=== PATIENT | female | born 1945 | race Caucasian/White ===

== ENCOUNTER → 2018-05-23 11:58 | Outpatient (CLI) | payer MEDICARE, SELFPAY ==
--- NOTE | 2018-05-23 | DI.MG.S_ITS ---
BILATERAL DIGITAL SCREENING MAMMOGRAM 3D/2D WITH CAD: 05/23/2018 CLINICAL: Routine screening. Family history of breast cancer. Comparison is made to exams dated: 05/13/2017 mammogram, 03/16/2016 mammogram, and 06/04/2014 mammogram - [facility]. The tissue of both breasts is heterogeneously dense. This may lower the sensitivity of mammography. Current study was also evaluated with a Computer Aided Detection (CAD) system. No significant masses, calcifications, or other findings are seen in either breast. There has been no significant interval change. IMPRESSION: NEGATIVE There is no mammographic evidence of malignancy. A 1 year screening mammogram is recommended. This exam was interpreted at Station ID: [id number]. NOTE: For mammograms, a report in lay terms will be sent to the patient. Approximately 15% of breast malignancies will not be visualized mammographically. In the management of a palpable breast mass, a negative mammogram must not discourage biopsy of a clinically suspicious lesion. Electronically Signed By: Mike gonzalez/rui:05/23/2018 15:22:19 letter sent: Normal Exam ACR BI-RADS Category 1: Negative [id number]
== END ==
PROVIDERS: PCP Family Medicine; Visit Provider Family Medicine
DX: Z12.31 Encounter for screening mammogram for malignant neoplasm of breast (principal); Z80.3 Family history of malignant neoplasm of breast
CPT/HCPCS: 77063; 77067

== ENCOUNTER 2018-09-06 15:15 | Outpatient (RCR) | payer MEDICARE, SELFPAY ==
--- NOTE | 2018-07-25 18:23 | PT.OIE ---
Current Diagnoses Benign paroxysmal vertigo, right ear (07/25/18) Unspecified abnormalities of gait and mobility (07/25/18) Dizziness and giddiness (07/25/18) Past Medical History (Last Updated 04/04/18 @ 08:29 by Seble Levine) Colon polyp (Chronic ~2003) Hearing loss (Chronic ~194) Osteopenia (Chronic ~2010) Plantar warts (Chronic ~1994) Rosacea (Chronic ~1999) Shoulder pain (Chronic ~2013) Skin cancer (Chronic ~2004) Past Surgical History (Last Updated 04/04/18 @ 08:32 by Seble Levine) Anesthesia (Resolved) Ear problem (Resolved ~1969) Status post breast lumpectomy Status post tonsillectomy and adenoidectomy Provider Visit Care Team Role Provider Type Jus Chand MD Primary Care Provider Physician Specialty: Family Practice Address: [address] [place] [address] Email: [email or web address] Sheldon Mtz MD Attending Provider Physician Specialty: Ear, Nose, Throat Address: [address] [place] [address] Email: Physical Therapy Initial Evaluation PT-OP-A Visit Information Start: 07/25/18 15:42 Freq: Status: Active Protocol: Document 07/25/18 11:15 DCW (Rec: 07/25/18 18:22 DC [id number]) Out-Patient Physical Therapy Visit Information Visit Information Visit Type Initial Evaluation Visit Start Time 11:15 Visit Stop Time 12:00 Total Visit Minutes 45 Visit Number 1 Number of PACKAGE MAKER Visits 0 Evaluation Information Evaluation Date 07/25/18 PT-OP-B Current Condition Start: 07/25/18 15:42 Freq: Status: Active Protocol: Document 07/25/18 11:15 DCW (Rec: 07/25/18 18:22 DC [id number]) Current Condition History of Current Condition Onset Date Four years Current Complaints Imbalance/Light-headedness History of Current Condition Pt is a 73 year old female complaining of a Four year history of motion-induced imbalance/light-headedness. Pt notes that four years ago, she became really dizzy when out camping, reports her world was spinning, and she became nauseous and began vomiting for over 24 hours. Ever since that time, pt reports waxing and waning episodes of a feeling of imbalance and tipsiness lasting a few seconds when she tilts her head down. Pt reports episodes last just a few seconds. Symptoms are present probably 4x/week. 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 Pt denies tinnitus, diplopia, dysarthria, discoordination, or decreased mentation/consciousness. Pt denies hx of HTN, diabetes, arrhythmia, head trauma, seizure, migraines, back/neck problems, CVA, anxiety/panic disorders, depression, or excessive smoking or drinking. 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 PT-OP-C Subjective Start: 07/25/18 15:42 Freq: Status: Active Protocol: Document 07/25/18 11:15 DCW (Rec: 07/25/18 18:22 [facility] [id number]) Patient Questionnaires ABC- Activity Specific Balance Confidence Scale ABC Score 89.38% Dizziness Handicap Inventory DHI Score 24% DHI Functional Impairment 20 to 39% Impaired (Score 20- 39) OP-PT Pain Assessment Pain Assessment Grid Paper Pain Assessment Grid Completed No PT-OP-O Vestibular Start: 07/25/18 15:42 Freq: Status: Active Protocol: Document 07/25/18 11:15 DCW (Rec: 07/25/18 18:22 [facility] [id number]) Vestibular Assessment Screening Tests Vestibular Artery Screen Negative Auditory Tests Kumar Test NT -L deaf Rinne Test NT -L deaf Visual Testing Smooth Pursuits Horizontal Negative Saccades Horizontal Negative Gaze Evoked Nystagmus With Fixation Negative Gaze Evoked Nystagmus Without Fixation Negative Heave Test Positive Left Thrust Head Positive Left Head Shake R beating Positional Testing Dominick-Hallpike Positive Right Negative Left Rolling Test Negative Left Negative Right Supine to Sit Negative Cervical Vertigo Test Negative PT-OP-Q Treatments Start: 07/25/18 15:42 Freq: Status: Active Protocol: Document 07/25/18 11:15 DCW (Rec: 07/25/18 18:22 DCW [id number]) Canalithic Repositioning BPPV Treatment Amry Affected Canal(s) Right Reps x2 PT-OP-T Assessment and Plan Start: 07/25/18 15:42 Freq: Status: Active Protocol: Document 07/25/18 11:15 DCW (Rec: 07/25/18 18:22 DC [id number]) Physical Therapy Assessment Rehab Potential Rehabilitation Potential Good Evaluation Complexity Number of Personal Factors/Comorbidities 1-2 Number of Body Systems Impaired 3 Clinical Presentation at Evaluation Unstable Impairments Impairments Balance Vestibular Goals Two Impairment DHI Short Term Goal (STG) Pt to score 10% onb DHI STG Duration 08/24/18 One Impairment Positional imbalance Short Term Goal (STG) Pt to bend forward with no increase of imbalance STG Duration 08/24/18 Assessment Summary Assessment Pt presents with a somewhat inconclusive vestibular assessment. 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 Her positive right head shake test could indicate a right BPPV, or a left hypofunction, and again, due to her history, is inconclusive. During her right [place]-Hallpike, even with Frenzel lenses, she had a very mild, almost imperceptible, brief nystagmus, which may have been upbeating and torsional, but it was very hard to visualize. Pt was treated with a right Mary maneuver, and further testing appeared to be negative. As her testing was so inconclusive, further testing should be performed during her follow-up appointment, focusing on positional and balance testing. Pt was educated on BPPV, expectations for treatment, possible recurrence, and post-Mary restrictions. Physical Therapy Plan Frequency and Duration Frequency of Treatment 2x/Week Duration of Treatment 2 months Plan of Care Start Date 07/25/18 Plan of Care End Date 09/24/18 Therapeutic Interventions Therapeutic Interventions Balance Training Canalithic Repositioning Vestibular Rehabilitation Next Visit Focus/Plan Next Note Type Treatment Note Next Visit Plan Assessment of Mary maneuver, further balance assessment
--- NOTE | 2018-07-25 18:23 | PT.OPPOC ---
Current Diagnoses Benign paroxysmal vertigo, right ear (07/25/18) Unspecified abnormalities of gait and mobility (07/25/18) Dizziness and giddiness (07/25/18) Provider Visit Care Team Role Provider Type Jus Chand MD Primary Care Provider Physician Specialty: Family Practice Address: [address] [place] [address], [id number] Email: [email or web address] Sheldon Mtz MD Attending Provider Physician Specialty: Ear, Nose, Throat Address: [address] [place] [address], [id number] Email: Plan Of Care PT-OP-T Assessment and Plan Start: 07/25/18 15:42 Freq: Status: Active Protocol: Document 07/25/18 11:15 DCW (Rec: 07/25/18 18:22 DCW [id number]) Physical Therapy Assessment Rehab Potential Rehabilitation Potential Good Evaluation Complexity Number of Personal Factors/Comorbidities 1-2 Number of Body Systems Impaired 3 Clinical Presentation at Evaluation Unstable Impairments Impairments Balance Vestibular Goals Two Impairment DHI Short Term Goal (STG) Pt to score 10% onb DHI STG Duration 08/24/18 One Impairment Positional imbalance Short Term Goal (STG) Pt to bend forward with no increase of imbalance STG Duration 08/24/18 Assessment Summary Assessment Pt presents with a somewhat inconclusive vestibular assessment. 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 Her positive right head shake test could indicate a right BPPV, or a left hypofunction, and again, due to her history, is inconclusive. During her right [place]-Hallpike, even with Frenzel lenses, she had a very mild, almost imperceptible, brief nystagmus, which may have been upbeating and torsional, but it was very hard to visualize. Pt was treated with a right Mary maneuver, and further testing appeared to be negative. As her testing was so inconclusive, further testing should be performed during her follow-up appointment, focusing on positional and balance testing. Pt was educated on BPPV, expectations for treatment, possible recurrence, and post-Mary restrictions. Physical Therapy Plan Frequency and Duration Frequency of Treatment 2x/Week Duration of Treatment 2 months Plan of Care Start Date 07/25/18 Plan of Care End Date 09/24/18 Therapeutic Interventions Therapeutic Interventions Balance Training Canalithic Repositioning Vestibular Rehabilitation Next Visit Focus/Plan Next Note Type Treatment Note Next Visit Plan Assessment of Mary maneuver, further balance assessment Plan of Care Dates Plan of Care Start Date 07/25/18 Plan of Care End Date 09/24/18 Please Sign and Return: I have reviewed this Plan of Care and certify that the skilled therapy services above are required to meet the patient?s needs. Physician Signature Date Printed Name and Credentials Clinical Instructor Signature Printed Name and Credentials
--- NOTE | 2018-08-09 15:46 | PT.OTN ---
Current Diagnoses Dizziness and giddiness (08/09/18) Physical Therapy Treatment Note PT-OP-A Visit Information Start: 07/25/18 15:42 Freq: Status: Active Protocol: Document 08/09/18 14:30 DCW (Rec: 08/09/18 15:46 DCW [id number]) Out-Patient Physical Therapy Visit Information Visit Information Visit Type Treatment Note Visit Start Time 14:30 Visit Stop Time 15:15 Total Visit Minutes 45 Visit Number 2 Number of TANK CAR CLEANER Visits 0 Evaluation Information Evaluation Date 07/25/18 PT-OP-B Current Condition Start: 07/25/18 15:42 Freq: Status: Active Protocol: Document 07/25/18 11:15 DCW (Rec: 07/25/18 18:22 DCW [id number]) Current Condition History of Current Condition Onset Date Four years Current Complaints Imbalance/Light-headedness History of Current Condition Pt is a 73 year old female complaining of a Four year history of motion-induced imbalance/light-headedness. Pt notes that four years ago, she became really dizzy when out camping, reports her world was spinning, and she became nauseous and began vomiting for over 24 hours. Ever since that time, pt reports waxing and waning episodes of a feeling of imbalance and tipsiness lasting a few seconds when she tilts her head down. Pt reports episodes last just a few seconds. Symptoms are present probably 4x/week. 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 Pt denies tinnitus, diplopia, dysarthria, discoordination, or decreased mentation/consciousness. Pt denies hx of HTN, diabetes, arrhythmia, head trauma, seizure, migraines, back/neck problems, CVA, anxiety/panic disorders, depression, or excessive smoking or drinking. 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 PT-OP-D Balance Start: 07/25/18 15:42 Freq: Status: Active Protocol: Document 08/09/18 14:30 DCW (Rec: 08/09/18 15:46 DCW [id number]) Balance Tests CTSIB CTSIB Position 1 Slight Sway CTSIB Position 2 Slight Sway CTSIB Position 3 Slight Sway CTSIB Position 4 Mild Sway CTSIB Position 5 Moderate Sway CTSIB Position 6 Moderate Sway PT-OP-O Vestibular Start: 07/25/18 15:42 Freq: Status: Active Protocol: Document 08/09/18 14:30 DCW (Rec: 08/09/18 15:46 DCW [id number]) Vestibular Assessment Vestibular Function Tests Fukuda Test + Left rotation CTSIB Position 1 Slight Sway CTSIB Position 2 Slight Sway CTSIB Position 3 Slight Sway CTSIB Position 4 Mild Sway CTSIB Position 5 Moderate Sway CTSIB Position 6 Moderate Sway PT-OP-Q Treatments Start: 07/25/18 15:42 Freq: Status: Active Protocol: Document 08/09/18 14:30 DCW (Rec: 08/09/18 15:46 DCW [id number]) Neuro Re-Education Treatment Balance Activities 2 Details SLS 1 Details Narrow OILVE Comments Head turns, eyes closed PT-OP-T Assessment and Plan Start: 07/25/18 15:42 Freq: Status: Active Protocol: Document 08/09/18 14:30 DCW (Rec: 08/09/18 15:46 DCW [id number]) Physical Therapy Assessment Impairments Impairments Balance Vestibular Goals Two Impairment DHI Short Term Goal (STG) Pt to score 10% on DHI STG Duration 08/24/18 One Impairment Positional imbalance Short Term Goal (STG) Pt to bend forward with no increase of imbalance STG Duration 08/24/18 Assessment Summary Assessment Pt testing continues to be inconclusive, although does appear to be suggestive of some vestibular dysfunction, although it may be largely compensated. Pt had the most difficulty during the FGA with ambulating with head turns and ambulating with eyes closed, and reported some lingering sensations of dizziness afterward. Pt will likely benefit from continued habituation and adaptation exercises, and will work on X1 /X2 viewing exercises and balance training next appointment, as well as further positional retesting. Physical Therapy Plan Frequency and Duration Frequency of Treatment 2x/Week Duration of Treatment 2 months Plan of Care Start Date 07/25/18 Plan of Care End Date 09/24/18 Therapeutic Interventions Therapeutic Interventions Balance Training Canalithic Repositioning Vestibular Rehabilitation Next Visit Focus/Plan Next Note Type Treatment Note Next Visit Plan Assessment of Mary maneuver, further balance assessment, X1 /X2 viewing exercises
--- NOTE | 2018-08-09 15:49 | PT.OTN ---
Current Diagnoses Dizziness and giddiness (08/09/18) Physical Therapy Treatment Note PT-OP-A Visit Information Start: 07/25/18 15:42 Freq: Status: Active Protocol: Document 08/09/18 14:30 DCW (Rec: 08/09/18 15:46 DCW [id number]) Out-Patient Physical Therapy Visit Information Visit Information Visit Type Treatment Note Visit Start Time 14:30 Visit Stop Time 15:15 Total Visit Minutes 45 Visit Number 2 Number of BARREL BRIDGE ASSEMBLER Visits 0 Evaluation Information Evaluation Date 07/25/18 PT-OP-B Current Condition Start: 07/25/18 15:42 Freq: Status: Active Protocol: Document 07/25/18 11:15 DCW (Rec: 07/25/18 18:22 DCW [id number]) Current Condition History of Current Condition Onset Date Four years Current Complaints Imbalance/Light-headedness History of Current Condition Pt is a 73 year old female complaining of a Four year history of motion-induced imbalance/light-headedness. Pt notes that four years ago, she became really dizzy when out camping, reports her world was spinning, and she became nauseous and began vomiting for over 24 hours. Ever since that time, pt reports waxing and waning episodes of a feeling of imbalance and tipsiness lasting a few seconds when she tilts her head down. Pt reports episodes last just a few seconds. Symptoms are present probably 4x/week. 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 Pt denies tinnitus, diplopia, dysarthria, discoordination, or decreased mentation/consciousness. Pt denies hx of HTN, diabetes, arrhythmia, head trauma, seizure, migraines, back/neck problems, CVA, anxiety/panic disorders, depression, or excessive smoking or drinking. 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 PT-OP-D Balance Start: 07/25/18 15:42 Freq: Status: Active Protocol: Document 08/09/18 14:30 DCW (Rec: 08/09/18 15:46 DCW [id number]) Balance Tests CTSIB CTSIB Position 1 Slight Sway CTSIB Position 2 Slight Sway CTSIB Position 3 Slight Sway CTSIB Position 4 Mild Sway CTSIB Position 5 Moderate Sway CTSIB Position 6 Moderate Sway PT-OP-E Functional Tests Start: 08/09/18 15:49 Freq: Status: Active Protocol: Document 08/09/18 14:30 DCW (Rec: 08/09/18 15:49 DCW [id number]) Functional Tests Functional Gait Assessment Score 24/30 Functional Gait Assessment Impairment 20 to <40% Impaired (Score 19- Rating 24) PT-OP-O Vestibular Start: 07/25/18 15:42 Freq: Status: Active Protocol: Document 08/09/18 14:30 DCW (Rec: 08/09/18 15:46 DCW [id number]) Vestibular Assessment Vestibular Function Tests Fukuda Test + Left rotation CTSIB Position 1 Slight Sway CTSIB Position 2 Slight Sway CTSIB Position 3 Slight Sway CTSIB Position 4 Mild Sway CTSIB Position 5 Moderate Sway CTSIB Position 6 Moderate Sway PT-OP-Q Treatments Start: 07/25/18 15:42 Freq: Status: Active Protocol: Document 08/09/18 14:30 DCW (Rec: 08/09/18 15:46 DCW [id number]) Neuro Re-Education Treatment Balance Activities 2 Details SLS 1 Details Narrow OLIVE Comments Head turns, eyes closed PT-OP-T Assessment and Plan Start: 07/25/18 15:42 Freq: Status: Active Protocol: Document 08/09/18 14:30 DCW (Rec: 08/09/18 15:46 DCW [id number]) Physical Therapy Assessment Impairments Impairments Balance Vestibular Goals Two Impairment DHI Short Term Goal (STG) Pt to score 10% on DHI STG Duration 08/24/18 One Impairment Positional imbalance Short Term Goal (STG) Pt to bend forward with no increase of imbalance STG Duration 08/24/18 Assessment Summary Assessment Pt testing continues to be inconclusive, although does appear to be suggestive of some vestibular dysfunction, although it may be largely compensated. Pt had the most difficulty during the FGA with ambulating with head turns and ambulating with eyes closed, and reported some lingering sensations of dizziness afterward. Pt will likely benefit from continued habituation and adaptation exercises, and will work on X1 /X2 viewing exercises and balance training next appointment, as well as further positional retesting. Physical Therapy Plan Frequency and Duration Frequency of Treatment 2x/Week Duration of Treatment 2 months Plan of Care Start Date 07/25/18 Plan of Care End Date 09/24/18 Therapeutic Interventions Therapeutic Interventions Balance Training Canalithic Repositioning Vestibular Rehabilitation Next Visit Focus/Plan Next Note Type Treatment Note Next Visit Plan Assessment of Mary maneuver, further balance assessment, X1 /X2 viewing exercises
--- NOTE | 2018-08-16 14:30 | PT.OTN ---
Current Diagnoses Dizziness and giddiness (08/16/18) Physical Therapy Treatment Note PT-OP-A Visit Information Start: 07/25/18 15:42 Freq: Status: Active Protocol: Document 08/16/18 13:50 DCW (Rec: 08/16/18 14:30 DCW [id number]) Out-Patient Physical Therapy Visit Information Visit Information Visit Type Treatment Note Visit Start Time 13:50 Visit Stop Time 14:30 Total Visit Minutes 40 Visit Number 3 Number of SHOP BLACKSMITH Visits 0 Evaluation Information Evaluation Date 07/25/18 PT-OP-B Current Condition Start: 07/25/18 15:42 Freq: Status: Active Protocol: Document 07/25/18 11:15 DCW (Rec: 07/25/18 18:22 DCW [id number]) Current Condition History of Current Condition Onset Date Four years Current Complaints Imbalance/Light-headedness History of Current Condition Pt is a 73 year old female complaining of a Four year history of motion-induced imbalance/light-headedness. Pt notes that four years ago, she became really dizzy when out camping, reports her world was spinning, and she became nauseous and began vomiting for over 24 hours. Ever since that time, pt reports waxing and waning episodes of a feeling of imbalance and tipsiness lasting a few seconds when she tilts her head down. Pt reports episodes last just a few seconds. Symptoms are present probably 4x/week. 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 Pt denies tinnitus, diplopia, dysarthria, discoordination, or decreased mentation/consciousness. Pt denies hx of HTN, diabetes, arrhythmia, head trauma, seizure, migraines, back/neck problems, CVA, anxiety/panic disorders, depression, or excessive smoking or drinking. 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 PT-OP-C Subjective Start: 07/25/18 15:42 Freq: Status: Active Protocol: Document 08/16/18 13:50 DCW (Rec: 08/16/18 14:30 DCW [id number]) OP-PT Subjective Patient Comments Patient Comments Pt reports she is doing well today PT-OP-D Balance Start: 07/25/18 15:42 Freq: Status: Active Protocol: Document 08/09/18 14:30 DCW (Rec: 08/09/18 15:46 DCW [id number]) Balance Tests CTSIB CTSIB Position 1 Slight Sway CTSIB Position 2 Slight Sway CTSIB Position 3 Slight Sway CTSIB Position 4 Mild Sway CTSIB Position 5 Moderate Sway CTSIB Position 6 Moderate Sway PT-OP-E Functional Tests Start: 08/09/18 15:49 Freq: Status: Active Protocol: Document 08/09/18 14:30 DCW (Rec: 08/09/18 15:49 DCW [id number]) Functional Tests Functional Gait Assessment Score 24/30 Functional Gait Assessment Impairment 20 to <40% Impaired (Score 19- Rating 24) PT-OP-O Vestibular Start: 07/25/18 15:42 Freq: Status: Active Protocol: Document 08/09/18 14:30 DCW (Rec: 08/09/18 15:46 DCW [id number]) Vestibular Assessment Vestibular Function Tests Fukuda Test + Left rotation CTSIB Position 1 Slight Sway CTSIB Position 2 Slight Sway CTSIB Position 3 Slight Sway CTSIB Position 4 Mild Sway CTSIB Position 5 Moderate Sway CTSIB Position 6 Moderate Sway PT-OP-Q Treatments Start: 07/25/18 15:42 Freq: Status: Active Protocol: Document 08/16/18 13:50 DCW (Rec: 08/16/18 14:30 DCW [id number]) Neuro Re-Education Treatment Balance Activities 2 Details SLS 1 Details Narrow OLIVE Comments Head turns, eyes closed Vestibular Rehabilitation Corrective Saccades Distance From Target Arm length Speed as tolerated X2 Viewing Distance From Target Arm length Speed as tolerated X1 Viewing Distance From Target Arm length Speed as tolerated VOR Retraining Distance From Target Arm length Speed as tolerated Self-Care/Home Management Treatment Education Patient Education Fall Risk Home Exercise Program Safety PT-OP-T Assessment and Plan Start: 07/25/18 15:42 Freq: Status: Active Protocol: Document 08/16/18 13:50 DCW (Rec: 08/16/18 14:30 DCW [id number]) Physical Therapy Assessment Impairments Impairments Balance Vestibular Goals Two Impairment DHI Short Term Goal (STG) Pt to score 10% on DHI STG Duration 08/24/18 One Impairment Positional imbalance Short Term Goal (STG) Pt to bend forward with no increase of imbalance STG Duration 08/24/18 Assessment Summary Assessment Pt agreeable to occasional follow-up testing (1x every ~3 weeks), but feels like she will do well wih an appropriate HEP. Physical Therapy Plan Frequency and Duration Frequency of Treatment 2x/Week Duration of Treatment 2 months Plan of Care Start Date 07/25/18 Plan of Care End Date 09/24/18 Therapeutic Interventions Therapeutic Interventions Balance Training Canalithic Repositioning Vestibular Rehabilitation Next Visit Focus/Plan Next Note Type Treatment Note Next Visit Plan Advancement of HEP
--- NOTE | 2018-09-06 15:59 | PT.OTN ---
Current Diagnoses Dizziness and giddiness (09/06/18) Physical Therapy Treatment Note PT-OP-A Visit Information Start: 07/25/18 15:42 Freq: Status: Active Protocol: Document 09/06/18 15:15 DCW (Rec: 09/06/18 15:59 DCW [id number]) Out-Patient Physical Therapy Visit Information Visit Information Visit Type Treatment Note Visit Start Time 15:15 Visit Stop Time 16:00 Total Visit Minutes 45 Visit Number 4 Number of ZINC PLATE GRAINER Visits 0 Evaluation Information Evaluation Date 07/25/18 PT-OP-B Current Condition Start: 07/25/18 15:42 Freq: Status: Active Protocol: Document 07/25/18 11:15 DCW (Rec: 07/25/18 18:22 DCW [id number]) Current Condition History of Current Condition Onset Date Four years Current Complaints Imbalance/Light-headedness History of Current Condition Pt is a 73 year old female complaining of a Four year history of motion-induced imbalance/light-headedness. Pt notes that four years ago, she became really dizzy when out camping, reports her world was spinning, and she became nauseous and began vomiting for over 24 hours. Ever since that time, pt reports waxing and waning episodes of a feeling of imbalance and tipsiness lasting a few seconds when she tilts her head down. Pt reports episodes last just a few seconds. Symptoms are present probably 4x/week. 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 Pt denies tinnitus, diplopia, dysarthria, discoordination, or decreased mentation/consciousness. Pt denies hx of HTN, diabetes, arrhythmia, head trauma, seizure, migraines, back/neck problems, CVA, anxiety/panic disorders, depression, or excessive smoking or drinking. 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 Some of the exercises are getting easier. PT-OP-D Balance Start: 07/25/18 15:42 Freq: Status: Active Protocol: Document 08/09/18 14:30 DCW (Rec: 08/09/18 15:46 DCW [id number]) Balance Tests CTSIB CTSIB Position 1 Slight Sway CTSIB Position 2 Slight Sway CTSIB Position 3 Slight Sway CTSIB Position 4 Mild Sway CTSIB Position 5 Moderate Sway CTSIB Position 6 Moderate Sway PT-OP-E Functional Tests Start: 08/09/18 15:49 Freq: Status: Active Protocol: Document 08/09/18 14:30 DCW (Rec: 08/09/18 15:49 DCW [id number]) Functional Tests Functional Gait Assessment Score 24/30 Functional Gait Assessment Impairment 20 to <40% Impaired (Score 19- Rating 24) PT-OP-O Vestibular Start: 07/25/18 15:42 Freq: Status: Active Protocol: Document 08/09/18 14:30 DCW (Rec: 08/09/18 15:46 DCW [id number]) Vestibular Assessment Vestibular Function Tests Fukuda Test + Left rotation CTSIB Position 1 Slight Sway CTSIB Position 2 Slight Sway CTSIB Position 3 Slight Sway CTSIB Position 4 Mild Sway CTSIB Position 5 Moderate Sway CTSIB Position 6 Moderate Sway PT-OP-Q Treatments Start: 07/25/18 15:42 Freq: Status: Active Protocol: Document 09/06/18 15:15 DCW (Rec: 09/06/18 15:59 DCW [id number]) Neuro Re-Education Treatment Balance Activities Retro walking Details Retro walking Heel-toe ambulation Details Fwd/Retro heel-toe walking Eyes closed ambulation Details EC Gait 2 Details SLS 1 Details Narrow OLIVE Comments Head turns, eyes closed Vestibular Rehabilitation Eyes Closed turns to target Details 360 degree turns Disco Ball Position Standing /c narrow OLIVE PT-OP-T Assessment and Plan Start: 07/25/18 15:42 Freq: Status: Active Protocol: Document 09/06/18 15:15 DCW (Rec: 09/06/18 15:59 DCW [id number]) Physical Therapy Assessment Impairments Impairments Balance Vestibular Goals Two Impairment DHI Short Term Goal (STG) Pt to score 10% on DHI STG Duration 08/24/18 One Impairment Positional imbalance Short Term Goal (STG) Pt to bend forward with no increase of imbalance STG Duration 08/24/18 Assessment Summary Assessment Pt to follow-up again in another three weeks. Pt will be retested at this time, and determine of any of her balance scores have improved. If not, pt may benefit from either a referral to an ENT to perform a VNG, or to a neurologist. Today, pt also reported that she has had occasional tremors for the past few years. Physical Therapy Plan Frequency and Duration Frequency of Treatment 2x/Week Duration of Treatment 2 months Plan of Care Start Date 07/25/18 Plan of Care End Date 09/24/18 Therapeutic Interventions Therapeutic Interventions Balance Training Canalithic Repositioning Vestibular Rehabilitation Next Visit Focus/Plan Next Note Type Treatment Note Next Visit Plan Advancement of HEP
--- NOTE | 2018-09-26 14:54 | PT.OPDS ---
Current Diagnoses Dizziness and giddiness (09/06/18) Provider Visit Care Team Role Provider Type Jus Chand MD Primary Care Provider Physician Specialty: Family Practice Address: [address] [place] [address], [id number] Email: [email or web address] Sheldon Mtz MD Attending Provider Physician Specialty: Ear, Nose, Throat Address: [address] [place] [address], [id number] Email: Visit Number Visit Number 4 Discharge Summary PT-OP-B Current Condition Start: 07/25/18 15:42 Freq: Status: Active Protocol: Document 07/25/18 11:15 DCW (Rec: 07/25/18 18:22 DCW [id number]) Current Condition History of Current Condition Onset Date Four years Current Complaints Imbalance/Light-headedness History of Current Condition Pt is a 73 year old female complaining of a Four year history of motion-induced imbalance/light-headedness. Pt notes that four years ago, she became really dizzy when out camping, reports her world was spinning, and she became nauseous and began vomiting for over 24 hours. Ever since that time, pt reports waxing and waning episodes of a feeling of imbalance and tipsiness lasting a few seconds when she tilts her head down. Pt reports episodes last just a few seconds. Symptoms are present probably 4x/week. 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 Pt denies tinnitus, diplopia, dysarthria, discoordination, or decreased mentation/consciousness. Pt denies hx of HTN, diabetes, arrhythmia, head trauma, seizure, migraines, back/neck problems, CVA, anxiety/panic disorders, depression, or excessive smoking or drinking. 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 PT-OP-D Balance Start: 07/25/18 15:42 Freq: Status: Active Protocol: Document 08/09/18 14:30 DCW (Rec: 08/09/18 15:46 DCW [id number]) Balance Tests CTSIB CTSIB Position 1 Slight Sway CTSIB Position 2 Slight Sway CTSIB Position 3 Slight Sway CTSIB Position 4 Mild Sway CTSIB Position 5 Moderate Sway CTSIB Position 6 Moderate Sway PT-OP-E Functional Tests Start: 08/09/18 15:49 Freq: Status: Active Protocol: Document 08/09/18 14:30 DCW (Rec: 08/09/18 15:49 DCW [id number]) Functional Tests Functional Gait Assessment Score 24/30 Functional Gait Assessment Impairment 20 to <40% Impaired (Score 19- Rating 24) PT-OP-O Vestibular Start: 07/25/18 15:42 Freq: Status: Active Protocol: Document 08/09/18 14:30 DCW (Rec: 08/09/18 15:46 DCW [id number]) Vestibular Assessment Vestibular Function Tests Fukuda Test + Left rotation CTSIB Position 1 Slight Sway CTSIB Position 2 Slight Sway CTSIB Position 3 Slight Sway CTSIB Position 4 Mild Sway CTSIB Position 5 Moderate Sway CTSIB Position 6 Moderate Sway PT-OP-T Assessment and Plan Start: 07/25/18 15:42 Freq: Status: Active Protocol: Document 09/26/18 14:51 DCW (Rec: 09/26/18 14:54 DCW [id number]) Physical Therapy Assessment Impairments Impairments Balance Vestibular Goals Two Impairment DHI Short Term Goal (STG) Pt to score 10% on DHI STG Duration 08/24/18 One Impairment Positional imbalance Short Term Goal (STG) Pt to bend forward with no increase of imbalance STG Duration 08/24/18 Physical Therapy Plan Frequency and Duration Frequency of Treatment 2x/Week Duration of Treatment 2 months Plan of Care Start Date 07/25/18 Plan of Care End Date 09/24/18 Therapeutic Interventions Therapeutic Interventions Balance Training Canalithic Repositioning Vestibular Rehabilitation Discharge Physical Therapy Discharge Reasons Plateau in Progress Discharge Comments Pt arrived at her appointment today (09/26/18), however she and therapist just discussed her current level of function and her ongoing plans. Pt feels as though she has not made any improvement, and vestibular therapy has not changed anything. Therapist and patient agreed to should return to Dr Mtz to determine next step, and pt will be discharged from skilled therapy at this time. Next Visit Focus/Plan Next Note Type Treatment Note Next Visit Plan Advancement of HEP
== END 2019-03-21 16:05 | disposition home or self-care (01) ==
LOC: PHYS 15:15
PROVIDERS: PCP Family Medicine; Visit Provider Otolaryngology
DX: R42 Dizziness and giddiness (principal)
CPT/HCPCS: 95992; 97112; 97162; 97535

== ENCOUNTER → 2019-03-07 07:15 | Outpatient (CLI) | payer MEDICARE, SELFPAY ==
[2019-03-07 08:09] LABS: Alanine Aminotransferase 23 IU/L (9-52); Albumin 4.3 g/dL (3.5-5.0); Albumin Globulin Ratio 1.4 (1.0-2.8); Alkaline Phosphatase 56 U/L (38-126); Aspartate Aminotransferase 31 IU/L (14-36); Bilirubin Total 0.6 mg/dL (0.2-1.3); Blood Urea Nitrogen 24 mg/dL (7-17); Calcium 9.7 mg/dL (8.4-10.2); Carbon Dioxide 31 mmol/L (22-32); Chloride 100 mmol/L (98-107); Cholesterol 194 mg/dL (140-199); Estimated Glomerular Filt Rate 54.7 mL/min (>60); Globulin 3.1 g/dL (1.7-4.1); Glucose 100 mg/dL (80-110); HDL Cholesterol 65 mg/dL (40-60); HEMOLYSIS < 15 (0-50); LDL Cholesterol Calculated 105 mg/dL (<100); Potassium 4.3 mmol/L (3.4-5.1); Sodium 140 mmol/L (137-145); Total Protein 7.4 g/dL (6.3-8.2); Triglycerides 121 mg/dL (35-150)
[2019-03-07 08:15] LABS: Add Manual Diff / Slide Review NO; Basophils Absolute Auto 100 /uL (0-100); Basophils Percent Auto 0.7 % (0-2); Eosinophils Absolute Auto 300 /uL (0-450); Eosinophils Percent Auto 3.2 % (2-4); Hematocrit 46.1 % (36-46); Hemoglobin 15.1 g/dL (12.0-16.0); Lymphocytes Absolute Auto 2400 /uL (1100-4500); Lymphocytes Percent Auto 27.1 % (25-40); Mean Corpuscular HGB Conc 32.8 % (30-36); Mean Corpuscular Hemoglobin 29.8 PG (26-34); Mean Corpuscular Volume 90.7 fL (80-100); Monocytes Absolute Auto 700 /uL (0-900); Monocytes Percent Auto 8.4 % (3-14); Neutrophils Absolute Auto 5300 /uL (1500-7000); Neutrophils Percent Auto 60.6 % (50-75); Platelet Count 335 X10^3/uL (150-400); Red Blood Cell Count 5.08 X10^6/uL (4.0-5.2); Red Cell Distribution Width 13.9 % (11.6-14.8); White Blood Cell Count 8.7 X10^3/uL (4.5-11.0)
[2019-03-07 08:40] LABS: Thyroid Stimulating Hormone 1.65 uIU/mL (0.47-4.68)
== END ==
PROVIDERS: PCP Family Medicine; Visit Provider Family Medicine
DX: E78.5 Hyperlipidemia, unspecified (principal)
CPT/HCPCS: 80053; 80061; 84443; 85025

== ENCOUNTER → 2019-03-26 15:11 | Outpatient (CLI) | payer MEDICARE, SELFPAY ==
--- NOTE | 2019-03-26 15:13 | DI.MRI.S_ITS ---
PROCEDURE: MR HEAD/BRAIN WO CON INDICATIONS: balance difficulties. tremor TECHNIQUE: Non-contrast axial T1 spin echo, axial T2 fast spin echo, sagittal and axial FLAIR, coronal T2 fast spin echo, axial gradient echo, axial diffusion and ADC through the brain. COMPARISON: None. FINDINGS: Image quality: Excellent. CSF spaces: Ventricles appear symmetric in size and shape. Basal cisterns are patent. No extra-axial fluid collections. Brain: No intracranial bleeds or mass effects. There is cerebral volume loss for age. There are periventricular and deep white matter chronic small vessel ischemic changes. Brainstem appears normal. Diffusion-weighted images show no acute ischemic insults. No chronic ischemic insults. Normal intravascular flow voids are present. Skull and face: Calvarial bone marrow is normal in signal. Orbits are normal. Sinuses: Sinuses and mastoids are clear. IMPRESSION: Unremarkable imaging examination for age. Note is made of age-appropriate brain parenchymal volume loss and chronic small vessel ischemic changes. Dictated by: Jaime Johnson M.D. on 03/26/2019 at 16:37 Approved by: Jaime Johnson M.D. on 03/26/2019 at 16:38
== END ==
PROVIDERS: PCP Family Medicine; Visit Provider Family Medicine
DX: R25.1 Tremor, unspecified (principal); R26.89 Other abnormalities of gait and mobility; M85.88 Other specified disorders of bone density and structure, other site; Z78.0 Asymptomatic menopausal state; Z82.62 Family history of osteoporosis
CPT/HCPCS: 70551; 77080

== ENCOUNTER → 2019-06-18 15:20 | Outpatient (CLI) | payer MEDICARE, SELFPAY ==
--- NOTE | 2019-06-18 | DI.MG.S_ITS ---
BILATERAL DIGITAL SCREENING MAMMOGRAM 3D/2D WITH CAD: 06/18/2019 CLINICAL: Routine screening. Family history of breast cancer. Comparison is made to exams dated: 05/23/2018 mammogram, 05/13/2017 mammogram, and 03/16/2016 mammogram - [facility]. The tissue of both breasts is heterogeneously dense. This may lower the sensitivity of mammography. Current study was also evaluated with a Computer Aided Detection (CAD) system. No significant masses, calcifications, or other findings are seen in either breast. There has been no significant interval change. IMPRESSION: NEGATIVE There is no mammographic evidence of malignancy. A 1 year screening mammogram is recommended. This exam was interpreted at Station ID: [id number]. NOTE: For mammograms, a report in lay terms will be sent to the patient. Approximately 15% of breast malignancies will not be visualized mammographically. In the management of a palpable breast mass, a negative mammogram must not discourage biopsy of a clinically suspicious lesion. Electronically Signed By: Nathaniel harvey/rui:06/18/2019 19:32:19 letter sent: Normal Exam ACR BI-RADS Category 1: Negative [id number]
== END ==
PROVIDERS: PCP Family Medicine; Visit Provider Family Medicine
DX: Z12.31 Encounter for screening mammogram for malignant neoplasm of breast (principal); Z80.3 Family history of malignant neoplasm of breast
CPT/HCPCS: 77063; 77067

== ENCOUNTER 2019-09-04 11:31 | Day surgery (SDC) | payer MEDICARE, SELFPAY ==
[2019-09-04 11:55] VITALS: BP 162/76; PULSE 72; RESP 16; TEMP 36.6; O2SAT 100; BMI 24.5
[2019-09-04] MEDS: PROPARACAINE 0.5% OPHTH SOL 2 DROPS EYE-OP (11:55)
[2019-09-04] MEDS: CATARACT EYE COMPOUND (10 DROPS/SYRINGE) 3 DROPS EYE-OP (12:00)
--- NOTE | 2019-09-04 12:17 | PM.PREOP ---
Pre-operative Note Interval Note History & Physical reviewed/Exam performed by Physician: No Changes to H&P: No
--- NOTE | 2019-09-04 12:17 | PM.OP.1 ---
Operative Date/Time/Diagnoses Pre-op diagnosis: Nuclear Cataract Left eye Post-op diagnosis: same Procedure & Clinicians Surgeon: Robin Calderon Anesthesia Type: MAC +/- and Sedation Operative Notes Procedure in detail: Patient brought to the operating suite. Tetracaine drops placed in the left eye. Patient was prepped and draped in sterile manner. Wire lid speculum was placed in the eye. Betadine drops were placed on the eye. This was irrigated. Lidocaine jelly was placed on the eye. A paracentesis port was created with a side-port blade. 0.1 mL 1% preservative free lidocaine was injected into the anterior chamber. The anterior chamber was deepened with viscoelastic. 2.6 mm keratome was used to create a temporal clear corneal incision. Cystotome and Utrata forceps were used to create continuous tear capsulorrhexis. Balanced salt solution was used to hydro dissect the nucleus. The phacoemulsification handpiece was inserted and the nucleus was removed using the stop and chop technique. The irrigation aspiration handpiece was inserted and the remaining cortex was removed. Anterior chamber was deepened with viscoelastic. An Deleon ZCB00 intraocular lens with a power of 19.0 was injected into the capsular bag. Irrigation aspiration handpiece was inserted and the remaining viscoelastic was removed. Incision was hydrated with balanced salt solution and found to be leak free with pressure with Weck-Tiffanie sponges. 0.1 mL Vigamox injected anterior chamber. 0.3 mL Kenalog 10 mg was injected subconjunctivally. Lid speculum was removed. The patient left the operating room in excellent condition. Complications: none Post-operative Condition: stable Disposition: same day surgery
[2019-09-04] MEDS: TRIAMCINOLONE 50 MG/5 ML VIAL INJ (12:33)
[2019-09-04] MEDS: PHENYLEPHRINE/LIDOCAINE VIAL (OR) 0.2 ML EYE-OP (12:33)
[2019-09-04] MEDS: BALANCED SALT IRRIG SOLN NO.2 500 ML, EPINEPHrine 1 MG IRR (12:34)
[2019-09-04] MEDS: LIDOCAINE JELLY 2% 5 ML 1 APPLIC TOP (12:34)
[2019-09-04] MEDS: TETRACAINE 0.5% OPHTH DROPS 4 ML 2 DROPS EYE-OP (12:34)
[2019-09-04] MEDS: MOXIFLOXACIN INJ 5 MG/ML VIAL EYE-OP (12:35)
[2019-09-04] MEDS: CHONDROIDTIN/SOD HYALURONATE 1.05 ML SYRINGE INTRAOCULA (12:35)
[2019-09-04 12:50] VITALS: BP 152/81; PULSE 69; RESP 16; TEMP 36.4; O2SAT 99
== END 2019-09-04 12:57 | disposition home or self-care (01) ==
LOC: OR 11:35
PROVIDERS: Family Provider Family Medicine; PCP Family Medicine; Visit Provider Ophthalmology
PROC: (CPT 66984; principal; 2019-09-04 13:15)
DX: H25.12 Age-related nuclear cataract, left eye (principal)
CPT/HCPCS: 66984; J0171; J2250; J3301

== ENCOUNTER 2019-09-18 12:03 | Day surgery (SDC) | payer MEDICARE, SELFPAY ==
[2019-09-18 12:33] VITALS: BP 152/75; PULSE 71; RESP 16; TEMP 36.9; O2SAT 98; BMI 24.5
[2019-09-18] MEDS: PROPARACAINE 0.5% OPHTH SOL 2 DROPS EYE-OP (12:48)
[2019-09-18] MEDS: CATARACT EYE COMPOUND (10 DROPS/SYRINGE) 3 DROPS EYE-OP (12:50)
--- NOTE | 2019-09-18 13:27 | PM.PREOP ---
Pre-operative Note Interval Note History & Physical reviewed/Exam performed by Physician: No Changes to H&P: No
--- NOTE | 2019-09-18 13:27 | PM.OP.1 ---
Operative Date/Time/Diagnoses Pre-op diagnosis: Nuclear cataract right eye Procedure & Clinicians Procedure: Cataract Surgery Same procedure as scheduled: Yes Surgeon: Robin Calderon Anesthesia Type: MAC +/- and Sedation Operative Notes Procedure in detail: Patient brought to the operating suite. Tetracaine drops placed in the right eye. Patient was prepped and draped in sterile manner. Wire lid speculum was placed in the eye. Betadine drops were placed on the eye. This was irrigated. Lidocaine jelly was placed on the eye. A paracentesis port was created with a side-port blade. 0.1 mL 1% preservative free lidocaine was injected into the anterior chamber. The anterior chamber was deepened with viscoelastic. 2.6 mm keratome was used to create a temporal clear corneal incision. Cystotome and Utrata forceps were used to create continuous tear capsulorrhexis. Balanced salt solution was used to hydro dissect the nucleus. The phacoemulsification handpiece was inserted and the nucleus was removed using the stop and chop technique. The irrigation aspiration handpiece was inserted and the remaining cortex was removed. Anterior chamber was deepened with viscoelastic. An Deleon ZCB00 intraocular lens with a power of 20.0 was injected into the capsular bag. Irrigation aspiration handpiece was inserted and the remaining viscoelastic was removed. Incision was hydrated with balanced salt solution and found to be leak free with pressure with Weck-Tiffanie sponges. 0.1 mL Vigamox injected anterior chamber. 0.3 mL Kenalog 10 mg was injected subconjunctivally. Lid speculum was removed. The patient left the operating room in excellent condition. Complications: none Post-operative Condition: stable Disposition: same day surgery
[2019-09-18] MEDS: TETRACAINE 0.5% OPHTH DROPS 4 ML 2 DROPS EYE-OP (13:44)
[2019-09-18] MEDS: CHONDROIDTIN/SOD HYALURONATE 1.05 ML SYRINGE INTRAOCULA (13:44)
[2019-09-18] MEDS: BALANCED SALT IRRIG SOLN NO.2 500 ML, EPINEPHrine 1 MG IRR (13:44)
[2019-09-18] MEDS: MOXIFLOXACIN INJ 5 MG/ML VIAL EYE-OP (13:45)
[2019-09-18] MEDS: LIDOCAINE JELLY 2% 5 ML 1 APPLIC TOP (13:45)
[2019-09-18] MEDS: PHENYLEPHRINE/LIDOCAINE VIAL (OR) 0.2 ML EYE-OP (13:45)
[2019-09-18] MEDS: TRIAMCINOLONE 50 MG/5 ML VIAL INJ (13:46)
[2019-09-18 14:01] VITALS: BP 131/81; PULSE 83; RESP 15; TEMP 36.1; O2SAT 97
== END 2019-09-18 14:14 | disposition home or self-care (01) ==
PROVIDERS: Family Provider Family Medicine; PCP Family Medicine; Visit Provider Ophthalmology
PROC: (CPT 66984; principal; 2019-09-18 13:45)
DX: H25.11 Age-related nuclear cataract, right eye (principal)
CPT/HCPCS: 66984; J0171; J2250; J3301

== ENCOUNTER → 2020-05-05 07:31 | Outpatient (CLI) | payer MEDICARE, SELFPAY ==
[2020-05-05 10:00] LABS: Add Manual Diff / Slide Review NO; Basophils Absolute Auto 100 /uL (0-100); Basophils Percent Auto 0.8 % (0-2); Eosinophils Absolute Auto 300 /uL (0-450); Eosinophils Percent Auto 3.7 % (2-4); Hematocrit 42.4 % (36-46); Hemoglobin 14.1 g/dL (12.0-16.0); Lymphocytes Absolute Auto 1900 /uL (1100-4500); Lymphocytes Percent Auto 23.7 % (25-40); Mean Corpuscular HGB Conc 33.4 % (30-36); Mean Corpuscular Hemoglobin 30.6 PG (26-34); Mean Corpuscular Volume 91.8 fL (80-100); Monocytes Absolute Auto 700 /uL (0-900); Monocytes Percent Auto 8.8 % (3-14); Neutrophils Absolute Auto 5000 /uL (1500-7000); Platelet Count 337 X10^3/uL (150-400); Red Blood Cell Count 4.62 X10^6/uL (4.0-5.2); Red Cell Distribution Width 13.9 % (11.6-14.8)
[2020-05-05 10:35] LABS: Alanine Aminotransferase 18 IU/L (<35); Albumin 4.2 g/dL (3.5-5.0); Albumin Globulin Ratio 1.8 (1.0-2.8); Alkaline Phosphatase 52 U/L (38-126); Aspartate Aminotransferase 34 IU/L (14-36); BUN Creatinine Ratio 24.7 (6-22); Bilirubin Total 0.4 mg/dL (0.2-1.3); Blood Urea Nitrogen 22 mg/dL (7-17); Calcium 9.9 mg/dL (8.4-10.2); Carbon Dioxide 32 mmol/L (22-32); Chloride 101 mmol/L (98-107); Cholesterol 151 mg/dL (140-199); Estimated Glomerular Filt Rate > 60.0 mL/min (>60); Globulin 2.4 g/dL (1.7-4.1); Glucose 87 mg/dL (80-110); HDL Cholesterol 62 mg/dL (40-60); HEMOLYSIS < 15 (0-50); LDL Cholesterol Calculated 71 mg/dL (<100); Potassium 5.2 mmol/L (3.4-5.1); Sodium 137 mmol/L (137-145); Total Protein 6.6 g/dL (6.3-8.2); Triglycerides 92 mg/dL (35-150)
[2020-05-05 21:56] LABS: Thyroid Stimulating Hormone 1.77 uIU/mL (0.47-4.68)
== END ==
PROVIDERS: Family Provider Family Medicine; PCP Family Medicine; Referring Provider Family Medicine; Visit Provider Family Medicine
DX: Z13.220 Encounter for screening for lipoid disorders (principal); Z00.00 Encounter for general adult medical examination without abnormal findings; Z13.6 Encounter for screening for cardiovascular disorders; R53.83 Other fatigue
CPT/HCPCS: 36415; 80053; 80061; 84443; 85025

== ENCOUNTER 2020-06-20 09:45 | Outpatient (RCR) | payer MEDICARE, SELFPAY ==
--- NOTE | 2020-05-20 08:49 | PT.OIE ---
Current Diagnoses Dizziness and giddiness (05/20/20) Past Medical History (Last Updated 04/04/18 @ 08:29 by Seble Levine) Colon polyp (Chronic ~2003) Hearing loss (Chronic ~194) Osteopenia (Chronic ~2010) Plantar warts (Chronic ~1994) Rosacea (Chronic ~1999) Shoulder pain (Chronic ~2013) Skin cancer (Chronic ~2004) Past Surgical History (Last Updated 04/04/18 @ 08:32 by Seble Levine) Anesthesia (Resolved) Ear problem (Resolved ~1969) Status post breast lumpectomy Status post tonsillectomy and adenoidectomy Visit Care Team Role Provider Type Jus Chand MD Attending Provider Physician Family Provider Primary Care Provider Referring Provider Specialty: Family Practice Address: [address] [place] [address], [facility] Email: [email or web address] Physical Therapy Initial Evaluation PT-OP-A Visit Information Start: 05/19/20 15:26 Freq: Status: Active Protocol: Document 05/20/20 07:25 MB (Rec: 05/20/20 07:50 MB [id number]) Out-Patient Physical Therapy Visit Information Visit Information Visit Type Initial Evaluation Visit Note [employer] Medicare Advantage Visit Start Time 07:30 Visit Stop Time 08:25 Total Visit Minutes 55 Visit Number 1 Evaluation Information Evaluation Date 05/20/20 PT-OP-B Current Condition Start: 05/19/20 15:26 Freq: Status: Active Protocol: Document 05/20/20 07:25 MB (Rec: 05/20/20 07:50 MB [id number]) Current Condition History of Current Condition Onset Date 2014 Current Complaints Staggering and off balance, light-headedness, like being on a boat History of Current Condition In 2014, pt had acute vertigo, N/V for 2 days when in [facility] that resolved Sxs per Dr. 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 Pt states that symptoms come and go. A week ago yesterday was worse. She was reaching up to get liquid soap in a cup and looking up made it worse. Bending down to get laundry in and out of front board stacker increased dizziness and fuzziness. Standing up from bent over feels swooning. Spending a long time looking at the computer doesn't help. Prior Treatments and Tests Vestibular therapy and pt has eye exercises including tracking, corrective saccades, gaze stabilization, standing heel toe and looking right and left and SLS and heel to walking. Pt states that vestibular PT wasn't helping. She didn't do exercises after she d/cd. 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 She occ reaches right hand up under pillow. It is possible that this could contribute to occ hand numbness. Pt thinks that arthritis is a contributor to this. Pt reports foot pain possibly d/t low arches per doctor. She got inserts and will see stretcher drier operator soon. Pt reports that her annual visit with her doctor always reveals dehydration. She drinks 2 cups of coffee a day and 70 oz of water. She has been intentional about drinking more. PT-OP-C Subjective Start: 05/19/20 15:26 Freq: Status: Active Protocol: Document 05/20/20 07:25 MB (Rec: 05/20/20 07:51 MB [id number]) OP-PT Subjective Patient Comments Patient Comments To see if there are some more things she can do now that she had more ENT testing Patient Questionnaires Dizziness Handicap Inventory DHI Score 58 DHI Functional Impairment 40 to 59% Impaired (Score 40- 59) PT-OP-D Balance Start: 05/19/20 15:26 Freq: Status: Active Protocol: Document 05/20/20 07:25 MB (Rec: 05/20/20 08:49 MB [id number]) OP-PT Balance Assessment Sitting Balance Static Sitting Balance Ability Normal Dynamic Sitting Balance Ability Normal Standing Balance Static Standing Balance Ability Normal Dynamic Standing Balance Ability Normal Balance Tests mCTSIB mCTSIB Position 1 Standing Romberg EO no LOB 30 sec mCTSIB Position 2 Standing Romberg EC no LOB 30 sec mCTSIB Position 3 Standing on foam EO no LOB 30 sec mCTSIB Position 4 Standing on foam EC no LOB 30 sec Other Other Balance Tests Performed Romberg on foam no LOB in 30 sec Consider harder balance test such as FGA in future treatments Loving Fall Scale Copyright Permission PT-OP-K Range of Motion Start: 05/19/20 15:26 Freq: Status: Active Protocol: Document 05/20/20 07:25 MB (Rec: 05/20/20 08:49 MB [id number]) Cervical Spine Range of Motion Cervical Spine Active Testing Position Sitting Flexion 40 Extension 22 Rotation Left 40 Rotation Right 56 Lateral Flexion Left 16 Lateral Flexion Right 30 Shoulder Goniometric Range of Motion Shoulder ROM Limitations Comments Shoulder flexion and abduction normal in sitting PT-OP-M Strength Start: 05/19/20 15:26 Freq: Status: Active Protocol: Document 05/20/20 07:25 MB (Rec: 05/20/20 08:49 MB [id number]) Shoulder Strength Shoulder Manual Muscle Testing Left Flexion 5 Normal Right Flexion 5 Normal Elbow/Forearm Strength Elbow and Forearm Manual Muscle Testing Left Flexion (C6) 5 Normal Extension (C7) 5 Normal Right Flexion (C6) 5 Normal Extension (C7) 5 Normal PT-OP-O Vestibular Start: 05/19/20 15:26 Freq: Status: Active Protocol: Document 05/20/20 07:25 MB (Rec: 05/20/20 08:49 MB [id number]) Vestibular Assessment Visual Testing Smooth Pursuits Horizontal Normal Smooth Pursuits Vertical Normal Saccades Horizontal Pt has trouble following commands, no true abnormalities noted Gaze Evoked Nystagmus With Fixation Negative Thrust Head Positive Right Convergence Test WNL Spontaneous Nystagmus Negative Comments Vestibular Comments Deferred Dominick-Hallpike d/t pt denies dizziness with going to lie down and with rolling over in the bed. ENT testing in 2019 was negative for BPPV, assess and treat if suspect this in future treatments. PT-OP-Q Treatments Start: 05/19/20 15:26 Freq: Status: Active Protocol: Document 05/20/20 07:25 MB (Rec: 05/20/20 08:30 MB [id number]) Self-Care/Home Management Treatment Education Other Education Handouts about orthostatic hypotension, what it is, increasing non-caffeinated fluid intake, talking with pharmacist about medications, other mobility suggestions, use of towel roll to assist with sleeping position PT-OP-T Assessment and Plan Start: 05/19/20 15:26 Freq: Status: Active Protocol: Document 05/20/20 07:25 MB (Rec: 05/20/20 08:49 MB [id number]) Physical Therapy Assessment Rehab Potential Rehabilitation Potential Good Evaluation Complexity Number of Personal Factors/Comorbidities 0 Number of Body Systems Impaired 1-2 Clinical Presentation at Evaluation Evolving Impairments Impairments Balance,Posture,ROM,Soft Tissue Mobility,Strength, Vestibular Other Impairments Orthostatic hypotension and VOR hypofunction B Goals 3 Manager Treasury Goal (LTG) Pt will perform progressive HEP including balance, VOR, cervical flexibility and scapular and core strengthening with I to improve sxs by 07/21/2020. LTG Duration 8 weeks Two Custodial Goal (LTG) Pt will present with DHI reflecting no more than low perception of handicap to improve function by 07/21/2020. LTG Duration 8 weeks One Custodial Goal (LTG) Pt will present WNLs on FGA to reflect normal balance by . LTG Duration 8 weeks Assessment Summary Assessment Pt is a 75 y/o female presenting with 5 years of dizziness. Previous PT for vestibular therapy was not helpful. 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 She similarly presents with VOR hypofunction with Head Thrust test today. BPPV testing deferred d/t denies dizziness with lying down and rolling over. She describes symptoms with looking up and moving from bent position to getting up. She presents with positive orthostatic hypotension with systolic and diastolic drop with supine to stand this date. BP and HR in LUE: supine 125/77, 74; standing 108/67, 80; standnig 1' 127/74, 83. This reproduces pt's symptoms and PT provides education on orthostasis, handout, encouragement to drink more non-caffeinated fluids and to follow-up with pharmacist and doctor about findings. She will benefit from further balance and VOR testing. 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 Improving cervical mobility will also help work the VOR and so this will be included in PT course. Her essential tremor is very mild and only noticeable with [id number] testing that is normal. Rapid supination and pronation and over the opposite foot toe taps are also normal. Pt reports foot pain that may be orthopedic in nature. Will also initiate leg strengthening to improve balance. Will monitor any leg pain and weakness in setting of pt taking statin. She will benefit from PT to improve VOR and leg strength, balance and cervical mobility. Barriers include polypharmacy and orthostasis. Physical Therapy Plan Frequency and Duration Frequency of Treatment 2x/Week Duration of Treatment 8 weeks Plan of Care Start Date 05/20/20 Plan of Care End Date 07/21/20 Therapeutic Interventions Therapeutic Interventions Balance Training,Canalithic Repositioning,Coordination Training,Gait Training,Home Exercise Program,Manual Therapy,Neuromuscular Re- education,Patient/Caregiver Education,Self-Care/Home Management,Sensory Integration ,Soft Tissue Mobilization, Taping,Therapeutic Exercises, Vestibular Rehabilitation Modalities Cold Pack/Ice Massage,Electric Stimulation,Hot Packs, Ultrasound Next Visit Focus/Plan Next Note Type Treatment Note Next Visit Plan DVA testing, eye chart exercise
--- NOTE | 2020-05-20 08:49 | PT.OPPOC ---
Physical, Occupational & Speech Therapy At [facility] Current Diagnoses Dizziness and giddiness (05/20/20) Visit Care Team Role Provider Type Jus Chand MD Attending Provider Physician Family Provider Primary Care Provider Referring Provider Specialty: Family Practice Address: [address] [place] [address], [id number] Email: [email or web address] Plan Of Care PT-OP-T Assessment and Plan Start: 05/19/20 15:26 Freq: Status: Active Protocol: Document 05/20/20 07:25 MB (Rec: 05/20/20 08:49 MB [id number]) Physical Therapy Assessment Rehab Potential Rehabilitation Potential Good Evaluation Complexity Number of Personal Factors/Comorbidities 0 Number of Body Systems Impaired 1-2 Clinical Presentation at Evaluation Evolving Impairments Impairments Balance,Posture,ROM,Soft Tissue Mobility,Strength, Vestibular Other Impairments Orthostatic hypotension and VOR hypofunction B Goals 3 Prison Goal (LTG) Pt will perform progressive HEP including balance, VOR, cervical flexibility and scapular and core strengthening with I to improve sxs by 07/21/2020. LTG Duration 8 weeks Two Engineering Instructor Goal (LTG) Pt will present with DHI reflecting no more than low perception of handicap to improve function by 07/21/2020. LTG Duration 8 weeks One Prison Goal (LTG) Pt will present WNLs on FGA to reflect normal balance by . LTG Duration 8 weeks Assessment Summary Assessment Pt is a 75 y/o female presenting with 5 years of dizziness. Previous PT for vestibular therapy was not helpful. 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 She similarly presents with VOR hypofunction with Head Thrust test today. BPPV testing deferred d/t denies dizziness with lying down and rolling over. She describes symptoms with looking up and moving from bent position to getting up. She presents with positive orthostatic hypotension with systolic and diastolic drop with supine to stand this date. BP and HR in LUE: supine 125/77, 74; standing 108/67, 80; standnig 1' 127/74, 83. This reproduces pt's symptoms and PT provides education on orthostasis, handout, encouragement to drink more non-caffeinated fluids and to follow-up with pharmacist and doctor about findings. She will benefit from further balance and VOR testing. 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 Improving cervical mobility will also help work the VOR and so this will be included in PT course. Her essential tremor is very mild and only noticeable with [id number] testing that is normal. Rapid supination and pronation and over the opposite foot toe taps are also normal. Pt reports foot pain that may be orthopedic in nature. Will also initiate leg strengthening to improve balance. Will monitor any leg pain and weakness in setting of pt taking statin. She will benefit from PT to improve VOR and leg strength, balance and cervical mobility. Barriers include polypharmacy and orthostasis. Physical Therapy Plan Frequency and Duration Frequency of Treatment 2x/Week Duration of Treatment 8 weeks Plan of Care Start Date 05/20/20 Plan of Care End Date 07/21/20 Therapeutic Interventions Therapeutic Interventions Balance Training,Canalithic Repositioning,Coordination Training,Gait Training,Home Exercise Program,Manual Therapy,Neuromuscular Re- education,Patient/Caregiver Education,Self-Care/Home Management,Sensory Integration ,Soft Tissue Mobilization, Taping,Therapeutic Exercises, Vestibular Rehabilitation Modalities Cold Pack/Ice Massage,Electric Stimulation,Hot Packs, Ultrasound Next Visit Focus/Plan Next Note Type Treatment Note Next Visit Plan DVA testing, eye chart exercise Plan of Care Dates Plan of Care Start Date 05/20/20 Plan of Care End Date 07/21/20 Electronically Signed by: Ligia Haney, PT 05/20/20 [id number] Please Sign and Return: I have reviewed this Plan of Care and certify that the skilled therapy services above are required to meet the patient?s needs. Physician Signature Date Printed Name and Credentials Clinical Instructor Signature Printed Name and Credentials
--- NOTE | 2020-05-22 08:08 | PT.OTN ---
Current Diagnoses Dizziness and giddiness (05/22/20) Physical Therapy Treatment Note PT-OP-A Visit Information Start: 05/19/20 15:26 Freq: Status: Active Protocol: Document 05/22/20 07:28 MB (Rec: 05/22/20 08:08 MB [id number]) Out-Patient Physical Therapy Visit Information Visit Information Visit Type Treatment Note Visit Note [employer] Medicare Advantage Visit Start Time 07:30 Visit Stop Time 08:08 Total Visit Minutes 38 Visit Number 2 PT-OP-B Current Condition Start: 05/19/20 15:26 Freq: Status: Active Protocol: Document 05/20/20 07:25 MB (Rec: 05/20/20 07:50 MB [id number]) Current Condition History of Current Condition Onset Date 2014 Current Complaints Staggering and off balance, light-headedness, like being on a boat History of Current Condition In 2014, pt had acute vertigo, N/V for 2 days when in [facility] that resolved Sxs per Dr. 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 Pt states that symptoms come and go. A week ago yesterday was worse. She was reaching up to get liquid soap in a cup and looking up made it worse. Bending down to get laundry in and out of front hand or machine paster increased dizziness and fuzziness. Standing up from bent over feels swooning. Spending a long time looking at the computer doesn't help. Prior Treatments and Tests Vestibular therapy and pt has eye exercises including tracking, corrective saccades, gaze stabilization, standing heel toe and looking right and left and SLS and heel to walking. Pt states that vestibular PT wasn't helping. She didn't do exercises after she d/cd. 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 She occ reaches right hand up under pillow. It is possible that this could contribute to occ hand numbness. Pt thinks that arthritis is a contributor to this. Pt reports foot pain possibly d/t low arches per doctor. She got inserts and will see shoe packer soon. Pt reports that her annual visit with her doctor always reveals dehydration. She drinks 2 cups of coffee a day and 70 oz of water. She has been intentional about drinking more. PT-OP-C Subjective Start: 05/19/20 15:26 Freq: Status: Active Protocol: Document 05/22/20 07:28 MB (Rec: 05/22/20 08:08 MB [id number]) OP-PT Subjective Patient Comments Patient Comments Pt states that she talked with her pharmacist and he was not concerned about her medications with regard to orthostasis. He encouraged her to follow-up with her doctor. Her follow-up with Dr. Chand is in about a month. PT-OP-D Balance Start: 05/19/20 15:26 Freq: Status: Active Protocol: Document 05/20/20 07:25 MB (Rec: 05/20/20 08:49 MB [id number]) OP-PT Balance Assessment Sitting Balance Static Sitting Balance Ability Normal Dynamic Sitting Balance Ability Normal Standing Balance Static Standing Balance Ability Normal Dynamic Standing Balance Ability Normal Balance Tests mCTSIB mCTSIB Position 1 Standing Romberg EO no LOB 30 sec mCTSIB Position 2 Standing Romberg EC no LOB 30 sec mCTSIB Position 3 Standing on foam EO no LOB 30 sec mCTSIB Position 4 Standing on foam EC no LOB 30 sec Other Other Balance Tests Performed Romberg on foam no LOB in 30 sec Consider harder balance test such as FGA in future treatments Loving Fall Scale Copyright Permission PT-OP-K Range of Motion Start: 05/19/20 15:26 Freq: Status: Active Protocol: Document 05/20/20 07:25 MB (Rec: 05/20/20 08:49 MB [id number]) Cervical Spine Range of Motion Cervical Spine Active Testing Position Sitting Flexion 40 Extension 22 Rotation Left 40 Rotation Right 56 Lateral Flexion Left 16 Lateral Flexion Right 30 Shoulder Goniometric Range of Motion Shoulder ROM Limitations Comments Shoulder flexion and abduction normal in sitting PT-OP-M Strength Start: 05/19/20 15:26 Freq: Status: Active Protocol: Document 05/20/20 07:25 MB (Rec: 05/20/20 08:49 MB [id number]) Shoulder Strength Shoulder Manual Muscle Testing Left Flexion 5 Normal Right Flexion 5 Normal Elbow/Forearm Strength Elbow and Forearm Manual Muscle Testing Left Flexion (C6) 5 Normal Extension (C7) 5 Normal Right Flexion (C6) 5 Normal Extension (C7) 5 Normal PT-OP-O Vestibular Start: 05/19/20 15:26 Freq: Status: Active Protocol: Document 05/20/20 07:25 MB (Rec: 05/20/20 08:49 MB [id number]) Vestibular Assessment Visual Testing Smooth Pursuits Horizontal Normal Smooth Pursuits Vertical Normal Saccades Horizontal Pt has trouble following commands, no true abnormalities noted Gaze Evoked Nystagmus With Fixation Negative Thrust Head Positive Right Convergence Test WNL Spontaneous Nystagmus Negative Comments Vestibular Comments Deferred Mcarthur-Hallpike d/t pt denies dizziness with going to lie down and with rolling over in the bed. ENT testing in 2019 was negative for BPPV, assess and treat if suspect this in future treatments. PT-OP-Q Treatments Start: 05/19/20 15:26 Freq: Status: Active Protocol: Document 05/22/20 07:28 MB (Rec: 05/22/20 08:08 MB [id number]) Neuro Re-Education Treatment Vestibular Rehabilitation VOR Retraining Comments DVA chart--pt with difficulty with horizontal and vertical head turns, greater with vertical Letter E second line from the bottom, pt requires slowing horizontal movement to 3 sec to move right and left to get letter clearer (and no glasses) Letter E vertical head turns also similar speed, cues not to increase range of movement Self-Care/Home Management Treatment Education Other Education Pt asks about fluid in the inner ear and PT presents anatomy and reviews the vestibular cochlear and brain stem anatomy PT-OP-T Assessment and Plan Start: 05/19/20 15:26 Freq: Status: Active Protocol: Document 05/22/20 07:28 MB (Rec: 05/22/20 08:08 MB [id number]) Physical Therapy Assessment Rehab Potential Rehabilitation Potential Good Evaluation Complexity Number of Personal Factors/Comorbidities 0 Number of Body Systems Impaired 1-2 Clinical Presentation at Evaluation Evolving Impairments Impairments Balance,Posture,ROM,Soft Tissue Mobility,Strength, Vestibular Other Impairments Orthostatic hypotension and VOR hypofunction B Goals [address] Goal (LTG) Pt will perform progressive HEP including balance, VOR, cervical flexibility and scapular and core strengthening with I to improve sxs by 07/21/2020. LTG Duration 8 weeks Two Chcf Goal (LTG) Pt will present with DHI reflecting no more than low perception of handicap to improve function by 07/21/2020. LTG Duration 8 weeks One Chcf Goal (LTG) Pt will present WNLs on FGA to reflect normal balance by . LTG Duration 8 weeks Assessment Summary Assessment Answered questions today and progressed VOR exercises with eye chart and they are very challenging. Shortened treatment so that pt can tolerate long period focusing on these exercises, how to perform and purpose. Progress balance exercises in future treatments. Physical Therapy Plan Frequency and Duration Frequency of Treatment 2x/Week Duration of Treatment 8 weeks Plan of Care Start Date 05/20/20 Plan of Care End Date 07/21/20 Therapeutic Interventions Therapeutic Interventions Balance Training,Canalithic Repositioning,Coordination Training,Gait Training,Home Exercise Program,Manual Therapy,Neuromuscular Re- education,Patient/Caregiver Education,Self-Care/Home Management,Sensory Integration ,Soft Tissue Mobilization, Taping,Therapeutic Exercises, Vestibular Rehabilitation Modalities Cold Pack/Ice Massage,Electric Stimulation,Hot Packs, Ultrasound Next Visit Focus/Plan Next Note Type Treatment Note Next Visit Plan Review exercises for VOR and balance
--- NOTE | 2020-05-27 08:10 | PT.OTN ---
Current Diagnoses Dizziness and giddiness (05/27/20) Physical Therapy Treatment Note PT-OP-A Visit Information Start: 05/19/20 15:26 Freq: Status: Active Protocol: Document 05/27/20 07:31 MB (Rec: 05/27/20 08:09 MB [id number]) Out-Patient Physical Therapy Visit Information Visit Information Visit Type Treatment Note Visit Note [employer] Medicare Advantage Visit Start Time 07:31 Visit Stop Time 08:10 Total Visit Minutes 39 Visit Number 3 PT-OP-B Current Condition Start: 05/19/20 15:26 Freq: Status: Active Protocol: Document 05/20/20 07:25 MB (Rec: 05/20/20 07:50 MB [id number]) Current Condition History of Current Condition Onset Date 2014 Current Complaints Staggering and off balance, light-headedness, like being on a boat History of Current Condition In 2014, pt had acute vertigo, N/V for 2 days when in [facility] that resolved Sxs per Dr. 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 Pt states that symptoms come and go. A week ago yesterday was worse. She was reaching up to get liquid soap in a cup and looking up made it worse. Bending down to get laundry in and out of front logistics loss prevention manager increased dizziness and fuzziness. Standing up from bent over feels swooning. Spending a long time looking at the computer doesn't help. Prior Treatments and Tests Vestibular therapy and pt has eye exercises including tracking, corrective saccades, gaze stabilization, standing heel toe and looking right and left and SLS and heel to walking. Pt states that vestibular PT wasn't helping. She didn't do exercises after she d/cd. 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 She occ reaches right hand up under pillow. It is possible that this could contribute to occ hand numbness. Pt thinks that arthritis is a contributor to this. Pt reports foot pain possibly d/t low arches per doctor. She got inserts and will see junior sales assistant soon. Pt reports that her annual visit with her doctor always reveals dehydration. She drinks 2 cups of coffee a day and 70 oz of water. She has been intentional about drinking more. PT-OP-C Subjective Start: 05/19/20 15:26 Freq: Status: Active Protocol: Document 05/27/20 07:31 MB (Rec: 05/27/20 08:09 MB [id number]) OP-PT Subjective Patient Comments Patient Comments Pt states that she had to place DVA eye chart 7-8 feet away at home d/t vision. Vertical head turns are harder . PT-OP-D Balance Start: 05/19/20 15:26 Freq: Status: Active Protocol: Document 05/20/20 07:25 MB (Rec: 05/20/20 08:49 MB [id number]) OP-PT Balance Assessment Sitting Balance Static Sitting Balance Ability Normal Dynamic Sitting Balance Ability Normal Standing Balance Static Standing Balance Ability Normal Dynamic Standing Balance Ability Normal Balance Tests mCTSIB mCTSIB Position 1 Standing Romberg EO no LOB 30 sec mCTSIB Position 2 Standing Romberg EC no LOB 30 sec mCTSIB Position 3 Standing on foam EO no LOB 30 sec mCTSIB Position 4 Standing on foam EC no LOB 30 sec Other Other Balance Tests Performed Romberg on foam no LOB in 30 sec Consider harder balance test such as FGA in future treatments Loving Fall Scale Copyright Permission PT-OP-K Range of Motion Start: 05/19/20 15:26 Freq: Status: Active Protocol: Document 05/20/20 07:25 MB (Rec: 05/20/20 08:49 MB [id number]) Cervical Spine Range of Motion Cervical Spine Active Testing Position Sitting Flexion 40 Extension 22 Rotation Left 40 Rotation Right 56 Lateral Flexion Left 16 Lateral Flexion Right 30 Shoulder Goniometric Range of Motion Shoulder ROM Limitations Comments Shoulder flexion and abduction normal in sitting PT-OP-M Strength Start: 05/19/20 15:26 Freq: Status: Active Protocol: Document 05/20/20 07:25 MB (Rec: 05/20/20 08:49 MB [id number]) Shoulder Strength Shoulder Manual Muscle Testing Left Flexion 5 Normal Right Flexion 5 Normal Elbow/Forearm Strength Elbow and Forearm Manual Muscle Testing Left Flexion (C6) 5 Normal Extension (C7) 5 Normal Right Flexion (C6) 5 Normal Extension (C7) 5 Normal PT-OP-O Vestibular Start: 05/19/20 15:26 Freq: Status: Active Protocol: Document 05/20/20 07:25 MB (Rec: 05/20/20 08:49 MB [id number]) Vestibular Assessment Visual Testing Smooth Pursuits Horizontal Normal Smooth Pursuits Vertical Normal Saccades Horizontal Pt has trouble following commands, no true abnormalities noted Gaze Evoked Nystagmus With Fixation Negative Thrust Head Positive Right Convergence Test WNL Spontaneous Nystagmus Negative Comments Vestibular Comments Deferred [place]-Hallpike d/t pt denies dizziness with going to lie down and with rolling over in the bed. ENT testing in 2019 was negative for BPPV, assess and treat if suspect this in future treatments. PT-OP-Q Treatments Start: 05/19/20 15:26 Freq: Status: Active Protocol: Document 05/27/20 07:31 MB (Rec: 05/27/20 08:09 MB [id number]) Therapeutic Exercises Sitting Exercises Scapular retraction and chin tuck Comments 10 reps throughout the day, wall Levator scapula stretch Comments B, hold 20 sec, gently Cervical rotations with end range nods Comments B performance Neuro Re-Education Treatment Vestibular Rehabilitation VOR Retraining Comments DVA chart--pt with difficulty with horizontal and vertical head turns, greater with vertical. Pt progressed speed today Letter E second line from the bottom. Progressed to standing, then Romberg with horizontal head turns. Vertical head turns sitting today but then did progress standing and then Romberg. x6 reps up to 1 minute each today PT-OP-T Assessment and Plan Start: 05/19/20 15:26 Freq: Status: Active Protocol: Document 05/27/20 07:31 MB (Rec: 05/27/20 08:09 MB [id number]) Physical Therapy Assessment Rehab Potential Rehabilitation Potential Good Evaluation Complexity Number of Personal Factors/Comorbidities 0 Number of Body Systems Impaired 1-2 Clinical Presentation at Evaluation Evolving Impairments Impairments Balance,Posture,ROM,Soft Tissue Mobility,Strength, Vestibular Other Impairments Orthostatic hypotension and VOR hypofunction B Goals 3 Assisted Goal (LTG) Pt will perform progressive HEP including balance, VOR, cervical flexibility and scapular and core strengthening with I to improve sxs by 07/21/2020. LTG Duration 8 weeks Two Assisted Goal (LTG) Pt will present with DHI reflecting no more than low perception of handicap to improve function by 07/21/2020. LTG Duration 8 weeks One Accounts Payable Professional Goal (LTG) Pt will present WNLs on FGA to reflect normal balance by . LTG Duration 8 weeks Assessment Summary Assessment Pt has progressed with form and speed for VOR exercises. Progressed to standing today to start challenging proprioception and balance. Physical Therapy Plan Frequency and Duration Frequency of Treatment 2x/Week Duration of Treatment 8 weeks Plan of Care Start Date 05/20/20 Plan of Care End Date 07/21/20 Therapeutic Interventions Therapeutic Interventions Balance Training,Canalithic Repositioning,Coordination Training,Gait Training,Home Exercise Program,Manual Therapy,Neuromuscular Re- education,Patient/Caregiver Education,Self-Care/Home Management,Sensory Integration ,Soft Tissue Mobilization, Taping,Therapeutic Exercises, Vestibular Rehabilitation Modalities Cold Pack/Ice Massage,Electric Stimulation,Hot Packs, Ultrasound Next Visit Focus/Plan Next Note Type Treatment Note Next Visit Plan Progress balance and VOR exercises, consider scapular strengthening
--- NOTE | 2020-06-03 08:12 | PT.OTN ---
Current Diagnoses Dizziness and giddiness (06/03/20) Physical Therapy Treatment Note PT-OP-A Visit Information Start: 05/19/20 15:26 Freq: Status: Active Protocol: Document 06/03/20 07:32 MB (Rec: 06/03/20 08:12 MB [id number]) Out-Patient Physical Therapy Visit Information Visit Information Visit Type Treatment Note Visit Note [employer] Medicare Advantage Visit Start Time 07:32 Visit Stop Time 08:12 Total Visit Minutes 40 Visit Number 4 PT-OP-B Current Condition Start: 05/19/20 15:26 Freq: Status: Active Protocol: Document 05/20/20 07:25 MB (Rec: 05/20/20 07:50 MB [id number]) Current Condition History of Current Condition Onset Date 2014 Current Complaints Staggering and off balance, light-headedness, like being on a boat History of Current Condition In 2014, pt had acute vertigo, N/V for 2 days when in [facility] that resolved Sxs per Dr. 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 Pt states that symptoms come and go. A week ago yesterday was worse. She was reaching up to get liquid soap in a cup and looking up made it worse. Bending down to get laundry in and out of front sports marketing coordinator increased dizziness and fuzziness. Standing up from bent over feels swooning. Spending a long time looking at the computer doesn't help. Prior Treatments and Tests Vestibular therapy and pt has eye exercises including tracking, corrective saccades, gaze stabilization, standing heel toe and looking right and left and SLS and heel to walking. Pt states that vestibular PT wasn't helping. She didn't do exercises after she d/cd. 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 She occ reaches right hand up under pillow. It is possible that this could contribute to occ hand numbness. Pt thinks that arthritis is a contributor to this. Pt reports foot pain possibly d/t low arches per doctor. She got inserts and will see coat finisher soon. Pt reports that her annual visit with her doctor always reveals dehydration. She drinks 2 cups of coffee a day and 70 oz of water. She has been intentional about drinking more. PT-OP-C Subjective Start: 05/19/20 15:26 Freq: Status: Active Protocol: Document 06/03/20 07:32 MB (Rec: 06/03/20 08:12 MB [id number]) OP-PT Subjective Patient Comments Patient Comments Pt states that she did pretty well with the exercises despite being in the camper. She is interested in leg strengthening d/t soreness with legs with biking. Her hands also hurt. She felt unstable on the bike. PT-OP-D Balance Start: 05/19/20 15:26 Freq: Status: Active Protocol: Document 05/20/20 07:25 MB (Rec: 05/20/20 08:49 MB [id number]) OP-PT Balance Assessment Sitting Balance Static Sitting Balance Ability Normal Dynamic Sitting Balance Ability Normal Standing Balance Static Standing Balance Ability Normal Dynamic Standing Balance Ability Normal Balance Tests mCTSIB mCTSIB Position 1 Standing Romberg EO no LOB 30 sec mCTSIB Position 2 Standing Romberg EC no LOB 30 sec mCTSIB Position 3 Standing on foam EO no LOB 30 sec mCTSIB Position 4 Standing on foam EC no LOB 30 sec Other Other Balance Tests Performed Romberg on foam no LOB in 30 sec Consider harder balance test such as FGA in future treatments Loving Fall Scale Copyright Permission PT-OP-K Range of Motion Start: 05/19/20 15:26 Freq: Status: Active Protocol: Document 05/20/20 07:25 MB (Rec: 05/20/20 08:49 MB [id number]) Cervical Spine Range of Motion Cervical Spine Active Testing Position Sitting Flexion 40 Extension 22 Rotation Left 40 Rotation Right 56 Lateral Flexion Left 16 Lateral Flexion Right 30 Shoulder Goniometric Range of Motion Shoulder ROM Limitations Comments Shoulder flexion and abduction normal in sitting PT-OP-M Strength Start: 05/19/20 15:26 Freq: Status: Active Protocol: Document 05/20/20 07:25 MB (Rec: 05/20/20 08:49 MB [id number]) Shoulder Strength Shoulder Manual Muscle Testing Left Flexion 5 Normal Right Flexion 5 Normal Elbow/Forearm Strength Elbow and Forearm Manual Muscle Testing Left Flexion (C6) 5 Normal Extension (C7) 5 Normal Right Flexion (C6) 5 Normal Extension (C7) 5 Normal PT-OP-O Vestibular Start: 05/19/20 15:26 Freq: Status: Active Protocol: Document 05/20/20 07:25 MB (Rec: 05/20/20 08:49 MB [id number]) Vestibular Assessment Visual Testing Smooth Pursuits Horizontal Normal Smooth Pursuits Vertical Normal Saccades Horizontal Pt has trouble following commands, no true abnormalities noted Gaze Evoked Nystagmus With Fixation Negative Thrust Head Positive Right Convergence Test WNL Spontaneous Nystagmus Negative Comments Vestibular Comments Deferred Dominick-Hallpike d/t pt denies dizziness with going to lie down and with rolling over in the bed. ENT testing in 2019 was negative for BPPV, assess and treat if suspect this in future treatments. PT-OP-Q Treatments Start: 05/19/20 15:26 Freq: Status: Active Protocol: Document 06/03/20 07:32 MB (Rec: 06/03/20 08:12 MB [id number]) Therapeutic Exercises Sitting Exercises Scapular retraction and chin tuck Comments 10 reps standing, cues for decreasing motion Levator scapula stretch Comments To the right today for left levator Cervical rotations with end range nods Comments B 3 reps with 3 nods each Other Exercises Hamstring stretch sitting Comments Leg in front and APs x20 sec Backwards walking Comments Level 1 band, 6 steps backwards x2 Crab walking Reps/Minutes 6 reps right and left with UE support x4 Comments Crab walking with level 1 band Neuro Re-Education Treatment Vestibular Rehabilitation VOR Retraining Comments DVA chart exercise today standing without chair support in front 60 sec with feet shoulder width apart. Increased sway with narrow OLIVE , chair in front. Pt cannot perform exercise in Romberg d/ t sway, feelings of imbalance. Vertical head turns with chair in front and decreased OLIVE, 60 sec. PT-OP-T Assessment and Plan Start: 05/19/20 15:26 Freq: Status: Active Protocol: Document 06/03/20 07:32 MB (Rec: 06/03/20 08:12 MB [id number]) Physical Therapy Assessment Rehab Potential Rehabilitation Potential Good Evaluation Complexity Number of Personal Factors/Comorbidities 0 Number of Body Systems Impaired 1-2 Clinical Presentation at Evaluation Evolving Impairments Impairments Balance,Posture,ROM,Soft Tissue Mobility,Strength, Vestibular Other Impairments Orthostatic hypotension and VOR hypofunction B Goals 3 Mcc Goal (LTG) Pt will perform progressive HEP including balance, VOR, cervical flexibility and scapular and core strengthening with I to improve sxs by 07/21/2020. LTG Duration 8 weeks Two Digital Recruiter Goal (LTG) Pt will present with DHI reflecting no more than low perception of handicap to improve function by 07/21/2020. LTG Duration 8 weeks One Digital Recruiter Goal (LTG) Pt will present WNLs on FGA to reflect normal balance by . LTG Duration 8 weeks Assessment Summary Assessment Progressed DVA exercises today to narrow OLIVE, not quite to Romberg. Progressed leg strengthening today and ed pt to stop anything that causes pain and to ask pharmacist or doctor about magnesium. Pt takes a statin. Physical Therapy Plan Frequency and Duration Frequency of Treatment 2x/Week Duration of Treatment 8 weeks Plan of Care Start Date 05/20/20 Plan of Care End Date 07/21/20 Therapeutic Interventions Therapeutic Interventions Balance Training,Canalithic Repositioning,Coordination Training,Gait Training,Home Exercise Program,Manual Therapy,Neuromuscular Re- education,Patient/Caregiver Education,Self-Care/Home Management,Sensory Integration ,Soft Tissue Mobilization, Taping,Therapeutic Exercises, Vestibular Rehabilitation Modalities Cold Pack/Ice Massage,Electric Stimulation,Hot Packs, Ultrasound Next Visit Focus/Plan Next Note Type Treatment Note Next Visit Plan Progress balance and VOR exercise by challenging balance, consider scapular strengthening, shoulder ER strengthening for posture
--- NOTE | 2020-06-05 08:06 | PT.OTN ---
Current Diagnoses Dizziness and giddiness (06/05/20) Physical Therapy Treatment Note PT-OP-A Visit Information Start: 05/19/20 15:26 Freq: Status: Active Protocol: Document 06/05/20 07:30 MB (Rec: 06/05/20 08:05 MB [id number]) Out-Patient Physical Therapy Visit Information Visit Information Visit Type Treatment Note Visit Note [facility] Advantage Shortened treatment d/t low pt tolerance. She has multiple orthopedic complaints that are chronic and limit gentle balance and postural progression Visit Start Time 07:32 Visit Stop Time 08:01 Total Visit Minutes 29 Visit Number 5 PT-OP-B Current Condition Start: 05/19/20 15:26 Freq: Status: Active Protocol: Document 05/20/20 07:25 MB (Rec: 05/20/20 07:50 MB [id number]) Current Condition History of Current Condition Onset Date 2014 Current Complaints Staggering and off balance, light-headedness, like being on a boat History of Current Condition In 2014, pt had acute vertigo, N/V for 2 days when in [facility] that resolved Sxs per Dr. Chand's note on are fatigue PMH includes pt on statin, depression, benign essential tremor and pain in both feet Pt denies: falls, neck and THOMAS pain, whiplash injury and hit on the head, visual changes, chiropractor treatment (remote ), anemia, B12 and vitamin D deficiencies Pt reports: ear pressure, sinus/allergy issues, pt reports these are ongoing and uses nasal sprays; left ear surgery 1969 and reports eustachian stopped up, left ear deafness, ringing in right ear, occ trouble swallowing, old neck injury/strain, occ grinding and does not wear night cleaner anymore Pt reports that looking up, putting head back and bending down make symptoms worse. Pt states that symptoms come and go. A week ago yesterday was worse. She was reaching up to get liquid soap in a cup and looking up made it worse. Bending down to get laundry in and out of front card cleaner increased dizziness and fuzziness. Standing up from bent over feels swooning. Spending a long time looking at the computer doesn't help. Prior Treatments and Tests Vestibular therapy and pt has eye exercises including tracking, corrective saccades, gaze stabilization, standing heel toe and looking right and left and SLS and heel to walking. Pt states that vestibular PT wasn't helping. She didn't do exercises after she d/cd. 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 She occ reaches right hand up under pillow. It is possible that this could contribute to occ hand numbness. Pt thinks that arthritis is a contributor to this. Pt reports foot pain possibly d/t low arches per doctor. She got inserts and will see farm management agent soon. Pt reports that her annual visit with her doctor always reveals dehydration. She drinks 2 cups of coffee a day and 70 oz of water. She has been intentional about drinking more. PT-OP-C Subjective Start: 05/19/20 15:26 Freq: Status: Active Protocol: Document 06/05/20 07:30 MB (Rec: 06/05/20 08:05 MB [id number]) OP-PT Subjective Patient Comments Patient Comments Pt reports that she has low sacral/back discomfort since performing standing balance exercises/stepping with band. She has a history of back pain . Pt is having trouble drinking enough water. PT-OP-D Balance Start: 05/19/20 15:26 Freq: Status: Active Protocol: Document 05/20/20 07:25 MB (Rec: 05/20/20 08:49 MB [id number]) OP-PT Balance Assessment Sitting Balance Static Sitting Balance Ability Normal Dynamic Sitting Balance Ability Normal Standing Balance Static Standing Balance Ability Normal Dynamic Standing Balance Ability Normal Balance Tests mCTSIB mCTSIB Position 1 Standing Romberg EO no LOB 30 sec mCTSIB Position 2 Standing Romberg EC no LOB 30 sec mCTSIB Position 3 Standing on foam EO no LOB 30 sec mCTSIB Position 4 Standing on foam EC no LOB 30 sec Other Other Balance Tests Performed Romberg on foam no LOB in 30 sec Consider harder balance test such as FGA in future treatments Loving Fall Scale Copyright Permission PT-OP-K Range of Motion Start: 05/19/20 15:26 Freq: Status: Active Protocol: Document 05/20/20 07:25 MB (Rec: 05/20/20 08:49 MB [id number]) Cervical Spine Range of Motion Cervical Spine Active Testing Position Sitting Flexion 40 Extension 22 Rotation Left 40 Rotation Right 56 Lateral Flexion Left 16 Lateral Flexion Right 30 Shoulder Goniometric Range of Motion Shoulder ROM Limitations Comments Shoulder flexion and abduction normal in sitting PT-OP-M Strength Start: 05/19/20 15:26 Freq: Status: Active Protocol: Document 05/20/20 07:25 MB (Rec: 05/20/20 08:49 MB [id number]) Shoulder Strength Shoulder Manual Muscle Testing Left Flexion 5 Normal Right Flexion 5 Normal Elbow/Forearm Strength Elbow and Forearm Manual Muscle Testing Left Flexion (C6) 5 Normal Extension (C7) 5 Normal Right Flexion (C6) 5 Normal Extension (C7) 5 Normal PT-OP-O Vestibular Start: 05/19/20 15:26 Freq: Status: Active Protocol: Document 05/20/20 07:25 MB (Rec: 05/20/20 08:49 MB [id number]) Vestibular Assessment Visual Testing Smooth Pursuits Horizontal Normal Smooth Pursuits Vertical Normal Saccades Horizontal Pt has trouble following commands, no true abnormalities noted Gaze Evoked Nystagmus With Fixation Negative Thrust Head Positive Right Convergence Test WNL Spontaneous Nystagmus Negative Comments Vestibular Comments Deferred Dominick-Hallpike d/t pt denies dizziness with going to lie down and with rolling over in the bed. ENT testing in 2019 was negative for BPPV, assess and treat if suspect this in future treatments. PT-OP-Q Treatments Start: 05/19/20 15:26 Freq: Status: Active Protocol: Document 06/05/20 07:30 MB (Rec: 06/05/20 08:05 MB [id number]) Therapeutic Exercises Standing Exercises Tandem standing EC Comments Pt reports left calf cramping, which limits exercise Tandem standing Comments Challenging EO B, up to 1 minute Romberg Comments EC and EO 1', mild sway EC and pt reports is challenging Neuro Re-Education Treatment Vestibular Rehabilitation VOR Retraining Comments Romberg today, vertical and horizontal head turns, up to 1 ' both PT-OP-T Assessment and Plan Start: 05/19/20 15:26 Freq: Status: Active Protocol: Document 06/05/20 07:30 MB (Rec: 06/05/20 08:05 MB [id number]) Physical Therapy Assessment Rehab Potential Rehabilitation Potential Good Evaluation Complexity Number of Personal Factors/Comorbidities 0 Number of Body Systems Impaired 1-2 Clinical Presentation at Evaluation Evolving Impairments Impairments Balance,Posture,ROM,Soft Tissue Mobility,Strength, Vestibular Other Impairments Orthostatic hypotension and VOR hypofunction B Goals 3 Lcac Radar Operator/Navigator Goal (LTG) Pt will perform progressive HEP including balance, VOR, cervical flexibility and scapular and core strengthening with I to improve sxs by 07/21/2020. LTG Duration 8 weeks Two Lcac Radar Operator/Navigator Goal (LTG) Pt will present with DHI reflecting no more than low perception of handicap to improve function by 07/21/2020. LTG Duration 8 weeks One Half-Way Goal (LTG) Pt will present WNLs on FGA to reflect normal balance by . LTG Duration 8 weeks Assessment Summary Assessment Pt's chronic back and neck pain are barriers to progressing gentle postural and hip strengthening exercises to help balance. Pt is very sensitive to gentle exercises. She also reports calf cramping with Tandem standing. Pt reports B foot pain and foot changes and that she saw a farm management agent who stated that bones are changing in her left foot. She wears orthotics. Pt would like to try to add leg strengthening exercises back in if she feels like she can do it. Consider this in 1-2 appointments as well as scapular retraction. PT is wary that she might not tolerate well and PT ed pt that PT does not wish to flare up any of her conditions. ? insight to this. Physical Therapy Plan Frequency and Duration Frequency of Treatment 2x/Week Duration of Treatment 8 weeks Plan of Care Start Date 05/20/20 Plan of Care End Date 07/21/20 Therapeutic Interventions Therapeutic Interventions Balance Training,Canalithic Repositioning,Coordination Training,Gait Training,Home Exercise Program,Manual Therapy,Neuromuscular Re- education,Patient/Caregiver Education,Self-Care/Home Management,Sensory Integration ,Soft Tissue Mobilization, Taping,Therapeutic Exercises, Vestibular Rehabilitation Modalities Cold Pack/Ice Massage,Electric Stimulation,Hot Packs, Ultrasound Other Referrals/Consults Referrals/Consults Recommended Consider PT for back pain in the future, foot pain Next Visit Focus/Plan Next Note Type Treatment Note Next Visit Plan Consider scapular strengthening, shoulder ER strengthening for posture, re- add leg strengthening if she can tolerate
--- NOTE | 2020-06-10 09:43 | PT.OTN ---
Current Diagnoses Dizziness and giddiness (06/10/20) Physical Therapy Treatment Note PT-OP-A Visit Information Start: 05/19/20 15:26 Freq: Status: Active Protocol: Document 06/10/20 09:03 MB (Rec: 06/10/20 09:21 MB [id number]) Out-Patient Physical Therapy Visit Information Visit Information Visit Type Treatment Note Visit Note [facility] Medicare Advantage Visit Start Time 09:03 Visit Stop Time 09:41 Total Visit Minutes 38 Visit Number 6 PT-OP-B Current Condition Start: 05/19/20 15:26 Freq: Status: Active Protocol: Document 05/20/20 07:25 MB (Rec: 05/20/20 07:50 MB [id number]) Current Condition History of Current Condition Onset Date 2014 Current Complaints Staggering and off balance, light-headedness, like being on a boat History of Current Condition In 2014, pt had acute vertigo, N/V for 2 days when in [facility] that resolved Sxs per Dr. Chand's note on are fatigue PMH includes pt on statin, depression, benign essential tremor and pain in both feet Pt denies: falls, neck and THOMAS pain, whiplash injury and hit on the head, visual changes, chiropractor treatment (remote ), anemia, B12 and vitamin D deficiencies Pt reports: ear pressure, sinus/allergy issues, pt reports these are ongoing and uses nasal sprays; left ear surgery 1969 and reports eustachian stopped up, left ear deafness, ringing in right ear, occ trouble swallowing, old neck injury/strain, occ grinding and does not wear train announcer anymore Pt reports that looking up, putting head back and bending down make symptoms worse. Pt states that symptoms come and go. A week ago yesterday was worse. She was reaching up to get liquid soap in a cup and looking up made it worse. Bending down to get laundry in and out of front reprographics associate increased dizziness and fuzziness. Standing up from bent over feels swooning. Spending a long time looking at the computer doesn't help. Prior Treatments and Tests Vestibular therapy and pt has eye exercises including tracking, corrective saccades, gaze stabilization, standing heel toe and looking right and left and SLS and heel to walking. Pt states that vestibular PT wasn't helping. She didn't do exercises after she d/cd. 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 She occ reaches right hand up under pillow. It is possible that this could contribute to occ hand numbness. Pt thinks that arthritis is a contributor to this. Pt reports foot pain possibly d/t low arches per doctor. She got inserts and will see pharmacy delivery driver soon. Pt reports that her annual visit with her doctor always reveals dehydration. She drinks 2 cups of coffee a day and 70 oz of water. She has been intentional about drinking more. PT-OP-C Subjective Start: 05/19/20 15:26 Freq: Status: Active Protocol: Document 06/10/20 09:03 MB (Rec: 06/10/20 09:21 MB [id number]) OP-PT Subjective Patient Comments Patient Comments Pt states that she did not have any other soreness next week. She wonders if she could do VOR exercises with shoes off in the morning. PT-OP-D Balance Start: 05/19/20 15:26 Freq: Status: Active Protocol: Document 05/20/20 07:25 MB (Rec: 05/20/20 08:49 MB [id number]) OP-PT Balance Assessment Sitting Balance Static Sitting Balance Ability Normal Dynamic Sitting Balance Ability Normal Standing Balance Static Standing Balance Ability Normal Dynamic Standing Balance Ability Normal Balance Tests mCTSIB mCTSIB Position 1 Standing Romberg EO no LOB 30 sec mCTSIB Position 2 Standing Romberg EC no LOB 30 sec mCTSIB Position 3 Standing on foam EO no LOB 30 sec mCTSIB Position 4 Standing on foam EC no LOB 30 sec Other Other Balance Tests Performed Romberg on foam no LOB in 30 sec Consider harder balance test such as FGA in future treatments Loving Fall Scale Copyright Permission PT-OP-K Range of Motion Start: 05/19/20 15:26 Freq: Status: Active Protocol: Document 05/20/20 07:25 MB (Rec: 05/20/20 08:49 MB [id number]) Cervical Spine Range of Motion Cervical Spine Active Testing Position Sitting Flexion 40 Extension 22 Rotation Left 40 Rotation Right 56 Lateral Flexion Left 16 Lateral Flexion Right 30 Shoulder Goniometric Range of Motion Shoulder ROM Limitations Comments Shoulder flexion and abduction normal in sitting PT-OP-M Strength Start: 05/19/20 15:26 Freq: Status: Active Protocol: Document 05/20/20 07:25 MB (Rec: 05/20/20 08:49 MB [id number]) Shoulder Strength Shoulder Manual Muscle Testing Left Flexion 5 Normal Right Flexion 5 Normal Elbow/Forearm Strength Elbow and Forearm Manual Muscle Testing Left Flexion (C6) 5 Normal Extension (C7) 5 Normal Right Flexion (C6) 5 Normal Extension (C7) 5 Normal PT-OP-O Vestibular Start: 05/19/20 15:26 Freq: Status: Active Protocol: Document 05/20/20 07:25 MB (Rec: 05/20/20 08:49 MB [id number]) Vestibular Assessment Visual Testing Smooth Pursuits Horizontal Normal Smooth Pursuits Vertical Normal Saccades Horizontal Pt has trouble following commands, no true abnormalities noted Gaze Evoked Nystagmus With Fixation Negative Thrust Head Positive Right Convergence Test WNL Spontaneous Nystagmus Negative Comments Vestibular Comments Deferred [place]-Hallpike d/t pt denies dizziness with going to lie down and with rolling over in the bed. ENT testing in 2019 was negative for BPPV, assess and treat if suspect this in future treatments. PT-OP-Q Treatments Start: 05/19/20 15:26 Freq: Status: Active Protocol: Document 06/10/20 09:03 MB (Rec: 06/10/20 09:21 MB [id number]) Therapeutic Exercises Sitting Exercises Levator scapula stretch Comments Re-ed to perform to tolerance and no neck pain Cervical rotations with end range nods Comments 2 reps with cues to perform 10 nods Standing Exercises Tandem standing Comments EO, B up to 1' cues to gently soften knees, core tight, more diff L back Other Exercises Scapular retraction with band, shoulder ER Comments Level 1 band, 10 reps B Hamstring stretch sitting Comments Verbally reviewed today Backwards walking Comments Level 1 band, 6 steps backwards x2 Crab walking Reps/Minutes 6 reps right and left with UE support x4 Comments Crab walking with level 1 band PT-OP-T Assessment and Plan Start: 05/19/20 15:26 Freq: Status: Active Protocol: Document 06/10/20 09:03 MB (Rec: 06/10/20 09:21 MB [id number]) Physical Therapy Assessment Rehab Potential Rehabilitation Potential Good Evaluation Complexity Number of Personal Factors/Comorbidities 0 Number of Body Systems Impaired 1-2 Clinical Presentation at Evaluation Evolving Impairments Impairments Balance,Posture,ROM,Soft Tissue Mobility,Strength, Vestibular Other Impairments Orthostatic hypotension and VOR hypofunction B Goals 3 Usp Goal (LTG) Pt will perform progressive HEP including balance, VOR, cervical flexibility and scapular and core strengthening with I to improve sxs by 07/21/2020. LTG Duration 8 weeks Two Usp Goal (LTG) Pt will present with DHI reflecting no more than low perception of handicap to improve function by 07/21/2020. LTG Duration 8 weeks One Usp Goal (LTG) Pt will present WNLs on FGA to reflect normal balance by . LTG Duration 8 weeks Assessment Summary Assessment Despite previous reports of foot pain and doctor recommending insert, pt is walking barefoot at home and ? receptiveness to wearing footwear. She likes to perform DVA exercises in the morning with shoes off despite balance trouble. Progressed strengthening again today and pt to try at home and stop if pain. Anticipate d/c next treatment date. Physical Therapy Plan Frequency and Duration Frequency of Treatment 2x/Week Duration of Treatment 8 weeks Plan of Care Start Date 05/20/20 Plan of Care End Date 07/21/20 Therapeutic Interventions Therapeutic Interventions Balance Training,Canalithic Repositioning,Coordination Training,Gait Training,Home Exercise Program,Manual Therapy,Neuromuscular Re- education,Patient/Caregiver Education,Self-Care/Home Management,Sensory Integration ,Soft Tissue Mobilization, Taping,Therapeutic Exercises, Vestibular Rehabilitation Modalities Cold Pack/Ice Massage,Electric Stimulation,Hot Packs, Ultrasound Other Referrals/Consults Referrals/Consults Recommended Consider PT for back pain in the future, foot pain Next Visit Focus/Plan Next Note Type Discharge Summary
--- NOTE | 2020-06-20 10:27 | PT.OTN ---
Current Diagnoses Dizziness and giddiness (06/20/20) Physical Therapy Treatment Note PT-OP-A Visit Information Start: 05/19/20 15:26 Freq: Status: Active Protocol: Document 06/20/20 09:48 MB (Rec: 06/20/20 10:27 MB [id number]) Out-Patient Physical Therapy Visit Information Visit Information Visit Type Treatment Note Visit Note [employer] Medicare Advantage Pt has to leave early for another appointment Visit Start Time 09:48 Visit Stop Time 10:21 Total Visit Minutes 33 Visit Number 7 PT-OP-B Current Condition Start: 05/19/20 15:26 Freq: Status: Active Protocol: Document 05/20/20 07:25 MB (Rec: 05/20/20 07:50 MB [id number]) Current Condition History of Current Condition Onset Date 2014 Current Complaints Staggering and off balance, light-headedness, like being on a boat History of Current Condition In 2014, pt had acute vertigo, N/V for 2 days when in [facility] that resolved Sxs per Dr. 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 Pt states that symptoms come and go. A week ago yesterday was worse. She was reaching up to get liquid soap in a cup and looking up made it worse. Bending down to get laundry in and out of front order runner increased dizziness and fuzziness. Standing up from bent over feels swooning. Spending a long time looking at the computer doesn't help. Prior Treatments and Tests Vestibular therapy and pt has eye exercises including tracking, corrective saccades, gaze stabilization, standing heel toe and looking right and left and SLS and heel to walking. Pt states that vestibular PT wasn't helping. She didn't do exercises after she d/cd. 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 She occ reaches right hand up under pillow. It is possible that this could contribute to occ hand numbness. Pt thinks that arthritis is a contributor to this. Pt reports foot pain possibly d/t low arches per doctor. She got inserts and will see flume worker soon. Pt reports that her annual visit with her doctor always reveals dehydration. She drinks 2 cups of coffee a day and 70 oz of water. She has been intentional about drinking more. PT-OP-C Subjective Start: 05/19/20 15:26 Freq: Status: Active Protocol: Document 06/20/20 09:48 MB (Rec: 06/20/20 10:27 MB [id number]) OP-PT Subjective Patient Comments Patient Comments Pt states that she did something to her back. She did exercises with PT on Tuesday and then went camping in back of pick-up truck and had to crawl out of tail gate and then step on step ladder. There was some mud and slippery one day and it was harder to get into the truck. She also kayak and her tailbone hurt. She didn't do exercises for those days. She then did shoulder ER with band and states that her back hurts. She did hip exercises actively with core engaged and that even bothered her. PT-OP-D Balance Start: 05/19/20 15:26 Freq: Status: Active Protocol: Document 05/20/20 07:25 MB (Rec: 05/20/20 08:49 MB [id number]) OP-PT Balance Assessment Sitting Balance Static Sitting Balance Ability Normal Dynamic Sitting Balance Ability Normal Standing Balance Static Standing Balance Ability Normal Dynamic Standing Balance Ability Normal Balance Tests mCTSIB mCTSIB Position 1 Standing Romberg EO no LOB 30 sec mCTSIB Position 2 Standing Romberg EC no LOB 30 sec mCTSIB Position 3 Standing on foam EO no LOB 30 sec mCTSIB Position 4 Standing on foam EC no LOB 30 sec Other Other Balance Tests Performed Romberg on foam no LOB in 30 sec Consider harder balance test such as FGA in future treatments Loving Fall Scale Copyright Permission PT-OP-K Range of Motion Start: 05/19/20 15:26 Freq: Status: Active Protocol: Document 05/20/20 07:25 MB (Rec: 05/20/20 08:49 MB [id number]) Cervical Spine Range of Motion Cervical Spine Active Testing Position Sitting Flexion 40 Extension 22 Rotation Left 40 Rotation Right 56 Lateral Flexion Left 16 Lateral Flexion Right 30 Shoulder Goniometric Range of Motion Shoulder ROM Limitations Comments Shoulder flexion and abduction normal in sitting PT-OP-M Strength Start: 05/19/20 15:26 Freq: Status: Active Protocol: Document 05/20/20 07:25 MB (Rec: 05/20/20 08:49 MB [id number]) Shoulder Strength Shoulder Manual Muscle Testing Left Flexion 5 Normal Right Flexion 5 Normal Elbow/Forearm Strength Elbow and Forearm Manual Muscle Testing Left Flexion (C6) 5 Normal Extension (C7) 5 Normal Right Flexion (C6) 5 Normal Extension (C7) 5 Normal PT-OP-O Vestibular Start: 05/19/20 15:26 Freq: Status: Active Protocol: Document 05/20/20 07:25 MB (Rec: 05/20/20 08:49 MB [id number]) Vestibular Assessment Visual Testing Smooth Pursuits Horizontal Normal Smooth Pursuits Vertical Normal Saccades Horizontal Pt has trouble following commands, no true abnormalities noted Gaze Evoked Nystagmus With Fixation Negative Thrust Head Positive Right Convergence Test WNL Spontaneous Nystagmus Negative Comments Vestibular Comments Deferred Dominick-Hallpike d/t pt denies dizziness with going to lie down and with rolling over in the bed. ENT testing in 2019 was negative for BPPV, assess and treat if suspect this in future treatments. PT-OP-Q Treatments Start: 05/19/20 15:26 Freq: Status: Active Protocol: Document 06/20/20 09:48 MB (Rec: 06/20/20 10:27 MB [id number]) Therapeutic Exercises Other Exercises Reviewed HEP, revised Comments Pt to stop strengthening exericses at this time, con't VOR/balance Neuro Re-Education Treatment Balance Activities 2 Comments FGA score PT-OP-T Assessment and Plan Start: 05/19/20 15:26 Freq: Status: Active Protocol: Document 06/20/20 09:48 MB (Rec: 06/20/20 10:27 MB [id number]) Physical Therapy Assessment Rehab Potential Rehabilitation Potential Good Evaluation Complexity Number of Personal Factors/Comorbidities 0 Number of Body Systems Impaired 1-2 Clinical Presentation at Evaluation Evolving Impairments Impairments Balance,Posture,ROM,Soft Tissue Mobility,Strength, Vestibular Other Impairments Orthostatic hypotension and VOR hypofunction B Goals 3 Content Specialist Goal (LTG) Pt will perform progressive HEP including balance, VOR, cervical flexibility and scapular and core strengthening with I to improve sxs by 07/21/2020. 06/20/2020: Pt reports compliance with exercises, cannot tolerate strengthening exercises. LTG Duration 8 weeks Two Assisted Goal (LTG) Pt will present with DHI reflecting no more than low perception of handicap to improve function by 07/21/2020. 06/20/2020: DHI score is 34/100 LTG Duration 8 weeks One Assisted Goal (LTG) Pt will present WNLs on FGA to reflect normal balance by . 06/20/2020: FGA score is 27/30, WNLs LTG Duration 8 weeks Assessment Summary Assessment Pt has met vestibular HEP and balance goal. Her DHI score is 24 points better. She cannot tolerate gentle LE and postural strengthening d/t reports of pain. Pt has ongoing reports of back pain and PT encourages her to follow-up with Dr. Chand soon and will ask for order for PT . PT ed pt to talk with Dr. Chand about a metabolic component to multi-area pain including B hamstrings, quads, feet in setting of taking a statin and any other underlying issues. D/c vestibular PT. Physical Therapy Plan Therapeutic Interventions Therapeutic Interventions Balance Training,Canalithic Repositioning,Coordination Training,Gait Training,Home Exercise Program,Manual Therapy,Neuromuscular Re- education,Patient/Caregiver Education,Self-Care/Home Management,Sensory Integration ,Soft Tissue Mobilization, Taping,Therapeutic Exercises, Vestibular Rehabilitation Modalities Cold Pack/Ice Massage,Electric Stimulation,Hot Packs, Ultrasound Other Referrals/Consults Referrals/Consults Recommended Consider PT for back pain in the future, foot pain Next Visit Focus/Plan Next Note Type Discharge Summary
== END 2020-06-25 13:56 ==
LOC: PHYS 09:45
PROVIDERS: Family Provider Family Medicine; PCP Family Medicine; Referring Provider Family Medicine; Visit Provider Family Medicine
DX: R42 Dizziness and giddiness (principal)
CPT/HCPCS: 97110; 97112; 97161; 97530; 97535

== ENCOUNTER → 2020-06-20 10:28 | Outpatient (CLI) | payer MEDICARE, SELFPAY ==
--- NOTE | 2020-06-20 | DI.MG.S_ITS ---
BILATERAL DIGITAL SCREENING MAMMOGRAM 3D/2D WITH CAD: 06/20/2020 CLINICAL: Routine screening. Family history of breast cancer. Comparison is made to exams dated: 06/18/2019 mammogram, 05/23/2018 mammogram, 05/13/2017 mammogram, 03/16/2016 mammogram, 06/04/2014 mammogram, and 06/01/2013 mammogram - [facility]. The tissue of both breasts is heterogeneously dense. This may lower the sensitivity of mammography. Current study was also evaluated with a Computer Aided Detection (CAD) system. No significant masses, calcifications, or other findings are seen in either breast. There has been no significant interval change. IMPRESSION: NEGATIVE There is no mammographic evidence of malignancy. A 1 year screening mammogram is recommended. This exam was interpreted at Station ID: [id number]. NOTE: For mammograms, a report in lay terms will be sent to the patient. Approximately 15% of breast malignancies will not be visualized mammographically. In the management of a palpable breast mass, a negative mammogram must not discourage biopsy of a clinically suspicious lesion. Electronically Signed By: Guillaume garcia/rui:06/20/2020 11:37:46 letter sent: Normal Exam ACR BI-RADS Category 1: Negative [id number]
== END ==
PROVIDERS: Family Provider Family Medicine; PCP Family Medicine; Referring Provider Family Medicine; Visit Provider Family Medicine
DX: Z12.31 Encounter for screening mammogram for malignant neoplasm of breast (principal); Z80.3 Family history of malignant neoplasm of breast
CPT/HCPCS: 77063; 77067

== ENCOUNTER → 2020-07-09 12:32 | Outpatient (CLI) | payer MEDICARE, SELFPAY ==
[2020-07-09 15:13] LABS: Magnesium 2.2 mg/dL (1.6-2.3)
[2020-07-09 16:02] LABS: Vitamin B12 940 pg/mL (239-931)
== END ==
PROVIDERS: Family Provider Family Medicine; PCP Family Medicine; Referring Provider Family Medicine; Visit Provider Family Medicine
DX: R53.83 Other fatigue (principal)
CPT/HCPCS: 36415; 82607; 83735

== ENCOUNTER 2020-08-13 15:03 | Emergency (ER) | payer MEDICARE, SELFPAY ==
[2020-08-13 15:14] VITALS: BP 123/57; PULSE 82; RESP 16; TEMP 37.1; O2SAT 98; BMI 23.6
--- NOTE | 2020-08-13 15:27 | PC.NURSE ---
pt is currently being seen by RT for ongoing hx of dizziness
--- NOTE | 2020-08-13 16:24 | ED.FALL ---
HPI - Fall General Chief Complaint: Fall Stated Complaint: thinks twisted right knee, back pain Time Seen by Provider: 08/13/20 15:51 Source: patient Mode of arrival: Wheelchair Limitations: no limitations History of Present Illness HPI Narrative: 75-year-old female here for evaluation of right knee injury and right hip injury. She stated that she sustained the injury when she was getting up off the toilet after having a bowel movement. She states she became very lightheaded. Became sweating. [place] like things went black and she fell. She is unsure if she hit her head she is not on anticoagulation. She has no headache or neck pain. She states that after she fell she thinks she twisted her right knee and also landed on her right hip. She has been ambulatory since the event. She stated that the diarrhea started when she was woken up very early in the morning with abdominal cramping and pain. Has had multiple episodes of diarrhea since then. It is nonbloody. Went to bed last night feeling fine. No recent travel. No recent antibiotics. She called her primary provider today and was told that the passing out episode was most likely ?vagal ?that she was told to come to the emergency department because of her knee pain. At the time of the syncopal episode she stated that she was not having chest pain or shortness of breath. Related Data Home Medications Medication Instructions Recorded Confirmed calcium with Vit D3 1,000 mg PO BID 05/13/20 08/06/20 multivitamin 1 tab PO DAILY 05/13/20 08/06/20 omega-3 fatty acids 1,000 mg 1,000 mg PO DAILY 05/13/20 08/06/20 capsule B Complex 1 tab PO DAILY 08/06/20 Previous Rx's Medication Instructions Recorded azelastine 0.15 % (205.5 mcg) 205.5 mcg INTRANASAL QDAY #2 inh 05/14/20 nasal spray fluticasone propionate 50 2 spray NASAL BEDTIME #9.9 gram 05/14/20 mcg/actuation nasal spray,suspension lovastatin 20 mg tablet 20 mg PO HS #90 tab 05/14/20 citalopram 10 mg tablet 10 mg PO DAILY #90 tab 08/06/20 propranolol 10 mg tablet 10 mg PO BID PRN #60 tab 08/06/20 Allergies Allergy/AdvReac Type Severity Reaction Status Date / Time amoxicillin [AMOXICILLIN] Allergy Mild DIARRHEA Verified 08/06/20 11:37 Sulfa (Sulfonamide Allergy Mild upset Verified 08/06/20 11:37 Antibiotics) stomach Review of Systems Constitutional Constitutional: Denies fever(s), Denies frequent falls and Denies headache(s) Eyes Eyes: Denies loss of vision ENT Ears, Nose, Mouth, and Throat: Denies vertigo, Denies dizziness and Denies headache(s) Cardiovascular Cardiovascular: Denies chest pain, Reports syncope and Denies dyspnea Respiratory Respiratory: Denies cough and Denies dyspnea Gastrointestinal Gastrointestinal: Denies nausea Genitourinary Genitourinary: Denies dysuria Genitourinary: Denies dysuria Musculoskeletal Musculoskeletal: Denies tingling Comments: Right knee pain, right hip pain Integumentary/Breasts Skin/Breast: Denies lesions and Denies rash Neurologic Neurologic: Denies behavioral changes, Denies vertigo, Denies dizziness, Reports syncope, Denies frequent falls, Denies headache(s), Denies loss of vision and Denies tingling Psychiatric Psychiatric: Denies behavioral changes Hematologic/Lymphatic Hematologic/Lymphatic: Denies easy bleeding and Denies easy bruising Allergic/Immunologic Allergic/Immunologic: Denies urticaria Patient History Medical History Colon polyp (Chronic ~2003) Hearing loss (Chronic ~1946) Osteopenia (Chronic ~2010) Plantar warts (Chronic ~1994) Rosacea (Chronic ~1999) Shoulder pain (Chronic ~2013) Skin cancer (Chronic ~2004) Surgical History (Updated 04/04/18 @ 08:32 by Seble Levine) Anesthesia (Resolved) Ear problem (Resolved ~1969) Status post breast lumpectomy Status post tonsillectomy and adenoidectomy Family History (Updated 08/29/14 @ 00:00 by Conversion Provider) Brother Age: 91 Heart disease Hypertension Brother Age: 86 Heart disease Brother Age: 76 Heart disease Father Dementia Sister Age: 88 Hypertension High cholesterol Sister Age: 79 High cholesterol Osteoporosis Mother No problems noted. Social History household members: spouse Smoking Status: Never smoker Smoking Status: Never smoker Substance Use Type: does not use Exam Initial Vital Signs Initial Vital Signs: Vital Signs Temperature 98.7 F 08/13/20 15:14 Pulse Rate 82 08/13/20 15:14 Respiratory Rate 16 08/13/20 15:14 Blood Pressure 123/57 L 08/13/20 15:14 Pulse Oximetry 98 08/13/20 15:14 Const General: cooperative and comfortable Limitations: mental status not altered HENMT Head: normal to inspection and normocephalic Resp Effort & Inspection: normal respiratory effort Auscultation: clear to auscultation bilaterally Cardio Rate: regular rate Rhythm: regular rhythm GI Inspection: non-distended Palpation: soft Back/Spine/Pelvis Thoracic/Lumbar Spine: No paraspinal tenderness, No thoracic spinal tenderness and No lumbar spinal tenderness Skin Lesions: no lesions Rashes: no rashes Neuro General: patient alert, patient awake and patient oriented x3 Cranial Nerves: CN's II-XI intact bilaterally Cognition: normal cognition Speech: speech normal Sensory Exam: no sensory deficits noted Extrem Other: Tenderness to palpation along the medial aspect of the right knee. Patella tendon quadriceps tendon unremarkable. Patient able to do straight leg raise. Hamstring tendons nontender. Nontender along the lateral aspect. Does have tenderness with stressing of the MCL. Also has tenderness with testing of the medial meniscus. Right ankle unremarkable. Patient describes tenderness along the lateral aspect of the right femur and also along her buttock. Is not low back. Internal and external rotation unremarkable. Patient able to flex and extend at the hip with minimal discomfort. Course Orders Ordered: ED Orders 08/13/20 16:24 XR hip w pel if done RT 2V Stat XR knee RT 3V Stat Vital Signs Vital signs: Vital Signs - 8 hr 08/13/20 15:14 08/13/20 17:39 Temperature 98.7 F Pulse Rate 82 69 Respiratory Rate 16 18 Blood Pressure 123/57 L 146/68 H Pulse Oximetry 98 97 MDM - Fall Imaging Data Extremity x-ray #1: Radiologist's Impression: [address] [address] XRay Report Signed Patient: Paulina Funk MMR#: [id number] : 7Acct:[id number] Age/Sex: 75 / FDate of Service: 08/13/20 Loc: ED Accession Number: [id number] Procedure: XR hip w pel if done RT 2V Ordering Provider: Robert Ludwig D.O. PROCEDURE: XR HIP W PEL IF DONE RT 2V INDICATIONS: right hip pain after fall TECHNIQUE: AP pelvis with frogleg lateral view of the right hip. COMPARISON: None. FINDINGS: Bones: No fractures or dislocations. Pelvic ring appears intact. No suspicious bony lesions. Thvo-yo-vulwdpuc degenerative changes are seen in the right hip with joint space narrowing and marginal osteophyte formation. Mild degenerative changes are seen in the left hip. Soft tissues: The visualized bowel gas pattern is normal. No suspicious soft tissue calcifications. IMPRESSION: No acute fracture or dislocation. Jnyp-lk-pdsmiduc degenerative changes in the right hip. Dictated by: Dionisio Tom M.D. on 08/13/2020 at 16:46 Approved by: Dionisio Tom M.D. on 08/13/2020 at 16:47 Extremity x-ray #2: Radiologist's Impression: [place] [address] XRay Report Signed Patient: Paulina Funk [facility]#: [id number] : [id number]:[id number] Age/Sex: 75 / FDate of Service: 08/13/20 Loc: ED Accession Number: [id number] Procedure: XR knee RT 3V Ordering Provider: Robert Ludwig D.O. PROCEDURE: XR KNEE RT 3V INDICATIONS: medial knee pain after fall TECHNIQUE: 3 views of the knee were acquired. COMPARISON: None. FINDINGS: Bones: No acute fractures or dislocations. No suspicious bony lesions. Mild joint space narrowing is seen in all 3 compartments. Soft tissues: No joint effusion. No suspicious soft tissue calcifications. IMPRESSION: No acute osseous abnormality. No joint effusion is seen. Minimal tricompartmental degenerative changes are present Dictated by: Dionisio Tom M.D. on 08/13/2020 at 16:41 Approved by: Dionisio Tom M.D. on 08/13/2020 at 16:43 [facility] Narrative Medical decision making narrative: Has a relatively benign exam. Low suspicion for fractures. X-rays confirm this. We discussed care instructions and return precautions. I feel we can hold on further workup. I do feel that this syncopal episode was a vasovagal given her history and physical exam that she describes. Low suspicion for CVA. We discussed this as well. Discussed return precautions regarding this. Her is at bedside for these discussions. She expressed understanding and agreement. Discharge Plan Departure Patient Disposition: Home Clinical Impression: Contusion of hip, right Qualifiers: Encounter type: initial encounter Qualified Code(s): S70.01XA - Contusion of right hip, initial encounter Knee MCL sprain Qualifiers: Encounter type: initial encounter Laterality: right Qualified Code(s): S83.411A - Sprain of medial collateral ligament of right knee, initial encounter Discharge Date/Time: 08/13/20 17:40 Instructions: How to Use an Elastic Bandage-Knee Sprain, How To Perform RICE (Rest, Ice, Compress, Elevate) Activity Restrictions/Additional Instructions: You have no restrictions on your activities other than avoiding those that make your symptoms worse. Recommend you contact your primary provider for follow-up. Return to the emergency department for any new or worsening symptoms Prescriptions: No Action B Complex 1 tab PO DAILY RF: 0 citalopram 10 mg tablet 10 mg PO DAILY Qty: 90 RF: 5 propranolol 10 mg tablet 10 mg PO BID PRN (Reason: Tremor) Qty: 60 RF: 3 calcium with Vit D3 1,000 mg PO BID RF: 0 multivitamin [Daily Multi-Vitamin] Tablet 1 tab PO DAILY RF: 0 omega-3 fatty acids [Fish Oil Concentrate] 1,000 mg capsule 1,000 mg PO DAILY RF: 0 azelastine 0.15 % (205.5 mcg) spray,non-aerosol 205.5 mcg intranasal QDAY Qty: 2 RF: 9 fluticasone propionate [Flonase Allergy Relief] 50 mcg/actuation spray,suspension 2 spray NASAL BEDTIME Qty: 9.9 RF: 0 lovastatin 20 mg tablet 20 mg PO HS Qty: 90 RF: 3 Hold Instructions: se Referrals: Jus Chand MD [Primary Care Provider] -
[2020-08-13 17:39] VITALS: BP 146/68; PULSE 69; RESP 18; O2SAT 97
== END 2020-08-13 17:40 | disposition home or self-care (01) ==
PROVIDERS: Emergency Provider Emergency Medicine; Family Provider Family Medicine; PCP Family Medicine
DX: S70.01XA Contusion of right hip, initial encounter (principal); S83.411A Sprain of medial collateral ligament of right knee, initial encounter; W19.XXXA Unspecified fall, initial encounter
CPT/HCPCS: 73502; 73562; 99283; 99284

== ENCOUNTER → 2020-08-19 13:05 | Outpatient (CLI) | payer MEDICARE, SELFPAY ==
[2020-08-19 14:40] LABS: Add Manual Diff / Slide Review NO; Basophils Absolute Auto 0 /uL (0-100); Basophils Percent Auto 0.4 % (0-2); Eosinophils Absolute Auto 400 /uL (0-450); Eosinophils Percent Auto 4.8 % (2-4); Hemoglobin 14.3 g/dL (12.0-16.0); Lymphocytes Absolute Auto 1700 /uL (1100-4500); Lymphocytes Percent Auto 19.8 % (25-40); Mean Corpuscular HGB Conc 33.3 % (30-36); Mean Corpuscular Hemoglobin 30.2 PG (26-34); Mean Corpuscular Volume 90.9 fL (80-100); Monocytes Absolute Auto 700 /uL (0-900); Monocytes Percent Auto 8.3 % (3-14); Neutrophils Absolute Auto 5600 /uL (1500-7000); Neutrophils Percent Auto 66.7 % (50-75); Platelet Count 376 X10^3/uL (150-400); Red Blood Cell Count 4.73 X10^6/uL (4.0-5.2); Red Cell Distribution Width 13.8 % (11.6-14.8); White Blood Cell Count 8.4 X10^3/uL (4.5-11.0)
[2020-08-19 14:51] LABS: Alanine Aminotransferase 26 IU/L (<35); Albumin 4.4 g/dL (3.5-5.0); Albumin Globulin Ratio 1.4 (1.0-2.8); Alkaline Phosphatase 64 U/L (38-126); Amylase 105 U/L (30-110); Aspartate Aminotransferase 38 IU/L (14-36); BUN Creatinine Ratio 16.3 (6-22); Bilirubin Total 0.5 mg/dL (0.2-1.3); Blood Urea Nitrogen 15 mg/dL (7-17); Calcium 9.8 mg/dL (8.4-10.2); Carbon Dioxide 31 mmol/L (22-32); Chloride 100 mmol/L (98-107); Cholesterol 217 mg/dL (140-199); Estimated Glomerular Filt Rate 59.8 mL/min (>60); Globulin 3.2 g/dL (1.7-4.1); Glucose 90 mg/dL (80-110); HDL Cholesterol 57 mg/dL (40-60); HEMOLYSIS < 15 (0-50); LDL Cholesterol Calculated 125 mg/dL (<100); Lipase 93 U/L (23-300); Potassium 4.2 mmol/L (3.4-5.1); Sodium 137 mmol/L (137-145); Total Protein 7.6 g/dL (6.3-8.2); Triglycerides 176 mg/dL (35-150)
[2020-08-19 15:59] LABS: Thyroid Stimulating Hormone 1.16 uIU/mL (0.47-4.68)
[2020-08-29 15:29] LABS: Urea Breath Test >18YRS Negative
== END ==
PROVIDERS: Family Provider Family Medicine; PCP Family Medicine; Referring Provider Family Medicine; Visit Provider Family Medicine
DX: R42 Dizziness and giddiness (principal); E78.5 Hyperlipidemia, unspecified
CPT/HCPCS: 36415; 80053; 80061; 82150; 83013; 83690; 84443; 85025

== ENCOUNTER → 2020-09-26 07:42 | Outpatient (CLI) | payer MEDICARE, SELFPAY ==
[2020-09-26 09:48] LABS: Cholesterol 219 mg/dL (140-199); HDL Cholesterol 62 mg/dL (40-60); LDL Cholesterol Calculated 133 mg/dL (<100); Triglycerides 118 mg/dL (35-150)
== END ==
PROVIDERS: Family Provider Family Medicine; PCP Family Medicine; Referring Provider Family Medicine; Visit Provider Family Medicine
DX: E78.5 Hyperlipidemia, unspecified (principal)
CPT/HCPCS: 36415; 80061

== ENCOUNTER 2020-10-21 13:00 | Outpatient (RCR) | payer MEDICARE, SELFPAY ==
--- NOTE | 2020-07-22 13:01 | PT.OIE ---
Current Diagnoses Other chronic pain (07/22/20) Dorsalgia, unspecified (07/22/20) Past Medical History (Last Updated 04/04/18 @ 08:29 by Seble Levine) Colon polyp (Chronic ~2003) Hearing loss (Chronic ~194) Osteopenia (Chronic ~2010) Plantar warts (Chronic ~1994) Rosacea (Chronic ~1999) Shoulder pain (Chronic ~2013) Skin cancer (Chronic ~2004) Past Surgical History (Last Updated 04/04/18 @ 08:32 by Seble Levine) Anesthesia (Resolved) Ear problem (Resolved ~1969) Status post breast lumpectomy Status post tonsillectomy and adenoidectomy Visit Care Team Role Provider Type Jus Chand MD Attending Provider Physician Family Provider Primary Care Provider Referring Provider Specialty: Family Practice Address: [address] [place] [address], [facility] Email: [email or web address] Physical Therapy Initial Evaluation PT-OP-A Visit Information Start: 07/22/20 07:26 Freq: Status: Active Protocol: Document 07/22/20 09:43 MB (Rec: 07/22/20 10:03 MB [id number]) Out-Patient Physical Therapy Visit Information Visit Information Visit Type Initial Evaluation Visit Note [employer] Medicare Advantage Visit Start Time 09:43 Visit Stop Time 10:28 Total Visit Minutes 45 Visit Number 1 Evaluation Information Evaluation Date 07/22/20 PT-OP-B Current Condition Start: 07/22/20 07:26 Freq: Status: Active Protocol: Document 07/22/20 09:43 MB (Rec: 07/22/20 10:03 MB [id number]) Current Condition History of Current Condition Onset Date Since she was 20 y/o (55 years ago) Current Complaints Intermittent pain History of Current Condition Pt had job where she sat a lot when she was 20 y/o and started getting back pain. She was told by a doctor that her facet joints were abnormal. She wore a stiff corset back brace for 3 years. In her thirties, she had an injury where she landed on her tail bone hard. She was told she had a fracture. Pt presents with long history of back pain. She rates current pain as 3/10 anterior left hip, 2/10 B SI area, 4/10 lumbosacral junction at midline, 1/10 midline (over spine) at upper cervical and upper thoracic spine. PMH: depression, osteopenia, multi-joint pain, PT for dizziness, headaches, hearing problems, jaw pain, neck pain, vision problems. Pt reports her bone density was checked within the last two years. Pt recently stopped her statin. Her B12 is good on recent blood work. Pt con't with foot pain. PT does not have an order for this. She saw a dye feeder in May. She had walk fit inserts with changeable parts. She was using low and medium inserts. She was told to move up to high in left foot and medium in right foot. Pt has worse pain when she first puts shoes on. She likes to walk around in her stocking feet. She had a plantar wart on the bottom of her right great toe. Treatment Goals Patient/Caregiver Goals Pt would like to get stronger so that she can do more. She would like to be more flexible . Prior Functional Status Baseline Function- ADL's Independent Baseline Function- Mobility Independent PT-OP-C Subjective Start: 07/22/20 07:26 Freq: Status: Active Protocol: Document 07/22/20 09:43 MB (Rec: 07/22/20 10:03 MB [id number]) Patient Questionnaires Oswestry Low Back Index Oswestry Score 19 Oswestry Impairment 20 to 39% Impaired (Score 20- 39) PT-OP-J Posture/Palpation/Skin Start: 07/22/20 07:26 Freq: Status: Active Protocol: Document 07/22/20 09:43 MB (Rec: 07/22/20 13:00 MB [id number]) Posture Evaluation Comments Posture Comments Standing posture, socks donned : forward head, rounded shoulders, absent thoracic kyphosis, anterior tilt pelvis , increased lumbar lordosis, right iliac crest 1/4 higher than the left, left midfoot pes planus, left rearfoot over pronation, left tibial torsion. PT-OP-K Range of Motion Start: 07/22/20 07:26 Freq: Status: Active Protocol: Document 07/22/20 09:43 MB (Rec: 07/22/20 13:00 MB [id number]) Lumbar Spine Range of Motion Lumbar Spine Active Comments Standing: pt self-limits forward flexion to two reps. She does not report increased pain but I can feel it. Fingers are 5 from the floor. Pt self-limits standing back extension as well, reports that she feels like she might lose her balance posteriorly. Less reports of pain with extension. With leaning forward, pt shifts weight to her right foot and this causes shift on her spinal alignment with right thoracic spine higher than the left. From assessment today, she appears to have a functional leg length difference in standing with right leg slightly shorter. In hook lying, femurs are equal height. In supine, PT pulls legs and legs are grossly similar length. PT-OP-M Strength Start: 07/22/20 07:26 Freq: Status: Active Protocol: Document 07/22/20 09:43 MB (Rec: 07/22/20 13:00 MB [id number]) Hip Strength Hip Manual Muscle Testing Left Flexion (L2) 5 Normal Abduction 3+ Fair+ Comments Pt reports pain at lateral hip with hip abduction MMT Right Flexion (L2) 5 Normal Abduction 4 Good Comments Pt reports discomfort at right anterior hip with MMT hip flexion Knee Strength Knee Manual Muscle Testing Left Flexion (S2) 5 Normal Extension (L3) 5 Normal Right Flexion (S2) 5 Normal Extension (L3) 5 Normal Ankle/Foot Strength Ankle and Foot Manual Muscle Testing Left Dorsiflexion (L4) 5 Normal Right Dorsiflexion (L4) 5 Normal Toe Strength Toe Manual Muscle Testing Left Great Toe Extension 5 Normal Right Great Toe Extension 5 Normal PT-OP-Q Treatments Start: 07/22/20 07:26 Freq: Status: Active Protocol: Document 07/22/20 09:43 MB (Rec: 07/22/20 13:00 MB [id number]) Self-Care/Home Management Treatment Education Other Education PT ed pt in benefits of performing standing exercises with her shoes on and since dye feeder recommended the lift differences between the two feet, to try wearing these with exercises. Ed pt in PT goals to progress therapy slowly given chronic and multi -joint pain including use of Counterstrain, relaxation techniques, alignment, flexibility and core exercises . PT-OP-T Assessment and Plan Start: 07/22/20 07:26 Freq: Status: Active Protocol: Document 07/22/20 09:43 MB (Rec: 07/22/20 12:34 MB [id number]) Physical Therapy Assessment Rehab Potential Rehabilitation Potential Fair Evaluation Complexity Number of Personal Factors/Comorbidities 1-2 Number of Body Systems Impaired 3 Clinical Presentation at Evaluation Evolving Impairments Impairments Activity Tolerance,Balance, Pain,Posture,Soft Tissue Mobility,Strength Other Impairments Personal factors include history of depression and chronic-like pain in multi- joints (neck, back, hip, feet) . Body systems affected include bone (osteopenia), psychosocial, musculoskeletal, recent history of vestibular problems treated by this PT. Her clinical presentation is evolving given multiple pain sites, ongoing. Goals 3 Low Pressure Firer Goal (LTG) Pt will present with an improved Oswestry LBP score to reflect no more than 15% impairment to reflect less pain with functional activities by 09/21/2020. LTG Duration 8 weeks Two Low Pressure Firer Goal (LTG) Pt will perform progressive HEP with I including pelvic realignment, relaxation, breathing, gentle core and strengthening exercises to improve strength and pain by 09/21/2020. LTG Duration 8 weeks One Low Pressure Firer Goal (LTG) Pt will present with improved B hip abduction strength to 5/ 5 to improve balance and pain by 09/21/2020. LTG Duration 8 weeks Assessment Summary Assessment Pt is a 75 y/o female presenting with pain along her spine at lumbosacral junction , mid cervical and upper thoracic spine, anterior right hip and feet. She recently finished vestibular PT course with this therapist. At that time, PT provided gentle hip strengthening exercises in standing to assist her with balance but pt reported increased pain with the exercises and so stopped. Pt has had chronic pain greater than 55 years and this is a barrier to PT. She reports foot issues and that she has been instructed to wear orthotics but that she likes to go barefoot at home or wear crocks. Despite reports (and PT observes today) of foot changes and pelvic alignment/ functional leg length changes, pt states that she did balance and leg strengthening exercises with shoes off and this may have contributed to pain response. This date, pt presents with hip weakness and increased back discomfort with active lumbar flexion in standing. She denies paresthesias and pain down her legs. She will benefit from PT to address posture, pelvic obliquities, core and LE strength. Anticipate gentle progression including use of Counterstrain for fascial release, relaxation exercises including breathing, progressive flexibility and core and leg strengthening as pt tolerates. Clinical presentation is guarded given history of multi-joint pain. Physical Therapy Plan Frequency and Duration Frequency of Treatment 2x/Week Duration of Treatment 8 weeks Plan of Care Start Date 07/22/20 Plan of Care End Date 09/22/20 Therapeutic Interventions Therapeutic Interventions Aquatic Therapy,Balance Training,Canalithic Repositioning,Gait Training, Home Exercise Program,Joint Mobilizations,Manual Therapy, Neuromuscular Re-education, Patient/Caregiver Education, Self-Care/Home Management,Soft Tissue Mobilization,Taping, Therapeutic Activities, Therapeutic Exercises Modalities Electric Stimulation,Hot Packs ,Infrared Therapy, Iontophoresis Next Visit Focus/Plan Next Note Type Treatment Note Next Visit Plan Consider starting pelvic realignment exercises, diaphragmatic breathing and pelvic drop, Counterstrain.
--- NOTE | 2020-07-22 13:01 | PT.OPPOC ---
Addendum entered and electronically signed by Ligia Haney PT 07/22/20 13:03: Send to Dr. Chand Original Note: Physical, Occupational & Speech Therapy At [facility] Current Diagnoses Other chronic pain (07/22/20) Dorsalgia, unspecified (07/22/20) Visit Care Team Role Provider Type Jus Chand MD Attending Provider Physician Family Provider Primary Care Provider Referring Provider Specialty: Family Practice Address: [address] [place] [address], [facility] Email: [email or web address] Plan Of Care PT-OP-T Assessment and Plan Start: 07/22/20 07:26 Freq: Status: Active Protocol: Document 07/22/20 09:43 MB (Rec: 07/22/20 12:34 MB [id number]) Physical Therapy Assessment Rehab Potential Rehabilitation Potential Fair Evaluation Complexity Number of Personal Factors/Comorbidities 1-2 Number of Body Systems Impaired 3 Clinical Presentation at Evaluation Evolving Impairments Impairments Activity Tolerance,Balance, Pain,Posture,Soft Tissue Mobility,Strength Other Impairments Personal factors include history of depression and chronic-like pain in multi- joints (neck, back, hip, feet) . Body systems affected include bone (osteopenia), psychosocial, musculoskeletal, recent history of vestibular problems treated by this PT. Her clinical presentation is evolving given multiple pain sites, ongoing. Goals 3 Metal Roofing Mechanic Goal (LTG) Pt will present with an improved Oswestry LBP score to reflect no more than 15% impairment to reflect less pain with functional activities by 09/21/2020. LTG Duration 8 weeks Two Mcfp Goal (LTG) Pt will perform progressive HEP with I including pelvic realignment, relaxation, breathing, gentle core and strengthening exercises to improve strength and pain by 09/21/2020. LTG Duration 8 weeks One Mcfp Goal (LTG) Pt will present with improved B hip abduction strength to 5/ 5 to improve balance and pain by 09/21/2020. LTG Duration 8 weeks Assessment Summary Assessment Pt is a 75 y/o female presenting with pain along her spine at lumbosacral junction , mid cervical and upper thoracic spine, anterior right hip and feet. She recently finished vestibular PT course with this therapist. At that time, PT provided gentle hip strengthening exercises in standing to assist her with balance but pt reported increased pain with the exercises and so stopped. Pt has had chronic pain greater than 55 years and this is a barrier to PT. She reports foot issues and that she has been instructed to wear orthotics but that she likes to go barefoot at home or wear crocks. Despite reports (and PT observes today) of foot changes and pelvic alignment/ functional leg length changes, pt states that she did balance and leg strengthening exercises with shoes off and this may have contributed to pain response. This date, pt presents with hip weakness and increased back discomfort with active lumbar flexion in standing. She denies paresthesias and pain down her legs. She will benefit from PT to address posture, pelvic obliquities, core and LE strength. Anticipate gentle progression including use of Counterstrain for fascial release, relaxation exercises including breathing, progressive flexibility and core and leg strengthening as pt tolerates. Clinical presentation is guarded given history of multi-joint pain. Physical Therapy Plan Frequency and Duration Frequency of Treatment 2x/Week Duration of Treatment 8 weeks Plan of Care Start Date 07/22/20 Plan of Care End Date 09/22/20 Therapeutic Interventions Therapeutic Interventions Aquatic Therapy,Balance Training,Canalithic Repositioning,Gait Training, Home Exercise Program,Joint Mobilizations,Manual Therapy, Neuromuscular Re-education, Patient/Caregiver Education, Self-Care/Home Management,Soft Tissue Mobilization,Taping, Therapeutic Activities, Therapeutic Exercises Modalities Electric Stimulation,Hot Packs ,Infrared Therapy, Iontophoresis Next Visit Focus/Plan Next Note Type Treatment Note Next Visit Plan Consider starting pelvic realignment exercises, diaphragmatic breathing and pelvic drop, Counterstrain. Plan of Care Dates Plan of Care Start Date 07/22/20 Plan of Care End Date 09/22/20 Electronically Signed by: Ligia Haney PT 07/22/20 1629 Please Sign and Return: I have reviewed this Plan of Care and certify that the skilled therapy services above are required to meet the patient?s needs. Physician Signature Date Printed Name and Credentials Clinical Instructor Signature Printed Name and Credentials
--- NOTE | 2020-07-28 08:58 | PT.OTN ---
Current Diagnoses Other chronic pain (07/28/20) Dorsalgia, unspecified (07/28/20) Physical Therapy Treatment Note PT-OP-A Visit Information Start: 07/22/20 07:26 Freq: Status: Active Protocol: Document 07/28/20 08:20 MB (Rec: 07/28/20 08:54 MB [id number]) Out-Patient Physical Therapy Visit Information Visit Information Visit Type Treatment Note Visit Start Time 08:20 Visit Stop Time 08:58 Total Visit Minutes 38 Visit Number 2 PT-OP-B Current Condition Start: 07/22/20 07:26 Freq: Status: Active Protocol: Document 07/22/20 09:43 MB (Rec: 07/22/20 10:03 MB [id number]) Current Condition History of Current Condition Onset Date Since she was 20 y/o (55 years ago) Current Complaints Intermittent pain History of Current Condition Pt had job where she sat a lot when she was 20 y/o and started getting back pain. She was told by a doctor that her facet joints were abnormal. She wore a stiff corset back brace for 3 years. In her thirties, she had an injury where she landed on her tail bone hard. She was told she had a fracture. Pt presents with long history of back pain. She rates current pain as 3/10 anterior left hip, 2/10 B SI area, 4/10 lumbosacral junction at midline, 1/10 midline (over spine) at upper cervical and upper thoracic spine. PMH: depression, osteopenia, multi-joint pain, PT for dizziness, headaches, hearing problems, jaw pain, neck pain, vision problems. Pt reports her bone density was checked within the last two years. Pt recently stopped her statin. Her B12 is good on recent blood work. Pt con't with foot pain. PT does not have an order for this. She saw a property field adjuster in May. She had walk fit inserts with changeable parts. She was using low and medium inserts. She was told to move up to high in left foot and medium in right foot. Pt has worse pain when she first puts shoes on. She likes to walk around in her stocking feet. She had a plantar wart on the bottom of her right great toe. Treatment Goals Patient/Caregiver Goals Pt would like to get stronger so that she can do more. She would like to be more flexible . Prior Functional Status Baseline Function- ADL's Independent Baseline Function- Mobility Independent PT-OP-C Subjective Start: 07/22/20 07:26 Freq: Status: Active Protocol: Document 07/28/20 08:20 MB (Rec: 07/28/20 08:54 MB [id number]) OP-PT Subjective Patient Comments Patient Comments I got my flu shot on Tuesday and pt reports that she had a bad response on Tuesday and got really tired, etc. She is much better today. She did not run a fever. PT-OP-J Posture/Palpation/Skin Start: 07/22/20 07:26 Freq: Status: Active Protocol: Document 07/22/20 09:43 MB (Rec: 07/22/20 13:00 MB [id number]) Posture Evaluation Comments Posture Comments Standing posture, socks donned : forward head, rounded shoulders, absent thoracic kyphosis, anterior tilt pelvis , increased lumbar lordosis, right iliac crest 1/4 higher than the left, left midfoot pes planus, left rearfoot over pronation, left tibial torsion. PT-OP-K Range of Motion Start: 07/22/20 07:26 Freq: Status: Active Protocol: Document 07/22/20 09:43 MB (Rec: 07/22/20 13:00 MB [id number]) Lumbar Spine Range of Motion Lumbar Spine Active Comments Standing: pt self-limits forward flexion to two reps. She does not report increased pain but I can feel it. Fingers are 5 from the floor. Pt self-limits standing back extension as well, reports that she feels like she might lose her balance posteriorly. Less reports of pain with extension. With leaning forward, pt shifts weight to her right foot and this causes shift on her spinal alignment with right thoracic spine higher than the left. From assessment today, she appears to have a functional leg length difference in standing with right leg slightly shorter. In hook lying, femurs are equal height. In supine, PT pulls legs and legs are grossly similar length. PT-OP-M Strength Start: 07/22/20 07:26 Freq: Status: Active Protocol: Document 07/22/20 09:43 MB (Rec: 07/22/20 13:00 MB [id number]) Hip Strength Hip Manual Muscle Testing Left Flexion (L2) 5 Normal Abduction 3+ Fair+ Comments Pt reports pain at lateral hip with hip abduction MMT Right Flexion (L2) 5 Normal Abduction 4 Good Comments Pt reports discomfort at right anterior hip with MMT hip flexion Knee Strength Knee Manual Muscle Testing Left Flexion (S2) 5 Normal Extension (L3) 5 Normal Right Flexion (S2) 5 Normal Extension (L3) 5 Normal Ankle/Foot Strength Ankle and Foot Manual Muscle Testing Left Dorsiflexion (L4) 5 Normal Right Dorsiflexion (L4) 5 Normal Toe Strength Toe Manual Muscle Testing Left Great Toe Extension 5 Normal Right Great Toe Extension 5 Normal PT-OP-Q Treatments Start: 07/22/20 07:26 Freq: Status: Active Protocol: Document 07/28/20 08:20 MB (Rec: 07/28/20 08:54 MB [id number]) Therapeutic Exercises Supine Exercises Hook lying rocking knees side to side Side bilateral Comments 10 reps Pelvic realignment exercises Reps/Minutes 5 reps all exercises, 3 sec hold Diaphragmatic breathing Reps/Minutes 5 reps Comments Supine today with pillow support under knees Manual Therapy Treatment Other Other Manual Treatments Pt agrees to Counterstrain to assess and treat fascial tension and PT treats stacks in the following systems: right ALL cervical, thoracic and lumbar, right ligamentum flavum and left dorsal primary rami, right spinal extension lymphatic venous PT-OP-T Assessment and Plan Start: 07/22/20 07:26 Freq: Status: Active Protocol: Document 07/28/20 08:20 MB (Rec: 07/28/20 08:54 MB [id number]) Physical Therapy Assessment Rehab Potential Rehabilitation Potential Fair Evaluation Complexity Number of Personal Factors/Comorbidities 1-2 Number of Body Systems Impaired 3 Clinical Presentation at Evaluation Evolving Impairments Impairments Activity Tolerance,Balance, Pain,Posture,Soft Tissue Mobility,Strength Other Impairments Personal factors include history of depression and chronic-like pain in multi- joints (neck, back, hip, feet) . Body systems affected include bone (osteopenia), psychosocial, musculoskeletal, recent history of vestibular problems treated by this PT. Her clinical presentation is evolving given multiple pain sites, ongoing. Goals 3 Care Home Goal (LTG) Pt will present with an improved Oswestry LBP score to reflect no more than 15% impairment to reflect less pain with functional activities by 09/21/2020. LTG Duration 8 weeks Two Care Home Goal (LTG) Pt will perform progressive HEP with I including pelvic realignment, relaxation, breathing, gentle core and strengthening exercises to improve strength and pain by 09/21/2020. LTG Duration 8 weeks One Wire Bender Hand Goal (LTG) Pt will present with improved B hip abduction strength to 5/ 5 to improve balance and pain by 09/21/2020. LTG Duration 8 weeks Assessment Summary Assessment Initiated pelvic realignment exercises today to address functional alignment issues. Also initiated diaphragm breathing. Con't to address flexibility and alignment. Pt has good response to treatment , no pain. Physical Therapy Plan Frequency and Duration Frequency of Treatment 2x/Week Duration of Treatment 8 weeks Plan of Care Start Date 07/22/20 Plan of Care End Date 09/22/20 Therapeutic Interventions Therapeutic Interventions Aquatic Therapy,Balance Training,Canalithic Repositioning,Gait Training, Home Exercise Program,Joint Mobilizations,Manual Therapy, Neuromuscular Re-education, Patient/Caregiver Education, Self-Care/Home Management,Soft Tissue Mobilization,Taping, Therapeutic Activities, Therapeutic Exercises Modalities Electric Stimulation,Hot Packs ,Infrared Therapy, Iontophoresis Next Visit Focus/Plan Next Note Type Treatment Note Next Visit Plan Consider progressive pelvic and LBP exercises including pelvic drop, Counterstrain.
--- NOTE | 2020-07-30 08:57 | PT.OTN ---
Current Diagnoses Other chronic pain (07/30/20) Dorsalgia, unspecified (07/30/20) Physical Therapy Treatment Note PT-OP-A Visit Information Start: 07/22/20 07:26 Freq: Status: Active Protocol: Document 07/30/20 08:17 MB (Rec: 07/30/20 08:56 MB [id number]) Out-Patient Physical Therapy Visit Information Visit Information Visit Type Treatment Note Visit Start Time 08:17 Visit Stop Time 08:40 Total Visit Minutes 38 Visit Number 3 PT-OP-B Current Condition Start: 07/22/20 07:26 Freq: Status: Active Protocol: Document 07/22/20 09:43 MB (Rec: 07/22/20 10:03 MB [id number]) Current Condition History of Current Condition Onset Date Since she was 20 y/o (55 years ago) Current Complaints Intermittent pain History of Current Condition Pt had job where she sat a lot when she was 20 y/o and started getting back pain. She was told by a doctor that her facet joints were abnormal. She wore a stiff corset back brace for 3 years. In her thirties, she had an injury where she landed on her tail bone hard. She was told she had a fracture. Pt presents with long history of back pain. She rates current pain as 3/10 anterior left hip, 2/10 B SI area, 4/10 lumbosacral junction at midline, 1/10 midline (over spine) at upper cervical and upper thoracic spine. PMH: depression, osteopenia, multi-joint pain, PT for dizziness, headaches, hearing problems, jaw pain, neck pain, vision problems. Pt reports her bone density was checked within the last two years. Pt recently stopped her statin. Her B12 is good on recent blood work. Pt con't with foot pain. PT does not have an order for this. She saw a inspector of dredging in May. She had walk fit inserts with changeable parts. She was using low and medium inserts. She was told to move up to high in left foot and medium in right foot. Pt has worse pain when she first puts shoes on. She likes to walk around in her stocking feet. She had a plantar wart on the bottom of her right great toe. Treatment Goals Patient/Caregiver Goals Pt would like to get stronger so that she can do more. She would like to be more flexible . Prior Functional Status Baseline Function- ADL's Independent Baseline Function- Mobility Independent PT-OP-C Subjective Start: 07/22/20 07:26 Freq: Status: Active Protocol: Document 07/30/20 08:17 MB (Rec: 07/30/20 08:56 MB [id number]) OP-PT Subjective Patient Comments Patient Comments I did them. When PT asks pt how her exercises went. Her back was sore but it could have been from something else. PT-OP-J Posture/Palpation/Skin Start: 07/22/20 07:26 Freq: Status: Active Protocol: Document 07/22/20 09:43 MB (Rec: 07/22/20 13:00 MB [id number]) Posture Evaluation Comments Posture Comments Standing posture, socks donned : forward head, rounded shoulders, absent thoracic kyphosis, anterior tilt pelvis , increased lumbar lordosis, right iliac crest 1/4 higher than the left, left midfoot pes planus, left rearfoot over pronation, left tibial torsion. PT-OP-K Range of Motion Start: 07/22/20 07:26 Freq: Status: Active Protocol: Document 07/22/20 09:43 MB (Rec: 07/22/20 13:00 MB [id number]) Lumbar Spine Range of Motion Lumbar Spine Active Comments Standing: pt self-limits forward flexion to two reps. She does not report increased pain but I can feel it. Fingers are 5 from the floor. Pt self-limits standing back extension as well, reports that she feels like she might lose her balance posteriorly. Less reports of pain with extension. With leaning forward, pt shifts weight to her right foot and this causes shift on her spinal alignment with right thoracic spine higher than the left. From assessment today, she appears to have a functional leg length difference in standing with right leg slightly shorter. In hook lying, femurs are equal height. In supine, PT pulls legs and legs are grossly similar length. PT-OP-M Strength Start: 07/22/20 07:26 Freq: Status: Active Protocol: Document 07/22/20 09:43 MB (Rec: 07/22/20 13:00 MB [id number]) Hip Strength Hip Manual Muscle Testing Left Flexion (L2) 5 Normal Abduction 3+ Fair+ Comments Pt reports pain at lateral hip with hip abduction MMT Right Flexion (L2) 5 Normal Abduction 4 Good Comments Pt reports discomfort at right anterior hip with MMT hip flexion Knee Strength Knee Manual Muscle Testing Left Flexion (S2) 5 Normal Extension (L3) 5 Normal Right Flexion (S2) 5 Normal Extension (L3) 5 Normal Ankle/Foot Strength Ankle and Foot Manual Muscle Testing Left Dorsiflexion (L4) 5 Normal Right Dorsiflexion (L4) 5 Normal Toe Strength Toe Manual Muscle Testing Left Great Toe Extension 5 Normal Right Great Toe Extension 5 Normal PT-OP-Q Treatments Start: 07/22/20 07:26 Freq: Status: Active Protocol: Document 07/30/20 08:17 MB (Rec: 07/30/20 08:56 MB [id number]) Therapeutic Exercises Supine Exercises Pelvic drop Comments 3 reps practice today Pelvic realignment exercises Reps/Minutes 5 reps all exercises, 3 sec hold Diaphragmatic breathing Reps/Minutes 10 reps Comments Supine and sitting today and ed to put one hand on chest Manual Therapy Treatment Other Other Manual Treatments Positional release B iliopsoas and distal hip flexor, with increased tension on the right PT-OP-T Assessment and Plan Start: 07/22/20 07:26 Freq: Status: Active Protocol: Document 07/30/20 08:17 MB (Rec: 07/30/20 08:56 MB [id number]) Physical Therapy Assessment Rehab Potential Rehabilitation Potential Fair Evaluation Complexity Number of Personal Factors/Comorbidities 1-2 Number of Body Systems Impaired 3 Clinical Presentation at Evaluation Evolving Impairments Impairments Activity Tolerance,Balance, Pain,Posture,Soft Tissue Mobility,Strength Other Impairments Personal factors include history of depression and chronic-like pain in multi- joints (neck, back, hip, feet) . Body systems affected include bone (osteopenia), psychosocial, musculoskeletal, recent history of vestibular problems treated by this PT. Her clinical presentation is evolving given multiple pain sites, ongoing. Goals 3 Matrix Plater Goal (LTG) Pt will present with an improved Oswestry LBP score to reflect no more than 15% impairment to reflect less pain with functional activities by 09/21/2020. LTG Duration 8 weeks Two Senior Living Goal (LTG) Pt will perform progressive HEP with I including pelvic realignment, relaxation, breathing, gentle core and strengthening exercises to improve strength and pain by 09/21/2020. LTG Duration 8 weeks One Senior Living Goal (LTG) Pt will present with improved B hip abduction strength to 5/ 5 to improve balance and pain by 09/21/2020. LTG Duration 8 weeks Assessment Summary Assessment Reviewed pelvic realignment exercises today and breathing. Ed pt on form and to decrease range and to stop with pain. Physical Therapy Plan Frequency and Duration Frequency of Treatment 2x/Week Duration of Treatment 8 weeks Plan of Care Start Date 07/22/20 Plan of Care End Date 09/22/20 Therapeutic Interventions Therapeutic Interventions Aquatic Therapy,Balance Training,Canalithic Repositioning,Gait Training, Home Exercise Program,Joint Mobilizations,Manual Therapy, Neuromuscular Re-education, Patient/Caregiver Education, Self-Care/Home Management,Soft Tissue Mobilization,Taping, Therapeutic Activities, Therapeutic Exercises Modalities Electric Stimulation,Hot Packs ,Infrared Therapy, Iontophoresis Other Referrals/Consults Referrals/Consults Recommended Pelvic floor therapy if appropriate d/t reports of urinary incontinence after sitting a long time as well as occ with sneezing Next Visit Focus/Plan Next Note Type Treatment Note Next Visit Plan Con't Counterstrain and progessive pelvic and LBP relaxation and exercises. Consider pelvic floor therapist to see pt in the future
--- NOTE | 2020-08-04 08:58 | PT.OTN ---
Current Diagnoses Other chronic pain (08/04/20) Dorsalgia, unspecified (08/04/20) Physical Therapy Treatment Note PT-OP-A Visit Information Start: 07/22/20 07:26 Freq: Status: Active Protocol: Document 08/04/20 08:15 MB (Rec: 08/04/20 08:54 MB [id number]) Out-Patient Physical Therapy Visit Information Visit Information Visit Type Treatment Note Visit Start Time 08:15 Visit Stop Time 09:55 Total Visit Minutes 40 Visit Number 4 PT-OP-B Current Condition Start: 07/22/20 07:26 Freq: Status: Active Protocol: Document 07/22/20 09:43 MB (Rec: 07/22/20 10:03 MB [id number]) Current Condition History of Current Condition Onset Date Since she was 20 y/o (55 years ago) Current Complaints Intermittent pain History of Current Condition Pt had job where she sat a lot when she was 20 y/o and started getting back pain. She was told by a doctor that her facet joints were abnormal. She wore a stiff corset back brace for 3 years. In her thirties, she had an injury where she landed on her tail bone hard. She was told she had a fracture. Pt presents with long history of back pain. She rates current pain as 3/10 anterior left hip, 2/10 B SI area, 4/10 lumbosacral junction at midline, 1/10 midline (over spine) at upper cervical and upper thoracic spine. PMH: depression, osteopenia, multi-joint pain, PT for dizziness, headaches, hearing problems, jaw pain, neck pain, vision problems. Pt reports her bone density was checked within the last two years. Pt recently stopped her statin. Her B12 is good on recent blood work. Pt con't with foot pain. PT does not have an order for this. She saw a adjunct psychology instructor in May. She had walk fit inserts with changeable parts. She was using low and medium inserts. She was told to move up to high in left foot and medium in right foot. Pt has worse pain when she first puts shoes on. She likes to walk around in her stocking feet. She had a plantar wart on the bottom of her right great toe. Treatment Goals Patient/Caregiver Goals Pt would like to get stronger so that she can do more. She would like to be more flexible . Prior Functional Status Baseline Function- ADL's Independent Baseline Function- Mobility Independent PT-OP-C Subjective Start: 07/22/20 07:26 Freq: Status: Active Protocol: Document 08/04/20 08:15 MB (Rec: 08/04/20 08:54 MB [id number]) OP-PT Subjective Patient Comments Patient Comments The pain towards my tailbone comes and goes. PT-OP-J Posture/Palpation/Skin Start: 07/22/20 07:26 Freq: Status: Active Protocol: Document 07/22/20 09:43 MB (Rec: 07/22/20 13:00 MB [id number]) Posture Evaluation Comments Posture Comments Standing posture, socks donned : forward head, rounded shoulders, absent thoracic kyphosis, anterior tilt pelvis , increased lumbar lordosis, right iliac crest 1/4 higher than the left, left midfoot pes planus, left rearfoot over pronation, left tibial torsion. PT-OP-K Range of Motion Start: 07/22/20 07:26 Freq: Status: Active Protocol: Document 07/22/20 09:43 MB (Rec: 07/22/20 13:00 MB [id number]) Lumbar Spine Range of Motion Lumbar Spine Active Comments Standing: pt self-limits forward flexion to two reps. She does not report increased pain but I can feel it. Fingers are 5 from the floor. Pt self-limits standing back extension as well, reports that she feels like she might lose her balance posteriorly. Less reports of pain with extension. With leaning forward, pt shifts weight to her right foot and this causes shift on her spinal alignment with right thoracic spine higher than the left. From assessment today, she appears to have a functional leg length difference in standing with right leg slightly shorter. In hook lying, femurs are equal height. In supine, PT pulls legs and legs are grossly similar length. PT-OP-M Strength Start: 07/22/20 07:26 Freq: Status: Active Protocol: Document 07/22/20 09:43 MB (Rec: 07/22/20 13:00 MB [id number]) Hip Strength Hip Manual Muscle Testing Left Flexion (L2) 5 Normal Abduction 3+ Fair+ Comments Pt reports pain at lateral hip with hip abduction MMT Right Flexion (L2) 5 Normal Abduction 4 Good Comments Pt reports discomfort at right anterior hip with MMT hip flexion Knee Strength Knee Manual Muscle Testing Left Flexion (S2) 5 Normal Extension (L3) 5 Normal Right Flexion (S2) 5 Normal Extension (L3) 5 Normal Ankle/Foot Strength Ankle and Foot Manual Muscle Testing Left Dorsiflexion (L4) 5 Normal Right Dorsiflexion (L4) 5 Normal Toe Strength Toe Manual Muscle Testing Left Great Toe Extension 5 Normal Right Great Toe Extension 5 Normal PT-OP-Q Treatments Start: 07/22/20 07:26 Freq: Status: Active Protocol: Document 08/04/20 08:15 MB (Rec: 08/04/20 08:54 MB [id number]) Cardio Equipment Recumbent Elliptical ([employer]) Duration (Minutes) 10 Resistance 2 Therapeutic Exercises Supine Exercises Lumbar rotation Comments B knees, 10 reps Progressive relaxation exercises Side bilateral Comments 1 rep all, 10 sec hold, d/c calf d/c cramping Manual Therapy Treatment Other Other Manual Treatments Sacral and hip rotator positional release, Counterstrain PT-OP-T Assessment and Plan Start: 07/22/20 07:26 Freq: Status: Active Protocol: Document 08/04/20 08:15 MB (Rec: 08/04/20 08:54 MB [id number]) Physical Therapy Assessment Rehab Potential Rehabilitation Potential Fair Evaluation Complexity Number of Personal Factors/Comorbidities 1-2 Number of Body Systems Impaired 3 Clinical Presentation at Evaluation Evolving Impairments Impairments Activity Tolerance,Balance, Pain,Posture,Soft Tissue Mobility,Strength Other Impairments Personal factors include history of depression and chronic-like pain in multi- joints (neck, back, hip, feet) . Body systems affected include bone (osteopenia), psychosocial, musculoskeletal, recent history of vestibular problems treated by this PT. Her clinical presentation is evolving given multiple pain sites, ongoing. Goals 3 Section [employer] W[employer] Goal (LTG) Pt will present with an improved Oswestry LBP score to reflect no more than 15% impairment to reflect less pain with functional activities by 09/21/2020. LTG Duration 8 weeks Two Section [employer] Warden Goal (LTG) Pt will perform progressive HEP with I including pelvic realignment, relaxation, breathing, gentle core and strengthening exercises to improve strength and pain by 09/21/2020. LTG Duration 8 weeks One Section [employer] Warden Goal (LTG) Pt will present with improved B hip abduction strength to 5/ 5 to improve balance and pain by 09/21/2020. LTG Duration 8 weeks Assessment Summary Assessment Pt con't with reports of pain. Progressed gentle strengthening on recumbent stepper today and will monitor reports. Also initiated progressive relaxation exercises and will monitor any reports of muscle soreness with these. Typically, these should not cause discomfort as she is not moving the joints with them. Con't progression as pt tolerates. Consider further positional release sacrum with pt prone. Physical Therapy Plan Frequency and Duration Frequency of Treatment 2x/Week Duration of Treatment 8 weeks Plan of Care Start Date 07/22/20 Plan of Care End Date 09/22/20 Therapeutic Interventions Therapeutic Interventions Aquatic Therapy,Balance Training,Canalithic Repositioning,Gait Training, Home Exercise Program,Joint Mobilizations,Manual Therapy, Neuromuscular Re-education, Patient/Caregiver Education, Self-Care/Home Management,Soft Tissue Mobilization,Taping, Therapeutic Activities, Therapeutic Exercises Modalities Electric Stimulation,Hot Packs ,Infrared Therapy, Iontophoresis Other Referrals/Consults Referrals/Consults Recommended Pelvic floor therapy if appropriate d/t reports of urinary incontinence after sitting a long time as well as occ with sneezing Next Visit Focus/Plan Next Note Type Treatment Note Next Visit Plan Consider core progression and further flexibility exercises. Con't Counterstrain (assess sacrum) and progessive pelvic and LBP rexercises. Progress strengthening exercises as pt tolerates. Consider pelvic floor therapist to see pt in the future.
--- NOTE | 2020-08-06 14:33 | PT.OTN ---
Current Diagnoses Other chronic pain (08/06/20) Dorsalgia, unspecified (08/06/20) Physical Therapy Treatment Note PT-OP-A Visit Information Start: 07/22/20 07:26 Freq: Status: Active Protocol: Document 08/06/20 13:46 MB (Rec: 08/06/20 14:27 MB [id number]) Out-Patient Physical Therapy Visit Information Visit Information Visit Type Treatment Note Visit Start Time 13:46 Visit Stop Time 14:30 Total Visit Minutes 44 Visit Number 5 PT-OP-B Current Condition Start: 07/22/20 07:26 Freq: Status: Active Protocol: Document 07/22/20 09:43 MB (Rec: 07/22/20 10:03 MB [id number]) Current Condition History of Current Condition Onset Date Since she was 20 y/o (55 years ago) Current Complaints Intermittent pain History of Current Condition Pt had job where she sat a lot when she was 20 y/o and started getting back pain. She was told by a doctor that her facet joints were abnormal. She wore a stiff corset back brace for 3 years. In her thirties, she had an injury where she landed on her tail bone hard. She was told she had a fracture. Pt presents with long history of back pain. She rates current pain as 3/10 anterior left hip, 2/10 B SI area, 4/10 lumbosacral junction at midline, 1/10 midline (over spine) at upper cervical and upper thoracic spine. PMH: depression, osteopenia, multi-joint pain, PT for dizziness, headaches, hearing problems, jaw pain, neck pain, vision problems. Pt reports her bone density was checked within the last two years. Pt recently stopped her statin. Her B12 is good on recent blood work. Pt con't with foot pain. PT does not have an order for this. She saw a yarn polishing machine operator in May. She had walk fit inserts with changeable parts. She was using low and medium inserts. She was told to move up to high in left foot and medium in right foot. Pt has worse pain when she first puts shoes on. She likes to walk around in her stocking feet. She had a plantar wart on the bottom of her right great toe. Treatment Goals Patient/Caregiver Goals Pt would like to get stronger so that she can do more. She would like to be more flexible . Prior Functional Status Baseline Function- ADL's Independent Baseline Function- Mobility Independent PT-OP-C Subjective Start: 07/22/20 07:26 Freq: Status: Active Protocol: Document 08/06/20 13:46 MB (Rec: 08/06/20 14:27 MB [id number]) OP-PT Subjective Patient Comments Patient Comments I worked in the [employer] yesterday and today. I felt it in my glutes. PT-OP-J Posture/Palpation/Skin Start: 07/22/20 07:26 Freq: Status: Active Protocol: Document 07/22/20 09:43 MB (Rec: 07/22/20 13:00 MB [id number]) Posture Evaluation Comments Posture Comments Standing posture, socks donned : forward head, rounded shoulders, absent thoracic kyphosis, anterior tilt pelvis , increased lumbar lordosis, right iliac crest 1/4 higher than the left, left midfoot pes planus, left rearfoot over pronation, left tibial torsion. PT-OP-K Range of Motion Start: 07/22/20 07:26 Freq: Status: Active Protocol: Document 07/22/20 09:43 MB (Rec: 07/22/20 13:00 MB [id number]) Lumbar Spine Range of Motion Lumbar Spine Active Comments Standing: pt self-limits forward flexion to two reps. She does not report increased pain but I can feel it. Fingers are 5 from the floor. Pt self-limits standing back extension as well, reports that she feels like she might lose her balance posteriorly. Less reports of pain with extension. With leaning forward, pt shifts weight to her right foot and this causes shift on her spinal alignment with right thoracic spine higher than the left. From assessment today, she appears to have a functional leg length difference in standing with right leg slightly shorter. In hook lying, femurs are equal height. In supine, PT pulls legs and legs are grossly similar length. PT-OP-M Strength Start: 07/22/20 07:26 Freq: Status: Active Protocol: Document 07/22/20 09:43 MB (Rec: 07/22/20 13:00 MB [id number]) Hip Strength Hip Manual Muscle Testing Left Flexion (L2) 5 Normal Abduction 3+ Fair+ Comments Pt reports pain at lateral hip with hip abduction MMT Right Flexion (L2) 5 Normal Abduction 4 Good Comments Pt reports discomfort at right anterior hip with MMT hip flexion Knee Strength Knee Manual Muscle Testing Left Flexion (S2) 5 Normal Extension (L3) 5 Normal Right Flexion (S2) 5 Normal Extension (L3) 5 Normal Ankle/Foot Strength Ankle and Foot Manual Muscle Testing Left Dorsiflexion (L4) 5 Normal Right Dorsiflexion (L4) 5 Normal Toe Strength Toe Manual Muscle Testing Left Great Toe Extension 5 Normal Right Great Toe Extension 5 Normal PT-OP-Q Treatments Start: 07/22/20 07:26 Freq: Status: Active Protocol: Document 08/06/20 13:46 MB (Rec: 08/06/20 14:27 MB [id number]) Therapeutic Exercises Supine Exercises Glute stretches Comments Both legs together, 45 sec hold Hip adductor stretch Comments 30 sec hold, both legs together Happy baby Comments 30 sec and not yet added to HEP Progressive relaxation exercises Side bilateral Comments 1 rep all, 10 sec hold, d/c calf d/c cramping Pelvic drop Comments 5 reps after diaphragm breathing today Diaphragmatic breathing Reps/Minutes 2 reps before pelvic drop PT-OP-T Assessment and Plan Start: 07/22/20 07:26 Freq: Status: Active Protocol: Document 08/06/20 13:46 MB (Rec: 08/06/20 14:27 MB [id number]) Physical Therapy Assessment Rehab Potential Rehabilitation Potential Fair Evaluation Complexity Number of Personal Factors/Comorbidities 1-2 Number of Body Systems Impaired 3 Clinical Presentation at Evaluation Evolving Impairments Impairments Activity Tolerance,Balance, Pain,Posture,Soft Tissue Mobility,Strength Other Impairments Personal factors include history of depression and chronic-like pain in multi- joints (neck, back, hip, feet) . Body systems affected include bone (osteopenia), psychosocial, musculoskeletal, recent history of vestibular problems treated by this PT. Her clinical presentation is evolving given multiple pain sites, ongoing. Goals 3 Half-Way Goal (LTG) Pt will present with an improved Oswestry LBP score to reflect no more than 15% impairment to reflect less pain with functional activities by 09/21/2020. LTG Duration 8 weeks Two Learning Facilitator Goal (LTG) Pt will perform progressive HEP with I including pelvic realignment, relaxation, breathing, gentle core and strengthening exercises to improve strength and pain by 09/21/2020. LTG Duration 8 weeks One Half-Way Goal (LTG) Pt will present with improved B hip abduction strength to 5/ 5 to improve balance and pain by 09/21/2020. LTG Duration 8 weeks Assessment Summary Assessment Consider core progression, hip flexor stretch and Counterstrain in future treatments. Consider further positional release sacrum with pt prone. Physical Therapy Plan Frequency and Duration Frequency of Treatment 2x/Week Duration of Treatment 8 weeks Plan of Care Start Date 07/22/20 Plan of Care End Date 09/22/20 Therapeutic Interventions Therapeutic Interventions Aquatic Therapy,Balance Training,Canalithic Repositioning,Gait Training, Home Exercise Program,Joint Mobilizations,Manual Therapy, Neuromuscular Re-education, Patient/Caregiver Education, Self-Care/Home Management,Soft Tissue Mobilization,Taping, Therapeutic Activities, Therapeutic Exercises Modalities Electric Stimulation,Hot Packs ,Infrared Therapy, Iontophoresis Other Referrals/Consults Referrals/Consults Recommended Pelvic floor therapy if appropriate d/t reports of urinary incontinence after sitting a long time as well as occ with sneezing Next Visit Focus/Plan Next Note Type Treatment Note Next Visit Plan Consider core progression and further flexibility exercises. Con't Counterstrain (assess sacrum) and progessive pelvic and LBP rexercises. Progress strengthening exercises as pt tolerates. Consider pelvic floor therapist to see pt in the future.
--- NOTE | 2020-08-11 08:12 | PT.OTN ---
Current Diagnoses Other chronic pain (08/11/20) Dorsalgia, unspecified (08/11/20) Physical Therapy Treatment Note PT-OP-A Visit Information Start: 07/22/20 07:26 Freq: Status: Active Protocol: Document 08/11/20 07:34 MB (Rec: 08/11/20 08:07 MB [id number]) Out-Patient Physical Therapy Visit Information Visit Information Visit Type Treatment Note Visit Start Time 07:34 Visit Stop Time 08:12 Total Visit Minutes 38 Visit Number 6 PT-OP-B Current Condition Start: 07/22/20 07:26 Freq: Status: Active Protocol: Document 07/22/20 09:43 MB (Rec: 07/22/20 10:03 MB [id number]) Current Condition History of Current Condition Onset Date Since she was 20 y/o (55 years ago) Current Complaints Intermittent pain History of Current Condition Pt had job where she sat a lot when she was 20 y/o and started getting back pain. She was told by a doctor that her facet joints were abnormal. She wore a stiff corset back brace for 3 years. In her thirties, she had an injury where she landed on her tail bone hard. She was told she had a fracture. Pt presents with long history of back pain. She rates current pain as 3/10 anterior left hip, 2/10 B SI area, 4/10 lumbosacral junction at midline, 1/10 midline (over spine) at upper cervical and upper thoracic spine. PMH: depression, osteopenia, multi-joint pain, PT for dizziness, headaches, hearing problems, jaw pain, neck pain, vision problems. Pt reports her bone density was checked within the last two years. Pt recently stopped her statin. Her B12 is good on recent blood work. Pt con't with foot pain. PT does not have an order for this. She saw a court crier in May. She had walk fit inserts with changeable parts. She was using low and medium inserts. She was told to move up to high in left foot and medium in right foot. Pt has worse pain when she first puts shoes on. She likes to walk around in her stocking feet. She had a plantar wart on the bottom of her right great toe. Treatment Goals Patient/Caregiver Goals Pt would like to get stronger so that she can do more. She would like to be more flexible . Prior Functional Status Baseline Function- ADL's Independent Baseline Function- Mobility Independent PT-OP-C Subjective Start: 07/22/20 07:26 Freq: Status: Active Protocol: Document 08/11/20 07:34 MB (Rec: 08/11/20 08:07 MB [id number]) OP-PT Subjective Patient Comments Patient Comments Pretty good. Some days I do all the exercises. Pt reports waking up with B distal LE and toe cramps last night. She reports she got a new medication to help with right hand tremor. She might take it as needed. PT-OP-J Posture/Palpation/Skin Start: 07/22/20 07:26 Freq: Status: Active Protocol: Document 07/22/20 09:43 MB (Rec: 07/22/20 13:00 MB [id number]) Posture Evaluation Comments Posture Comments Standing posture, socks donned : forward head, rounded shoulders, absent thoracic kyphosis, anterior tilt pelvis , increased lumbar lordosis, right iliac crest 1/4 higher than the left, left midfoot pes planus, left rearfoot over pronation, left tibial torsion. PT-OP-K Range of Motion Start: 07/22/20 07:26 Freq: Status: Active Protocol: Document 07/22/20 09:43 MB (Rec: 07/22/20 13:00 MB [id number]) Lumbar Spine Range of Motion Lumbar Spine Active Comments Standing: pt self-limits forward flexion to two reps. She does not report increased pain but I can feel it. Fingers are 5 from the floor. Pt self-limits standing back extension as well, reports that she feels like she might lose her balance posteriorly. Less reports of pain with extension. With leaning forward, pt shifts weight to her right foot and this causes shift on her spinal alignment with right thoracic spine higher than the left. From assessment today, she appears to have a functional leg length difference in standing with right leg slightly shorter. In hook lying, femurs are equal height. In supine, PT pulls legs and legs are grossly similar length. PT-OP-M Strength Start: 07/22/20 07:26 Freq: Status: Active Protocol: Document 07/22/20 09:43 MB (Rec: 07/22/20 13:00 MB [id number]) Hip Strength Hip Manual Muscle Testing Left Flexion (L2) 5 Normal Abduction 3+ Fair+ Comments Pt reports pain at lateral hip with hip abduction MMT Right Flexion (L2) 5 Normal Abduction 4 Good Comments Pt reports discomfort at right anterior hip with MMT hip flexion Knee Strength Knee Manual Muscle Testing Left Flexion (S2) 5 Normal Extension (L3) 5 Normal Right Flexion (S2) 5 Normal Extension (L3) 5 Normal Ankle/Foot Strength Ankle and Foot Manual Muscle Testing Left Dorsiflexion (L4) 5 Normal Right Dorsiflexion (L4) 5 Normal Toe Strength Toe Manual Muscle Testing Left Great Toe Extension 5 Normal Right Great Toe Extension 5 Normal PT-OP-Q Treatments Start: 07/22/20 07:26 Freq: Status: Active Protocol: Document 08/11/20 07:34 MB (Rec: 08/11/20 08:07 MB [id number]) Therapeutic Exercises Supine Exercises Abdominal drawing in Reps/Minutes 10 reps Comments Set position before other core progression Core progression Side bilateral Reps/Minutes 10 Comments Start abdominal drawing in first, rocking, HS Glute stretches Comments Both legs together, 45 sec hold Hip adductor stretch Comments 30 sec hold, both legs together Diaphragmatic breathing Comments Performed today with adductor stretch and attempting drop as well PT-OP-T Assessment and Plan Start: 07/22/20 07:26 Freq: Status: Active Protocol: Document 08/11/20 07:34 MB (Rec: 08/11/20 08:07 MB [id number]) Physical Therapy Assessment Rehab Potential Rehabilitation Potential Fair Evaluation Complexity Number of Personal Factors/Comorbidities 1-2 Number of Body Systems Impaired 3 Clinical Presentation at Evaluation Evolving Impairments Impairments Activity Tolerance,Balance, Pain,Posture,Soft Tissue Mobility,Strength Other Impairments Personal factors include history of depression and chronic-like pain in multi- joints (neck, back, hip, feet) . Body systems affected include bone (osteopenia), psychosocial, musculoskeletal, recent history of vestibular problems treated by this PT. Her clinical presentation is evolving given multiple pain sites, ongoing. Goals 3 Elementary School Director Goal (LTG) Pt will present with an improved Oswestry LBP score to reflect no more than 15% impairment to reflect less pain with functional activities by 09/21/2020. LTG Duration 8 weeks Two Mcc Goal (LTG) Pt will perform progressive HEP with I including pelvic realignment, relaxation, breathing, gentle core and strengthening exercises to improve strength and pain by 09/21/2020. LTG Duration 8 weeks One Elementary School Director Goal (LTG) Pt will present with improved B hip abduction strength to 5/ 5 to improve balance and pain by 09/21/2020. LTG Duration 8 weeks Assessment Summary Assessment Initiated core progression today and pt requires a lot of tactile and verbal cueing and practice for abdominal drawing in and progression, may benefit from further practice. Physical Therapy Plan Frequency and Duration Frequency of Treatment 2x/Week Duration of Treatment 8 weeks Plan of Care Start Date 07/22/20 Plan of Care End Date 09/22/20 Therapeutic Interventions Therapeutic Interventions Aquatic Therapy,Balance Training,Canalithic Repositioning,Gait Training, Home Exercise Program,Joint Mobilizations,Manual Therapy, Neuromuscular Re-education, Patient/Caregiver Education, Self-Care/Home Management,Soft Tissue Mobilization,Taping, Therapeutic Activities, Therapeutic Exercises Modalities Electric Stimulation,Hot Packs ,Infrared Therapy, Iontophoresis Other Referrals/Consults Referrals/Consults Recommended Pelvic floor therapy if appropriate d/t reports of urinary incontinence after sitting a long time as well as occ with sneezing Next Visit Focus/Plan Next Note Type Treatment Note Next Visit Plan Consider further flexibility and core exercises. Con't Counterstrain (assess sacrum) and progessive pelvic and LBP rexercises. Progress strengthening exercises as pt tolerates. Consider hook lying and sitting leg strengthening d/t complaints last treatment course, foot complaints. Consider pelvic floor therapist to see pt in the future.
--- NOTE | 2020-09-04 11:27 | PT.OTRE ---
Current Diagnoses Other chronic pain (09/04/20) Dorsalgia, unspecified (09/04/20) Past Medical History (Last Reviewed 08/13/20 @ 18:06 by Robert Ludwig DO) Colon polyp (Chronic ~2003) Hearing loss (Chronic ~194) Osteopenia (Chronic ~2010) Plantar warts (Chronic ~1994) Rosacea (Chronic ~1999) Shoulder pain (Chronic ~2013) Skin cancer (Chronic ~2004) Surgical History (Last Updated 04/04/18 @ 08:32 by Seble Levine) Anesthesia (Resolved) Ear problem (Resolved ~1969) Status post breast lumpectomy Status post tonsillectomy and adenoidectomy Visit Care Team Role Provider Type Jus Chand MD Attending Provider Physician Family Provider Primary Care Provider Referring Provider Specialty: Family Practice Address: [address] [place] [address], [facility] Email: [email or web address] Physical Therapy Re-Evaluation PT-OP-A Visit Information Start: 07/22/20 07:26 Freq: Status: Active Protocol: Document 09/04/20 07:32 MB (Rec: 09/04/20 08:14 MB [id number]) Out-Patient Physical Therapy Visit Information Visit Information Visit Type Re-Evaluation Visit Note Re-evaluation today after pt had syncopal fall x2, right hip and knee pain and she went to ED and returned to PCP. LEF done today and reassess LE strength and palpated right knee to assess and include in plan that will be sent to doctor today. Visit Start Time 07:32 Visit Stop Time 08:15 Total Visit Minutes 43 Visit Number 7 PT-OP-B Current Condition Start: 07/22/20 07:26 Freq: Status: Active Protocol: Document 07/22/20 09:43 MB (Rec: 07/22/20 10:03 MB [id number]) Current Condition History of Current Condition Onset Date Since she was 20 y/o (55 years ago) Current Complaints Intermittent pain History of Current Condition Pt had job where she sat a lot when she was 20 y/o and started getting back pain. She was told by a doctor that her facet joints were abnormal. She wore a stiff corset back brace for 3 years. In her thirties, she had an injury where she landed on her tail bone hard. She was told she had a fracture. Pt presents with long history of back pain. She rates current pain as 3/10 anterior left hip, 2/10 B SI area, 4/10 lumbosacral junction at midline, 1/10 midline (over spine) at upper cervical and upper thoracic spine. PMH: depression, osteopenia, multi-joint pain, PT for dizziness, headaches, hearing problems, jaw pain, neck pain, vision problems. Pt reports her bone density was checked within the last two years. Pt recently stopped her statin. Her B12 is good on recent blood work. Pt con't with foot pain. PT does not have an order for this. She saw a business transformation consultant in May. She had walk fit inserts with changeable parts. She was using low and medium inserts. She was told to move up to high in left foot and medium in right foot. Pt has worse pain when she first puts shoes on. She likes to walk around in her stocking feet. She had a plantar wart on the bottom of her right great toe. Treatment Goals Patient/Caregiver Goals Pt would like to get stronger so that she can do more. She would like to be more flexible . Prior Functional Status Baseline Function- ADL's Independent Baseline Function- Mobility Independent PT-OP-C Subjective Start: 07/22/20 07:26 Freq: Status: Active Protocol: Document 09/04/20 07:32 MB (Rec: 09/04/20 08:14 MB [id number]) OP-PT Subjective Patient Comments Patient Comments Pt states that she fainted when having BM on 08/13/2020. She was getting off the commode and grabbed onto the grab bar. She passed out and twisted her right knee. She then had a similar event later in the morning and fell and hit her right hip. She went to the ED and she was told that she has vasovagal. X-rays of right hip and knee were negative. 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 She was given an casimiro bandage for her right knee. She returned to Dr. Chand and he told her to back off PT exercises. She states that her BP was 90s/55 when she went to the doctor. She had light-headedness and used walking stick for a while d/t instability. Patient Reported Progress Same Patient Questionnaires Lower Extremity Functional Scale LEFS Score 47 LEFS Impairment 40 to 59% Impaired (Score 32- 47) Oswestry Low Back Index Oswestry Score 12 Oswestry Impairment 20 to 39% Impaired (Score 20- 39) PT-OP-J Posture/Palpation/Skin Start: 07/22/20 07:26 Freq: Status: Active Protocol: Document 07/22/20 09:43 MB (Rec: 07/22/20 13:00 MB [id number]) Posture Evaluation Comments Posture Comments Standing posture, socks donned : forward head, rounded shoulders, absent thoracic kyphosis, anterior tilt pelvis , increased lumbar lordosis, right iliac crest 1/4 higher than the left, left midfoot pes planus, left rearfoot over pronation, left tibial torsion. PT-OP-K Range of Motion Start: 07/22/20 07:26 Freq: Status: Active Protocol: Document 07/22/20 09:43 MB (Rec: 07/22/20 13:00 MB [id number]) Lumbar Spine Range of Motion Lumbar Spine Active Comments Standing: pt self-limits forward flexion to two reps. She does not report increased pain but I can feel it. Fingers are 5 from the floor. Pt self-limits standing back extension as well, reports that she feels like she might lose her balance posteriorly. Less reports of pain with extension. With leaning forward, pt shifts weight to her right foot and this causes shift on her spinal alignment with right thoracic spine higher than the left. From assessment today, she appears to have a functional leg length difference in standing with right leg slightly shorter. In hook lying, femurs are equal height. In supine, PT pulls legs and legs are grossly similar length. PT-OP-M Strength Start: 07/22/20 07:26 Freq: Status: Active Protocol: Document 07/22/20 09:43 MB (Rec: 07/22/20 13:00 MB [id number]) Hip Strength Hip Manual Muscle Testing Left Flexion (L2) 5 Normal Abduction 3+ Fair+ Comments Pt reports pain at lateral hip with hip abduction MMT Right Flexion (L2) 5 Normal Abduction 4 Good Comments Pt reports discomfort at right anterior hip with MMT hip flexion Knee Strength Knee Manual Muscle Testing Left Flexion (S2) 5 Normal Extension (L3) 5 Normal Right Flexion (S2) 5 Normal Extension (L3) 5 Normal Ankle/Foot Strength Ankle and Foot Manual Muscle Testing Left Dorsiflexion (L4) 5 Normal Right Dorsiflexion (L4) 5 Normal Toe Strength Toe Manual Muscle Testing Left Great Toe Extension 5 Normal Right Great Toe Extension 5 Normal PT-OP-Q Treatments Start: 07/22/20 07:26 Freq: Status: Active Protocol: Document 09/04/20 07:32 MB (Rec: 09/04/20 11:26 MB [id number]) Manual Therapy Treatment Taping KT right knee Type of Tape Kinesio Tape Comments Black KT to support right knee with c strip under patella and B I strips medial and lateral right knee Self-Care/Home Management Treatment Education Other Education Ed pt on ongoing benefits of increasing non-caffeinated fluid intake and to consider talking with doctor about electrolytes as needed, PT plan to incorporate relaxation /breathing exercises into plan as she presents with chronic and globalized pain, ed pt not to do any exercises that cause pain, ed pt in benefits of KT and to doff if itchy or uncomfortable PT-OP-T Assessment and Plan Start: 07/22/20 07:26 Freq: Status: Active Protocol: Document 09/04/20 07:32 MB (Rec: 09/04/20 08:14 MB [id number]) Physical Therapy Assessment Rehab Potential Rehabilitation Potential Fair Evaluation Complexity Number of Personal Factors/Comorbidities 1-2 Number of Body Systems Impaired 3 Clinical Presentation at Evaluation Evolving Impairments Impairments Activity Tolerance,Balance, Pain,Posture,Soft Tissue Mobility,Strength Other Impairments Personal factors include history of depression and chronic-like pain in multi- joints (neck, back, hip, feet) , recent syncopal events, fall and right knee pain. Body systems affected include bone (osteopenia), psychosocial, musculoskeletal, recent history of vestibular problems treated by this PT. Her clinical presentation is evolving given multiple pain sites, ongoing. Goals 4 Impairment LEF score 41.25% impairment Mcfp Goal (LTG) Pt will present with improved LEF score to reflect no more than 30% impairment to allow return to IADLs with less pain by 11/04/2020. LTG Duration 8 weeks 3 Mcfp Goal (LTG) Pt will present with an improved Oswestry LBP score to reflect no more than 15% impairment to reflect less pain with functional activities by 11/04/2020. 09/04/2020: Oswestry LBP score has improved from 38% to 24% impairment LTG Duration 8 weeks Two Harness Rigger Goal (LTG) Pt will perform progressive HEP with I including pelvic realignment, relaxation, breathing, gentle core and strengthening exercises to improve strength and pain by 11/04/2020. 09/04/2020: Pt has backed off exercises since falling off the commode twice 08/13/2020 LTG Duration 8 weeks One Mcfp Goal (LTG) Pt will present with improved B hip abduction strength to 5/ 5 to improve balance and pain by 11/04/2020. 09/04/2020: After fall: left knee extension and left hip abduction 4/5 and left knee flexion, hip flexion, ankle DF and great toe extension 5/5; right hip flexion, knee extension 5/5, right hip abduction and knee flexion 4/5 , right ankle DF and great toe extension 5/5. Pt has medial knee pain to palpation medial knee joint and with MMT knee flexion. LTG Duration 8 weeks Physical Therapy Plan Frequency and Duration Frequency of Treatment 2x/Week Duration of Treatment 8 weeks Plan of Care Start Date 09/04/20 Plan of Care End Date 11/04/20 Therapeutic Interventions Therapeutic Interventions Aquatic Therapy,Balance Training,Canalithic Repositioning,Gait Training, Home Exercise Program,Joint Mobilizations,Manual Therapy, Neuromuscular Re-education, Patient/Caregiver Education, Self-Care/Home Management,Soft Tissue Mobilization,Taping, Therapeutic Activities, Therapeutic Exercises Modalities Electric Stimulation,Hot Packs ,Infrared Therapy, Iontophoresis Other Referrals/Consults Referrals/Consults Recommended Pt with B leg weakness after passing out, falls and right LE injury. She has right medial joint pain to light touch and with knee flexion MMT. She may have a triad or medial meniscus injury. Will add knee treatent into POC. Orthostatic assessment with BP and HR in LUE: supine: 121/77 , 78; standin/74, 80; standing 1': 133/78, 84. Pt will benefit from ongoing PT for flexibility, gentle strengthening and relaxation exercises. Pelvic floor therapy if appropriate d/t reports of urinary incontinence after sitting a long time as well as occ with sneezing. Next Visit Focus/Plan Next Note Type Treatment Note Next Visit Plan Revise previous HEP as needed. Consider further flexibility and core exercises. Con't Counterstrain (assess sacrum) and progessive pelvic and LBP rexercises. Progress strengthening exercises as pt tolerates. Consider hook lying and sitting leg strengthening d/t complaints last treatment course, foot complaints. Consider pelvic floor therapist to see pt in the future.
--- NOTE | 2020-09-09 09:41 | PT.OTN ---
Current Diagnoses Other chronic pain (09/09/20) Dorsalgia, unspecified (09/09/20) Physical Therapy Treatment Note PT-OP-A Visit Information Start: 07/22/20 07:26 Freq: Status: Active Protocol: Document 09/09/20 09:02 MB (Rec: 09/09/20 09:40 MB [id number]) Out-Patient Physical Therapy Visit Information Visit Information Visit Type Treatment Note Visit Start Time 09:02 Visit Stop Time 09:40 Total Visit Minutes 38 Visit Number 8 PT-OP-B Current Condition Start: 07/22/20 07:26 Freq: Status: Active Protocol: Document 07/22/20 09:43 MB (Rec: 07/22/20 10:03 MB [id number]) Current Condition History of Current Condition Onset Date Since she was 20 y/o (55 years ago) Current Complaints Intermittent pain History of Current Condition Pt had job where she sat a lot when she was 20 y/o and started getting back pain. She was told by a doctor that her facet joints were abnormal. She wore a stiff corset back brace for 3 years. In her thirties, she had an injury where she landed on her tail bone hard. She was told she had a fracture. Pt presents with long history of back pain. She rates current pain as 3/10 anterior left hip, 2/10 B SI area, 4/10 lumbosacral junction at midline, 1/10 midline (over spine) at upper cervical and upper thoracic spine. PMH: depression, osteopenia, multi-joint pain, PT for dizziness, headaches, hearing problems, jaw pain, neck pain, vision problems. Pt reports her bone density was checked within the last two years. Pt recently stopped her statin. Her B12 is good on recent blood work. Pt con't with foot pain. PT does not have an order for this. She saw a packing room supervisor in May. She had walk fit inserts with changeable parts. She was using low and medium inserts. She was told to move up to high in left foot and medium in right foot. Pt has worse pain when she first puts shoes on. She likes to walk around in her stocking feet. She had a plantar wart on the bottom of her right great toe. Treatment Goals Patient/Caregiver Goals Pt would like to get stronger so that she can do more. She would like to be more flexible . Prior Functional Status Baseline Function- ADL's Independent Baseline Function- Mobility Independent PT-OP-C Subjective Start: 07/22/20 07:26 Freq: Status: Active Protocol: Document 09/09/20 09:02 MB (Rec: 09/09/20 09:40 MB [id number]) OP-PT Subjective Patient Comments Patient Comments I'm doing okay. I went to my son's and worked all weekend. 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 PT-OP-J Posture/Palpation/Skin Start: 07/22/20 07:26 Freq: Status: Active Protocol: Document 07/22/20 09:43 MB (Rec: 07/22/20 13:00 MB [id number]) Posture Evaluation Comments Posture Comments Standing posture, socks donned : forward head, rounded shoulders, absent thoracic kyphosis, anterior tilt pelvis , increased lumbar lordosis, right iliac crest 1/4 higher than the left, left midfoot pes planus, left rearfoot over pronation, left tibial torsion. PT-OP-K Range of Motion Start: 07/22/20 07:26 Freq: Status: Active Protocol: Document 07/22/20 09:43 MB (Rec: 07/22/20 13:00 MB [id number]) Lumbar Spine Range of Motion Lumbar Spine Active Comments Standing: pt self-limits forward flexion to two reps. She does not report increased pain but I can feel it. Fingers are 5 from the floor. Pt self-limits standing back extension as well, reports that she feels like she might lose her balance posteriorly. Less reports of pain with extension. With leaning forward, pt shifts weight to her right foot and this causes shift on her spinal alignment with right thoracic spine higher than the left. From assessment today, she appears to have a functional leg length difference in standing with right leg slightly shorter. In hook lying, femurs are equal height. In supine, PT pulls legs and legs are grossly similar length. PT-OP-M Strength Start: 07/22/20 07:26 Freq: Status: Active Protocol: Document 07/22/20 09:43 MB (Rec: 07/22/20 13:00 MB [id number]) Hip Strength Hip Manual Muscle Testing Left Flexion (L2) 5 Normal Abduction 3+ Fair+ Comments Pt reports pain at lateral hip with hip abduction MMT Right Flexion (L2) 5 Normal Abduction 4 Good Comments Pt reports discomfort at right anterior hip with MMT hip flexion Knee Strength Knee Manual Muscle Testing Left Flexion (S2) 5 Normal Extension (L3) 5 Normal Right Flexion (S2) 5 Normal Extension (L3) 5 Normal Ankle/Foot Strength Ankle and Foot Manual Muscle Testing Left Dorsiflexion (L4) 5 Normal Right Dorsiflexion (L4) 5 Normal Toe Strength Toe Manual Muscle Testing Left Great Toe Extension 5 Normal Right Great Toe Extension 5 Normal PT-OP-Q Treatments Start: 07/22/20 07:26 Freq: Status: Active Protocol: Document 09/09/20 09:02 MB (Rec: 09/09/20 09:40 MB [id number]) Therapeutic Exercises Supine Exercises Lisandro stretch Side bilateral Comments 30 sec hold B, core engagement Abdominal drawing in Comments Performed today before Lisandro stretch Glute stretches Comments Re-ed today and pt performs lumbar rocking with this Hip adductor stretch Comments 30 sec hold, then taught with abdominal drawing in Happy baby Comments D/cd today d/t too much adductor stretch Pelvic drop Comments Re-ed and perform x3 today Pelvic realignment exercises Comments 5 reps, 3 sec hold all three exercises and pt requires cues Diaphragmatic breathing Comments 5 reps and then progressed to pelvic drop PT-OP-T Assessment and Plan Start: 07/22/20 07:26 Freq: Status: Active Protocol: Document 09/09/20 09:02 MB (Rec: 09/09/20 09:40 MB [id number]) Physical Therapy Assessment Rehab Potential Rehabilitation Potential Fair Evaluation Complexity Number of Personal Factors/Comorbidities 1-2 Number of Body Systems Impaired 3 Clinical Presentation at Evaluation Evolving Impairments Impairments Activity Tolerance,Balance, Pain,Posture,Soft Tissue Mobility,Strength Other Impairments Personal factors include history of depression and chronic-like pain in multi- joints (neck, back, hip, feet) , recent syncopal events, fall and right knee pain. Body systems affected include bone (osteopenia), psychosocial, musculoskeletal, recent history of vestibular problems treated by this PT. Her clinical presentation is evolving given multiple pain sites, ongoing. Goals 4 Impairment LEF score 41.25% impairment Alf Goal (LTG) Pt will present with improved LEF score to reflect no more than 30% impairment to allow return to IADLs with less pain by 11/04/2020. LTG Duration 8 weeks 3 Engine Mechanic Goal (LTG) Pt will present with an improved Oswestry LBP score to reflect no more than 15% impairment to reflect less pain with functional activities by 11/04/2020. 09/04/2020: Oswestry LBP score has improved from 38% to 24% impairment LTG Duration 8 weeks Two Alf Goal (LTG) Pt will perform progressive HEP with I including pelvic realignment, relaxation, breathing, gentle core and strengthening exercises to improve strength and pain by 11/04/2020. 09/04/2020: Pt has backed off exercises since falling off the commode twice 08/13/2020 LTG Duration 8 weeks One Engine Mechanic Goal (LTG) Pt will present with improved B hip abduction strength to 5/ 5 to improve balance and pain by 11/04/2020. 09/04/2020: After fall: left knee extension and left hip abduction 4/5 and left knee flexion, hip flexion, ankle DF and great toe extension 5/5; right hip flexion, knee extension 5/5, right hip abduction and knee flexion 4/5 , right ankle DF and great toe extension 5/5. Pt has medial knee pain to palpation medial knee joint and with MMT knee flexion. LTG Duration 8 weeks Assessment Summary Assessment Reviewed many of pt's previous HEP exercises d/t pt has not been performing after fall. Con't progression and adding in all exercises as pt tolerates. Ongoing manual work . Physical Therapy Plan Frequency and Duration Frequency of Treatment 2x/Week Duration of Treatment 8 weeks Plan of Care Start Date 09/04/20 Plan of Care End Date 11/04/20 Therapeutic Interventions Therapeutic Interventions Aquatic Therapy,Balance Training,Canalithic Repositioning,Gait Training, Home Exercise Program,Joint Mobilizations,Manual Therapy, Neuromuscular Re-education, Patient/Caregiver Education, Self-Care/Home Management,Soft Tissue Mobilization,Taping, Therapeutic Activities, Therapeutic Exercises Modalities Electric Stimulation,Hot Packs ,Infrared Therapy, Iontophoresis Other Referrals/Consults Referrals/Consults Recommended Pt with B leg weakness after passing out, falls and right LE injury. She has right medial joint pain to light touch and with knee flexion MMT. She may have a triad or medial meniscus injury. Will add knee treatent into POC. Orthostatic assessment with BP and HR in LUE: supine: 121/77 , 78; standin/74, 80; standing 1': 133/78, 84. Pt will benefit from ongoing PT for flexibility, gentle strengthening and relaxation exercises. Pelvic floor therapy if appropriate d/t reports of urinary incontinence after sitting a long time as well as occ with sneezing. Next Visit Focus/Plan Next Note Type Treatment Note Next Visit Plan Consider further flexibility and core exercises. Con't Counterstrain (assess sacrum) and progessive pelvic and LBP rexercises. Progress strengthening exercises as pt tolerates. Consider hook lying and sitting leg strengthening d/t complaints last treatment course, foot complaints. Consider pelvic floor therapist to see pt in the future.
--- NOTE | 2020-09-11 08:18 | PT.OTN ---
Current Diagnoses Other chronic pain (09/11/20) Dorsalgia, unspecified (09/11/20) Physical Therapy Treatment Note PT-OP-A Visit Information Start: 07/22/20 07:26 Freq: Status: Active Protocol: Document 09/11/20 07:33 MB (Rec: 09/11/20 08:17 MB [id number]) Out-Patient Physical Therapy Visit Information Visit Information Visit Type Treatment Note Visit Start Time 07:33 Visit Stop Time 08:15 Total Visit Minutes 42 Visit Number 9 PT-OP-B Current Condition Start: 07/22/20 07:26 Freq: Status: Active Protocol: Document 07/22/20 09:43 MB (Rec: 07/22/20 10:03 MB [id number]) Current Condition History of Current Condition Onset Date Since she was 20 y/o (55 years ago) Current Complaints Intermittent pain History of Current Condition Pt had job where she sat a lot when she was 20 y/o and started getting back pain. She was told by a doctor that her facet joints were abnormal. She wore a stiff corset back brace for 3 years. In her thirties, she had an injury where she landed on her tail bone hard. She was told she had a fracture. Pt presents with long history of back pain. She rates current pain as 3/10 anterior left hip, 2/10 B SI area, 4/10 lumbosacral junction at midline, 1/10 midline (over spine) at upper cervical and upper thoracic spine. PMH: depression, osteopenia, multi-joint pain, PT for dizziness, headaches, hearing problems, jaw pain, neck pain, vision problems. Pt reports her bone density was checked within the last two years. Pt recently stopped her statin. Her B12 is good on recent blood work. Pt con't with foot pain. PT does not have an order for this. She saw a field secretary in May. She had walk fit inserts with changeable parts. She was using low and medium inserts. She was told to move up to high in left foot and medium in right foot. Pt has worse pain when she first puts shoes on. She likes to walk around in her stocking feet. She had a plantar wart on the bottom of her right great toe. Treatment Goals Patient/Caregiver Goals Pt would like to get stronger so that she can do more. She would like to be more flexible . Prior Functional Status Baseline Function- ADL's Independent Baseline Function- Mobility Independent PT-OP-C Subjective Start: 07/22/20 07:26 Freq: Status: Active Protocol: Document 09/11/20 07:33 MB (Rec: 09/11/20 08:17 MB [id number]) OP-PT Subjective Patient Comments Patient Comments I had a little trouble with the new stretch. PT encouraged pt to try with pillow under her hips and at an angle. PT-OP-J Posture/Palpation/Skin Start: 07/22/20 07:26 Freq: Status: Active Protocol: Document 07/22/20 09:43 MB (Rec: 07/22/20 13:00 MB [id number]) Posture Evaluation Comments Posture Comments Standing posture, socks donned : forward head, rounded shoulders, absent thoracic kyphosis, anterior tilt pelvis , increased lumbar lordosis, right iliac crest 1/4 higher than the left, left midfoot pes planus, left rearfoot over pronation, left tibial torsion. PT-OP-K Range of Motion Start: 07/22/20 07:26 Freq: Status: Active Protocol: Document 07/22/20 09:43 MB (Rec: 07/22/20 13:00 MB [id number]) Lumbar Spine Range of Motion Lumbar Spine Active Comments Standing: pt self-limits forward flexion to two reps. She does not report increased pain but I can feel it. Fingers are 5 from the floor. Pt self-limits standing back extension as well, reports that she feels like she might lose her balance posteriorly. Less reports of pain with extension. With leaning forward, pt shifts weight to her right foot and this causes shift on her spinal alignment with right thoracic spine higher than the left. From assessment today, she appears to have a functional leg length difference in standing with right leg slightly shorter. In hook lying, femurs are equal height. In supine, PT pulls legs and legs are grossly similar length. PT-OP-M Strength Start: 07/22/20 07:26 Freq: Status: Active Protocol: Document 07/22/20 09:43 MB (Rec: 07/22/20 13:00 MB [id number]) Hip Strength Hip Manual Muscle Testing Left Flexion (L2) 5 Normal Abduction 3+ Fair+ Comments Pt reports pain at lateral hip with hip abduction MMT Right Flexion (L2) 5 Normal Abduction 4 Good Comments Pt reports discomfort at right anterior hip with MMT hip flexion Knee Strength Knee Manual Muscle Testing Left Flexion (S2) 5 Normal Extension (L3) 5 Normal Right Flexion (S2) 5 Normal Extension (L3) 5 Normal Ankle/Foot Strength Ankle and Foot Manual Muscle Testing Left Dorsiflexion (L4) 5 Normal Right Dorsiflexion (L4) 5 Normal Toe Strength Toe Manual Muscle Testing Left Great Toe Extension 5 Normal Right Great Toe Extension 5 Normal PT-OP-Q Treatments Start: 07/22/20 07:26 Freq: Status: Active Protocol: Document 09/11/20 07:33 MB (Rec: 09/11/20 08:17 MB [id number]) Manual Therapy Treatment Other Other Manual Treatments Pt agrees to Counterstrain to assess and treat fascial tension. Pt presents with fascial tension in the following systems: DPR, right trigeminal. PT treats stacks of the following fascial systems: trigeminal and facial , TENT, cervical mesentary and upper thoracic Suboccipital release PT-OP-T Assessment and Plan Start: 07/22/20 07:26 Freq: Status: Active Protocol: Document 09/11/20 07:33 MB (Rec: 09/11/20 08:17 MB [id number]) Physical Therapy Assessment Rehab Potential Rehabilitation Potential Fair Evaluation Complexity Number of Personal Factors/Comorbidities 1-2 Number of Body Systems Impaired 3 Clinical Presentation at Evaluation Evolving Impairments Impairments Activity Tolerance,Balance, Pain,Posture,Soft Tissue Mobility,Strength Other Impairments Personal factors include history of depression and chronic-like pain in multi- joints (neck, back, hip, feet) , recent syncopal events, fall and right knee pain. Body systems affected include bone (osteopenia), psychosocial, musculoskeletal, recent history of vestibular problems treated by this PT. Her clinical presentation is evolving given multiple pain sites, ongoing. Goals 4 Impairment LEF score 41.25% impairment Manager Completions Goal (LTG) Pt will present with improved LEF score to reflect no more than 30% impairment to allow return to IADLs with less pain by 11/04/2020. LTG Duration 8 weeks 3 Penitentiary Goal (LTG) Pt will present with an improved Oswestry LBP score to reflect no more than 15% impairment to reflect less pain with functional activities by 11/04/2020. 09/04/2020: Oswestry LBP score has improved from 38% to 24% impairment LTG Duration 8 weeks Two Penitentiary Goal (LTG) Pt will perform progressive HEP with I including pelvic realignment, relaxation, breathing, gentle core and strengthening exercises to improve strength and pain by 11/04/2020. 09/04/2020: Pt has backed off exercises since falling off the commode twice 08/13/2020 LTG Duration 8 weeks One Penitentiary Goal (LTG) Pt will present with improved B hip abduction strength to 5/ 5 to improve balance and pain by 11/04/2020. 09/04/2020: After fall: left knee extension and left hip abduction 4/5 and left knee flexion, hip flexion, ankle DF and great toe extension 5/5; right hip flexion, knee extension 5/5, right hip abduction and knee flexion 4/5 , right ankle DF and great toe extension 5/5. Pt has medial knee pain to palpation medial knee joint and with MMT knee flexion. LTG Duration 8 weeks Assessment Summary Assessment Pt responds well to gentle manual work today. Con't this and exercise progression. Physical Therapy Plan Frequency and Duration Frequency of Treatment 2x/Week Duration of Treatment 8 weeks Plan of Care Start Date 09/04/20 Plan of Care End Date 11/04/20 Therapeutic Interventions Therapeutic Interventions Aquatic Therapy,Balance Training,Canalithic Repositioning,Gait Training, Home Exercise Program,Joint Mobilizations,Manual Therapy, Neuromuscular Re-education, Patient/Caregiver Education, Self-Care/Home Management,Soft Tissue Mobilization,Taping, Therapeutic Activities, Therapeutic Exercises Modalities Electric Stimulation,Hot Packs ,Infrared Therapy, Iontophoresis Other Referrals/Consults Referrals/Consults Recommended Pelvic floor therapy if appropriate d/t reports of urinary incontinence after sitting a long time as well as occ with sneezing. Next Visit Focus/Plan Next Note Type Treatment Note Next Visit Plan Consider further flexibility and core exercises. Con't Counterstrain (assess sacrum) and progessive pelvic and LBP rexercises. Progress strengthening exercises as pt tolerates. Consider hook lying and sitting leg strengthening d/t complaints last treatment course, foot complaints. Consider pelvic floor therapist to see pt in the future.
--- NOTE | 2020-09-16 09:45 | PT.OTN ---
Current Diagnoses Other chronic pain (09/16/20) Dorsalgia, unspecified (09/16/20) Physical Therapy Treatment Note PT-OP-A Visit Information Start: 07/22/20 07:26 Freq: Status: Active Protocol: Document 09/16/20 08:58 MB (Rec: 09/16/20 09:43 MB [id number]) Out-Patient Physical Therapy Visit Information Visit Information Visit Type Treatment Note Visit Note Progress note in 7 treatments Visit Start Time 09:03 Visit Stop Time 09:45 Total Visit Minutes 42 Visit Number 10 PT-OP-B Current Condition Start: 07/22/20 07:26 Freq: Status: Active Protocol: Document 07/22/20 09:43 MB (Rec: 07/22/20 10:03 MB [id number]) Current Condition History of Current Condition Onset Date Since she was 20 y/o (55 years ago) Current Complaints Intermittent pain History of Current Condition Pt had job where she sat a lot when she was 20 y/o and started getting back pain. She was told by a doctor that her facet joints were abnormal. She wore a stiff corset back brace for 3 years. In her thirties, she had an injury where she landed on her tail bone hard. She was told she had a fracture. Pt presents with long history of back pain. She rates current pain as 3/10 anterior left hip, 2/10 B SI area, 4/10 lumbosacral junction at midline, 1/10 midline (over spine) at upper cervical and upper thoracic spine. PMH: depression, osteopenia, multi-joint pain, PT for dizziness, headaches, hearing problems, jaw pain, neck pain, vision problems. Pt reports her bone density was checked within the last two years. Pt recently stopped her statin. Her B12 is good on recent blood work. Pt con't with foot pain. PT does not have an order for this. She saw a wood finisher apprentice in May. She had walk fit inserts with changeable parts. She was using low and medium inserts. She was told to move up to high in left foot and medium in right foot. Pt has worse pain when she first puts shoes on. She likes to walk around in her stocking feet. She had a plantar wart on the bottom of her right great toe. Treatment Goals Patient/Caregiver Goals Pt would like to get stronger so that she can do more. She would like to be more flexible . Prior Functional Status Baseline Function- ADL's Independent Baseline Function- Mobility Independent PT-OP-C Subjective Start: 07/22/20 07:26 Freq: Status: Active Protocol: Document 09/16/20 08:58 MB (Rec: 09/16/20 09:43 MB [id number]) OP-PT Subjective Patient Comments Patient Comments I've been doing the exercises more and I finally figured out the one with my leg dangling off. I think it is a good one. PT-OP-J Posture/Palpation/Skin Start: 07/22/20 07:26 Freq: Status: Active Protocol: Document 07/22/20 09:43 MB (Rec: 07/22/20 13:00 MB [id number]) Posture Evaluation Comments Posture Comments Standing posture, socks donned : forward head, rounded shoulders, absent thoracic kyphosis, anterior tilt pelvis , increased lumbar lordosis, right iliac crest 1/4 higher than the left, left midfoot pes planus, left rearfoot over pronation, left tibial torsion. PT-OP-K Range of Motion Start: 07/22/20 07:26 Freq: Status: Active Protocol: Document 07/22/20 09:43 MB (Rec: 07/22/20 13:00 MB [id number]) Lumbar Spine Range of Motion Lumbar Spine Active Comments Standing: pt self-limits forward flexion to two reps. She does not report increased pain but I can feel it. Fingers are 5 from the floor. Pt self-limits standing back extension as well, reports that she feels like she might lose her balance posteriorly. Less reports of pain with extension. With leaning forward, pt shifts weight to her right foot and this causes shift on her spinal alignment with right thoracic spine higher than the left. From assessment today, she appears to have a functional leg length difference in standing with right leg slightly shorter. In hook lying, femurs are equal height. In supine, PT pulls legs and legs are grossly similar length. PT-OP-M Strength Start: 07/22/20 07:26 Freq: Status: Active Protocol: Document 07/22/20 09:43 MB (Rec: 07/22/20 13:00 MB [id number]) Hip Strength Hip Manual Muscle Testing Left Flexion (L2) 5 Normal Abduction 3+ Fair+ Comments Pt reports pain at lateral hip with hip abduction MMT Right Flexion (L2) 5 Normal Abduction 4 Good Comments Pt reports discomfort at right anterior hip with MMT hip flexion Knee Strength Knee Manual Muscle Testing Left Flexion (S2) 5 Normal Extension (L3) 5 Normal Right Flexion (S2) 5 Normal Extension (L3) 5 Normal Ankle/Foot Strength Ankle and Foot Manual Muscle Testing Left Dorsiflexion (L4) 5 Normal Right Dorsiflexion (L4) 5 Normal Toe Strength Toe Manual Muscle Testing Left Great Toe Extension 5 Normal Right Great Toe Extension 5 Normal PT-OP-Q Treatments Start: 07/22/20 07:26 Freq: Status: Active Protocol: Document 09/16/20 08:58 MB (Rec: 09/16/20 09:43 MB [id number]) Therapeutic Exercises Supine Exercises Abdominal drawing in Comments Performed today before other core ex Core progression Comments Knee rocking and HS x5 reps Progressive relaxation exercises Side bilateral Comments D/cd toes up, Self-Care/Home Management Treatment Education Other Education Measured pt for compression hose and she to order or try tights beforehand. Recommended /suggested in setting of orthostasis and right knee injury and discomfort PT-OP-T Assessment and Plan Start: 07/22/20 07:26 Freq: Status: Active Protocol: Document 09/16/20 08:58 MB (Rec: 09/16/20 09:43 MB [id number]) Physical Therapy Assessment Rehab Potential Rehabilitation Potential Fair Evaluation Complexity Number of Personal Factors/Comorbidities 1-2 Number of Body Systems Impaired 3 Clinical Presentation at Evaluation Evolving Impairments Impairments Activity Tolerance,Balance, Pain,Posture,Soft Tissue Mobility,Strength Other Impairments Personal factors include history of depression and chronic-like pain in multi- joints (neck, back, hip, feet) , recent syncopal events, fall and right knee pain. Body systems affected include bone (osteopenia), psychosocial, musculoskeletal, recent history of vestibular problems treated by this PT. Her clinical presentation is evolving given multiple pain sites, ongoing. Goals 4 Impairment LEF score 41.25% impairment Jail Goal (LTG) Pt will present with improved LEF score to reflect no more than 30% impairment to allow return to IADLs with less pain by 11/04/2020. LTG Duration 8 weeks 3 Jail Goal (LTG) Pt will present with an improved Oswestry LBP score to reflect no more than 15% impairment to reflect less pain with functional activities by 11/04/2020. 09/04/2020: Oswestry LBP score has improved from 38% to 24% impairment LTG Duration 8 weeks Two Jail Goal (LTG) Pt will perform progressive HEP with I including pelvic realignment, relaxation, breathing, gentle core and strengthening exercises to improve strength and pain by 11/04/2020. 09/04/2020: Pt has backed off exercises since falling off the commode twice 08/13/2020 LTG Duration 8 weeks One Grain Merchandising Manager Goal (LTG) Pt will present with improved B hip abduction strength to 5/ 5 to improve balance and pain by 11/04/2020. 09/04/2020: After fall: left knee extension and left hip abduction 4/5 and left knee flexion, hip flexion, ankle DF and great toe extension 5/5; right hip flexion, knee extension 5/5, right hip abduction and knee flexion 4/5 , right ankle DF and great toe extension 5/5. Pt has medial knee pain to palpation medial knee joint and with MMT knee flexion. LTG Duration 8 weeks Assessment Summary Assessment Pt con't with occ medial right knee pain with getting on and off the floor. Once again, PT feels that she might have had a soft tissue injury to her right knee with the fall. Measured pt's leg today and she to consider getting thigh high stockings. Reviewed exercises re-added today after syncopal episode and treatment break. Extensive time re-ed ex today. Physical Therapy Plan Frequency and Duration Frequency of Treatment 2x/Week Duration of Treatment 8 weeks Plan of Care Start Date 09/04/20 Plan of Care End Date 11/04/20 Therapeutic Interventions Therapeutic Interventions Aquatic Therapy,Balance Training,Canalithic Repositioning,Gait Training, Home Exercise Program,Joint Mobilizations,Manual Therapy, Neuromuscular Re-education, Patient/Caregiver Education, Self-Care/Home Management,Soft Tissue Mobilization,Taping, Therapeutic Activities, Therapeutic Exercises Modalities Electric Stimulation,Hot Packs ,Infrared Therapy, Iontophoresis Other Referrals/Consults Referrals/Consults Recommended Pelvic floor therapy if appropriate d/t reports of urinary incontinence after sitting a long time as well as occ with sneezing. Next Visit Focus/Plan Next Note Type Treatment Note Next Visit Plan Progress strengthening exercises as pt tolerates. Consider hook lying and sitting leg strengthening d/t complaints last treatment course, foot complaints. Consider pelvic floor therapist to see pt in the future.
--- NOTE | 2020-09-18 08:15 | PT.OTN ---
Current Diagnoses Other chronic pain (09/18/20) Dorsalgia, unspecified (09/18/20) Physical Therapy Treatment Note PT-OP-A Visit Information Start: 07/22/20 07:26 Freq: Status: Active Protocol: Document 09/18/20 07:32 MB (Rec: 09/18/20 07:41 MB [id number]) Out-Patient Physical Therapy Visit Information Visit Information Visit Type Treatment Note Visit Note Progress note in 6 treatments Visit Start Time 07:32 Visit Stop Time 08:15 Total Visit Minutes 43 Visit Number 11 PT-OP-B Current Condition Start: 07/22/20 07:26 Freq: Status: Active Protocol: Document 07/22/20 09:43 MB (Rec: 07/22/20 10:03 MB [id number]) Current Condition History of Current Condition Onset Date Since she was 20 y/o (55 years ago) Current Complaints Intermittent pain History of Current Condition Pt had job where she sat a lot when she was 20 y/o and started getting back pain. She was told by a doctor that her facet joints were abnormal. She wore a stiff corset back brace for 3 years. In her thirties, she had an injury where she landed on her tail bone hard. She was told she had a fracture. Pt presents with long history of back pain. She rates current pain as 3/10 anterior left hip, 2/10 B SI area, 4/10 lumbosacral junction at midline, 1/10 midline (over spine) at upper cervical and upper thoracic spine. PMH: depression, osteopenia, multi-joint pain, PT for dizziness, headaches, hearing problems, jaw pain, neck pain, vision problems. Pt reports her bone density was checked within the last two years. Pt recently stopped her statin. Her B12 is good on recent blood work. Pt con't with foot pain. PT does not have an order for this. She saw a gis manager in May. She had walk fit inserts with changeable parts. She was using low and medium inserts. She was told to move up to high in left foot and medium in right foot. Pt has worse pain when she first puts shoes on. She likes to walk around in her stocking feet. She had a plantar wart on the bottom of her right great toe. Treatment Goals Patient/Caregiver Goals Pt would like to get stronger so that she can do more. She would like to be more flexible . Prior Functional Status Baseline Function- ADL's Independent Baseline Function- Mobility Independent PT-OP-C Subjective Start: 07/22/20 07:26 Freq: Status: Active Protocol: Document 09/18/20 07:32 MB (Rec: 09/18/20 07:41 MB [id number]) OP-PT Subjective Patient Comments Patient Comments My right knee is bothering me a little more today. Pt states that she is not doing either of the toe progressive relaxation exercises d/t cramping PT-OP-J Posture/Palpation/Skin Start: 07/22/20 07:26 Freq: Status: Active Protocol: Document 07/22/20 09:43 MB (Rec: 07/22/20 13:00 MB [id number]) Posture Evaluation Comments Posture Comments Standing posture, socks donned : forward head, rounded shoulders, absent thoracic kyphosis, anterior tilt pelvis , increased lumbar lordosis, right iliac crest 1/4 higher than the left, left midfoot pes planus, left rearfoot over pronation, left tibial torsion. PT-OP-K Range of Motion Start: 07/22/20 07:26 Freq: Status: Active Protocol: Document 07/22/20 09:43 MB (Rec: 07/22/20 13:00 MB [id number]) Lumbar Spine Range of Motion Lumbar Spine Active Comments Standing: pt self-limits forward flexion to two reps. She does not report increased pain but I can feel it. Fingers are 5 from the floor. Pt self-limits standing back extension as well, reports that she feels like she might lose her balance posteriorly. Less reports of pain with extension. With leaning forward, pt shifts weight to her right foot and this causes shift on her spinal alignment with right thoracic spine higher than the left. From assessment today, she appears to have a functional leg length difference in standing with right leg slightly shorter. In hook lying, femurs are equal height. In supine, PT pulls legs and legs are grossly similar length. PT-OP-M Strength Start: 07/22/20 07:26 Freq: Status: Active Protocol: Document 07/22/20 09:43 MB (Rec: 07/22/20 13:00 MB [id number]) Hip Strength Hip Manual Muscle Testing Left Flexion (L2) 5 Normal Abduction 3+ Fair+ Comments Pt reports pain at lateral hip with hip abduction MMT Right Flexion (L2) 5 Normal Abduction 4 Good Comments Pt reports discomfort at right anterior hip with MMT hip flexion Knee Strength Knee Manual Muscle Testing Left Flexion (S2) 5 Normal Extension (L3) 5 Normal Right Flexion (S2) 5 Normal Extension (L3) 5 Normal Ankle/Foot Strength Ankle and Foot Manual Muscle Testing Left Dorsiflexion (L4) 5 Normal Right Dorsiflexion (L4) 5 Normal Toe Strength Toe Manual Muscle Testing Left Great Toe Extension 5 Normal Right Great Toe Extension 5 Normal PT-OP-Q Treatments Start: 07/22/20 07:26 Freq: Status: Active Protocol: Document 09/18/20 07:32 MB (Rec: 09/18/20 07:50 MB [id number]) Therapeutic Exercises Supine Exercises Abdominal drawing in Comments Performed 5 reps today with cues to relax shoulders and breath Core progression Comments Re-ed today, lots of cues and practice: knee rocking, fall out, January PT-OP-T Assessment and Plan Start: 07/22/20 07:26 Freq: Status: Active Protocol: Document 09/18/20 07:32 MB (Rec: 09/18/20 07:41 MB [id number]) Physical Therapy Assessment Rehab Potential Rehabilitation Potential Fair Evaluation Complexity Number of Personal Factors/Comorbidities 1-2 Number of Body Systems Impaired 3 Clinical Presentation at Evaluation Evolving Impairments Impairments Activity Tolerance,Balance, Pain,Posture,Soft Tissue Mobility,Strength Other Impairments Personal factors include history of depression and chronic-like pain in multi- joints (neck, back, hip, feet) , recent syncopal events, fall and right knee pain. Body systems affected include bone (osteopenia), psychosocial, musculoskeletal, recent history of vestibular problems treated by this PT. Her clinical presentation is evolving given multiple pain sites, ongoing. Goals 4 Impairment LEF score 41.25% impairment Camera Engineer Goal (LTG) Pt will present with improved LEF score to reflect no more than 30% impairment to allow return to IADLs with less pain by 11/04/2020. LTG Duration 8 weeks 3 Camera Engineer Goal (LTG) Pt will present with an improved Oswestry LBP score to reflect no more than 15% impairment to reflect less pain with functional activities by 11/04/2020. 09/04/2020: Oswestry LBP score has improved from 38% to 24% impairment LTG Duration 8 weeks Two Camera Engineer Goal (LTG) Pt will perform progressive HEP with I including pelvic realignment, relaxation, breathing, gentle core and strengthening exercises to improve strength and pain by 11/04/2020. 09/04/2020: Pt has backed off exercises since falling off the commode twice 08/13/2020 LTG Duration 8 weeks One Shelter Goal (LTG) Pt will present with improved B hip abduction strength to 5/ 5 to improve balance and pain by 11/04/2020. 09/04/2020: After fall: left knee extension and left hip abduction 4/5 and left knee flexion, hip flexion, ankle DF and great toe extension 5/5; right hip flexion, knee extension 5/5, right hip abduction and knee flexion 4/5 , right ankle DF and great toe extension 5/5. Pt has medial knee pain to palpation medial knee joint and with MMT knee flexion. LTG Duration 8 weeks Assessment Summary Assessment Ongoing medial right knee pain is a barrier to PT. Ongoing extensive education about core exercises today. Con't progression as pt tolerates. She still has trouble differentiating between pain, soreness and muscle contraction. Ed pt today in how to better distinguish between these. Physical Therapy Plan Frequency and Duration Frequency of Treatment 2x/Week Duration of Treatment 8 weeks Plan of Care Start Date 09/04/20 Plan of Care End Date 11/04/20 Therapeutic Interventions Therapeutic Interventions Aquatic Therapy,Balance Training,Canalithic Repositioning,Gait Training, Home Exercise Program,Joint Mobilizations,Manual Therapy, Neuromuscular Re-education, Patient/Caregiver Education, Self-Care/Home Management,Soft Tissue Mobilization,Taping, Therapeutic Activities, Therapeutic Exercises Modalities Electric Stimulation,Hot Packs ,Infrared Therapy, Iontophoresis Other Referrals/Consults Referrals/Consults Recommended Follow-up with Dr. Chand about onging right medial knee pain after fall Pelvic floor therapy if appropriate d/t reports of urinary incontinence after sitting a long time as well as occ with sneezing. Next Visit Focus/Plan Next Note Type Treatment Note Next Visit Plan Progress strengthening exercises as pt tolerates. Consider hook lying and sitting leg strengthening d/t complaints last treatment course, foot complaints. Consider pelvic floor therapist to see pt in the future.
--- NOTE | 2020-09-26 10:37 | PT.OTN ---
Current Diagnoses Other chronic pain (09/26/20) Dorsalgia, unspecified (09/26/20) Physical Therapy Treatment Note PT-OP-A Visit Information Start: 07/22/20 07:26 Freq: Status: Active Protocol: Document 09/26/20 09:48 MB (Rec: 09/26/20 10:02 MB [id number]) Out-Patient Physical Therapy Visit Information Visit Information Visit Type Treatment Note Visit Note Progress note in 5 txs Visit Start Time 09:48 Visit Stop Time 10:30 Total Visit Minutes 42 Visit Number 12 PT-OP-B Current Condition Start: 07/22/20 07:26 Freq: Status: Active Protocol: Document 07/22/20 09:43 MB (Rec: 07/22/20 10:03 MB [id number]) Current Condition History of Current Condition Onset Date Since she was 20 y/o (55 years ago) Current Complaints Intermittent pain History of Current Condition Pt had job where she sat a lot when she was 20 y/o and started getting back pain. She was told by a doctor that her facet joints were abnormal. She wore a stiff corset back brace for 3 years. In her thirties, she had an injury where she landed on her tail bone hard. She was told she had a fracture. Pt presents with long history of back pain. She rates current pain as 3/10 anterior left hip, 2/10 B SI area, 4/10 lumbosacral junction at midline, 1/10 midline (over spine) at upper cervical and upper thoracic spine. PMH: depression, osteopenia, multi-joint pain, PT for dizziness, headaches, hearing problems, jaw pain, neck pain, vision problems. Pt reports her bone density was checked within the last two years. Pt recently stopped her statin. Her B12 is good on recent blood work. Pt con't with foot pain. PT does not have an order for this. She saw a mapping specialist in May. She had walk fit inserts with changeable parts. She was using low and medium inserts. She was told to move up to high in left foot and medium in right foot. Pt has worse pain when she first puts shoes on. She likes to walk around in her stocking feet. She had a plantar wart on the bottom of her right great toe. Treatment Goals Patient/Caregiver Goals Pt would like to get stronger so that she can do more. She would like to be more flexible . 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 PT-OP-J Posture/Palpation/Skin Start: 07/22/20 07:26 Freq: Status: Active Protocol: Document 07/22/20 09:43 MB (Rec: 07/22/20 13:00 MB [id number]) Posture Evaluation Comments Posture Comments Standing posture, socks donned : forward head, rounded shoulders, absent thoracic kyphosis, anterior tilt pelvis , increased lumbar lordosis, right iliac crest 1/4 higher than the left, left midfoot pes planus, left rearfoot over pronation, left tibial torsion. PT-OP-K Range of Motion Start: 07/22/20 07:26 Freq: Status: Active Protocol: Document 07/22/20 09:43 MB (Rec: 07/22/20 13:00 MB [id number]) Lumbar Spine Range of Motion Lumbar Spine Active Comments Standing: pt self-limits forward flexion to two reps. She does not report increased pain but I can feel it. Fingers are 5 from the floor. Pt self-limits standing back extension as well, reports that she feels like she might lose her balance posteriorly. Less reports of pain with extension. With leaning forward, pt shifts weight to her right foot and this causes shift on her spinal alignment with right thoracic spine higher than the left. From assessment today, she appears to have a functional leg length difference in standing with right leg slightly shorter. In hook lying, femurs are equal height. In supine, PT pulls legs and legs are grossly similar length. PT-OP-M Strength Start: 07/22/20 07:26 Freq: Status: Active Protocol: Document 07/22/20 09:43 MB (Rec: 07/22/20 13:00 MB [id number]) Hip Strength Hip Manual Muscle Testing Left Flexion (L2) 5 Normal Abduction 3+ Fair+ Comments Pt reports pain at lateral hip with hip abduction MMT Right Flexion (L2) 5 Normal Abduction 4 Good Comments Pt reports discomfort at right anterior hip with MMT hip flexion Knee Strength Knee Manual Muscle Testing Left Flexion (S2) 5 Normal Extension (L3) 5 Normal Right Flexion (S2) 5 Normal Extension (L3) 5 Normal Ankle/Foot Strength Ankle and Foot Manual Muscle Testing Left Dorsiflexion (L4) 5 Normal Right Dorsiflexion (L4) 5 Normal Toe Strength Toe Manual Muscle Testing Left Great Toe Extension 5 Normal Right Great Toe Extension 5 Normal PT-OP-Q Treatments Start: 07/22/20 07:26 Freq: Status: Active Protocol: Document 09/26/20 09:48 MB (Rec: 09/26/20 10:02 MB [id number]) Manual Therapy Treatment Other Other Manual Treatments Gentle lavage massage right PFs, everters, hamstrings and quads, most work on lateral quads, gentle patellar mobs. Monitor response PT-OP-T Assessment and Plan Start: 07/22/20 07:26 Freq: Status: Active Protocol: Document 09/26/20 09:48 MB (Rec: 09/26/20 10:02 MB [id number]) Physical Therapy Assessment Rehab Potential Rehabilitation Potential Fair Evaluation Complexity Number of Personal Factors/Comorbidities 1-2 Number of Body Systems Impaired 3 Clinical Presentation at Evaluation Evolving Impairments Impairments Activity Tolerance,Balance, Pain,Posture,Soft Tissue Mobility,Strength Other Impairments Personal factors include history of depression and chronic-like pain in multi- joints (neck, back, hip, feet) , recent syncopal events, fall and right knee pain. Body systems affected include bone (osteopenia), psychosocial, musculoskeletal, recent history of vestibular problems treated by this PT. Her clinical presentation is evolving given multiple pain sites, ongoing. Goals 4 Impairment LEF score 41.25% impairment Residential Goal (LTG) Pt will present with improved LEF score to reflect no more than 30% impairment to allow return to IADLs with less pain by 11/04/2020. LTG Duration 8 weeks 3 Comb Tender Goal (LTG) Pt will present with an improved Oswestry LBP score to reflect no more than 15% impairment to reflect less pain with functional activities by 11/04/2020. 09/04/2020: Oswestry LBP score has improved from 38% to 24% impairment LTG Duration 8 weeks Two Comb Tender Goal (LTG) Pt will perform progressive HEP with I including pelvic realignment, relaxation, breathing, gentle core and strengthening exercises to improve strength and pain by 11/04/2020. 09/04/2020: Pt has backed off exercises since falling off the commode twice 08/13/2020 LTG Duration 8 weeks One Comb Tender Goal (LTG) Pt will present with improved B hip abduction strength to 5/ 5 to improve balance and pain by 11/04/2020. 09/04/2020: After fall: left knee extension and left hip abduction 4/5 and left knee flexion, hip flexion, ankle DF and great toe extension 5/5; right hip flexion, knee extension 5/5, right hip abduction and knee flexion 4/5 , right ankle DF and great toe extension 5/5. Pt has medial knee pain to palpation medial knee joint and with MMT knee flexion. LTG Duration 8 weeks Assessment Summary Assessment Gentle STM right leg today and pt con't with tenderness to touch medial joint line. She sees PCP on Tuesday to talk about cholesterol medication and she states that she will take with Dr. Chand about her right knee. 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 She does con't to make some questionable decisions about safety i.e. climbing ladder this week. Physical Therapy Plan Frequency and Duration Frequency of Treatment 2x/Week Duration of Treatment 8 weeks Plan of Care Start Date 09/04/20 Plan of Care End Date 11/04/20 Therapeutic Interventions Therapeutic Interventions Aquatic Therapy,Balance Training,Canalithic Repositioning,Gait Training, Home Exercise Program,Joint Mobilizations,Manual Therapy, Neuromuscular Re-education, Patient/Caregiver Education, Self-Care/Home Management,Soft Tissue Mobilization,Taping, Therapeutic Activities, Therapeutic Exercises Modalities Electric Stimulation,Hot Packs ,Infrared Therapy, Iontophoresis Other Referrals/Consults Referrals/Consults Recommended Follow-up with Dr. Chand about onging right medial knee pain after fall Pelvic floor therapy if appropriate d/t reports of urinary incontinence after sitting a long time as well as occ with sneezing. Next Visit Focus/Plan Next Note Type Treatment Note Next Visit Plan Progress strengthening exercises as pt tolerates. Consider hook lying and sitting leg strengthening d/t complaints last treatment course, foot complaints. Consider pelvic floor therapist to see pt in the future.
--- NOTE | 2020-10-10 16:06 | PT.OTN ---
Current Diagnoses Other chronic pain (10/10/20) Pain in right knee (10/10/20) Dorsalgia, unspecified (10/10/20) Dizziness and giddiness (10/10/20) Physical Therapy Treatment Note PT-OP-A Visit Information Start: 07/22/20 07:26 Freq: Status: Active Protocol: Document 10/10/20 13:54 MB (Rec: 10/10/20 14:32 MB [id number]) Out-Patient Physical Therapy Visit Information Visit Information Visit Type Treatment Note Visit Start Time 13:54 Visit Stop Time 14:32 Total Visit Minutes 38 Visit Number 13 PT-OP-B Current Condition Start: 07/22/20 07:26 Freq: Status: Active Protocol: Document 07/22/20 09:43 MB (Rec: 07/22/20 10:03 MB [id number]) Current Condition History of Current Condition Onset Date Since she was 20 y/o (55 years ago) Current Complaints Intermittent pain History of Current Condition Pt had job where she sat a lot when she was 20 y/o and started getting back pain. She was told by a doctor that her facet joints were abnormal. She wore a stiff corset back brace for 3 years. In her thirties, she had an injury where she landed on her tail bone hard. She was told she had a fracture. Pt presents with long history of back pain. She rates current pain as 3/10 anterior left hip, 2/10 B SI area, 4/10 lumbosacral junction at midline, 1/10 midline (over spine) at upper cervical and upper thoracic spine. PMH: depression, osteopenia, multi-joint pain, PT for dizziness, headaches, hearing problems, jaw pain, neck pain, vision problems. Pt reports her bone density was checked within the last two years. Pt recently stopped her statin. Her B12 is good on recent blood work. Pt con't with foot pain. PT does not have an order for this. She saw a staff air tactical officer in May. She had walk fit inserts with changeable parts. She was using low and medium inserts. She was told to move up to high in left foot and medium in right foot. Pt has worse pain when she first puts shoes on. She likes to walk around in her stocking feet. She had a plantar wart on the bottom of her right great toe. Treatment Goals Patient/Caregiver Goals Pt would like to get stronger so that she can do more. She would like to be more flexible . 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 Pt returned to see Dr. Chand and was put back on her statin. Her leg cramping has not been bad. Pt states that doctor thought she might have bursitis in her medial right knee. He offered MRI to determine next step in treatment such as surgery or injection. She is not interested in these and will not have MRI. She states that Dr. Chand encouraged PT to address knee and PT will do this per PT progress note goals. Pt states that her knee is bothering her the most with sitting at the computer too long. PT-OP-J Posture/Palpation/Skin Start: 07/22/20 07:26 Freq: Status: Active Protocol: Document 07/22/20 09:43 MB (Rec: 07/22/20 13:00 MB [id number]) Posture Evaluation Comments Posture Comments Standing posture, socks donned : forward head, rounded shoulders, absent thoracic kyphosis, anterior tilt pelvis , increased lumbar lordosis, right iliac crest 1/4 higher than the left, left midfoot pes planus, left rearfoot over pronation, left tibial torsion. PT-OP-K Range of Motion Start: 07/22/20 07:26 Freq: Status: Active Protocol: Document 07/22/20 09:43 MB (Rec: 07/22/20 13:00 MB [id number]) Lumbar Spine Range of Motion Lumbar Spine Active Comments Standing: pt self-limits forward flexion to two reps. She does not report increased pain but I can feel it. Fingers are 5 from the floor. Pt self-limits standing back extension as well, reports that she feels like she might lose her balance posteriorly. Less reports of pain with extension. With leaning forward, pt shifts weight to her right foot and this causes shift on her spinal alignment with right thoracic spine higher than the left. From assessment today, she appears to have a functional leg length difference in standing with right leg slightly shorter. In hook lying, femurs are equal height. In supine, PT pulls legs and legs are grossly similar length. PT-OP-M Strength Start: 07/22/20 07:26 Freq: Status: Active Protocol: Document 07/22/20 09:43 MB (Rec: 07/22/20 13:00 MB [id number]) Hip Strength Hip Manual Muscle Testing Left Flexion (L2) 5 Normal Abduction 3+ Fair+ Comments Pt reports pain at lateral hip with hip abduction MMT Right Flexion (L2) 5 Normal Abduction 4 Good Comments Pt reports discomfort at right anterior hip with MMT hip flexion Knee Strength Knee Manual Muscle Testing Left Flexion (S2) 5 Normal Extension (L3) 5 Normal Right Flexion (S2) 5 Normal Extension (L3) 5 Normal Ankle/Foot Strength Ankle and Foot Manual Muscle Testing Left Dorsiflexion (L4) 5 Normal Right Dorsiflexion (L4) 5 Normal Toe Strength Toe Manual Muscle Testing Left Great Toe Extension 5 Normal Right Great Toe Extension 5 Normal PT-OP-Q Treatments Start: 07/22/20 07:26 Freq: Status: Active Protocol: Document 10/10/20 13:54 MB (Rec: 10/10/20 15:58 MB [id number]) Therapeutic Exercises Supine Exercises Lisandro stretch Comments Verbally reviewed with exercise revision Abdominal drawing in Comments Verbally reviewed with exercise revision Core progression Comments Verbally reviewed with exercise revision Glute stretches Comments Verbally reviewed with exercise revision Hip adductor stretch Comments Verbally reviewed with exercise revision Progressive relaxation exercises Comments Pt not performing, will d/c Pelvic drop Comments Verbally reviewed with exercise revision Pelvic realignment exercises Comments Verbally reviewed with exercise revision Diaphragmatic breathing Comments Verbally reviewed with exercise revision Sitting Exercises Scapular retraction and chin tuck Comments Pt demonstrates in standing after cues today, 5 reps Levator scapula stretch Comments Verbally reviewed with exercise revision Cervical rotations with end range nods Comments Pt performs in sitting after cued today Standing Exercises Tandem standing EC Comments Verbally reviewed with exercise revision Tandem standing Comments Verbally reviewed with exercise revision Other Exercises Reviewed HEP, revised Comments Reviewed all exercises and created revised program handout today Hamstring stretch sitting Comments Verbally reviewed with exercise revision PT-OP-T Assessment and Plan Start: 07/22/20 07:26 Freq: Status: Active Protocol: Document 10/10/20 13:54 MB (Rec: 10/10/20 14:32 MB [id number]) Physical Therapy Assessment Rehab Potential Rehabilitation Potential Fair Evaluation Complexity Number of Personal Factors/Comorbidities 1-2 Number of Body Systems Impaired 3 Clinical Presentation at Evaluation Evolving Impairments Impairments Activity Tolerance,Balance, Pain,Posture,Soft Tissue Mobility,Strength Other Impairments Personal factors include history of depression and chronic-like pain in multi- joints (neck, back, hip, feet) , recent syncopal events, fall and right knee pain. Body systems affected include bone (osteopenia), psychosocial, musculoskeletal, recent history of vestibular problems treated by this PT. Her clinical presentation is evolving given multiple pain sites, ongoing. Goals 4 Impairment LEF score 41.25% impairment Nursing Home Goal (LTG) Pt will present with improved LEF score to reflect no more than 30% impairment to allow return to IADLs with less pain by 11/04/2020. LTG Duration 8 weeks 3 Truss Puller Helper Goal (LTG) Pt will present with an improved Oswestry LBP score to reflect no more than 15% impairment to reflect less pain with functional activities by 11/04/2020. 09/04/2020: Oswestry LBP score has improved from 38% to 24% impairment LTG Duration 8 weeks Two Nursing Home Goal (LTG) Pt will perform progressive HEP with I including pelvic realignment, relaxation, breathing, gentle core and strengthening exercises to improve strength and pain by 11/04/2020. 09/04/2020: Pt has backed off exercises since falling off the commode twice 08/13/2020 LTG Duration 8 weeks One Nursing Home Goal (LTG) Pt will present with improved B hip abduction strength to 5/ 5 to improve balance and pain by 11/04/2020. 09/04/2020: After fall: left knee extension and left hip abduction 4/5 and left knee flexion, hip flexion, ankle DF and great toe extension 5/5; right hip flexion, knee extension 5/5, right hip abduction and knee flexion 4/5 , right ankle DF and great toe extension 5/5. Pt has medial knee pain to palpation medial knee joint and with MMT knee flexion. LTG Duration 8 weeks Assessment Summary Assessment Pt reports spinning vertigo when lying down on yoga mat. Pt reports that she has had some nasal congestion when the symptom happened. Reviewed all exercises today and revised program: Daily: head rotation with gentle nods, corner balance; M /W/F: abdominal drawing in and core progression; T/Th/Sat: Lisandro stretch with core, pelvic and back pain sequence; As needed: sitting hamstring, gentle neck stretch, chin tuck and scapular retraction, pelvic realignment exercises ( with back pain or too much sitting). Pt states that Dr. Chand would like for PT to add some knee exercises and PT is in agreement and had written this as part of last progress note and will initiate in future treatments. PT and pt review which exercises she can do while traveling. Physical Therapy Plan Frequency and Duration Frequency of Treatment 2x/Week Duration of Treatment 8 weeks Plan of Care Start Date 09/04/20 Plan of Care End Date 11/04/20 Therapeutic Interventions Therapeutic Interventions Aquatic Therapy,Balance Training,Canalithic Repositioning,Gait Training, Home Exercise Program,Joint Mobilizations,Manual Therapy, Neuromuscular Re-education, Patient/Caregiver Education, Self-Care/Home Management,Soft Tissue Mobilization,Taping, Therapeutic Activities, Therapeutic Exercises Modalities Electric Stimulation,Hot Packs ,Infrared Therapy, Iontophoresis Other Referrals/Consults Referrals/Consults Recommended Pelvic floor therapy if appropriate d/t reports of urinary incontinence after sitting a long time as well as occ with sneezing. Next Visit Focus/Plan Next Note Type Treatment Note Next Visit Plan Check for BPPV and progress knee exercises.
--- NOTE | 2020-10-13 11:16 | PT.OTN ---
Current Diagnoses Other chronic pain (10/13/20) Pain in right knee (10/13/20) Dorsalgia, unspecified (10/13/20) Dizziness and giddiness (10/13/20) Physical Therapy Treatment Note PT-OP-A Visit Information Start: 07/22/20 07:26 Freq: Status: Active Protocol: Document 10/13/20 10:33 MB (Rec: 10/13/20 11:00 MB [id number]) Out-Patient Physical Therapy Visit Information Visit Information Visit Type Treatment Note Visit Start Time 10:33 Visit Stop Time 11:15 Total Visit Minutes 42 Visit Number 14 PT-OP-B Current Condition Start: 07/22/20 07:26 Freq: Status: Active Protocol: Document 07/22/20 09:43 MB (Rec: 07/22/20 10:03 MB [id number]) Current Condition History of Current Condition Onset Date Since she was 20 y/o (55 years ago) Current Complaints Intermittent pain History of Current Condition Pt had job where she sat a lot when she was 20 y/o and started getting back pain. She was told by a doctor that her facet joints were abnormal. She wore a stiff corset back brace for 3 years. In her thirties, she had an injury where she landed on her tail bone hard. She was told she had a fracture. Pt presents with long history of back pain. She rates current pain as 3/10 anterior left hip, 2/10 B SI area, 4/10 lumbosacral junction at midline, 1/10 midline (over spine) at upper cervical and upper thoracic spine. PMH: depression, osteopenia, multi-joint pain, PT for dizziness, headaches, hearing problems, jaw pain, neck pain, vision problems. Pt reports her bone density was checked within the last two years. Pt recently stopped her statin. Her B12 is good on recent blood work. Pt con't with foot pain. PT does not have an order for this. She saw a smoking pipe maker in May. She had walk fit inserts with changeable parts. She was using low and medium inserts. She was told to move up to high in left foot and medium in right foot. Pt has worse pain when she first puts shoes on. She likes to walk around in her stocking feet. She had a plantar wart on the bottom of her right great toe. Treatment Goals Patient/Caregiver Goals Pt would like to get stronger so that she can do more. She would like to be more flexible . Prior Functional Status Baseline Function- ADL's Independent Baseline Function- Mobility Independent PT-OP-C Subjective Start: 07/22/20 07:26 Freq: Status: Active Protocol: Document 10/13/20 10:33 MB (Rec: 10/13/20 11:00 MB [id number]) OP-PT Subjective Patient Comments Patient Comments I'm a little scared for you to check the vertigo. Pt reports that she has drainage today. PT and pt defer BPPV testing. Pt reports that having her exercises divided up and written out helps. PT-OP-J Posture/Palpation/Skin Start: 07/22/20 07:26 Freq: Status: Active Protocol: Document 07/22/20 09:43 MB (Rec: 07/22/20 13:00 MB [id number]) Posture Evaluation Comments Posture Comments Standing posture, socks donned : forward head, rounded shoulders, absent thoracic kyphosis, anterior tilt pelvis , increased lumbar lordosis, right iliac crest 1/4 higher than the left, left midfoot pes planus, left rearfoot over pronation, left tibial torsion. PT-OP-K Range of Motion Start: 07/22/20 07:26 Freq: Status: Active Protocol: Document 07/22/20 09:43 MB (Rec: 07/22/20 13:00 MB [id number]) Lumbar Spine Range of Motion Lumbar Spine Active Comments Standing: pt self-limits forward flexion to two reps. She does not report increased pain but I can feel it. Fingers are 5 from the floor. Pt self-limits standing back extension as well, reports that she feels like she might lose her balance posteriorly. Less reports of pain with extension. With leaning forward, pt shifts weight to her right foot and this causes shift on her spinal alignment with right thoracic spine higher than the left. From assessment today, she appears to have a functional leg length difference in standing with right leg slightly shorter. In hook lying, femurs are equal height. In supine, PT pulls legs and legs are grossly similar length. PT-OP-M Strength Start: 07/22/20 07:26 Freq: Status: Active Protocol: Document 07/22/20 09:43 MB (Rec: 07/22/20 13:00 MB [id number]) Hip Strength Hip Manual Muscle Testing Left Flexion (L2) 5 Normal Abduction 3+ Fair+ Comments Pt reports pain at lateral hip with hip abduction MMT Right Flexion (L2) 5 Normal Abduction 4 Good Comments Pt reports discomfort at right anterior hip with MMT hip flexion Knee Strength Knee Manual Muscle Testing Left Flexion (S2) 5 Normal Extension (L3) 5 Normal Right Flexion (S2) 5 Normal Extension (L3) 5 Normal Ankle/Foot Strength Ankle and Foot Manual Muscle Testing Left Dorsiflexion (L4) 5 Normal Right Dorsiflexion (L4) 5 Normal Toe Strength Toe Manual Muscle Testing Left Great Toe Extension 5 Normal Right Great Toe Extension 5 Normal PT-OP-Q Treatments Start: 07/22/20 07:26 Freq: Status: Active Protocol: Document 10/13/20 10:33 MB (Rec: 10/13/20 11:00 MB [id number]) Therapeutic Exercises Supine Exercises HS with band Side bilateral Resistance Level 1 band Comments 10 reps and cues not to overdo it SLR Side bilateral Comments 5 reps, count five on the way up and five on the way down Manual Therapy Treatment Other Other Manual Treatments Gentle STM/lavage right quads and PFs to promote fascial mobility PT-OP-T Assessment and Plan Start: 07/22/20 07:26 Freq: Status: Active Protocol: Document 10/13/20 10:33 MB (Rec: 10/13/20 11:00 MB [id number]) Physical Therapy Assessment Rehab Potential Rehabilitation Potential Fair Evaluation Complexity Number of Personal Factors/Comorbidities 1-2 Number of Body Systems Impaired 3 Clinical Presentation at Evaluation Evolving Impairments Impairments Activity Tolerance,Balance, Pain,Posture,Soft Tissue Mobility,Strength Other Impairments Personal factors include history of depression and chronic-like pain in multi- joints (neck, back, hip, feet) , recent syncopal events, fall and right knee pain. Body systems affected include bone (osteopenia), psychosocial, musculoskeletal, recent history of vestibular problems treated by this PT. Her clinical presentation is evolving given multiple pain sites, ongoing. Goals 4 Impairment LEF score 41.25% impairment Alarm Installation Technician Goal (LTG) Pt will present with improved LEF score to reflect no more than 30% impairment to allow return to IADLs with less pain by 11/04/2020. LTG Duration 8 weeks 3 Alarm Installation Technician Goal (LTG) Pt will present with an improved Oswestry LBP score to reflect no more than 15% impairment to reflect less pain with functional activities by 11/04/2020. 09/04/2020: Oswestry LBP score has improved from 38% to 24% impairment LTG Duration 8 weeks Two Alarm Installation Technician Goal (LTG) Pt will perform progressive HEP with I including pelvic realignment, relaxation, breathing, gentle core and strengthening exercises to improve strength and pain by 11/04/2020. 09/04/2020: Pt has backed off exercises since falling off the commode twice 08/13/2020 LTG Duration 8 weeks One Skilled Nursing Goal (LTG) Pt will present with improved B hip abduction strength to 5/ 5 to improve balance and pain by 11/04/2020. 09/04/2020: After fall: left knee extension and left hip abduction 4/5 and left knee flexion, hip flexion, ankle DF and great toe extension 5/5; right hip flexion, knee extension 5/5, right hip abduction and knee flexion 4/5 , right ankle DF and great toe extension 5/5. Pt has medial knee pain to palpation medial knee joint and with MMT knee flexion. LTG Duration 8 weeks Assessment Summary Assessment Update revised HEP today. Added right knee exercises today and pt reports concern that SLR may irritate her LB. Added resistance to HS to promote gentle leg strengthening. Manual work helped in the past an initiated again today and pt reports she feels better immediately after treatment. Physical Therapy Plan Frequency and Duration Frequency of Treatment 2x/Week Duration of Treatment 8 weeks Plan of Care Start Date 09/04/20 Plan of Care End Date 11/04/20 Therapeutic Interventions Therapeutic Interventions Aquatic Therapy,Balance Training,Canalithic Repositioning,Gait Training, Home Exercise Program,Joint Mobilizations,Manual Therapy, Neuromuscular Re-education, Patient/Caregiver Education, Self-Care/Home Management,Soft Tissue Mobilization,Taping, Therapeutic Activities, Therapeutic Exercises Modalities Electric Stimulation,Hot Packs ,Infrared Therapy, Iontophoresis Other Referrals/Consults Referrals/Consults Recommended Pelvic floor therapy if appropriate d/t reports of urinary incontinence after sitting a long time as well as occ with sneezing. Next Visit Focus/Plan Next Note Type Treatment Note Next Visit Plan Check for BPPV if needed and progress knee exercises. LE manual work, gentle, as pt tolerates
--- NOTE | 2020-10-21 15:49 | PT.OTN ---
Current Diagnoses Other chronic pain (10/21/20) Pain in right knee (10/21/20) Dorsalgia, unspecified (10/21/20) Dizziness and giddiness (10/21/20) Physical Therapy Treatment Note PT-OP-A Visit Information Start: 07/22/20 07:26 Freq: Status: Active Protocol: Document 10/21/20 13:03 MB (Rec: 10/21/20 13:42 MB [id number]) Out-Patient Physical Therapy Visit Information Visit Information Visit Type Treatment Note Visit Start Time 13:03 Visit Stop Time 13:45 Total Visit Minutes 42 Visit Number 15 PT-OP-B Current Condition Start: 07/22/20 07:26 Freq: Status: Active Protocol: Document 07/22/20 09:43 MB (Rec: 07/22/20 10:03 MB [id number]) Current Condition History of Current Condition Onset Date Since she was 20 y/o (55 years ago) Current Complaints Intermittent pain History of Current Condition Pt had job where she sat a lot when she was 20 y/o and started getting back pain. She was told by a doctor that her facet joints were abnormal. She wore a stiff corset back brace for 3 years. In her thirties, she had an injury where she landed on her tail bone hard. She was told she had a fracture. Pt presents with long history of back pain. She rates current pain as 3/10 anterior left hip, 2/10 B SI area, 4/10 lumbosacral junction at midline, 1/10 midline (over spine) at upper cervical and upper thoracic spine. PMH: depression, osteopenia, multi-joint pain, PT for dizziness, headaches, hearing problems, jaw pain, neck pain, vision problems. Pt reports her bone density was checked within the last two years. Pt recently stopped her statin. Her B12 is good on recent blood work. Pt con't with foot pain. PT does not have an order for this. She saw a depot agent in May. She had walk fit inserts with changeable parts. She was using low and medium inserts. She was told to move up to high in left foot and medium in right foot. Pt has worse pain when she first puts shoes on. She likes to walk around in her stocking feet. She had a plantar wart on the bottom of her right great toe. Treatment Goals Patient/Caregiver Goals Pt would like to get stronger so that she can do more. She would like to be more flexible . Prior Functional Status Baseline Function- ADL's Independent Baseline Function- Mobility Independent PT-OP-C Subjective Start: 07/22/20 07:26 Freq: Status: Active Protocol: Document 10/21/20 13:03 MB (Rec: 10/21/20 13:42 MB [id number]) OP-PT Subjective Patient Comments Patient Comments I've had a pretty good week. If anything, I get a little trouble in my low back with the leg lift. Pt states that she would like to stick with it. PT-OP-J Posture/Palpation/Skin Start: 07/22/20 07:26 Freq: Status: Active Protocol: Document 07/22/20 09:43 MB (Rec: 07/22/20 13:00 MB [id number]) Posture Evaluation Comments Posture Comments Standing posture, socks donned : forward head, rounded shoulders, absent thoracic kyphosis, anterior tilt pelvis , increased lumbar lordosis, right iliac crest 1/4 higher than the left, left midfoot pes planus, left rearfoot over pronation, left tibial torsion. PT-OP-K Range of Motion Start: 07/22/20 07:26 Freq: Status: Active Protocol: Document 07/22/20 09:43 MB (Rec: 07/22/20 13:00 MB [id number]) Lumbar Spine Range of Motion Lumbar Spine Active Comments Standing: pt self-limits forward flexion to two reps. She does not report increased pain but I can feel it. Fingers are 5 from the floor. Pt self-limits standing back extension as well, reports that she feels like she might lose her balance posteriorly. Less reports of pain with extension. With leaning forward, pt shifts weight to her right foot and this causes shift on her spinal alignment with right thoracic spine higher than the left. From assessment today, she appears to have a functional leg length difference in standing with right leg slightly shorter. In hook lying, femurs are equal height. In supine, PT pulls legs and legs are grossly similar length. PT-OP-M Strength Start: 07/22/20 07:26 Freq: Status: Active Protocol: Document 07/22/20 09:43 MB (Rec: 07/22/20 13:00 MB [id number]) Hip Strength Hip Manual Muscle Testing Left Flexion (L2) 5 Normal Abduction 3+ Fair+ Comments Pt reports pain at lateral hip with hip abduction MMT Right Flexion (L2) 5 Normal Abduction 4 Good Comments Pt reports discomfort at right anterior hip with MMT hip flexion Knee Strength Knee Manual Muscle Testing Left Flexion (S2) 5 Normal Extension (L3) 5 Normal Right Flexion (S2) 5 Normal Extension (L3) 5 Normal Ankle/Foot Strength Ankle and Foot Manual Muscle Testing Left Dorsiflexion (L4) 5 Normal Right Dorsiflexion (L4) 5 Normal Toe Strength Toe Manual Muscle Testing Left Great Toe Extension 5 Normal Right Great Toe Extension 5 Normal PT-OP-Q Treatments Start: 07/22/20 07:26 Freq: Status: Active Protocol: Document 10/21/20 13:03 MB (Rec: 10/21/20 13:42 MB [id number]) Therapeutic Exercises Supine Exercises HS with band Comments Verbally reviewed today, provided level 2 band SLR Comments Verbally reviewed today Sitting Exercises Quad rolling with rolling pin Side right Comments Added today, provided handout, ed to perform see saw motion Other Exercises Reviewed HEP, revised Comments Reviewed HEP in preparation for d/c today PT-OP-T Assessment and Plan Start: 07/22/20 07:26 Freq: Status: Active Protocol: Document 10/21/20 13:03 MB (Rec: 10/21/20 13:42 MB [id number]) Physical Therapy Assessment Rehab Potential Rehabilitation Potential Fair Evaluation Complexity Number of Personal Factors/Comorbidities 1-2 Number of Body Systems Impaired 3 Clinical Presentation at Evaluation Evolving Impairments Impairments Activity Tolerance,Balance, Pain,Posture,Soft Tissue Mobility,Strength Other Impairments Personal factors include history of depression and chronic-like pain in multi- joints (neck, back, hip, feet) , recent syncopal events, fall and right knee pain. Body systems affected include bone (osteopenia), psychosocial, musculoskeletal, recent history of vestibular problems treated by this PT. Her clinical presentation is evolving given multiple pain sites, ongoing. Goals 4 Header Machine Operator Goal (LTG) Pt will present with improved LEF score to reflect no more than 30% impairment to allow return to IADLs with less pain by 11/04/2020. 10/21/2020: LEF score reflects 31.35% impairment, 10% improvement from progress note LTG Duration Partially met 3 Header Machine Operator Goal (LTG) Pt will present with an improved Oswestry LBP score to reflect no more than 15% impairment to reflect less pain with functional activities by 11/04/2020. 10/21/2020: Oswestry score is 24% LTG Duration Partially met Two Usp Goal (LTG) Pt will perform progressive HEP with I including pelvic realignment, relaxation, breathing, gentle core and strengthening exercises to improve strength and pain by 11/04/2020. 10/21/2020: Pt is performing progressive HEP and PT answers questions today LTG Duration Met One Usp Goal (LTG) Pt will present with improved B hip abduction strength to 5/ 5 to improve balance and pain by 11/04/2020. 10/21/2020: B hip abduction 5/ 5 LTG Duration Met Assessment Summary Assessment Pt has met HEP and LE strength goals since starting PT. PT provided gentle knee strengthening exercises in setting of the right knee injury during PT course. Pt's Oswestry and LE functional index scores are improved. She has had chronic pain trouble and these scores are not met partially d/t this. She has maximized PT potential. Will d /c PT. Physical Therapy Plan Other Referrals/Consults Referrals/Consults Recommended Pelvic floor therapy if appropriate d/t reports of urinary incontinence after sitting a long time as well as occ with sneezing.
== END 2020-10-23 12:58 | disposition home or self-care (01) ==
LOC: PHYS 13:00
PROVIDERS: Family Provider Family Medicine; PCP Family Medicine; Referring Provider Family Medicine; Visit Provider Family Medicine
DX: M54.9 Dorsalgia, unspecified (principal); G89.29 Other chronic pain; R42 Dizziness and giddiness; M25.561 Pain in right knee
CPT/HCPCS: 97110; 97140; 97162; 97164; 97535

== ENCOUNTER → 2021-02-11 08:19 | Outpatient (CLI) | payer MEDICARE, SELFPAY ==
[2021-02-11 10:45] LABS: Cholesterol 158 mg/dL (140-199); HDL Cholesterol 61 mg/dL (40-60); LDL Cholesterol Calculated 83 mg/dL (<100); Triglycerides 71 mg/dL (35-150)
== END ==
PROVIDERS: Family Provider Family Medicine; PCP Family Medicine; Referring Provider Family Medicine; Visit Provider Family Medicine
DX: E78.5 Hyperlipidemia, unspecified (principal)
CPT/HCPCS: 36415; 80061

== ENCOUNTER → 2021-07-29 11:25 | Outpatient (CLI) | payer MEDICARE, SELFPAY ==
--- NOTE | 2021-07-29 | DI.MG.S_ITS ---
BILATERAL DIGITAL SCREENING MAMMOGRAM 3D/2D WITH CAD: 07/29/2021 CLINICAL: Routine screening. Family history of breast cancer. Comparison is made to exams dated: 06/20/2020 mammogram, 06/18/2019 mammogram, and 05/23/2018 mammogram - [facility]. The tissue of both breasts is heterogeneously dense. This may lower the sensitivity of mammography. Current study was also evaluated with a Computer Aided Detection (CAD) system. No significant masses, calcifications, or other findings are seen in either breast. There has been no significant interval change. IMPRESSION: NEGATIVE There is no mammographic evidence of malignancy. A 1 year screening mammogram is recommended. This exam was interpreted at Station ID: [id number]. NOTE: For mammograms, a report in lay terms will be sent to the patient. Approximately 15% of breast malignancies will not be visualized mammographically. In the management of a palpable breast mass, a negative mammogram must not discourage biopsy of a clinically suspicious lesion. Electronically Signed By: Cuco schneider/rui:07/29/2021 15:07:07 letter sent: Normal Exam ACR BI-RADS Category 1: Negative [id number]
== END ==
PROVIDERS: Family Provider Family Medicine; PCP Family Medicine; Referring Provider Family Medicine; Visit Provider Family Medicine
DX: Z12.31 Encounter for screening mammogram for malignant neoplasm of breast (principal); Z80.3 Family history of malignant neoplasm of breast
CPT/HCPCS: 77063; 77067

== ENCOUNTER 2021-10-26 17:31 | Emergency (ER) | payer MEDICARE, SELFPAY ==
--- NOTE | 2021-10-26 17:40 | DI.RAD.S_ITS ---
PROCEDURE: XR CHEST 1V INDICATIONS: chest pain TECHNIQUE: One view of the chest was acquired. COMPARISON: None. FINDINGS: Surgical changes and devices: None. Lungs and pleura: Lungs are clear. No pleural effusions or pneumothorax. Mediastinum: Mediastinal contours appear normal. Heart size is normal. Bones and chest wall: No suspicious bony lesions. Overlying soft tissues appear unremarkable. IMPRESSION: No acute process. Dictated by: Ann Briscoe M.D. on 10/26/2021 at 17:56 Approved by: Ann Briscoe M.D. on 10/26/2021 at 17:57
[2021-10-26 17:46] VITALS: BP 135/63; PULSE 70; PULSE 74; RESP 20; TEMP 36.9; O2SAT 100; BMI 21.4
[2021-10-26 18:00] VITALS: PULSE 72; RESP 20; O2SAT 99
[2021-10-26 18:01] VITALS: BP 139/65; PULSE 71; RESP 22; O2SAT 99
[2021-10-26 18:12] LABS: Add Manual Diff / Slide Review NO; Basophils Absolute Auto 0 /uL (0-100); Basophils Percent Auto 0.3 % (0-2); Eosinophils Absolute Auto 100 /uL (0-450); Hematocrit 38.6 % (36-46); Lymphocytes Absolute Auto 1000 /uL (1100-4500); Mean Corpuscular HGB Conc 33.6 % (30-36); Mean Corpuscular Hemoglobin 30.7 PG (26-34); Mean Corpuscular Volume 91.5 fL (80-100); Monocytes Absolute Auto 1000 /uL (0-900); Monocytes Percent Auto 10.5 % (3-14); Neutrophils Absolute Auto 7800 /uL (1500-7000); Neutrophils Percent Auto 78.2 % (50-75); Platelet Count 298 X10^3/uL (150-400); Red Blood Cell Count 4.22 X10^6/uL (4.0-5.2); Red Cell Distribution Width 13.8 % (11.6-14.8)
[2021-10-26 18:18] LABS: INR 1.1 (0.9-1.3)
[2021-10-26 18:20] LABS: PTT Partial Thromboplastin Tim 29 SECONDS (26.4-36.2)
--- NOTE | 2021-10-26 18:23 | ED.SYNCOPE ---
HPI - Syncope General Stated Complaint: Syncopal episode Time Seen by Provider: 10/26/21 17:58 Source: patient and EMS Mode of arrival: EMS Limitations: no limitations History of Present Illness HPI narrative: Patient is a 76-year-old with history of degenerative disc disease, hyperlipidemia, essential tremor, depression presenting after a syncopal episode. She said she was standing in line at [employer] when suddenly she was on the floor. She said she woke up with some once lap. said she knew it was coming she just felt lightheaded she denies any chest pain or palpitations. She has no numbness tingling or weakness. She has no nausea or vomiting. She has got her Moderna booster shot yesterday her left arm is sore. She denies any headache fever or chills. She did this morning she did not feel as great, she took a nap and that she is well enough to go to [employer]. It sounds as though it was a brief episode however there was recurrent episode with EMS. Both lasting only seconds. She is not on any anti-platelet or anticoagulation medication. Related Data Home Medications Medication Instructions Recorded Confirmed calcium with Vit D3 1,000 mg PO BID 05/13/20 09/29/21 multivitamin (Daily Multi-Vitamin) 1 tab PO DAILY 05/13/20 09/29/21 omega-3 fatty acids 1,000 mg 1,000 mg PO DAILY 05/13/20 09/29/21 capsule (Fish Oil Concentrate) B Complex 1 tab PO DAILY 08/06/20 09/29/21 Previous Rx's Medication Instructions Recorded lovastatin 20 mg tablet 20 mg PO HS #90 tab 06/09/21 fluticasone propionate 50 2 spray NASAL BEDTIME #9.9 gram 08/04/21 mcg/actuation nasal spray,suspension (Flonase Allergy Relief) azelastine 205.5 mcg (0.15 %) 205.5 mcg (0.137 mL) INTRANASAL 08/11/21 nasal spray QDAY #2 inh citalopram 10 mg tablet See Rx Instructions .ROUTE 10/15/21 .COMPLEX #180 tab propranolol 10 mg tablet See Rx Instructions .ROUTE 10/15/21 .COMPLEX #60 tab Allergies Allergy/AdvReac Type Severity Reaction Status Date / Time amoxicillin [AMOXICILLIN] Allergy Mild DIARRHEA Verified 09/29/21 08:40 Sulfa (Sulfonamide Allergy Mild upset Verified 09/29/21 08:40 Antibiotics) stomach Review of Systems Review of Systems Narrative: GENERAL: Denies chills, fatigue, malaise, fever, sweats, travel HEENT: Denies sinus pain, ear pain, sore throat, difficulty swallowing, neck pain RESPIRATORY: Denies dyspnea, cough, wheezing, hemoptysis, sputum. CARDIOVASCULAR: Denies chest pain, palpitations, orthopnea, edema GASTROINTESTINAL: Denies nausea, vomiting, abdominal pain, diarrhea, constipation, melena. : Denies dysuria, frequency, incontinence, hematuria, urinary retention, flank pain. MUSCULOSKELETAL: Denies weakness, joint pain, or bony pain SKIN: No rash, no erythema, no pruritus NEUROLOGIC: See HPI PSYCHIATRIC: No concerning psychosocial issues. 12 point review of systems is negative except for those stated above and HPI Patient History Medical History Abdominal bloating Acute bilateral low back pain without sciatica Acute pain of right knee Anxiety about health Bilateral hand pain Cervical somatic dysfunction Chronic throat clearing Colon polyp (~2003) Cranial somatic dysfunction Encounter for nutritional counseling Hearing loss (~194) Lumbar region somatic dysfunction Medicare annual wellness visit, subsequent Nasal congestion with rhinorrhea Osteopenia (~2010) Pain of left thumb Pelvic somatic dysfunction Plantar warts (~1994) Rosacea (~1999) Sacral region somatic dysfunction Segmental and somatic dysfunction of abdomen and other regions Segmental and somatic dysfunction of rib cage Shoulder pain (~2013) Skin cancer (~2004) Somatic dysfunction of lower extremity Thoracic region somatic dysfunction Upper extremity somatic dysfunction Upper extremity somatic dysfunction Surgical History Anesthesia Ear problem (~1969) Status post breast lumpectomy Status post tonsillectomy and adenoidectomy Family History Brother Age: 93 Heart disease Hypertension Brother Age: 88 Heart disease Brother Age: 78 Heart disease Father Dementia Sister Age: 90 Hypertension High cholesterol Sister Age: 81 High cholesterol Osteoporosis Mother No problems noted. Social History household members: spouse Smoking Status: Never smoker Smoking Status: Never smoker alcohol intake frequency: holidays/special occasions only Substance Use Type: does not use Exam Initial Vital Signs Initial Vital Signs: Vital Signs Temperature 98.4 F 10/26/21 17:46 Pulse Rate 70 10/26/21 17:46 Respiratory Rate 20 10/26/21 17:46 Blood Pressure 135/63 10/26/21 17:46 Pulse Oximetry 100 10/26/21 17:46 GENERAL: Alert well-appearing 76-year-old female HEENT: Head atraumatic,EOMI, pupils reactive, face symmetric, moist mucous membranes NECK: Supple no meningeal signs CARDIOVASCULAR: Regular rate and rhythm without murmurs, rubs or gallops. RESPIRATORY: Breath sounds equal bilaterally, no wheezes rales or rhonchi. ABDOMEN: Soft, nontender. Normoactive bowel sounds all 4 quadrants. No guarding or rebound. EXTREMITIES: Normal range of motion, no clubbing or edema. Neurovascularly intact left arm is slightly sore NEUROLOGICAL: Alert and oriented x4.Normal gait and speech. Ginger Farmer strength equal bilaterally good [id number] bilaterally sensation intact bilaterally SKIN: Warm, dry, no laceration, no petechiae, no rashes or lesions. Scores NIH Stroke Scale Level of Conciousness: Alert, keenly responsive Ask month/age: Answers both questions correctly. Open/close eyes, close hand: Performs both tasks correctly Best gaze horizontal: Normal Visual arthur: No visual loss Facial palsy: Normal symetrical movement Left arm drift: No drift for full 10 sec Right arm drift: No drift for full 10 sec Left leg drift: No drift for full 5 sec Right leg drift: No drift for full 5 sec Limb ataxia: Absent Sensory on face/arms/legs: Normal, no sensory loss Best language: No aphasia, normal Dysarthria: Normal Extinction or inattention: No abnormality Total NIH Stroke scale score: 0 Course Orders Ordered: ED Orders 10/26/21 17:40 XR chest 1V Stat 10/26/21 17:51 EKG-12 Lead Stat 10/26/21 18:00 COVID19 -Nasal swab/Pre-Proc Stat Complete Blood Count AUTO DIFF Stat Comprehensive Metabolic Panel Stat Lipase Stat Magnesium Stat NT-proBNP (BNP-Adult 18+) Stat Partial Thromboplastin Time Stat Prothrombin Time INR Stat Troponin & CK Cardiac Panel Stat Vital Signs Vital signs: Vital Signs - 8 hr 10/26/21 18:01 10/26/21 18:30 10/26/21 19:00 Pulse Rate 71 74 73 Respiratory Rate 22 20 19 Blood Pressure 139/65 127/73 129/67 Pulse Oximetry 99 98 96 MDM - Syncope Lab Data Result diagrams: 10/26/21 18:00 10/26/21 18:00 Labs: Lab Results 10/26/21 10/26/21 10/26/21 Range/Units 18:00 18:00 18:00 WBC 10.0 (4.5-11.0) X10^3/uL RBC 4.22 (4.0-5.2) X10^6/uL Hgb 13.0 (12.0-16.0) g/dL Hct 38.6 (36-46) % MCV 91.5 (80-100) fL MCH 30.7 (26-34) PG MCHC 33.6 (30-36) % RDW 13.8 (11.6-14.8) % Plt Count 298 (150-400) X10^3/uL Neut % (Auto) 78.2 H (50-75) % Lymph % (Auto) 10.0 L (25-40) % [place] % (Auto) 10.5 (3-14) % Eos % (Auto) 1.0 L (2-4) % Baso % (Auto) 0.3 (0-2) % Neut # (Auto) 7800 H (9847-3943) /uL Lymph # (Auto) 1000 L (1355-3390) /uL [place] # (Auto) 1000 H (0-900) /uL Eos # (Auto) 100 (0-450) /uL Baso # (Auto) 0 (0-100) /uL PT 12.0 (10.1-12.7) SECONDS INR 1.1 (0.9-1.3) APTT 29 (26.4-36.2) SECONDS Sodium 136 L (137-145) mmol/L Potassium 4.0 (3.4-5.1) mmol/L Chloride 105 (98-107) mmol/L Carbon Dioxide 26 (22-32) mmol/L BUN 14 (7-17) mg/dL Creatinine 0.84 (0.52-1.04) mg/dL Estimated GFR > 60.0 (>60) mL/min BUN/Creatinine Ratio 16.7 (6-22) Glucose 99 (80-110) mg/dL Calcium 8.8 (8.4-10.2) mg/dL Magnesium 2.0 (1.6-2.3) mg/dL Total Bilirubin 0.6 (0.2-1.3) mg/dL AST 30 (14-36) IU/L ALT 17 (<35) IU/L Alkaline Phosphatase 50 (38-126) U/L Total Creatine Kinase 52 (30-135) U/L CK-MB (CK-2) TNP CK-MB (CK-2) Rel Index TNP Troponin I < 0.012 (0.01-0.034) ng/mL NT-Pro-B Natriuret Pep 286 H (<125) pg/mL Total Protein 6.4 (6.3-8.2) g/dL Albumin 3.9 (3.5-5.0) g/dL Globulin 2.5 (1.7-4.1) g/dL Albumin/Globulin Ratio 1.6 (1.0-2.8) Lipase 232 (23-300) U/L SARS-CoV-2 (PCR) (Negative) 10/26/21 Range/Units 18:00 WBC (4.5-11.0) X10^3/uL RBC (4.0-5.2) X10^6/uL Hgb (12.0-16.0) g/dL Hct (36-46) % MCV (80-100) fL MCH (26-34) PG MCHC (30-36) % RDW (11.6-14.8) % Plt Count (150-400) X10^3/uL Neut % (Auto) (50-75) % Lymph % (Auto) (25-40) % [place] % (Auto) (3-14) % Eos % (Auto) (2-4) % Baso % (Auto) (0-2) % Neut # (Auto) (2222-7241) /uL Lymph # (Auto) (0656-0746) /uL [place] # (Auto) (0-900) /uL Eos # (Auto) (0-450) /uL Baso # (Auto) (0-100) /uL PT (10.1-12.7) SECONDS INR (0.9-1.3) APTT (26.4-36.2) SECONDS Sodium (137-145) mmol/L Potassium (3.4-5.1) mmol/L Chloride (98-107) mmol/L Carbon Dioxide (22-32) mmol/L BUN (7-17) mg/dL Creatinine (0.52-1.04) mg/dL Estimated GFR (>60) mL/min BUN/Creatinine Ratio (6-22) Glucose (80-110) mg/dL Calcium (8.4-10.2) mg/dL Magnesium (1.6-2.3) mg/dL Total Bilirubin (0.2-1.3) mg/dL AST (14-36) IU/L ALT (<35) IU/L Alkaline Phosphatase (38-126) U/L Total Creatine Kinase (30-135) U/L CK-MB (CK-2) CK-MB (CK-2) Rel Index Troponin I (0.01-0.034) ng/mL NT-Pro-B Natriuret Pep (<125) pg/mL Total Protein (6.3-8.2) g/dL Albumin (3.5-5.0) g/dL Globulin (1.7-4.1) g/dL Albumin/Globulin Ratio (1.0-2.8) Lipase (23-300) U/L SARS-CoV-2 (PCR) Negative (Negative) Imaging Data Chest x-ray: Radiologist's Impression: PROCEDURE:? XR CHEST 1V ? INDICATIONS:? chest pain ? TECHNIQUE:? One view of the chest was acquired.? ? COMPARISON:? None. ? FINDINGS:? ? Surgical changes and devices:? None.? ? Lungs and pleura:? Lungs are clear.? No pleural effusions or pneumothorax.? ? Mediastinum:? Mediastinal contours appear normal.? Heart size is normal.? ? Bones and chest wall:? No suspicious bony lesions.? Overlying soft tissues appear unremarkable.? ? IMPRESSION:? No acute process. ? ? Dictated by: Ann Briscoe M.D. on 10/26/2021 at 17:56 ? ? Approved by: Ann Briscoe M.D. on 10/26/2021 at 17:57 ? ECG Data Interpretation: Normal sinus rhythm rate 71 p.r. interval 102 QRS [address] changes or T-wave inversions- no priors MDM Narrative Medical decision making narrative: Patient's have associated syncopal episode she had warning signs she recently received her vaccine just yesterday and was not feeling well. No neuro deficits not any anti-platelet or anticoagulation medication. No evidence of head trauma someone caught her before she hit the ground. Brief loss of consciousness. He states that she did have a syncopal episode another time. I have no sign of that at our emergency department and no evidence of carotid evaluation. At this time I think this can be done as an outpatient recommend outpatient carotid Doppler which her primary can order. She is overall feeling significant better after 1 L of fluid blood work is overall reassuring. Discharge Plan Departure Patient Disposition: Home Clinical Impression: Syncope, vasovagal Instructions: DI for Syncope in Adults (Fainting) Activity Restrictions/Additional Instructions: *You have been diagnosed with fainting *What to do: At this time please follow-up with your primary care provider you do need an outpatient carotid Doppler study to look at the arteries in your neck. I think the episode of fainting today may be related to the vaccine. This Particular Vaccine Does Not a high risk for blood clot. *Continue to take medications as directed *Follow up with your primary care provider in 2-3 days or call [phone] *Return to ER if you should have recurrent episode, weakness numbness tingling chest pain, or any new, worsening or concerning symptoms Prescriptions: No Action lovastatin 20 mg tablet 20 mg PO HS Qty: 90 3RF Hold Instructions: se citalopram 10 mg tablet See Rx Instructions .ROUTE .COMPLEX Qty: 180 2RF Dose Instruction: TAKE 1& 1/2 TABLETS BY MOUTH DAILY Rx Instructions: TAKE 1& 1/2 TABLETS BY MOUTH DAILY propranolol 10 mg tablet See Rx Instructions .ROUTE .COMPLEX Qty: 60 2RF Dose Instruction: TAKE 1 TABLET BY MOUTH TWICE DAILY NEEDED FOR TREMOR Rx Instructions: TAKE 1 TABLET BY MOUTH TWICE DAILY NEEDED FOR TREMOR B Complex 1 tab PO DAILY 0RF Label Comments: Dago Mayo. fluticasone propionate [Flonase Allergy Relief] 50 mcg/actuation spray,suspension 2 spray NASAL BEDTIME Qty: 9.9 0RF Rx Instructions: administer into each nostril azelastine 205.5 mcg (0.15 %) spray,non-aerosol 205.5 mcg intranasal QDAY Qty: 2 9RF calcium with Vit D3 1,000 mg PO BID 0RF multivitamin [Daily Multi-Vitamin] Tablet 1 tab PO DAILY 0RF omega-3 fatty acids [Fish Oil Concentrate] 1,000 mg capsule 1,000 mg PO DAILY 0RF Referrals: Christian Galvez DO [Primary Care Provider] -
[2021-10-26 18:30] VITALS: BP 127/73; PULSE 74; RESP 20; O2SAT 98
[2021-10-26 18:30] LABS: Alanine Aminotransferase 17 IU/L (<35); Albumin 3.9 g/dL (3.5-5.0); Albumin Globulin Ratio 1.6 (1.0-2.8); Alkaline Phosphatase 50 U/L (38-126); Aspartate Aminotransferase 30 IU/L (14-36); BUN Creatinine Ratio 16.7 (6-22); Bilirubin Total 0.6 mg/dL (0.2-1.3); Blood Urea Nitrogen 14 mg/dL (7-17); Calcium 8.8 mg/dL (8.4-10.2); Carbon Dioxide 26 mmol/L (22-32); Chloride 105 mmol/L (98-107); Creatine Kinase 52 U/L (30-135); Estimated Glomerular Filt Rate > 60.0 mL/min (>60); Globulin 2.5 g/dL (1.7-4.1); Glucose 99 mg/dL (80-110); HEMOLYSIS < 15 (0-50); Lipase 232 U/L (23-300); Sodium 136 mmol/L (137-145); Total Protein 6.4 g/dL (6.3-8.2)
[2021-10-26 18:35] LABS: COVID19 -Nasal RAPID Negative (Negative)
[2021-10-26 18:42] LABS: NT-proBNP (BNP-Adult 18+) 286 pg/mL (<125); Troponin I < 0.012 ng/mL (0.01-0.034)
[2021-10-26 19:00] VITALS: BP 129/67; PULSE 73; RESP 19; O2SAT 96
== END 2021-10-26 19:22 | disposition home or self-care (01) ==
PROVIDERS: Emergency Medicine; Emergency Provider Emergency Medicine; Family Provider Family Medicine; PCP Family Medicine
DX: R55 Syncope and collapse (principal); Z20.822 Contact with and (suspected) exposure to COVID-19
CPT/HCPCS: 71045; 80053; 82550; 83690; 83735; 83880; 84484; 85025; 85610; 85730; 87635; 93005; 99283; 99284; C9803

== ENCOUNTER → 2021-11-13 09:11 | Outpatient (CLI) | payer MEDICARE, SELFPAY ==
--- NOTE | 2021-11-13 09:15 | DI.US.S_ITS ---
PROCEDURE: US CAROTID DOPPLER BI INDICATIONS: SYNCOPE TECHNIQUE: Color and pulse Doppler interrogation was performed of both carotid systems, with image documentation and velocity measurements. COMPARISON: None. FINDINGS: Stenosis calculations are based on SRU (Society of Radiologists in Ultrasound) criteria. Right side: Brachial blood pressure: 118/70 mm Hg. Common carotid artery peak systolic velocity: 103 cm/sec. Internal carotid artery peak systolic velocity: 85 cm/sec. Internal carotid artery end diastolic velocity: 32 cm/sec. External carotid artery peak systolic velocity: 90 cm/sec. ICA/CCA peak systolic ratio: 0.8. Queen scale imaging description: No significant plaque. Percent internal carotid artery stenosis: Less than 50% stenosis. Vertebral artery: Flow direction is antegrade. Left side: Brachial blood pressure: 109/66 mm Hg. Common carotid artery peak systolic velocity: 114 cm/sec. Internal carotid artery peak systolic velocity: 75 cm/sec. Internal carotid artery end diastolic velocity: 26 cm/sec. External carotid artery peak systolic velocity: 87 cm/sec. ICA/CCA peak systolic ratio: 0.7. Queen scale imaging description: Mild noncalcified soft plaque. Percent internal carotid artery stenosis: Less than 50% stenosis. Vertebral artery: Flow direction is antegrade. IMPRESSION: 1. Right ICA: Less than 50% stenosis. 2. Left ICA: Less than 50% stenosis. 3. Antegrade flow in the bilateral vertebral arteries. Dictated by: Guillaume Steve M.D. on 11/13/2021 at 12:04 Approved by: Guillaume Steve M.D. on 11/13/2021 at 12:08
== END ==
PROVIDERS: Family Provider Family Medicine; PCP Family Medicine; Referring Provider Family Medicine; Visit Provider Family Medicine
DX: R55 Syncope and collapse (principal); I65.23 Occlusion and stenosis of bilateral carotid arteries
CPT/HCPCS: 93880

== ENCOUNTER → 2022-04-02 14:14 | Outpatient (CLI) | payer MEDICARE, SELFPAY | PROVIDERS: Family Provider Family Medicine; PCP Family Medicine; Referring Provider Family Medicine; Visit Provider Family Medicine | DX: M81.0 Age-related osteoporosis without current pathological fracture (principal); M85.89 Other specified disorders of bone density and structure, multiple sites | CPT/HCPCS: 77080 ==

== ENCOUNTER → 2022-04-06 07:13 | Outpatient (CLI) | payer MEDICARE, SELFPAY ==
[2022-04-06 08:21] LABS: Add Manual Diff / Slide Review NO; Basophils Absolute Auto 100 /uL (0-100); Basophils Percent Auto 0.9 % (0-2); Eosinophils Absolute Auto 200 /uL (0-450); Eosinophils Percent Auto 2.7 % (2-4); Hematocrit 41.3 % (36-46); Hemoglobin 13.6 g/dL (12.0-16.0); Lymphocytes Absolute Auto 1900 /uL (1100-4500); Lymphocytes Percent Auto 25.1 % (25-40); Mean Corpuscular HGB Conc 32.9 % (30-36); Mean Corpuscular Hemoglobin 29.6 PG (26-34); Mean Corpuscular Volume 89.8 fL (80-100); Monocytes Absolute Auto 600 /uL (0-900); Monocytes Percent Auto 7.9 % (3-14); Neutrophils Absolute Auto 4800 /uL (1500-7000); Neutrophils Percent Auto 63.4 % (50-75); Platelet Count 337 X10^3/uL (150-400); White Blood Cell Count 7.6 X10^3/uL (4.5-11.0)
[2022-04-06 08:35] LABS: Alanine Aminotransferase 19 IU/L (<35); Albumin 4.2 g/dL (3.5-5.0); Albumin Globulin Ratio 1.8 (1.0-2.8); Alkaline Phosphatase 55 U/L (38-126); Aspartate Aminotransferase 32 IU/L (14-36); BUN Creatinine Ratio 23.4 (6-22); Bilirubin Total 0.6 mg/dL (0.2-1.3); Blood Urea Nitrogen 18 mg/dL (7-17); Calcium 9.1 mg/dL (8.4-10.2); Carbon Dioxide 31 mmol/L (22-32); Chloride 101 mmol/L (98-107); Cholesterol 163 mg/dL (140-199); Estimated Glomerular Filt Rate > 60 mL/min (>60); Globulin 2.3 g/dL (1.7-4.1); Glucose 91 mg/dL (80-110); HDL Cholesterol 74 mg/dL (40-60); HEMOLYSIS < 15 (0-50); LDL Cholesterol Calculated 74 mg/dL (<100); Potassium 4.5 mmol/L (3.4-5.1); Sodium 138 mmol/L (137-145); Total Protein 6.5 g/dL (6.3-8.2); Triglycerides 77 mg/dL (35-150)
[2022-04-06 08:50] LABS: Vitamin D 25 Hydroxy (D3) 61.9 ng/mL (30.0-100.0)
[2022-04-06 08:53] LABS: Free T3, Triiodothyronine Free 3.39 pg/mL (2.77-5.27); Free T4, Direct Thyroxine 0.99 ng/dL (0.78-2.19)
[2022-04-06 09:06] LABS: Thyroid Stimulating Hormone 1.34 uIU/mL (0.47-4.68)
== END ==
PROVIDERS: Family Provider Family Medicine; PCP Family Medicine; Referring Provider Family Medicine; Visit Provider Family Medicine
DX: E78.5 Hyperlipidemia, unspecified (principal); R55 Syncope and collapse; F32.9 Major depressive disorder, single episode, unspecified; G25.0 Essential tremor; J34.89 Other specified disorders of nose and nasal sinuses; R09.81 Nasal congestion; R53.83 Other fatigue
CPT/HCPCS: 36415; 80053; 80061; 82306; 84439; 84443; 84481; 85025

== ENCOUNTER → 2022-04-12 16:26 | Outpatient (CLI) | payer MEDICARE, SELFPAY ==
--- NOTE | 2022-04-12 16:28 | DI.RAD.S_ITS ---
PROCEDURE: XR KNEE LT 3V INDICATIONS: pain TECHNIQUE: 3 views of the knee were acquired. COMPARISON: [facility], CR, XR KNEE RT 3V, 08/13/2020, 16:16. FINDINGS: Bones: No fractures or dislocations. No suspicious bony lesions. Soft tissues: No joint effusion. No suspicious soft tissue calcifications. IMPRESSION: No acute fracture. No osseous lesion. If symptoms and/or clinical suspicion for pathology persist, further assessment with repeat, or advanced imaging (e.g., CT, MRI, or bone scan) may be helpful for further assessment. Dictated by: Ann Briscoe M.D. on 04/12/2022 at 16:57 Approved by: Ann Briscoe M.D. on 04/12/2022 at 16:57
--- NOTE | 2022-04-12 16:28 | DI.RAD.S_ITS ---
PROCEDURE: XR KNEE RT 3V INDICATIONS: pain TECHNIQUE: 3 views of the knee were acquired. COMPARISON: [facility], CR, XR KNEE RT 3V, 08/13/2020, 16:16. FINDINGS: Bones: No fractures or dislocations. No suspicious bony lesions. Soft tissues: No joint effusion. No suspicious soft tissue calcifications. IMPRESSION: No acute fracture. No osseous lesion. If symptoms and/or clinical suspicion for pathology persist, further assessment with repeat, or advanced imaging (e.g., CT, MRI, or bone scan) may be helpful for further assessment. Dictated by: Ann Briscoe M.D. on 04/12/2022 at 16:58 Approved by: Ann Briscoe M.D. on 04/12/2022 at 16:58
== END ==
PROVIDERS: Family Provider Family Medicine; PCP Family Medicine; Referring Provider Family Medicine; Visit Provider Family Medicine
DX: M25.562 Pain in left knee (principal); M25.561 Pain in right knee; G89.29 Other chronic pain
CPT/HCPCS: 73562

== ENCOUNTER 2022-05-11 09:00 | Outpatient (RCR) | payer MEDICARE, SELFPAY ==
--- NOTE | 2022-03-16 18:18 | PT.OIE ---
Current Diagnoses Presence of left artificial hip joint (03/16/22) Past Medical History (Last Updated 11/17/21 @ 13:22 by Christian Galvez DO) Abdominal bloating Acute bilateral low back pain without sciatica Acute pain of right knee Anxiety about health Bilateral hand pain Cervical somatic dysfunction Chronic throat clearing Colon polyp (~2003) Cranial somatic dysfunction Encounter for nutritional counseling Hearing loss (~194) Lumbar region somatic dysfunction Medicare annual wellness visit, subsequent Menopausal vaginal dryness Nasal congestion with rhinorrhea Osteopenia (~2010) Pain of left thumb Pelvic somatic dysfunction Plantar warts (~1994) Rosacea (~1999) Sacral region somatic dysfunction Segmental and somatic dysfunction of abdomen and other regions Segmental and somatic dysfunction of rib cage Shoulder pain (~2013) Skin cancer (~2004) Somatic dysfunction of lower extremity Thoracic region somatic dysfunction Upper extremity somatic dysfunction Upper extremity somatic dysfunction Past Surgical History (Last Reviewed 10/26/21 @ 18:35 by Diandra Dewitt DO) Anesthesia Ear problem (~1969) Status post breast lumpectomy Status post tonsillectomy and adenoidectomy Visit Care Team Role Provider Type Christian Galvez DO Family Provider Physician Primary Care Provider Specialty: Family Practice Address: [address] [place] [address], [id number] Email: Yumiko Larsen PA-C Attending Provider Advanced Acid Conditioning Worker Referring Provider Specialty: Orthopedics Orthopedic Surgery Address: [address] [place] [address], [id number] Email: [email or web address] Physical Therapy Initial Evaluation PT-OP-A Visit Information Start: 03/11/22 19:44 Freq: Status: Active Protocol: Document 03/16/22 13:51 LRN (Rec: 03/16/22 19:00 LRN [id number]) Out-Patient Physical Therapy Visit Information Visit Information Visit Type Initial Evaluation Visit Start Time 13:51 Visit Stop Time 14:33 Total Visit Minutes 42 Visit Number 1 Evaluation Information Evaluation Date 03/16/22 Precautions Precautions Osteopenia, depression, arthritis, dizziness. PT-OP-B Current Condition Start: 03/11/22 19:44 Freq: Status: Active Protocol: Document 03/16/22 13:51 LRN (Rec: 03/16/22 19:00 ANTONINO [id number]) Current Condition History of Current Condition Onset Date 01/05/22 Current Complaints L hip pain, weak, walking not normal, pain with inclines. History of Current Condition 01/05/22 fractured L hip in [place]. Had L SHWETHA posterior 01/06/22. In hospital until 01/08. Had Home Health PT and has been doing ex's per Home health. Currently feels weak and not walking normal. Prior Treatments and Tests Was under posterior SHWETHA precautions. PT after home from hospital ( home health therapy 3 weeks), then returned to [facility] 5 weeks. Future Testing and Treatments Planned No more follow up othopedic visits planned. Treatment Goals Patient/Caregiver Goals Pt goal is to be able to tie own shoes and walk uphill and downhills in neighborhood ( driveway is a hill) without use of a cane. Prior Functional Status Baseline Function- ADL's Independent Baseline Function- Mobility Independent Baseline Function- Gait Walks without an assit device. Baseline Function- Other Intermittent Knees pain causing the knee to give out, before fracture. Current Functional Impairments (Reported) Functional Limitations- ADL's Can't tie shoes. Weak in hips causing pain as noticed at the end of the day walking up hill. Functional Limitations- Mobility/Gait Ambs with cane when walking hills. In home doesn't walk with an assistive device. Personal Factors Other Personal Factors That May Effect History of dizziness, Therapy/Recovery arthritis with back pain. PT-OP-C Subjective Start: 03/11/22 19:44 Freq: Status: Active Protocol: Document 03/16/22 13:51 LRN (Rec: 03/16/22 19:00 ANTONINO [id number]) Patient Questionnaires Lower Extremity Functional Scale LEFS Score 42 LEFS Impairment 40 to 59% Impaired (Score 32- 47) OP-PT Pain Assessment Pain Assessment Grid Paper Pain Assessment Grid Completed Yes Location Chronic LBP Pain Location Details Low back Intensity 3 Scale Used Numeric (0 - 10) Description Aching Description- Other Chronic LBP Frequency Intermittent L hip Pain Location Details L lateral hip and groin pain Intensity 3 Scale Used Numeric (0 - 10) Description Burning Frequency Intermittent Pain Aggravating Factors Changing Position PT-OP-G Mobility & Gait Start: 03/11/22 19:44 Freq: Status: Active Protocol: Document 03/16/22 13:51 LRN (Rec: 03/16/22 19:00 LRN [id number]) OP Mobility Evaluation Bed Mobility Supine to and from Sit Independent Transfers Sit to Stand Independent with knees going valgus Bed to Chair Transfers Independent OP Gait Assessment Gait Gait Assistance Required: Independent Assistive Devices Assistive Device None Gait Deviations General Gait Pattern Antalgic Comments Gait Comments Lacks weight shift and hip shift to the left on LLE stance phase. PT-OP-J Posture/Palpation/Skin Start: 03/11/22 19:44 Freq: Status: Active Protocol: Document 03/16/22 13:51 LRN (Rec: 03/16/22 19:00 LRN [id number]) Posture Evaluation Position Standing Head/C-Spine Posture Forward Head Knee Posture (L) Genu Varus,(R) Genu Varus Comments Posture Comments Slightly greater weight bearing on the RLE. PT-OP-K Range of Motion Start: 03/11/22 19:44 Freq: Status: Active Protocol: Document 03/16/22 13:51 LRN (Rec: 03/16/22 19:00 LRN [id number]) Hip Goniometric Range of Motion Hip Left Active Hip ROM WFL No Testing Position Supine Straight Leg Raise 30 Abduction 15 Comments Deferred further testing due to s/p SHWETHA PT-OP-M Strength Start: 03/11/22 19:44 Freq: Status: Active Protocol: Document 03/16/22 13:51 LRN (Rec: 03/16/22 19:00 LRN [id number]) Hip Strength Hip Manual Muscle Testing Right Flexion (L2) 4- Good- Abduction 3 Fair External Rotation 3+ Fair+ Internal Rotation 5 Normal Comments Deferred further testing, not able to test due to s/p SHWETHA surgery Left Flexion (L2) 2 Poor Abduction 2+ Poor+ Internal Rotation 2- Poor- Comments Deferred further testing, not able to test due to s/p SHWETHA surgery PT-OP-Q Treatments Start: 03/11/22 19:44 Freq: Status: Active Protocol: Document 03/16/22 13:51 LRN (Rec: 03/16/22 19:00 LRN [id number]) Therapeutic Exercises Supine Exercises Hip AB Supine Exercise Name Hip AB Side left Reps/Minutes 10x Comments Assist needed due to pain/ weakness SLR Supine Exercise Name SLR Side left Reps/Minutes 10x Comments Assist needed due to pain/ weakness Self-Care/Home Management Treatment Education Patient Education Home Exercise Program Other Education Discussed results of evaluation, goals, and at length discussed plan of care (POC). Pt agreeable to goals and POC. Educated pt in use of cryotherapy for post-exercise care and pain management. Activities Self-Care/Home Management Activities I/S pt in HEP: Supine SLR & hip AB strengthening. PT-OP-T Assessment and Plan Start: 03/11/22 19:44 Freq: Status: Active Protocol: Document 03/16/22 13:51 LRN (Rec: 03/16/22 19:00 LRN [id number]) Physical Therapy Assessment Rehab Potential Rehabilitation Potential Excellent Evaluation Complexity Number of Personal Factors/Comorbidities 1-2 Number of Body Systems Impaired 4 or More Clinical Presentation at Evaluation Evolving Impairments Impairments Activity Tolerance,Balance, Pain,ROM,Soft Tissue Mobility, Strength Goals Four Impairment Decreased balance due to poor LLE weight bearing tolerance Impairment Decreased balance from walking with legs spread apart. Pt not able to SLS on L LE due to pain and weakness. Short Term Goal (STG) Pt will be able to walk with a normal gait. STG Duration 03/30/22 Heel Shaver Goal (LTG) Improve L SLS to 10 secs or greater LTG Duration 06/14/22 Three Impairment L hip weakness Short Term Goal (STG) Improve L hip strength 3+/5 or better strength on the left promoting improved ability to ambulate with a normal gait without use of assistive device. STG Duration 04/09/22 Correction Goal (LTG) Improve L hip strength with pt will be able to walk up and downhills in neighborhood ( driveway is a hill) without use of a cane. LTG Duration 06/14/22 Two Impairment Decreased L hip mobility decreasing function Impairment LEFS score of 42 (40-59% impaired, score 32-47) Short Term Goal (STG) Improve hip mobility (flex/ER) with pt able to tie own shoes STG Duration 04/20/22 Heel Shaver Goal (LTG) Improve L hip mobility with improved function per LEFS score > 47 (20-39% impairee, score 48-62) LTG Duration 06/14/22 One Impairment Lacks appropriate self care HEP Short Term Goal (STG) Pt will be educated in precautions of movement to avoid dislocation for a posterior SHWETHA. STG Duration 03/26/22 Correction Goal (LTG) Pt will be independent in a self care HEP of progressive hip and balance exercises. LTG Duration 06/14/22 Assessment Summary Assessment Pt is a 77 yr old female who reports 9 weeks post operative L Posterior SHWETHA. She has been doing mostly standing exercises for her L hip and is not able to lift her leg against full gravity in the supine position. She is limited in her LLE weightbearing ability due to weakness and pain, and her balance is decreased effecting her gait mechanics on single leg stance phase of gait. The pt will benefit from skilled physical therapy to achieve the above stated goals. Physical Therapy Plan Frequency and Duration Frequency of Treatment 2x/Week Plan of Care Start Date 03/16/22 Plan of Care End Date 06/14/22 Therapeutic Interventions Therapeutic Interventions Aquatic Therapy,Balance Training,Gait Training,Home Exercise Program,Manual Therapy,Neuromuscular Re- education,Patient/Caregiver Education,Self-Care/Home Management,Soft Tissue Mobilization,Therapeutic Activities,Therapeutic Exercises Modalities Cold Pack/Ice Massage,Hot Packs Next Visit Focus/Plan Next Note Type Treatment Note Next Visit Plan L SHWETHA outpt rehabilitatioin. Assess R hip mobility and strength. Discuss aquatic therapy. Initiate HEP of supine L hip strengthenig ex's and start L hip ER stretching (roll in/out & fig 4). Progress towards gait and balance training. Due to pt's financial concern, transition to a HEP as soon as possible (2-3 wks) and follow up 1x/ week with progression as needed for 6-8 wks.
--- NOTE | 2022-03-16 18:18 | PT.OPPOC ---
Physical, Occupational & Speech Therapy At [facility] Current Diagnoses Presence of left artificial hip joint (03/16/22) Visit Care Team Role Provider Type Christian Galvez DO Family Provider Physician Primary Care Provider Specialty: Family Practice Address: [address] [place] [address], [id number] Email: Yumiko Larsen PA-C Attending Provider Advanced Handkerchief Folder Referring Provider Specialty: Orthopedics Orthopedic Surgery Address: [address] [place] [address], [phone] Email: [email or web address] Plan Of Care PT-OP-T Assessment and Plan Start: 03/11/22 19:44 Freq: Status: Active Protocol: Document 03/16/22 13:51 LRN (Rec: 03/16/22 19:00 LRN [id number]) Physical Therapy Assessment Rehab Potential Rehabilitation Potential Excellent Evaluation Complexity Number of Personal Factors/Comorbidities 1-2 Number of Body Systems Impaired 4 or More Clinical Presentation at Evaluation Evolving Impairments Impairments Activity Tolerance,Balance, Pain,ROM,Soft Tissue Mobility, Strength Goals Four Impairment Decreased balance due to poor LLE weight bearing tolerance Impairment Decreased balance from walking with legs spread apart. Pt not able to SLS on L LE due to pain and weakness. Short Term Goal (STG) Pt will be able to walk with a normal gait. STG Duration 03/30/22 Longterm Goal (LTG) Improve L SLS to 10 secs or greater LTG Duration 06/14/22 Three Impairment L hip weakness Short Term Goal (STG) Improve L hip strength 3+/5 or better strength on the left promoting improved ability to ambulate with a normal gait without use of assistive device. STG Duration 04/09/22 Longterm Goal (LTG) Improve L hip strength with pt will be able to walk up and downhills in neighborhood ( driveway is a hill) without use of a cane. LTG Duration 06/14/22 Two Impairment Decreased L hip mobility decreasing function Impairment LEFS score of 42 (40-59% impaired, score 32-47) Short Term Goal (STG) Improve hip mobility (flex/ER) with pt able to tie own shoes STG Duration 04/20/22 Teaching Fellow Goal (LTG) Improve L hip mobility with improved function per LEFS score > 47 (20-39% impairee, score 48-62) LTG Duration 06/14/22 One Impairment Lacks appropriate self care HEP Short Term Goal (STG) Pt will be educated in precautions of movement to avoid dislocation for a posterior SHWETHA. STG Duration 03/26/22 Longterm Goal (LTG) Pt will be independent in a self care HEP of progressive hip and balance exercises. LTG Duration 06/14/22 Assessment Summary Assessment Pt is a 77 yr old female who reports 9 weeks post operative L Posterior SHWETHA. She has been doing mostly standing exercises for her L hip and is not able to lift her leg against full gravity in the supine position. She is limited in her LLE weightbearing ability due to weakness and pain, and her balance is decreased effecting her gait mechanics on single leg stance phase of gait. The pt will benefit from skilled physical therapy to achieve the above stated goals. Physical Therapy Plan Frequency and Duration Frequency of Treatment 2x/Week Plan of Care Start Date 03/16/22 Plan of Care End Date 06/14/22 Therapeutic Interventions Therapeutic Interventions Aquatic Therapy,Balance Training,Gait Training,Home Exercise Program,Manual Therapy,Neuromuscular Re- education,Patient/Caregiver Education,Self-Care/Home Management,Soft Tissue Mobilization,Therapeutic Activities,Therapeutic Exercises Modalities Cold Pack/Ice Massage,Hot Packs Next Visit Focus/Plan Next Note Type Treatment Note Next Visit Plan L SHWETHA outpt rehabilitatioin. Assess R hip mobility and strength. Discuss aquatic therapy. Initiate HEP of supine L hip strengthenig ex's and start L hip ER stretching (roll in/out & fig 4). Progress towards gait and balance training. Due to pt's financial concern, transition to a HEP as soon as possible (2-3 wks) and follow up 1x/ week with progression as needed for 6-8 wks. Plan of Care Dates Plan of Care Start Date 03/16/22 Plan of Care End Date 06/14/22 Electronically Signed by: Gertrudis Thorne, PT 03/16/22 3681 If you are in agreement with this Plan of Care, please return a signed and dated copy. I have reviewed this Plan of Care and certify that the skilled therapy services above are required to meet the patient?s needs. Physician Signature Date Printed Name and Credentials Clinical Instructor Signature Printed Name and Credentials
--- NOTE | 2022-03-19 14:52 | PT.OTN ---
Current Diagnoses Presence of left artificial hip joint (03/19/22) Physical Therapy Treatment Note PT-OP-A Visit Information Start: 03/11/22 19:44 Freq: Status: Active Protocol: Document 03/19/22 13:48 LRN (Rec: 03/19/22 14:52 LRN [id number]) Out-Patient Physical Therapy Visit Information Visit Information Visit Type Treatment Note Visit Start Time 13:48 Visit Stop Time 14:32 Total Visit Minutes 44 Visit Number 2 Evaluation Information Evaluation Date 03/16/22 Precautions Precautions Osteopenia, depression, arthritis, dizziness. PT-OP-B Current Condition Start: 03/11/22 19:44 Freq: Status: Active Protocol: Document 03/16/22 13:51 LRN (Rec: 03/16/22 19:00 LRN [id number]) Current Condition History of Current Condition Onset Date 01/05/22 Current Complaints L hip pain, weak, walking not normal, pain with inclines. History of Current Condition 01/05/22 fractured L hip in [place]. Had L SHWETHA posterior 01/06/22. In hospital until 01/08. Had Home Health PT and has been doing ex's per Home health. Currently feels weak and not walking normal. Prior Treatments and Tests Was under posterior SHWETHA precautions. PT after home from hospital ( home health therapy 3 weeks), then returned to [facility] 5 weeks. Future Testing and Treatments Planned No more follow up othopedic visits planned. Treatment Goals Patient/Caregiver Goals Pt goal is to be able to tie own shoes and walk uphill and downhills in neighborhood ( driveway is a hill) without use of a cane. Prior Functional Status Baseline Function- ADL's Independent Baseline Function- Mobility Independent Baseline Function- Gait Walks without an assit device. Baseline Function- Other Intermittent Knees pain causing the knee to give out, before fracture. Current Functional Impairments (Reported) Functional Limitations- ADL's Can't tie shoes. Weak in hips causing pain as noticed at the end of the day walking up hill. Functional Limitations- Mobility/Gait Ambs with cane when walking hills. In home doesn't walk with an assistive device. Personal Factors Other Personal Factors That May Effect History of dizziness, Therapy/Recovery arthritis with back pain. PT-OP-C Subjective Start: 03/11/22 19:44 Freq: Status: Active Protocol: Document 03/19/22 13:48 LRN (Rec: 03/19/22 14:52 LRN [id number]) OP-PT Subjective Patient Comments Patient Comments Tried dong sit<>stands and could do 11x. Yesterday afternoon tripped and twisted L Hip and had pain down the leg. Took Tylenol and this morning feels back to baseline . Having a burning sensation in the lateral L hip, worse than normal and didn't take Tylenol this morning. PT-OP-G Mobility & Gait Start: 03/11/22 19:44 Freq: Status: Active Protocol: Document 03/16/22 13:51 LRN (Rec: 03/16/22 19:00 LRN [id number]) OP Mobility Evaluation Bed Mobility Supine to and from Sit Independent Transfers Sit to Stand Independent with knees going valgus Bed to Chair Transfers Independent OP Gait Assessment Gait Gait Assistance Required: Independent Assistive Devices Assistive Device None Gait Deviations General Gait Pattern Antalgic Comments Gait Comments Lacks weight shift and hip shift to the left on LLE stance phase. PT-OP-J Posture/Palpation/Skin Start: 03/11/22 19:44 Freq: Status: Active Protocol: Document 03/16/22 13:51 LRN (Rec: 03/16/22 19:00 LRN [id number]) Posture Evaluation Position Standing Head/C-Spine Posture Forward Head Knee Posture (L) Genu Varus,(R) Genu Varus Comments Posture Comments Slightly greater weight bearing on the RLE. PT-OP-K Range of Motion Start: 03/11/22 19:44 Freq: Status: Active Protocol: Document 03/16/22 13:51 LRN (Rec: 03/16/22 19:00 LRN [id number]) Hip Goniometric Range of Motion Hip Left Active Hip ROM WFL No Testing Position Supine Straight Leg Raise 30 Abduction 15 Comments Deferred further testing due to s/p SHWETHA PT-OP-M Strength Start: 03/11/22 19:44 Freq: Status: Active Protocol: Document 03/19/22 13:48 LRN (Rec: 03/19/22 14:52 LRN [id number]) Hip Strength Hip Manual Muscle Testing Right Flexion (L2) 3+ Fair+ Adduction 5 Normal Left Flexion (L2) 3 Fair Abduction 3- Fair- Adduction 4+ Good+ PT-OP-Q Treatments Start: 03/11/22 19:44 Freq: Status: Active Protocol: Document 03/19/22 13:48 LRN (Rec: 03/19/22 14:52 LRN [id number]) Therapeutic Exercises Supine Exercises Toe RAises Supine Exercise Name Toe Raises Side bilateral Reps/Minutes 15x 2 Comments Cuing phy & v for isolating toe lifts and for hand stability placement. Heel raises Supine Exercise Name Heel raises Side bilateral Reps/Minutes 15x 2 Heel slides Supine Exercise Name Heel slides Side bilateral Reps/Minutes 15x 2 Hip AB Supine Exercise Name Hip AB Side left Reps/Minutes 10x 3 Comments Cuing to lead with heel during ex SLR Supine Exercise Name SLR (wearing sandals) Side left Reps/Minutes 11x, 10x Standing Exercises Squats Standing Exercise Name Squats - knees over ankles Reps/Minutes 5x 3 Knee flex Standing Exercise Name Knee flex Side bilateral Reps/Minutes 15x Hip Ext Standing Exercise Name Hip Ext Side bilateral Reps/Minutes 15x Comments Cuing to keep toes DF'd and forward, and knee straight Marching Standing Exercise Name Hip Flex - alternating lifts Side bilateral Reps/Minutes 15x each Hip AB Standing Exercise Name Hip AB Side bilateral Reps/Minutes 15x each Toe Raises Standing Exercise Name Toe Raises Side left Reps/Minutes 15x 2 Heel slides Standing Exercise Name Heel slides Side left Reps/Minutes 15x 2 Doorway Glut sets Standing Exercise Name Pushing off of L toe during toe off phase of gait Side left Reps/Minutes 15x Comments Cuing to tighten gluts when going up on toes Self-Care/Home Management Treatment Education Patient Education Home Exercise Program Activities Self-Care/Home Management Activities Reviewed each ex of pt's previously issued HEP from previous PT for appropriateness of her current condition. PT-OP-T Assessment and Plan Start: 03/11/22 19:44 Freq: Status: Active Protocol: Document 03/19/22 13:48 LRN (Rec: 03/19/22 14:52 LRN [id number]) Physical Therapy Assessment Goals Four Impairment Decreased balance due to poor LLE weight bearing tolerance Impairment Decreased balance from walking with legs spread apart. Pt not able to SLS on L LE due to pain and weakness. Short Term Goal (STG) Pt will be able to walk with a normal gait. STG Duration 03/30/22 Fdc Goal (LTG) Improve L SLS to 10 secs or greater LTG Duration 06/14/22 Three Impairment L hip weakness Short Term Goal (STG) Improve L hip strength 3+/5 or better strength on the left promoting improved ability to ambulate with a normal gait without use of assistive device. STG Duration 04/09/22 Fdc Goal (LTG) Improve L hip strength with pt will be able to walk up and downhills in neighborhood ( driveway is a hill) without use of a cane. LTG Duration 06/14/22 Two Impairment Decreased L hip mobility decreasing function Impairment LEFS score of 42 (40-59% impaired, score 32-47) Short Term Goal (STG) Improve hip mobility (flex/ER) with pt able to tie own shoes STG Duration 04/20/22 Fdc Goal (LTG) Improve L hip mobility with improved function per LEFS score > 47 (20-39% impairee, score 48-62) LTG Duration 06/14/22 One Impairment Lacks appropriate self care HEP Short Term Goal (STG) Pt will be educated in precautions of movement to avoid dislocation for a posterior SHWETHA. STG Duration 03/26/22 District Associate Judge Goal (LTG) Pt will be independent in a self care HEP of progressive hip and balance exercises. LTG Duration 06/14/22 Assessment Summary Assessment Pt 10 wks, 2 days s/p posterior L SHWETHA. Pt strains with doing leg ex's due to weakness at L hip. Pt needing much cuing with ex for postioning and posture. OK'd shawn hip ER stretch (frog stretch). Physical Therapy Plan Frequency and Duration Frequency of Treatment 2x/Week Plan of Care Start Date 03/16/22 Plan of Care End Date 06/14/22 Next Visit Focus/Plan Next Note Type Treatment Note Next Visit Plan L SHWETHA outpt rehabilitation. Review SHWETHA precautions. Assess R hip mobility. Discuss aquatic therapy. Initiate HEP: L hip ER stretching (roll in/out & fig 4). Progress towards gait and balance training. Due to pt' s financial concern, transition to a HEP as soon as possible (2-3 wks) and follow up 1x/week with progression as needed for 6-8 wks.
--- NOTE | 2022-03-23 16:39 | PT.OTN ---
Current Diagnoses Presence of left artificial hip joint (03/23/22) Physical Therapy Treatment Note PT-OP-A Visit Information Start: 03/11/22 19:44 Freq: Status: Active Protocol: Document 03/23/22 14:35 LRN (Rec: 03/23/22 16:38 LRN [id number]) Out-Patient Physical Therapy Visit Information Visit Information Visit Type Treatment Note Visit Start Time 14:36 Visit Stop Time 15:20 Total Visit Minutes 56 Visit Number 3 Evaluation Information Evaluation Date 03/16/22 Precautions Precautions L posterior SHWETHA. Osteopenia, depression, arthritis, dizziness. PT-OP-B Current Condition Start: 03/11/22 19:44 Freq: Status: Active Protocol: Document 03/16/22 13:51 LRN (Rec: 03/16/22 19:00 LRN [id number]) Current Condition History of Current Condition Onset Date 01/05/22 Current Complaints L hip pain, weak, walking not normal, pain with inclines. History of Current Condition 01/05/22 fractured L hip in [place]. Had L SHWETHA posterior 01/06/22. In hospital until 01/08. Had Home Health PT and has been doing ex's per Home health. Currently feels weak and not walking normal. Prior Treatments and Tests Was under posterior SHWETHA precautions. PT after home from hospital ( home health therapy 3 weeks), then returned to [facility] 5 weeks. Future Testing and Treatments Planned No more follow up othopedic visits planned. Treatment Goals Patient/Caregiver Goals Pt goal is to be able to tie own shoes and walk uphill and downhills in neighborhood ( driveway is a hill) without use of a cane. Prior Functional Status Baseline Function- ADL's Independent Baseline Function- Mobility Independent Baseline Function- Gait Walks without an assit device. Baseline Function- Other Intermittent Knees pain causing the knee to give out, before fracture. Current Functional Impairments (Reported) Functional Limitations- ADL's Can't tie shoes. Weak in hips causing pain as noticed at the end of the day walking up hill. Functional Limitations- Mobility/Gait Ambs with cane when walking hills. In home doesn't walk with an assistive device. Personal Factors Other Personal Factors That May Effect History of dizziness, Therapy/Recovery arthritis with back pain. PT-OP-C Subjective Start: 03/11/22 19:44 Freq: Status: Active Protocol: Document 03/23/22 14:35 LRN (Rec: 03/23/22 16:38 LRN [id number]) OP-PT Subjective Patient Comments Patient Comments L hip is about the same. The R knee seems worse. PT-OP-G Mobility & Gait Start: 03/11/22 19:44 Freq: Status: Active Protocol: Document 03/16/22 13:51 LRN (Rec: 03/16/22 19:00 LRN [id number]) OP Mobility Evaluation Bed Mobility Supine to and from Sit Independent Transfers Sit to Stand Independent with knees going valgus Bed to Chair Transfers Independent OP Gait Assessment Gait Gait Assistance Required: Independent Assistive Devices Assistive Device None Gait Deviations General Gait Pattern Antalgic Comments Gait Comments Lacks weight shift and hip shift to the left on LLE stance phase. PT-OP-J Posture/Palpation/Skin Start: 03/11/22 19:44 Freq: Status: Active Protocol: Document 03/16/22 13:51 LRN (Rec: 03/16/22 19:00 LRN [id number]) Posture Evaluation Position Standing Head/C-Spine Posture Forward Head Knee Posture (L) Genu Varus,(R) Genu Varus Comments Posture Comments Slightly greater weight bearing on the RLE. PT-OP-K Range of Motion Start: 03/11/22 19:44 Freq: Status: Active Protocol: Document 03/16/22 13:51 LRN (Rec: 03/16/22 19:00 LRN [id number]) Hip Goniometric Range of Motion Hip Left Active Hip ROM WFL No Testing Position Supine Straight Leg Raise 30 Abduction 15 Comments Deferred further testing due to s/p SHWETHA PT-OP-M Strength Start: 03/11/22 19:44 Freq: Status: Active Protocol: Document 03/19/22 13:48 LRN (Rec: 03/19/22 14:52 LRN [id number]) Hip Strength Hip Manual Muscle Testing Right Flexion (L2) 3+ Fair+ Adduction 5 Normal Left Flexion (L2) 3 Fair Abduction 3- Fair- Adduction 4+ Good+ PT-OP-Q Treatments Start: 03/11/22 19:44 Freq: Status: Active Protocol: Document 03/23/22 14:35 LRN (Rec: 03/23/22 16:38 LRN [id number]) Therapeutic Exercises Supine Exercises Quad stretch Supine Exercise Name Quad stretch (L side follow w/ active stretch of knee flex). Side bilateral Reps/Minutes 4' Bridge Supine Exercise Name Bridge Side bilateral Reps/Minutes 4' Heel slides Supine Exercise Name Heel slides Side bilateral Reps/Minutes 15x 2 Hip AB Supine Exercise Name Hip AB Side left Reps/Minutes 15x 2 Comments Cuing to lead with heel during ex SLR Supine Exercise Name SLR (without shoes) Side left Reps/Minutes 15x, 10x Standing Exercises Quad stretch Standing Exercise Name Quad stretch Side bilateral Reps/Minutes 4' Hip Ext Standing Exercise Name Hip Ext Side bilateral Reps/Minutes 10x 2 Comments Cuing to keep toes DF'd and forward, and knee straight Hip AB Standing Exercise Name Hip AB Side bilateral Reps/Minutes 15x, 10x each Toe Raises Standing Exercise Name Toe raises > single toe raise w/glut squeeze Side bilateral Reps/Minutes 15x 2 Heel slides Standing Exercise Name Heel raises Side bilateral Reps/Minutes 15x 2 Doorway Glut sets Standing Exercise Name Pushing off of L toe during toe off phase of gait Side bilateral Reps/Minutes 5' Comments Cuing to tighten gluts when going up on toes Self-Care/Home Management Treatment Education Patient Education Home Exercise Program Other Education Educated pt on progression of ex with goal of 10x 3 or 15x 2 reps. Pt adjusted the reps on her HEP handouts. Pt redescribed her HEP for single toe lifts. PT-OP-T Assessment and Plan Start: 03/11/22 19:44 Freq: Status: Active Protocol: Document 03/23/22 14:35 LRN (Rec: 03/23/22 16:38 [facility] [id number]) Physical Therapy Assessment Goals Four Impairment Decreased balance due to poor LLE weight bearing tolerance Impairment Decreased balance from walking with legs spread apart. Pt not able to SLS on L LE due to pain and weakness. Short Term Goal (STG) Pt will be able to walk with a normal gait. STG Duration 03/30/22 [facility] Goal (LTG) Improve L SLS to 10 secs or greater LTG Duration 06/14/22 Three Impairment L hip weakness Short Term Goal (STG) Improve L hip strength 3+/5 or better strength on the left promoting improved ability to ambulate with a normal gait without use of assistive device. STG Duration 04/09/22 Road Boss Goal (LTG) Improve L hip strength with pt will be able to walk up and downhills in neighborhood ( driveway is a hill) without use of a cane. LTG Duration 06/14/22 Two Impairment Decreased L hip mobility decreasing function Impairment LEFS score of 42 (40-59% impaired, score 32-47) Short Term Goal (STG) Improve hip mobility (flex/ER) with pt able to tie own shoes STG Duration 04/20/22 Road Boss Goal (LTG) Improve L hip mobility with improved function per LEFS score > 47 (20-39% impairee, score 48-62) LTG Duration 06/14/22 One Impairment Lacks appropriate self care HEP Short Term Goal (STG) Pt will be educated in precautions of movement to avoid dislocation for a posterior SHWETHA. STG Duration 03/26/22 Road Boss Goal (LTG) Pt will be independent in a self care HEP of progressive hip and balance exercises. LTG Duration 06/14/22 Assessment Summary Assessment Pt very weak in legs, atrophy of gluteals. Strength improving with hip AB and flex . Pt having more pain in the L anterior hip with ex's, due to pt actively hip flexing during supine hip AB. Pt is now more aware to not lift leg with ex's and recommended pt to use cryotherapy Physical Therapy Plan Frequency and Duration Frequency of Treatment 2x/Week Plan of Care Start Date 03/16/22 Plan of Care End Date 06/14/22 Next Visit Focus/Plan Next Note Type Treatment Note Next Visit Plan L posterior SHWETHA rehabilitation . Review SHWETHA precautions and incr use of cryotherapy. Assess R hip mobility. Discuss aquatic therapy. Initiate HEP: L hip ER stretching (roll in/out & fig 4). Progress towards gait and balance training. Due to pt' s financial concern, transition to a HEP as soon as possible (2-3 wks) and follow up 1x/week with progression as needed for 6-8 wks.
--- NOTE | 2022-03-23 16:42 | PT.OTN ---
Current Diagnoses Presence of left artificial hip joint (03/23/22) Physical Therapy Treatment Note PT-OP-A Visit Information Start: 03/11/22 19:44 Freq: Status: Active Protocol: Document 03/23/22 14:35 LRN (Rec: 03/23/22 16:38 LRN [id number]) Out-Patient Physical Therapy Visit Information Visit Information Visit Type Treatment Note Visit Start Time 14:36 Visit Stop Time 15:20 Total Visit Minutes 56 Visit Number 3 Evaluation Information Evaluation Date 03/16/22 Precautions Precautions L posterior SHWETHA. Osteopenia, depression, arthritis, dizziness. PT-OP-B Current Condition Start: 03/11/22 19:44 Freq: Status: Active Protocol: Document 03/16/22 13:51 LRN (Rec: 03/16/22 19:00 LRN [id number]) Current Condition History of Current Condition Onset Date 01/05/22 Current Complaints L hip pain, weak, walking not normal, pain with inclines. History of Current Condition 01/05/22 fractured L hip in [place]. Had L SHWETHA posterior 01/06/22. In hospital until 01/08. Had Home Health PT and has been doing ex's per Home health. Currently feels weak and not walking normal. Prior Treatments and Tests Was under posterior SHWETHA precautions. PT after home from hospital ( home health therapy 3 weeks), then returned to [facility] 5 weeks. Future Testing and Treatments Planned No more follow up othopedic visits planned. Treatment Goals Patient/Caregiver Goals Pt goal is to be able to tie own shoes and walk uphill and downhills in neighborhood ( driveway is a hill) without use of a cane. Prior Functional Status Baseline Function- ADL's Independent Baseline Function- Mobility Independent Baseline Function- Gait Walks without an assit device. Baseline Function- Other Intermittent Knees pain causing the knee to give out, before fracture. Current Functional Impairments (Reported) Functional Limitations- ADL's Can't tie shoes. Weak in hips causing pain as noticed at the end of the day walking up hill. Functional Limitations- Mobility/Gait Ambs with cane when walking hills. In home doesn't walk with an assistive device. Personal Factors Other Personal Factors That May Effect History of dizziness, Therapy/Recovery arthritis with back pain. PT-OP-C Subjective Start: 03/11/22 19:44 Freq: Status: Active Protocol: Document 03/23/22 14:35 LRN (Rec: 03/23/22 16:38 LRN [id number]) OP-PT Subjective Patient Comments Patient Comments L hip is about the same. The R knee seems worse. PT-OP-E Functional Tests Start: 03/23/22 16:25 Freq: Status: Active Protocol: Document 03/23/22 14:35 LRN (Rec: 03/23/22 16:42 LRN [id number]) Functional Tests 30 Second Sit to Stand Test Score 9x Comments Without use of hands, webbed chair Five Times Sit to Stand Test Score 15 secs Comments Without use of hands, webbed chair PT-OP-G Mobility & Gait Start: 03/11/22 19:44 Freq: Status: Active Protocol: Document 03/16/22 13:51 LRN (Rec: 03/16/22 19:00 LRN [id number]) OP Mobility Evaluation Bed Mobility Supine to and from Sit Independent Transfers Sit to Stand Independent with knees going valgus Bed to Chair Transfers Independent OP Gait Assessment Gait Gait Assistance Required: Independent Assistive Devices Assistive Device None Gait Deviations General Gait Pattern Antalgic Comments Gait Comments Lacks weight shift and hip shift to the left on LLE stance phase. PT-OP-J Posture/Palpation/Skin Start: 03/11/22 19:44 Freq: Status: Active Protocol: Document 03/16/22 13:51 LRN (Rec: 03/16/22 19:00 LRN [id number]) Posture Evaluation Position Standing Head/C-Spine Posture Forward Head Knee Posture (L) Genu Varus,(R) Genu Varus Comments Posture Comments Slightly greater weight bearing on the RLE. PT-OP-K Range of Motion Start: 03/11/22 19:44 Freq: Status: Active Protocol: Document 03/16/22 13:51 LRN (Rec: 03/16/22 19:00 LRN [id number]) Hip Goniometric Range of Motion Hip Left Active Hip ROM WFL No Testing Position Supine Straight Leg Raise 30 Abduction 15 Comments Deferred further testing due to s/p SHWETHA PT-OP-M Strength Start: 03/11/22 19:44 Freq: Status: Active Protocol: Document 03/19/22 13:48 LRN (Rec: 03/19/22 14:52 LRN [id number]) Hip Strength Hip Manual Muscle Testing Right Flexion (L2) 3+ Fair+ Adduction 5 Normal Left Flexion (L2) 3 Fair Abduction 3- Fair- Adduction 4+ Good+ PT-OP-Q Treatments Start: 03/11/22 19:44 Freq: Status: Active Protocol: Document 03/23/22 14:35 LRN (Rec: 03/23/22 16:38 LRN [id number]) Therapeutic Exercises Supine Exercises Quad stretch Supine Exercise Name Quad stretch (L side follow w/ active stretch of knee flex). Side bilateral Reps/Minutes 4' Bridge Supine Exercise Name Bridge Side bilateral Reps/Minutes 4' Heel slides Supine Exercise Name Heel slides Side bilateral Reps/Minutes 15x 2 Hip AB Supine Exercise Name Hip AB Side left Reps/Minutes 15x 2 Comments Cuing to lead with heel during ex SLR Supine Exercise Name SLR (without shoes) Side left Reps/Minutes 15x, 10x Standing Exercises Quad stretch Standing Exercise Name Quad stretch Side bilateral Reps/Minutes 4' Hip Ext Standing Exercise Name Hip Ext Side bilateral Reps/Minutes 10x 2 Comments Cuing to keep toes DF'd and forward, and knee straight Hip AB Standing Exercise Name Hip AB Side bilateral Reps/Minutes 15x, 10x each Toe Raises Standing Exercise Name Toe raises > single toe raise w/glut squeeze Side bilateral Reps/Minutes 15x 2 Heel slides Standing Exercise Name Heel raises Side bilateral Reps/Minutes 15x 2 Doorway Glut sets Standing Exercise Name Pushing off of L toe during toe off phase of gait Side bilateral Reps/Minutes 5' Comments Cuing to tighten gluts when going up on toes Self-Care/Home Management Treatment Education Patient Education Home Exercise Program Other Education Educated pt on progression of ex with goal of 10x 3 or 15x 2 reps. Pt adjusted the reps on her HEP handouts. Pt redescribed her HEP for single toe lifts. PT-OP-T Assessment and Plan Start: 03/11/22 19:44 Freq: Status: Active Protocol: Document 03/23/22 14:35 LRN (Rec: 03/23/22 16:38 LRN [id number]) Physical Therapy Assessment Goals Four Impairment Decreased balance due to poor LLE weight bearing tolerance Impairment Decreased balance from walking with legs spread apart. Pt not able to SLS on L LE due to pain and weakness. Short Term Goal (STG) Pt will be able to walk with a normal gait. STG Duration 03/30/22 Pathology Laboratory Director Goal (LTG) Improve L SLS to 10 secs or greater LTG Duration 06/14/22 Three Impairment L hip weakness Short Term Goal (STG) Improve L hip strength 3+/5 or better strength on the left promoting improved ability to ambulate with a normal gait without use of assistive device. STG Duration 04/09/22 [facility] Goal (LTG) Improve L hip strength with pt will be able to walk up and downhills in neighborhood ( driveway is a hill) without use of a cane. LTG Duration 06/14/22 Two Impairment Decreased L hip mobility decreasing function Impairment LEFS score of 42 (40-59% impaired, score 32-47) Short Term Goal (STG) Improve hip mobility (flex/ER) with pt able to tie own shoes STG Duration 04/20/22 [facility] Goal (LTG) Improve L hip mobility with improved function per LEFS score > 47 (20-39% impairee, score 48-62) LTG Duration 06/14/22 One Impairment Lacks appropriate self care HEP Short Term Goal (STG) Pt will be educated in precautions of movement to avoid dislocation for a posterior SHWETHA. STG Duration 03/26/22 Pathology Laboratory Director Goal (LTG) Pt will be independent in a self care HEP of progressive hip and balance exercises. LTG Duration 06/14/22 Assessment Summary Assessment Pt very weak in legs, atrophy of gluteals. Strength improving with hip AB and flex . Pt having more pain in the L anterior hip with ex's, due to pt actively hip flexing during supine hip AB. Pt is now more aware to not lift leg with ex's and recommended pt to use cryotherapy Physical Therapy Plan Frequency and Duration Frequency of Treatment 2x/Week Plan of Care Start Date 03/16/22 Plan of Care End Date 06/14/22 Next Visit Focus/Plan Next Note Type Treatment Note Next Visit Plan L posterior SHWETHA rehabilitation . Review SHWETHA precautions and incr use of cryotherapy. Assess R hip mobility. Discuss aquatic therapy. Initiate HEP: L hip ER stretching (roll in/out & fig 4). Progress towards gait and balance training. Due to pt' s financial concern, transition to a HEP as soon as possible (2-3 wks) and follow up 1x/week with progression as needed for 6-8 wks.
--- NOTE | 2022-04-15 09:50 | PT.OTN ---
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 History of Current Condition 01/05/22 fractured L hip in [place]. Had L SHWETHA posterior 01/06/22. In hospital until 01/08. Had Home Health PT and has been doing ex's per Home health. Currently feels weak and not walking normal. Prior Treatments and Tests Was under posterior SHWETHA precautions. PT after home from hospital ( home health therapy 3 weeks), then returned to [facility] 5 weeks. Future Testing and Treatments Planned No more follow up othopedic visits planned. Treatment Goals Patient/Caregiver Goals Pt goal is to be able to tie own shoes and walk uphill and downhills in neighborhood ( driveway is a hill) without use of a cane. Prior Functional Status Baseline Function- ADL's Independent Baseline Function- Mobility Independent Baseline Function- Gait Walks without an assit device. Baseline Function- Other Intermittent Knees pain causing the knee to give out, before fracture. Current Functional Impairments (Reported) Functional Limitations- ADL's Can't tie shoes. Weak in hips causing pain as noticed at the end of the day walking up hill. Functional Limitations- Mobility/Gait Ambs with cane when walking hills. In home doesn't walk with an assistive device. Personal Factors Other Personal Factors That May Effect History of dizziness, Therapy/Recovery arthritis with back pain. PT-OP-C Subjective Start: 03/11/22 19:44 Freq: Status: Active Protocol: Document 04/15/22 09:03 [facility] (Rec: 04/15/22 09:49 [facility] [id number]) OP-PT Subjective Patient Comments Patient Comments Pt rerpots she has been walking 1.25 miles and now mostly has trouble just with hills. Notes stiars are difficult but mostly for her knees. Notes she is getting a referral for PT for B knees. PT-OP-E Functional Tests Start: 03/23/22 16:25 Freq: Status: Active Protocol: Document 03/23/22 14:35 LRN (Rec: 03/23/22 16:42 LR [id number]) Functional Tests 30 Second Sit to Stand Test Score 9x Comments Without use of hands, webbed chair Five Times Sit to Stand Test Score 15 secs Comments Without use of hands, webbed chair PT-OP-G Mobility & Gait Start: 03/11/22 19:44 Freq: Status: Active Protocol: Document 03/16/22 13:51 LRN (Rec: 03/16/22 19:00 LR [id number]) OP Mobility Evaluation Bed Mobility Supine to and from Sit Independent Transfers Sit to Stand Independent with knees going valgus Bed to Chair Transfers Independent OP Gait Assessment Gait Gait Assistance Required: Independent Assistive Devices Assistive Device None Gait Deviations General Gait Pattern Antalgic Comments Gait Comments Lacks weight shift and hip shift to the left on LLE stance phase. PT-OP-J Posture/Palpation/Skin Start: 03/11/22 19:44 Freq: Status: Active Protocol: Document 03/16/22 13:51 LRN (Rec: 03/16/22 19:00 LRN [id number]) Posture Evaluation Position Standing Head/C-Spine Posture Forward Head Knee Posture (L) Genu Varus,(R) Genu Varus Comments Posture Comments Slightly greater weight bearing on the RLE. PT-OP-K Range of Motion Start: 03/11/22 19:44 Freq: Status: Active Protocol: Document 03/16/22 13:51 LRN (Rec: 03/16/22 19:00 LR [id number]) Hip Goniometric Range of Motion Hip Left Active Hip ROM WFL No Testing Position Supine Straight Leg Raise 30 Abduction 15 Comments Deferred further testing due to s/p SHWETHA PT-OP-M Strength Start: 03/11/22 19:44 Freq: Status: Active Protocol: Document 03/19/22 13:48 LRN (Rec: 03/19/22 14:52 [facility] [id number]) Hip Strength Hip Manual Muscle Testing Right Flexion (L2) 3+ Fair+ Adduction 5 Normal Left Flexion (L2) 3 Fair Abduction 3- Fair- Adduction 4+ Good+ PT-OP-Q Treatments Start: 03/11/22 19:44 Freq: Status: Active Protocol: Document 04/15/22 09:03 [facility] (Rec: 04/15/22 09:49 [facility] [id number]) Therapeutic Exercises Standing Exercises step ups Side left Equipment Used 4 in step w/rail prn Reps/Minutes 15 hip flexor stretch Side bilateral Reps/Minutes 30 sec Squats Standing Exercise Name Squats - knees over ankles Reps/Minutes 15 Hip Ext Standing Exercise Name Hip Ext Side bilateral Reps/Minutes 15 Comments Cuing to keep toes DF'd and forward, and knee straight Hip AB Standing Exercise Name Hip AB Side bilateral Reps/Minutes 15 ea Toe Raises Standing Exercise Name Toe raises > single toe raise w/glut squeeze Side bilateral Reps/Minutes 15 Doorway Glut sets Standing Exercise Name Pushing off of L toe during toe off phase of gait Side left Reps/Minutes 3 min Comments Cuing to tighten gluts when going up on toes Manual Therapy Treatment Soft Tissue Mobilization scar Body Location L hip Mobilization Type Myofascial Release Intensity/Depth Superficial L hip flexor Mobilization Type Sustained Pressure Intensity/Depth Moderate Neuro Re-Education Treatment Balance Activities SLS Comments w/touchdown on counter & keeping hips level and good posture PT-OP-R Modalities Start: 03/11/22 19:44 Freq: Status: Active Protocol: Document 04/15/22 09:03 [facility] (Rec: 04/15/22 09:50 [facility] [id number]) Hot Pack/Cold Pack Treatment Cold Pack Location L hip Patient Position Hooklying Treatment Duration (minutes) 10 PT-OP-T Assessment and Plan Start: 03/11/22 19:44 Freq: Status: Active Protocol: Document 04/15/22 09:03 [facility] (Rec: 04/15/22 09:49 [facility] [id number]) Physical Therapy Assessment Goals Four Impairment Decreased balance due to poor LLE weight bearing tolerance Impairment Decreased balance from walking with legs spread apart. Pt not able to SLS on L LE due to pain and weakness. Short Term Goal (STG) Pt will be able to walk with a normal gait. STG Duration 03/30/22 [employer] Goal (LTG) Improve L SLS to 10 secs or greater LTG Duration 06/14/22 Three Impairment L hip weakness Short Term Goal (STG) Improve L hip strength 3+/5 or better strength on the left promoting improved ability to ambulate with a normal gait without use of assistive device. STG Duration 04/09/22 [facility] Living Goal (LTG) Improve L hip strength with pt will be able to walk up and downhills in neighborhood ( driveway is a hill) without use of a cane. LTG Duration 06/14/22 Two Impairment Decreased L hip mobility decreasing function Impairment LEFS score of 42 (40-59% impaired, score 32-47) Short Term Goal (STG) Improve hip mobility (flex/ER) with pt able to tie own shoes STG Duration 04/20/22 [employer] Goal (LTG) Improve L hip mobility with improved function per LEFS score > 47 (20-39% impairee, score 48-62) LTG Duration 06/14/22 One Impairment Lacks appropriate self care HEP Short Term Goal (STG) Pt will be educated in precautions of movement to avoid dislocation for a posterior SHWETHA. STG Duration 03/26/22 [employer] Goal (LTG) Pt will be independent in a self care HEP of progressive hip and balance exercises. LTG Duration 06/14/22 Assessment Summary Assessment Pt did well with exercises but did require some cueing for standing exercises as she is not doing them as much as supine exercises. Hip flexor is tight on L side and may be contributing to L ant hip discomfort. Physical Therapy Plan Frequency and Duration Frequency of Treatment 2x/Week Plan of Care Start Date 03/16/22 Plan of Care End Date 06/14/22 Next Visit Focus/Plan Next Note Type Treatment Note Next Visit Plan L posterior SHWETHA rehabilitation . Review SHWETHA precautions and incr use of cryotherapy. Assess R hip mobility. Discuss aquatic therapy. Initiate HEP: L hip ER stretching (roll in/out & fig 4). Progress towards gait and balance training. Due to pt' s financial concern, transition to a HEP as soon as possible (2-3 wks) and follow up 1x/week with progression as needed for 6-8 wks.
--- NOTE | 2022-04-20 09:49 | PT.OTN ---
Current Diagnoses Presence of left artificial hip joint (04/20/22) Physical Therapy Treatment Note PT-OP-A Visit Information Start: 03/11/22 19:44 Freq: Status: Active Protocol: Document 04/20/22 09:07 SP (Rec: 04/20/22 09:51 SP [id number]) Out-Patient Physical Therapy Visit Information Visit Information Visit Type Treatment Note Visit Start Time 09:07 Visit Stop Time 09:49 Total Visit Minutes 42 Visit Number 5 Number of CPR INSTRUCTOR Visits 1 Evaluation Information Evaluation Date 03/16/22 Precautions Precautions L posterior SHWETHA. Osteopenia, depression, arthritis, dizziness. PT-OP-B Current Condition Start: 03/11/22 19:44 Freq: Status: Active Protocol: Document 03/16/22 13:51 LRN (Rec: 03/16/22 19:00 LRN [id number]) Current Condition History of Current Condition Onset Date 01/05/22 Current Complaints L hip pain, weak, walking not normal, pain with inclines. History of Current Condition 01/05/22 fractured L hip in [place]. Had L SHWETHA posterior 01/06/22. In hospital until 01/08. Had Home Health PT and has been doing ex's per Home health. Currently feels weak and not walking normal. Prior Treatments and Tests Was under posterior SHWETHA precautions. PT after home from hospital ( home health therapy 3 weeks), then returned to [facility] 5 weeks. Future Testing and Treatments Planned No more follow up othopedic visits planned. Treatment Goals Patient/Caregiver Goals Pt goal is to be able to tie own shoes and walk uphill and downhills in neighborhood ( driveway is a hill) without use of a cane. Prior Functional Status Baseline Function- ADL's Independent Baseline Function- Mobility Independent Baseline Function- Gait Walks without an assit device. Baseline Function- Other Intermittent Knees pain causing the knee to give out, before fracture. Current Functional Impairments (Reported) Functional Limitations- ADL's Can't tie shoes. Weak in hips causing pain as noticed at the end of the day walking up hill. Functional Limitations- Mobility/Gait Ambs with cane when walking hills. In home doesn't walk with an assistive device. Personal Factors Other Personal Factors That May Effect History of dizziness, Therapy/Recovery arthritis with back pain. PT-OP-C Subjective Start: 03/11/22 19:44 Freq: Status: Active Protocol: Document 04/20/22 09:07 SP (Rec: 04/20/22 09:51 SP [id number]) OP-PT Subjective Patient Comments Patient Comments Pt stated wanted to review L hip HEP and get updated HOs has been using old HOs from [facility]. PT-OP-E Functional Tests Start: 03/23/22 16:25 Freq: Status: Active Protocol: Document 03/23/22 14:35 LRN (Rec: 03/23/22 16:42 LRN [id number]) Functional Tests 30 Second Sit to Stand Test Score 9x Comments Without use of hands, webbed chair Five Times Sit to Stand Test Score 15 secs Comments Without use of hands, webbed chair PT-OP-G Mobility & Gait Start: 03/11/22 19:44 Freq: Status: Active Protocol: Document 03/16/22 13:51 LRN (Rec: 03/16/22 19:00 LRN [id number]) OP Mobility Evaluation Bed Mobility Supine to and from Sit Independent Transfers Sit to Stand Independent with knees going valgus Bed to Chair Transfers Independent OP Gait Assessment Gait Gait Assistance Required: Independent Assistive Devices Assistive Device None Gait Deviations General Gait Pattern Antalgic Comments Gait Comments Lacks weight shift and hip shift to the left on LLE stance phase. PT-OP-J Posture/Palpation/Skin Start: 03/11/22 19:44 Freq: Status: Active Protocol: Document 03/16/22 13:51 LRN (Rec: 03/16/22 19:00 LRN [id number]) Posture Evaluation Position Standing Head/C-Spine Posture Forward Head Knee Posture (L) Genu Varus,(R) Genu Varus Comments Posture Comments Slightly greater weight bearing on the RLE. PT-OP-K Range of Motion Start: 03/11/22 19:44 Freq: Status: Active Protocol: Document 03/16/22 13:51 LRN (Rec: 03/16/22 19:00 LRN [id number]) Hip Goniometric Range of Motion Hip Left Active Hip ROM WFL No Testing Position Supine Straight Leg Raise 30 Abduction 15 Comments Deferred further testing due to s/p SHWETHA PT-OP-M Strength Start: 03/11/22 19:44 Freq: Status: Active Protocol: Document 03/19/22 13:48 LRN (Rec: 03/19/22 14:52 LRN [id number]) Hip Strength Hip Manual Muscle Testing Right Flexion (L2) 3+ Fair+ Adduction 5 Normal Left Flexion (L2) 3 Fair Abduction 3- Fair- Adduction 4+ Good+ PT-OP-Q Treatments Start: 03/11/22 19:44 Freq: Status: Active Protocol: Document 04/20/22 09:07 SP (Rec: 04/20/22 09:51 SP [id number]) Therapeutic Exercises Supine Exercises Lisandro stretch Supine Exercise Name added toHEP Side right Reps/Minutes 30 hold x2 Comments good feedback TFL/ quad stretch Bridge Supine Exercise Name Bridge- HEP review Side bilateral Reps/Minutes 2x10 Comments cued neutral pelvis, TA awareness Hip AB Supine Exercise Name Hip AB- Side left Resistance AROM Reps/Minutes 15x 2 Comments Cuing to lead with heel during ex SLR Supine Exercise Name SLR (without shoes) Side left Reps/Minutes 15x, 10x Comments cued not higher than opp knee bent Standing Exercises wt shift LE acceptance Standing Exercise Name Reviewed HEP Resistance AROM Reps/Minutes x10 Comments cued upright posture, L hip ext push off hip abd/glut fac support w/ TA step ups Standing Exercise Name Added for HEP Side left Resistance AROM Equipment Used 4 in step w/ light rail prn Reps/Minutes 15 Comments cued L knee alignment w/ toes and glut max fac Hip Ext Standing Exercise Name Hip Ext- HEP review Side bilateral Reps/Minutes x15 Comments Cued knee straight, lead heel/ DF awareness Hip AB Standing Exercise Name Hip AB- HEP review Side bilateral Equipment Used contact chair/table Reps/Minutes 15 ea Comments cued neutral pelvis Toe Raises Standing Exercise Name Toe raises > single toe raise w/glut squeeze Side bilateral Equipment Used chair contact/ table Reps/Minutes x15 Comments cued knee alignment awareness Manual Therapy Treatment Soft Tissue Mobilization scar Body Location L hip Mobilization Type Myofascial Release Intensity/Depth Superficial Body Position Supine Comments Manual and ed self application at home L hip flexor Body Location L TFL, prox quad Mobilization Type Myofascial Release Intensity/Depth Moderate Comments Manual and ed self application Self-Care/Home Management Treatment Education Patient Education Home Exercise Program Other Education HEP review with new hand outs replace previous per Pt request: hip abd, ext, HRTR, new added last wt shift L hip ext toe off, single repeated step up rail support, Lisandro stretch, SLR, forgot add supine hip abd AROM HO give next tx. PT-OP-R Modalities Start: 03/11/22 19:44 Freq: Status: Active Protocol: Document 04/15/22 09:03 LR (Rec: 04/15/22 09:50 [facility] [id number]) Hot Pack/Cold Pack Treatment Cold Pack Location L hip Patient Position Hooklying Treatment Duration (minutes) 10 PT-OP-T Assessment and Plan Start: 03/11/22 19:44 Freq: Status: Active Protocol: Document 04/20/22 09:07 SP (Rec: 04/20/22 09:51 SP [id number]) Physical Therapy Assessment Goals Four Impairment Decreased balance due to poor LLE weight bearing tolerance Impairment Decreased balance from walking with legs spread apart. Pt not able to SLS on L LE due to pain and weakness. Short Term Goal (STG) Pt will be able to walk with a normal gait. STG Duration 03/30/22 Prison Goal (LTG) Improve L SLS to 10 secs or greater LTG Duration 06/14/22 Three Impairment L hip weakness Short Term Goal (STG) Improve L hip strength 3+/5 or better strength on the left promoting improved ability to ambulate with a normal gait without use of assistive device. STG Duration 04/09/22 [employer] Goal (LTG) Improve L hip strength with pt will be able to walk up and downhills in neighborhood ( driveway is a hill) without use of a cane. LTG Duration 06/14/22 Two Impairment Decreased L hip mobility decreasing function Impairment LEFS score of 42 (40-59% impaired, score 32-47) Short Term Goal (STG) Improve hip mobility (flex/ER) with pt able to tie own shoes STG Duration 04/20/22 [employer] Goal (LTG) Improve L hip mobility with improved function per LEFS score > 47 (20-39% impairee, score 48-62) LTG Duration 06/14/22 One Impairment Lacks appropriate self care HEP Short Term Goal (STG) Pt will be educated in precautions of movement to avoid dislocation for a posterior SHWETHA. STG Duration 03/26/22 Prison Goal (LTG) Pt will be independent in a self care HEP of progressive hip and balance exercises. 04/20/22: progressing: HEP reviewed: hip abd, ext, HRTR, new added last wt shift L hip ext toe off, single repeated step up rail support, Lisandro stretch, SLR, forgot add supine hip abd. LTG Duration 06/14/22 progressing 04/20/22 Assessment Summary Assessment Pt responded well to HEP review supine, standing with new handouts exercises for continue at home. Pt improved hip abd and glut fac, provided Lisandro stretch for TFL hip flex decrease tightness. Pt stated felt more confident with what to perform at home. Gave new wt shift mechanics for hip ext glut fac. Physical Therapy Plan Frequency and Duration Frequency of Treatment 2x/Week Plan of Care Start Date 03/16/22 Plan of Care End Date 06/14/22 Therapeutic Interventions Therapeutic Interventions Aquatic Therapy,Balance Training,Gait Training,Home Exercise Program,Manual Therapy,Neuromuscular Re- education,Patient/Caregiver Education,Self-Care/Home Management,Soft Tissue Mobilization,Therapeutic Activities,Therapeutic Exercises Modalities Cold Pack/Ice Massage,Hot Packs Next Visit Focus/Plan Next Note Type Treatment Note Next Visit Plan L posterior SHWETHA rehabilitation . Review SHWETHA precautions and incr use of cryotherapy. Assess R hip mobility. Discuss aquatic therapy. Initiate HEP: L hip ER stretching (roll in/out & fig 4). Progress towards gait and balance training. Due to pt' s financial concern, transition to a HEP as soon as possible (2-3 wks) and follow up 1x/week with progression as needed for 6-8 wks.
--- NOTE | 2022-04-27 17:38 | PT.OTN ---
Current Diagnoses Presence of left artificial hip joint (04/27/22) Physical Therapy Treatment Note PT-OP-A Visit Information Start: 03/11/22 19:44 Freq: Status: Active Protocol: Document 04/27/22 13:51 LRN (Rec: 04/27/22 14:37 LRN [id number]) Out-Patient Physical Therapy Visit Information Visit Information Visit Type Treatment Note Visit Note 05/16 Visit Start Time 13:51 Visit Stop Time 14:31 Total Visit Minutes 40 Visit Number 6 Evaluation Information Evaluation Date 03/16/22 Precautions Precautions L posterior SHWETHA. Osteopenia, depression, arthritis, dizziness. PT-OP-B Current Condition Start: 03/11/22 19:44 Freq: Status: Active Protocol: Document 03/16/22 13:51 LRN (Rec: 03/16/22 19:00 LRN [id number]) Current Condition History of Current Condition Onset Date 01/05/22 Current Complaints L hip pain, weak, walking not normal, pain with inclines. History of Current Condition 01/05/22 fractured L hip in [place]. Had L SHWETHA posterior 01/06/22. In hospital until 01/08. Had Home Health PT and has been doing ex's per Home health. Currently feels weak and not walking normal. Prior Treatments and Tests Was under posterior SHWETHA precautions. PT after home from hospital ( home health therapy 3 weeks), then returned to [facility] 5 weeks. Future Testing and Treatments Planned No more follow up othopedic visits planned. Treatment Goals Patient/Caregiver Goals Pt goal is to be able to tie own shoes and walk uphill and downhills in neighborhood ( driveway is a hill) without use of a cane. Prior Functional Status Baseline Function- ADL's Independent Baseline Function- Mobility Independent Baseline Function- Gait Walks without an assit device. Baseline Function- Other Intermittent Knees pain causing the knee to give out, before fracture. Current Functional Impairments (Reported) Functional Limitations- ADL's Can't tie shoes. Weak in hips causing pain as noticed at the end of the day walking up hill. Functional Limitations- Mobility/Gait Ambs with cane when walking hills. In home doesn't walk with an assistive device. Personal Factors Other Personal Factors That May Effect History of dizziness, Therapy/Recovery arthritis with back pain. PT-OP-C Subjective Start: 03/11/22 19:44 Freq: Status: Active Protocol: Document 04/27/22 13:51 LRN (Rec: 04/27/22 14:37 LRN [id number]) OP-PT Subjective Patient Comments Patient Comments .............. PT-OP-E Functional Tests Start: 03/23/22 16:25 Freq: Status: Active Protocol: Document 03/23/22 14:35 LRN (Rec: 03/23/22 16:42 LRN [id number]) Functional Tests 30 Second Sit to Stand Test Score 9x Comments Without use of hands, webbed chair Five Times Sit to Stand Test Score 15 secs Comments Without use of hands, webbed chair PT-OP-G Mobility & Gait Start: 03/11/22 19:44 Freq: Status: Active Protocol: Document 03/16/22 13:51 LRN (Rec: 03/16/22 19:00 LRN [id number]) OP Mobility Evaluation Bed Mobility Supine to and from Sit Independent Transfers Sit to Stand Independent with knees going valgus Bed to Chair Transfers Independent OP Gait Assessment Gait Gait Assistance Required: Independent Assistive Devices Assistive Device None Gait Deviations General Gait Pattern Antalgic Comments Gait Comments Lacks weight shift and hip shift to the left on LLE stance phase. PT-OP-J Posture/Palpation/Skin Start: 03/11/22 19:44 Freq: Status: Active Protocol: Document 03/16/22 13:51 LRN (Rec: 03/16/22 19:00 LRN [id number]) Posture Evaluation Position Standing Head/C-Spine Posture Forward Head Knee Posture (L) Genu Varus,(R) Genu Varus Comments Posture Comments Slightly greater weight bearing on the RLE. PT-OP-K Range of Motion Start: 03/11/22 19:44 Freq: Status: Active Protocol: Document 03/16/22 13:51 LRN (Rec: 03/16/22 19:00 LRN [id number]) Hip Goniometric Range of Motion Hip Left Active Hip ROM WFL No Testing Position Supine Straight Leg Raise 30 Abduction 15 Comments Deferred further testing due to s/p SHWETHA PT-OP-M Strength Start: 03/11/22 19:44 Freq: Status: Active Protocol: Document 03/19/22 13:48 LRN (Rec: 03/19/22 14:52 LRN [id number]) Hip Strength Hip Manual Muscle Testing Right Flexion (L2) 3+ Fair+ Adduction 5 Normal Left Flexion (L2) 3 Fair Abduction 3- Fair- Adduction 4+ Good+ PT-OP-Q Treatments Start: 03/11/22 19:44 Freq: Status: Active Protocol: Document 04/27/22 13:51 LRN (Rec: 04/27/22 14:37 LRN [id number]) Gym Equipment Shuttle Recovery Bilateral Squats Details Asaf Squat with flat pilow Resistance 37# Shuttle Recovery Platform Stable Reps/Time 15x 2 Unilateral Squats Details L LE Squat with flat pillow Resistance 15# Shuttle Recovery Platform Stable Reps/Time 10x, 15x. Gait Training Gait Activity Gait Description Wgt shift and upper body control Device Used Mirror Level of Assistance SBA Surface Flat/level Distance/Duration 23' Treatment Focus L Wgt shift and proper upper body control Manual Therapy Treatment Soft Tissue Mobilization scar Body Location L hip Mobilization Type Myofascial Release Intensity/Depth Superficial Body Position Supine Comments Manual and ed self application at home PT-OP-R Modalities Start: 03/11/22 19:44 Freq: Status: Active Protocol: Document 04/15/22 09:03 [facility] (Rec: 04/15/22 09:50 [facility] [id number]) Hot Pack/Cold Pack Treatment Cold Pack Location L hip Patient Position Hooklying Treatment Duration (minutes) 10 PT-OP-T Assessment and Plan Start: 03/11/22 19:44 Freq: Status: Active Protocol: Document 04/27/22 13:51 LRN (Rec: 04/27/22 14:37 LR [id number]) Physical Therapy Assessment Goals Three Impairment L hip weakness Short Term Goal (STG) Improve L hip strength 3+/5 or better strength on the left promoting improved ability to ambulate with a normal gait without use of assistive device. (04/27/22: Decreased wgt shift and IR of LLE) STG Duration 04/09/22 (04/27/22: Residential Goal (LTG) Improve L hip strength with pt will be able to walk up and downhills in neighborhood ( driveway is a hill) without use of a cane. (04/27/22: Walking around neighborhood but uncomfortable and takes cane) LTG Duration 06/14/22 (04/27/22: Progressing) Two Impairment Decreased L hip mobility decreasing function Impairment LEFS score of 42 (40-59% impaired, score 32-47) Short Term Goal (STG) Improve hip mobility (flex/ER) with pt able to tie own shoes STG Duration 04/20/22 Library Helper Goal (LTG) Improve L hip mobility with improved function per LEFS score > 47 (20-39% impairee, score 48-62) LTG Duration 06/14/22 One Impairment Lacks appropriate self care HEP Short Term Goal (STG) Pt will be educated in precautions of movement to avoid dislocation for a posterior SHWETHA. STG Duration 03/26/22 Residential Goal (LTG) Pt will be independent in a self care HEP of progressive hip and balance exercises. 04/20/22: progressing: HEP reviewed: hip abd, ext, HRTR, new added last wt shift L hip ext toe off, single repeated step up rail support, Lisandro stretch, SLR, forgot add supine hip abd. LTG Duration 06/14/22 progressing 04/20/22 Assessment Summary Assessment Pt lacks proper wgt shift to the L with gait. Stiffness and soreness of the L hip probably due to weakness and poor stabilization. Needs further hip AB strengthening and hip IR stretching. Physical Therapy Plan Frequency and Duration Frequency of Treatment 2x/Week Plan of Care Start Date 03/16/22 Plan of Care End Date 06/14/22 Next Visit Focus/Plan Next Note Type Treatment Note Next Visit Plan Decrease to 1x/week due to pt' s financial concerns. L posterior SHWETHA rehabilitation . Review SHWETHA precautions and incr use of cryotherapy. Assess R hip mobility. Discuss aquatic therapy. Initiate HEP: L hip ER stretching (roll in/out & fig 4). Progress towards gait and balance training.
--- NOTE | 2022-05-06 12:46 | PT.OTN ---
Current Diagnoses Presence of left artificial hip joint (05/06/22) Physical Therapy Treatment Note PT-OP-A Visit Information Start: 03/11/22 19:44 Freq: Status: Active Protocol: Document 05/06/22 09:57 LRN (Rec: 05/06/22 12:46 LRN [id number]) Out-Patient Physical Therapy Visit Information Visit Information Visit Type Treatment Note Visit Start Time 09:57 Visit Stop Time 10:40 Total Visit Minutes 43 Visit Number 7 Evaluation Information Evaluation Date 03/16/22 Precautions Precautions L posterior SHWETHA. Osteopenia, depression, arthritis, dizziness. PT-OP-B Current Condition Start: 03/11/22 19:44 Freq: Status: Active Protocol: Document 03/16/22 13:51 LRN (Rec: 03/16/22 19:00 LRN [id number]) Current Condition History of Current Condition Onset Date 01/05/22 Current Complaints L hip pain, weak, walking not normal, pain with inclines. History of Current Condition 01/05/22 fractured L hip in [place]. Had L SHWETHA posterior 01/06/22. In hospital until 01/08. Had Home Health PT and has been doing ex's per Home health. Currently feels weak and not walking normal. Prior Treatments and Tests Was under posterior SHWETHA precautions. PT after home from hospital ( home health therapy 3 weeks), then returned to [facility] 5 weeks. Future Testing and Treatments Planned No more follow up othopedic visits planned. Treatment Goals Patient/Caregiver Goals Pt goal is to be able to tie own shoes and walk uphill and downhills in neighborhood ( driveway is a hill) without use of a cane. Prior Functional Status Baseline Function- ADL's Independent Baseline Function- Mobility Independent Baseline Function- Gait Walks without an assit device. Baseline Function- Other Intermittent Knees pain causing the knee to give out, before fracture. Current Functional Impairments (Reported) Functional Limitations- ADL's Can't tie shoes. Weak in hips causing pain as noticed at the end of the day walking up hill. Functional Limitations- Mobility/Gait Ambs with cane when walking hills. In home doesn't walk with an assistive device. Personal Factors Other Personal Factors That May Effect History of dizziness, Therapy/Recovery arthritis with back pain. PT-OP-C Subjective Start: 03/11/22 19:44 Freq: Status: Active Protocol: Document 05/06/22 09:57 LRN (Rec: 05/06/22 12:46 LRN [id number]) OP-PT Subjective Patient Comments Patient Comments With ex's (hip AB) L hip hurts more if does too much. PT-OP-E Functional Tests Start: 03/23/22 16:25 Freq: Status: Active Protocol: Document 03/23/22 14:35 LRN (Rec: 03/23/22 16:42 LRN [id number]) Functional Tests 30 Second Sit to Stand Test Score 9x Comments Without use of hands, webbed chair Five Times Sit to Stand Test Score 15 secs Comments Without use of hands, webbed chair PT-OP-G Mobility & Gait Start: 03/11/22 19:44 Freq: Status: Active Protocol: Document 05/06/22 09:57 LRN (Rec: 05/06/22 12:46 LRN [id number]) OP Gait Assessment Comments Gait Comments Pt excessively Adducting L hip with gait to get stretch to hip AB's. PT-OP-J Posture/Palpation/Skin Start: 03/11/22 19:44 Freq: Status: Active Protocol: Document 03/16/22 13:51 LRN (Rec: 03/16/22 19:00 LRN [id number]) Posture Evaluation Position Standing Head/C-Spine Posture Forward Head Knee Posture (L) Genu Varus,(R) Genu Varus Comments Posture Comments Slightly greater weight bearing on the RLE. PT-OP-K Range of Motion Start: 03/11/22 19:44 Freq: Status: Active Protocol: Document 03/16/22 13:51 LRN (Rec: 03/16/22 19:00 LRN [id number]) Hip Goniometric Range of Motion Hip Left Active Hip ROM WFL No Testing Position Supine Straight Leg Raise 30 Abduction 15 Comments Deferred further testing due to s/p SHWETHA PT-OP-M Strength Start: 03/11/22 19:44 Freq: Status: Active Protocol: Document 03/19/22 13:48 LRN (Rec: 03/19/22 14:52 LRN [id number]) Hip Strength Hip Manual Muscle Testing Right Flexion (L2) 3+ Fair+ Adduction 5 Normal Left Flexion (L2) 3 Fair Abduction 3- Fair- Adduction 4+ Good+ PT-OP-Q Treatments Start: 03/11/22 19:44 Freq: Status: Active Protocol: Document 05/06/22 09:57 LR (Rec: 05/06/22 12:46 [facility] [id number]) Therapeutic Exercises Supine Exercises Bridge Supine Exercise Name Bridge Side bilateral Reps/Minutes 2x10 Comments cued TA tight and neutral pelvis at max lift Heel slides Supine Exercise Name L Pelvis rot awareness (patient navigator rot w/knee flex) SLR Supine Exercise Name SLR (without shoes) Side left Reps/Minutes 15x, 10x Comments cued not higher than opp knee bent Prone Exercises Hip Ext Prone Exercise Name Hip Ext/TA Side left Reps/Minutes 15x, rest 10x Comments Discomfort across sacrum, extra time to determine best position/mvmt for ex Standing Exercises Posture Training Standing Exercise Name Standing posture training - Wgt shift and stepping fwd Equipment Used Light stand pole and mirror Reps/Minutes 10' Squats Standing Exercise Name Squats - knees over ankles Reps/Minutes 3' Gait Training Gait Activity Gait Description Wgt shift & with gait: and upper body control Device Used Mirror Level of Assistance SBA Surface Flat/level Distance/Duration 5' Treatment Focus L Wgt shift and proper upper body control Manual Therapy Treatment Manual Techniques MWM L hip flex Type MWM Body Location L hip Body Position Supine Reps/Duration 16' Comments PA of L ALA with heel slide and removal PA on return. Self-Care/Home Management Treatment Education Patient Education Home Exercise Program Activities Self-Care/Home Management Activities I/S pt in active hip prone Ext strengthening, continued hip AB strengthening, GAIT: reduction in L hip AD weight shifting onto LLE and with gait. PT-OP-R Modalities Start: 03/11/22 19:44 Freq: Status: Active Protocol: Document 04/15/22 09:03 [facility] (Rec: 04/15/22 09:50 [facility] [id number]) Hot Pack/Cold Pack Treatment Cold Pack Location L hip Patient Position Hooklying Treatment Duration (minutes) 10 PT-OP-T Assessment and Plan Start: 03/11/22 19:44 Freq: Status: Active Protocol: Document 05/06/22 09:57 LR (Rec: 05/06/22 12:46 [facility] [id number]) Physical Therapy Assessment Goals Four Impairment Decreased balance due to poor LLE weight bearing tolerance Impairment Decreased balance from walking with legs spread apart. Pt not able to SLS on L LE due to pain and weakness. Short Term Goal (STG) Pt will be able to walk with a normal gait. STG Duration 03/30/22 Marine Equipment Engineer Goal (LTG) Improve L SLS to 10 secs or greater LTG Duration 06/14/22 Three Impairment L hip weakness Short Term Goal (STG) Improve L hip strength 3+/5 or better strength on the left promoting improved ability to ambulate with a normal gait without use of assistive device. (04/27/22: Decreased wgt shift and IR of LLE) STG Duration 04/09/22 (04/27/22: Marine Equipment Engineer Goal (LTG) Improve L hip strength with pt will be able to walk up and downhills in neighborhood ( driveway is a hill) without use of a cane. (04/27/22: Walking around neighborhood but uncomfortable and takes cane) LTG Duration 06/14/22 (04/27/22: Progressing) Two Impairment Decreased L hip mobility decreasing function Impairment LEFS score of 42 (40-59% impaired, score 32-47) Short Term Goal (STG) Improve hip mobility (flex/ER) with pt able to tie own shoes STG Duration 04/20/22 Snf Goal (LTG) Improve L hip mobility with improved function per LEFS score > 47 (20-39% impairee, score 48-62) LTG Duration 06/14/22 One Impairment Lacks appropriate self care HEP Short Term Goal (STG) Pt will be educated in precautions of movement to avoid dislocation for a posterior SHWETHA. STG Duration 03/26/22 Snf Goal (LTG) Pt will be independent in a self care HEP of progressive hip and balance exercises. 04/20/22: progressing: HEP reviewed: hip abd, ext, HRTR, new added last wt shift L hip ext toe off, single repeated step up rail support, Lisandro stretch, SLR, forgot add supine hip abd. LTG Duration 06/14/22 progressing 04/20/22 Progress Towards Goals Progress Comments Added HEP: prone L hip ext strengthening. Assessment Summary Assessment Weak L hip gluteals. Sacrum flexed. Poor core/pelvic stability with LE movement ( heel slide) and with stepping fwd with RLE (pelvis rotates R ); therefore weak R pelvic rot when lifting of LLE. Physical Therapy Plan Frequency and Duration Frequency of Treatment 2x/Week Plan of Care Start Date 03/16/22 Plan of Care End Date 06/14/22 Next Visit Focus/Plan Next Note Type Treatment Note Next Visit Plan Review hip ext strengthening ( prone) and core stab with L heel slide>SLR (partial lift). Decrease to 1x/week due to pt' s financial concerns. L posterior SHWETHA rehabilitation . Review SHWETHA precautions and incr use of cryotherapy. Assess R hip mobility. Discuss aquatic therapy. Initiate HEP: L hip ER stretching (roll in/out & fig 4). Progress towards gait and balance training.
--- NOTE | 2022-05-11 11:56 | PT.OTN ---
Current Diagnoses Presence of left artificial hip joint (05/11/22) Physical Therapy Treatment Note PT-OP-A Visit Information Start: 03/11/22 19:44 Freq: Status: Active Protocol: Document 05/11/22 09:09 LRN (Rec: 05/11/22 09:54 LRN [id number]) Out-Patient Physical Therapy Visit Information Visit Information Visit Type Treatment Note Visit Start Time 09:09 Visit Stop Time 09:50 Total Visit Minutes 41 Visit Number 8 Evaluation Information Evaluation Date 03/16/22 Precautions Precautions L posterior SHWETHA. Osteopenia, depression, arthritis, dizziness. PT-OP-B Current Condition Start: 03/11/22 19:44 Freq: Status: Active Protocol: Document 03/16/22 13:51 LRN (Rec: 03/16/22 19:00 LRN [id number]) Current Condition History of Current Condition Onset Date 01/05/22 Current Complaints L hip pain, weak, walking not normal, pain with inclines. History of Current Condition 01/05/22 fractured L hip in [place]. Had L SHWETHA posterior 01/06/22. In hospital until 01/08. Had Home Health PT and has been doing ex's per Home health. Currently feels weak and not walking normal. Prior Treatments and Tests Was under posterior SHWETHA precautions. PT after home from hospital ( home health therapy 3 weeks), then returned to [facility] 5 weeks. Future Testing and Treatments Planned No more follow up othopedic visits planned. Treatment Goals Patient/Caregiver Goals Pt goal is to be able to tie own shoes and walk uphill and downhills in neighborhood ( driveway is a hill) without use of a cane. Prior Functional Status Baseline Function- ADL's Independent Baseline Function- Mobility Independent Baseline Function- Gait Walks without an assit device. Baseline Function- Other Intermittent Knees pain causing the knee to give out, before fracture. Current Functional Impairments (Reported) Functional Limitations- ADL's Can't tie shoes. Weak in hips causing pain as noticed at the end of the day walking up hill. Functional Limitations- Mobility/Gait Ambs with cane when walking hills. In home doesn't walk with an assistive device. Personal Factors Other Personal Factors That May Effect History of dizziness, Therapy/Recovery arthritis with back pain. PT-OP-C Subjective Start: 03/11/22 19:44 Freq: Status: Active Protocol: Document 05/11/22 09:09 LRN (Rec: 05/11/22 11:50 LRN [id number]) OP-PT Subjective Patient Comments Patient Comments States she can better weight shift with walking. Didn't recall the prone hip ext exercise. PT-OP-E Functional Tests Start: 03/23/22 16:25 Freq: Status: Active Protocol: Document 03/23/22 14:35 LRN (Rec: 03/23/22 16:42 LRN [id number]) Functional Tests 30 Second Sit to Stand Test Score 9x Comments Without use of hands, webbed chair Five Times Sit to Stand Test Score 15 secs Comments Without use of hands, webbed chair PT-OP-G Mobility & Gait Start: 03/11/22 19:44 Freq: Status: Active Protocol: Document 05/06/22 09:57 LRN (Rec: 05/06/22 12:46 LRN [id number]) OP Gait Assessment Comments Gait Comments Pt excessively Adducting L hip with gait to get stretch to hip AB's. PT-OP-J Posture/Palpation/Skin Start: 03/11/22 19:44 Freq: Status: Active Protocol: Document 03/16/22 13:51 LRN (Rec: 03/16/22 19:00 LRN [id number]) Posture Evaluation Position Standing Head/C-Spine Posture Forward Head Knee Posture (L) Genu Varus,(R) Genu Varus Comments Posture Comments Slightly greater weight bearing on the RLE. PT-OP-K Range of Motion Start: 03/11/22 19:44 Freq: Status: Active Protocol: Document 03/16/22 13:51 LRN (Rec: 03/16/22 19:00 LRN [id number]) Hip Goniometric Range of Motion Hip Left Active Hip ROM WFL No Testing Position Supine Straight Leg Raise 30 Abduction 15 Comments Deferred further testing due to s/p SHWETHA PT-OP-M Strength Start: 03/11/22 19:44 Freq: Status: Active Protocol: Document 03/19/22 13:48 LRN (Rec: 03/19/22 14:52 LRN [id number]) Hip Strength Hip Manual Muscle Testing Right Flexion (L2) 3+ Fair+ Adduction 5 Normal Left Flexion (L2) 3 Fair Abduction 3- Fair- Adduction 4+ Good+ PT-OP-Q Treatments Start: 03/11/22 19:44 Freq: Status: Active Protocol: Document 05/11/22 09:09 LR (Rec: 05/11/22 09:54 [facility] [id number]) Therapeutic Exercises Supine Exercises TA/Hooklye>knee ext Supine Exercise Name TA/core control from hooklye to knee ext Side bilateral Reps/Minutes 11' Comments Much cuing with PT hand in back and cuing for pelvic rot TA/ball squeeze Supine Exercise Name TA w/ball squeeze Reps/Minutes 9' Comments Pt can do 1s holds, needs Prone Exercises Pelvic rot Prone Exercise Name Pelvic rot (R>L rot) awareness training Side bilateral Reps/Minutes 15' Comments Cuing at anter L hip to keep pressure at fingertips Hip Ext Prone Exercise Name Hip Ext/TA Side left Reps/Minutes 15x, rest 10x Comments Discomfort across sacrum due to poor pelvic/TA control. Sitting Exercises Trunk rot strengthening Sitting Exercise Name Hands/Gurley knee push Side bilateral Equipment Used With and without use of ball Reps/Minutes 4' Standing Exercises Pelvic Rot Standing Exercise Name Pelvic rot R>L Side bilateral Equipment Used Wall Reps/Minutes 4' Comments Cuing needed to keep shoulders agst wall and not bend knees PT-OP-R Modalities Start: 03/11/22 19:44 Freq: Status: Active Protocol: Document 04/15/22 09:03 [facility] (Rec: 04/15/22 09:50 [facility] [id number]) Hot Pack/Cold Pack Treatment Cold Pack Location L hip Patient Position Hooklying Treatment Duration (minutes) 10 PT-OP-T Assessment and Plan Start: 03/11/22 19:44 Freq: Status: Active Protocol: Document 05/11/22 09:09 LR (Rec: 05/11/22 09:54 [facility] [id number]) Physical Therapy Assessment Goals Four Impairment Decreased balance due to poor LLE weight bearing tolerance Impairment Decreased balance from walking with legs spread apart. Pt not able to SLS on L LE due to pain and weakness. Short Term Goal (STG) Pt will be able to walk with a normal gait. STG Duration 03/30/22 Horticultural Technical Officer Goal (LTG) Improve L SLS to 10 secs or greater LTG Duration 06/14/22 Three Impairment L hip weakness Short Term Goal (STG) Improve L hip strength 3+/5 or better strength on the left promoting improved ability to ambulate with a normal gait without use of assistive device. (04/27/22: Decreased wgt shift and IR of LLE) STG Duration 04/09/22 (04/27/22: Custodial Goal (LTG) Improve L hip strength with pt will be able to walk up and downhills in neighborhood ( driveway is a hill) without use of a cane. (04/27/22: Walking around neighborhood but uncomfortable and takes cane) LTG Duration 06/14/22 (04/27/22: Progressing) Two Impairment Decreased L hip mobility decreasing function Impairment LEFS score of 42 (40-59% impaired, score 32-47) Short Term Goal (STG) Improve hip mobility (flex/ER) with pt able to tie own shoes STG Duration 04/20/22 Horticultural Technical Officer Goal (LTG) Improve L hip mobility with improved function per LEFS score > 47 (20-39% impairee, score 48-62) LTG Duration 06/14/22 One Impairment Lacks appropriate self care HEP Short Term Goal (STG) Pt will be educated in precautions of movement to avoid dislocation for a posterior SHWETHA. STG Duration 03/26/22 Custodial Goal (LTG) Pt will be independent in a self care HEP of progressive hip and balance exercises. 04/20/22: progressing: HEP reviewed: hip abd, ext, HRTR, new added last wt shift L hip ext toe off, single repeated step up rail support, Lisandro stretch, SLR, forgot add supine hip abd. LTG Duration 06/14/22 progressing 04/20/22 Assessment Summary Assessment Good wgt shift with gait, but pt tends to AB her LLE during toe off to heel striike phase. Pt has difficulty holding core stable due to weak trunk/ pevlic rotation. (Pelvic R rot weaker than L). Physical Therapy Plan Frequency and Duration Frequency of Treatment 2x/Week Plan of Care Start Date 03/16/22 Plan of Care End Date 06/14/22 Next Visit Focus/Plan Next Note Type Treatment Note Next Visit Plan 1x/week due to pt's financial concerns. Discuss aquatic therapy. Assess R hip mobility (STG #2) . Review core stab with hip ext strengthening (prone) and assess core stab with L heel slide>SLR (knee ext with leg in 45 deg SLR position). Review SHWETHA precautions and incr use of cryotherapy (STG # 1). Initiate HEP: L hip ER stretching (roll in/out & fig 4). Progress towards gait and balance training. L posterior SHWETHA rehabilitation .
--- NOTE | 2022-05-11 12:00 | PT.OTN ---
Current Diagnoses Presence of left artificial hip joint (05/11/22) Physical Therapy Treatment Note PT-OP-A Visit Information Start: 03/11/22 19:44 Freq: Status: Active Protocol: Document 05/11/22 09:09 LRN (Rec: 05/11/22 09:54 LRN [id number]) Out-Patient Physical Therapy Visit Information Visit Information Visit Type Treatment Note Visit Start Time 09:09 Visit Stop Time 09:50 Total Visit Minutes 41 Visit Number 8 Evaluation Information Evaluation Date 03/16/22 Precautions Precautions L posterior SHWETHA. Osteopenia, depression, arthritis, dizziness. PT-OP-B Current Condition Start: 03/11/22 19:44 Freq: Status: Active Protocol: Document 03/16/22 13:51 LRN (Rec: 03/16/22 19:00 LRN [id number]) Current Condition History of Current Condition Onset Date 01/05/22 Current Complaints L hip pain, weak, walking not normal, pain with inclines. History of Current Condition 01/05/22 fractured L hip in [place]. Had L SHWETHA posterior 01/06/22. In hospital until 01/08. Had Home Health PT and has been doing ex's per Home health. Currently feels weak and not walking normal. Prior Treatments and Tests Was under posterior SHWETHA precautions. PT after home from hospital ( home health therapy 3 weeks), then returned to [facility] 5 weeks. Future Testing and Treatments Planned No more follow up othopedic visits planned. Treatment Goals Patient/Caregiver Goals Pt goal is to be able to tie own shoes and walk uphill and downhills in neighborhood ( driveway is a hill) without use of a cane. Prior Functional Status Baseline Function- ADL's Independent Baseline Function- Mobility Independent Baseline Function- Gait Walks without an assit device. Baseline Function- Other Intermittent Knees pain causing the knee to give out, before fracture. Current Functional Impairments (Reported) Functional Limitations- ADL's Can't tie shoes. Weak in hips causing pain as noticed at the end of the day walking up hill. Functional Limitations- Mobility/Gait Ambs with cane when walking hills. In home doesn't walk with an assistive device. Personal Factors Other Personal Factors That May Effect History of dizziness, Therapy/Recovery arthritis with back pain. PT-OP-C Subjective Start: 03/11/22 19:44 Freq: Status: Active Protocol: Document 05/11/22 09:09 LRN (Rec: 05/11/22 11:50 LRN [id number]) OP-PT Subjective Patient Comments Patient Comments States she can better weight shift with walking. Didn't recall the prone hip ext exercise. PT-OP-E Functional Tests Start: 03/23/22 16:25 Freq: Status: Active Protocol: Document 03/23/22 14:35 LRN (Rec: 03/23/22 16:42 LRN [id number]) Functional Tests 30 Second Sit to Stand Test Score 9x Comments Without use of hands, webbed chair Five Times Sit to Stand Test Score 15 secs Comments Without use of hands, webbed chair PT-OP-G Mobility & Gait Start: 03/11/22 19:44 Freq: Status: Active Protocol: Document 05/06/22 09:57 LRN (Rec: 05/06/22 12:46 LRN [id number]) OP Gait Assessment Comments Gait Comments Pt excessively Adducting L hip with gait to get stretch to hip AB's. PT-OP-J Posture/Palpation/Skin Start: 03/11/22 19:44 Freq: Status: Active Protocol: Document 03/16/22 13:51 LRN (Rec: 03/16/22 19:00 LRN [id number]) Posture Evaluation Position Standing Head/C-Spine Posture Forward Head Knee Posture (L) Genu Varus,(R) Genu Varus Comments Posture Comments Slightly greater weight bearing on the RLE. PT-OP-K Range of Motion Start: 03/11/22 19:44 Freq: Status: Active Protocol: Document 03/16/22 13:51 LRN (Rec: 03/16/22 19:00 LRN [id number]) Hip Goniometric Range of Motion Hip Left Active Hip ROM WFL No Testing Position Supine Straight Leg Raise 30 Abduction 15 Comments Deferred further testing due to s/p SHWETHA PT-OP-M Strength Start: 03/11/22 19:44 Freq: Status: Active Protocol: Document 03/19/22 13:48 LRN (Rec: 03/19/22 14:52 LRN [id number]) Hip Strength Hip Manual Muscle Testing Right Flexion (L2) 3+ Fair+ Adduction 5 Normal Left Flexion (L2) 3 Fair Abduction 3- Fair- Adduction 4+ Good+ PT-OP-Q Treatments Start: 03/11/22 19:44 Freq: Status: Active Protocol: Document 05/11/22 09:09 LR (Rec: 05/11/22 09:54 [facility] [id number]) Therapeutic Exercises Supine Exercises TA/Hooklye>knee ext Supine Exercise Name TA/core control from hooklye to knee ext Side bilateral Reps/Minutes 11' Comments Much cuing with PT hand in back and cuing for pelvic rot TA/ball squeeze Supine Exercise Name TA w/ball squeeze Reps/Minutes 9' Comments Pt can do 1s holds, needs Prone Exercises Pelvic rot Prone Exercise Name Pelvic rot (R>L rot) awareness training Side bilateral Reps/Minutes 10' Comments Cuing at anter L hip to keep pressure at fingertips Hip Ext Prone Exercise Name Hip Ext/TA Side left Reps/Minutes 15x, rest 10x Comments Discomfort across sacrum due to poor pelvic/TA control. Sitting Exercises Trunk rot strengthening Sitting Exercise Name Hands/Merrill knee push Side bilateral Equipment Used With and without use of ball Reps/Minutes 4' Standing Exercises Pelvic Rot Standing Exercise Name Pelvic rot R>L Side bilateral Equipment Used Wall Reps/Minutes 4' Comments Cuing needed to keep shoulders agst wall and not bend knees PT-OP-R Modalities Start: 03/11/22 19:44 Freq: Status: Active Protocol: Document 04/15/22 09:03 [facility] (Rec: 04/15/22 09:50 [facility] [id number]) Hot Pack/Cold Pack Treatment Cold Pack Location L hip Patient Position Hooklying Treatment Duration (minutes) 10 PT-OP-T Assessment and Plan Start: 03/11/22 19:44 Freq: Status: Active Protocol: Document 05/11/22 09:09 LR (Rec: 05/11/22 09:54 [facility] [id number]) Physical Therapy Assessment Goals Four Impairment Decreased balance due to poor LLE weight bearing tolerance Impairment Decreased balance from walking with legs spread apart. Pt not able to SLS on L LE due to pain and weakness. Short Term Goal (STG) Pt will be able to walk with a normal gait. STG Duration 03/30/22 Fire Extinguisher Repairer Goal (LTG) Improve L SLS to 10 secs or greater LTG Duration 06/14/22 Three Impairment L hip weakness Short Term Goal (STG) Improve L hip strength 3+/5 or better strength on the left promoting improved ability to ambulate with a normal gait without use of assistive device. (04/27/22: Decreased wgt shift and IR of LLE) STG Duration 04/09/22 (04/27/22: Alf Goal (LTG) Improve L hip strength with pt will be able to walk up and downhills in neighborhood ( driveway is a hill) without use of a cane. (04/27/22: Walking around neighborhood but uncomfortable and takes cane) LTG Duration 06/14/22 (04/27/22: Progressing) Two Impairment Decreased L hip mobility decreasing function Impairment LEFS score of 42 (40-59% impaired, score 32-47) Short Term Goal (STG) Improve hip mobility (flex/ER) with pt able to tie own shoes STG Duration 04/20/22 Fire Extinguisher Repairer Goal (LTG) Improve L hip mobility with improved function per LEFS score > 47 (20-39% impairee, score 48-62) LTG Duration 06/14/22 One Impairment Lacks appropriate self care HEP Short Term Goal (STG) Pt will be educated in precautions of movement to avoid dislocation for a posterior SHWETHA. STG Duration 03/26/22 Alf Goal (LTG) Pt will be independent in a self care HEP of progressive hip and balance exercises. 04/20/22: progressing: HEP reviewed: hip abd, ext, HRTR, new added last wt shift L hip ext toe off, single repeated step up rail support, Lisandro stretch, SLR, forgot add supine hip abd. LTG Duration 06/14/22 progressing 04/20/22 Assessment Summary Assessment Good wgt shift with gait, but pt tends to AB her LLE during toe off to heel striike phase. Pt has difficulty holding core stable due to weak trunk/ pevlic rotation. (Pelvic R rot weaker than L). Physical Therapy Plan Frequency and Duration Frequency of Treatment 2x/Week Plan of Care Start Date 03/16/22 Plan of Care End Date 06/14/22 Next Visit Focus/Plan Next Note Type Treatment Note Next Visit Plan 1x/week due to pt's financial concerns. Discuss aquatic therapy. Assess R hip mobility (STG #2) . Review core stab with hip ext strengthening (prone) and assess core stab with L heel slide>SLR (knee ext with leg in 45 deg SLR position). Review SHWETHA precautions and incr use of cryotherapy (STG # 1). Initiate HEP: L hip ER stretching (roll in/out & fig 4). Progress towards gait and balance training. L posterior SHWETHA rehabilitation .
--- NOTE | 2022-08-12 17:50 | PT.OPDS ---
Current Diagnoses Presence of left artificial hip joint (05/11/22) Visit Care Team Role Provider Type Kermit Galvez DO Family Provider Physician Primary Care Provider Specialty: Family Practice Address: [address] [place] [address], [id number] Email: Yumiko Larsen PA-C Attending Provider [employer] Specialist Referring Provider Specialty: Orthopedics Orthopedic Surgery Address: [address] [place] [address], [id number] Email: [email or web address] Visit Number Visit Number 8 Discharge Summary PT-OP-B Current Condition Start: 03/11/22 19:44 Freq: Status: Active Protocol: Document 03/16/22 13:51 LRN (Rec: 03/16/22 19:00 LRN [id number]) Current Condition History of Current Condition Onset Date 01/05/22 Current Complaints L hip pain, weak, walking not normal, pain with inclines. History of Current Condition 01/05/22 fractured L hip in [place]. Had L SHWETHA posterior 01/06/22. In hospital until 01/08. Had Home Health PT and has been doing ex's per Home health. Currently feels weak and not walking normal. Prior Treatments and Tests Was under posterior SHWETHA precautions. PT after home from hospital ( home health therapy 3 weeks), then returned to [facility] 5 weeks. Future Testing and Treatments Planned No more follow up othopedic visits planned. Treatment Goals Patient/Caregiver Goals Pt goal is to be able to tie own shoes and walk uphill and downhills in neighborhood ( driveway is a hill) without use of a cane. Prior Functional Status Baseline Function- ADL's Independent Baseline Function- Mobility Independent Baseline Function- Gait Walks without an assit device. Baseline Function- Other Intermittent Knees pain causing the knee to give out, before fracture. Current Functional Impairments (Reported) Functional Limitations- ADL's Can't tie shoes. Weak in hips causing pain as noticed at the end of the day walking up hill. Functional Limitations- Mobility/Gait Ambs with cane when walking hills. In home doesn't walk with an assistive device. Personal Factors Other Personal Factors That May Effect History of dizziness, Therapy/Recovery arthritis with back pain. PT-OP-C Subjective Start: 03/11/22 19:44 Freq: Status: Active Protocol: Document 05/11/22 09:09 LRN (Rec: 05/11/22 11:50 LRN [id number]) OP-PT Subjective Patient Comments Patient Comments States she can better weight shift with walking. Didn't recall the prone hip ext exercise. PT-OP-E Functional Tests Start: 03/23/22 16:25 Freq: Status: Active Protocol: Document 03/23/22 14:35 LRN (Rec: 03/23/22 16:42 LRN [id number]) Functional Tests 30 Second Sit to Stand Test Score 9x Comments Without use of hands, webbed chair Five Times Sit to Stand Test Score 15 secs Comments Without use of hands, webbed chair PT-OP-G Mobility & Gait Start: 03/11/22 19:44 Freq: Status: Active Protocol: Document 05/06/22 09:57 LRN (Rec: 05/06/22 12:46 LRN [id number]) OP Gait Assessment Comments Gait Comments Pt excessively Adducting L hip with gait to get stretch to hip AB's. PT-OP-J Posture/Palpation/Skin Start: 03/11/22 19:44 Freq: Status: Active Protocol: Document 03/16/22 13:51 LRN (Rec: 03/16/22 19:00 LRN [id number]) Posture Evaluation Position Standing Head/C-Spine Posture Forward Head Knee Posture (L) Genu Varus,(R) Genu Varus Comments Posture Comments Slightly greater weight bearing on the RLE. PT-OP-K Range of Motion Start: 03/11/22 19:44 Freq: Status: Active Protocol: Document 03/16/22 13:51 LRN (Rec: 03/16/22 19:00 LRN [id number]) Hip Goniometric Range of Motion Hip Left Active Hip ROM WFL No Testing Position Supine Straight Leg Raise 30 Abduction 15 Comments Deferred further testing due to s/p SHWETHA PT-OP-M Strength Start: 03/11/22 19:44 Freq: Status: Active Protocol: Document 03/19/22 13:48 LRN (Rec: 03/19/22 14:52 LRN [id number]) Hip Strength Hip Manual Muscle Testing Right Flexion (L2) 3+ Fair+ Adduction 5 Normal Left Flexion (L2) 3 Fair Abduction 3- Fair- Adduction 4+ Good+ PT-OP-T Assessment and Plan Start: 03/11/22 19:44 Freq: Status: Active Protocol: Document 08/12/22 17:45 LRN (Rec: 08/12/22 17:50 LRN [id number]) Physical Therapy Assessment Goals Four Impairment Decreased balance due to poor LLE weight bearing tolerance Impairment Decreased balance from walking with legs spread apart. Pt not able to SLS on L LE due to pain and weakness. Short Term Goal (STG) Pt will be able to walk with a normal gait. STG Duration 03/30/22 Goal not met, pt unavailable for final assessment. Halfway Goal (LTG) Improve L SLS to 10 secs or greater LTG Duration 06/14/22 Goal not met, pt unavailable for final assessment. Three Impairment L hip weakness Short Term Goal (STG) Improve L hip strength 3+/5 or better strength on the left promoting improved ability to ambulate with a normal gait without use of assistive device. (04/27/22: Decreased wgt shift and IR of LLE) STG Duration 04/09/22 Goal not met, pt unavailable for final assessment. Halfway Goal (LTG) Improve L hip strength with pt will be able to walk up and downhills in neighborhood ( driveway is a hill) without use of a cane. (04/27/22: Walking around neighborhood but uncomfortable and takes cane) LTG Duration 06/14/22 (04/27/22: Progressing) Two Impairment Decreased L hip mobility decreasing function Impairment LEFS score of 42 (40-59% impaired, score 32-47) Short Term Goal (STG) Improve hip mobility (flex/ER) with pt able to tie own shoes STG Duration 04/20/22 Goal not met, pt unavailable for final assessment. Halfway Goal (LTG) Improve L hip mobility with improved function per LEFS score > 47 (20-39% impairee, score 48-62) LTG Duration 06/14/22 Goal not met, pt unavailable for final assessment. One Impairment Lacks appropriate self care HEP Short Term Goal (STG) Pt will be educated in precautions of movement to avoid dislocation for a posterior SHWETHA. STG Duration 03/26/22 Goal not met, pt unavailable for final assessment. [employer] Goal (LTG) Pt will be independent in a self care HEP of progressive hip and balance exercises. 04/20/22: progressing: HEP reviewed: hip abd, ext, HRTR, new added last wt shift L hip ext toe off, single repeated step up rail support, Lisandro stretch, SLR, forgot add supine hip abd. LTG Duration 06/14/22 progressing Assessment Summary Assessment Pt was seen for 9 therapy visits. She was last seen 05/11. She called on 05/17/22 and canceled her remaining 2 PT appointments as she felt it wasn't helping and requested discharge. Pt goals were not met. Physical Therapy Plan Discharge Physical Therapy Discharge Reasons Patient Request Discharge Comments Thank you for your referral.
== END 2022-08-13 16:28 | disposition home or self-care (01) ==
LOC: PHYS 09:00
PROVIDERS: Family Provider Family Medicine; PCP Family Medicine; Referring Provider Physician Assistant; Visit Provider Physician Assistant
DX: Z96.642 Presence of left artificial hip joint (principal)
CPT/HCPCS: 97110; 97116; 97140; 97162; 97530; 97535

== ENCOUNTER → 2022-05-13 12:56 | Outpatient (CLI) | payer MEDICARE, SELFPAY ==
--- NOTE | 2022-05-13 13:02 | DIET.CONS ---
Dietary Consultation Note Assessment: 77y [address] visit for abnormal weight loss. Pt started Anatoly Diet to help with inflammation in her hands. Found being mostly gluten and dairy free helps. Pt has dropped 20# since starting this diet (attributes to less junk food). Pt got down to 111# and was worried as she has osteopenia and some osteoporosis. Pt comes with specific questions to address today. Ht: 5'2 Wt: 116# (+5# in 4w) BMI: 21.3 IBW: 120-125# Usual Day: B: small orange c almond flour muffin Sn: banana c nuts L: leftovers c gf pb cookie D: stuffed jaramillo peppers c salad, GF pizza, spaghetti and meatballs c salad, mac n cheese, eggs benedict and broccoli, meatballs and rice, chicken pankaj Sn: popcorn Pt curious about collagen peptides, iron containing foods for muscle building, GF bread and pasta alternatives, ways to gain weight that doesn't aggravate her inflammation. Pt with digestive upset from cucumbers, watermelon, raw cabbage, beans. Nutrition Diagnosis: abnormal weight loss r/t restrictive diet aeb pt BMI 21.3 after gaining 5# in a month, pt with osteopenia/porosis, pt follows mostly GF/DF and sugar-free diet for inflammation. Interventions: 1. To address pts low body weight, recc maintaining BMI 23 for bone health as pt >65yo. Nuts, seeds, olive and avocado oil good sources of calories. Recc pt add chopped nuts or almond butter to morning muffin. 2. Pt okay to eat collagen peptides, recc pt try making bone broth. 3. Recc pt try [employer] in [place] for GF breads, or [employer] for true sourdough. 4. Recc pt trial digestive enzyme with meals to see if helps digesting beans and vegetables. 5. Signed pt up for Osteoporosis Nutrition and Exercise class next week as she eats DF diet, low BMI, with osteopenia. Electronically Signed by: Estefani Story 05/13/22 13:02 Clinical Dietitian [address] [id number]
== END ==
PROVIDERS: Family Provider Family Medicine; PCP Family Medicine; Referring Provider Family Medicine; Visit Provider Family Medicine
DX: R63.4 Abnormal weight loss (principal); Z68.21 Body mass index [BMI] 21.0-21.9, adult; Z71.3 Dietary counseling and surveillance
CPT/HCPCS: 97802

== ENCOUNTER → 2022-08-27 08:04 | Outpatient (CLI) | payer MEDICARE, SELFPAY ==
--- NOTE | 2022-08-27 | DI.MG.S_ITS ---
BILATERAL DIGITAL SCREENING MAMMOGRAM 3D/2D WITH CAD: 08/27/2022 CLINICAL: Routine screening. Family history of breast cancer. Comparison is made to exams dated: 07/29/2021 mammogram, 06/20/2020 mammogram, 06/18/2019 mammogram, and 05/23/2018 mammogram - [facility]. Both breasts are heterogeneously dense, which may obscure small masses (category c / 51-75% glandular tissue). Current study was also evaluated with a Computer Aided Detection (CAD) system. There are benign post operative findings in the left breast. No significant masses, calcifications, or other findings are seen in either breast. There has been no significant interval change. IMPRESSION: BENIGN There is no mammographic evidence of malignancy. A 1 year screening mammogram is recommended. Based on the Tyrer Cuzick model (a risk assessment model) the patient's lifetime risk is 14.6% and her 10 year risk is 14.6%. According to the ACR, ACS, and NCCN guidelines, an annual breast MRI exam along with mammogram is recommended if the patient's lifetime risk is 20% or greater. This exam was interpreted at Station ID: [id number]. NOTE: For mammograms, a report in lay terms will be sent to the patient. Approximately 15% of breast malignancies will not be visualized mammographically. In the management of a palpable breast mass, a negative mammogram must not discourage biopsy of a clinically suspicious lesion. Electronically Signed By: Guillaume garcia/rui:08/27/2022 09:54:44 letter sent: Normal Exam ACR BI-RADS Category 2: Benign Finding(s) [id number]
== END ==
PROVIDERS: Family Provider Family Medicine; PCP Family Medicine; Referring Provider Family Medicine; Visit Provider Family Medicine
DX: Z12.31 Encounter for screening mammogram for malignant neoplasm of breast (principal); Z80.3 Family history of malignant neoplasm of breast
CPT/HCPCS: 77063; 77067

== ENCOUNTER → 2023-05-28 08:12 | Outpatient (CLI) | payer MEDICARE, SELFPAY | PROVIDERS: Family Provider Family Medicine; PCP Family Medicine; Visit Provider Nurse Practitioner Family | DX: R30.0 Dysuria (principal) | CPT/HCPCS: 87086 ==

== ENCOUNTER → 2023-06-06 12:42 | Outpatient (CLI) | payer MEDICARE, SELFPAY ==
[2023-06-06 14:34] LABS: Appearance Urine UA CLEAR; Bilirubin Urine UA NEGATIVE (NEGATIVE); Color Urine UA YELLOW; Glucose Urine UA NEGATIVE (Negative); Ketones Urine UA NEGATIVE (NEGATIVE); Leukocyte Esterase Urine UA NEGATIVE (NEGATIVE); Nitrite Urine UA NEGATIVE (Negative); Occult Blood Urine UA NEGATIVE (Negative); Protein Urine UA NEGATIVE (Negative); Urobilinogen Urine UA 0.2 E.U./dL (0.2)
[2023-06-06 14:35] LABS: pH Urine UA 6.5 (4.5-8.0)
[2023-06-06 14:37] LABS: Bacteria Urine None Seen; Culture Indicated Urine Cult Not Indicated; RBC Urine None Seen (0-5/HPF); Squamous Epithelial Cell Urine None Seen (0-5/HPF); Urine Comments Microscopic Normal; WBC Urine None Seen (0-5/HPF)
== END ==
PROVIDERS: Family Provider Family Medicine; PCP Family Medicine; Referring Provider Pediatrics; Visit Provider Pediatrics
DX: R30.0 Dysuria (principal)
CPT/HCPCS: 81001

== ENCOUNTER → 2023-06-09 17:07 | Outpatient (CLI) | payer MEDICARE, SELFPAY ==
--- NOTE | 2023-06-09 17:10 | DI.RAD.S_ITS ---
PROCEDURE: XR LUMBAR SPINE 2-3V INDICATIONS: disk dz? spurs? TECHNIQUE: 3 views of the lumbar spine were acquired. COMPARISON: None. FINDINGS: Bones: 5 foc-mwc-wmmqrtt vertebrae are present. 3 mm retrolisthesis L5-S1 where there is severe disc degeneration; otherwise multilevel endplate sclerosis and spurring. Mild facet joint arthropathy L5-S1.. No vertebral body compression fractures. No suspicious bony lesions. Soft tissues: Overlying bowel gas pattern is normal. No suspicious soft tissue calcifications. IMPRESSION: Multilevel lumbar spine spondylosis, most notably with severe disc degeneration at the L5-S1 level. Dictated by: Marcelo MARQUIS Interpreted: Samuel Mccormick MD on 06/09/2023 at 20:52 Transcribed by: [email or web address] on 06/09/2023 at 20:53 Approved by: Samuel Mccormick M.D. on 06/20/2023 at 17:45
[2023-06-09 17:36] LABS: Appearance Urine UA CLEAR; Bilirubin Urine UA NEGATIVE (NEGATIVE); Color Urine UA YELLOW; Glucose Urine UA NEGATIVE (Negative); Ketones Urine UA NEGATIVE (NEGATIVE); Leukocyte Esterase Urine UA NEGATIVE (NEGATIVE); Nitrite Urine UA NEGATIVE (Negative); Occult Blood Urine UA TRACE-INTACT (Negative); Protein Urine UA NEGATIVE (Negative); Specific Gravity Urine UA <=1.005 (1.000-1.035); Urobilinogen Urine UA 0.2 E.U./dL (0.2)
[2023-06-09 17:40] LABS: Add Manual Diff / Slide Review NO; Basophils Absolute Auto 100 /uL (0-100); Basophils Percent Auto 0.6 % (0-2); Eosinophils Absolute Auto 300 /uL (0-450); Eosinophils Percent Auto 2.8 % (2-4); Hematocrit 40.6 % (36-46); Hemoglobin 13.5 g/dL (12.0-16.0); Lymphocytes Absolute Auto 2400 /uL (1100-4500); Lymphocytes Percent Auto 24.3 % (25-40); Mean Corpuscular HGB Conc 33.3 % (30-36); Mean Corpuscular Hemoglobin 30.8 PG (26-34); Mean Corpuscular Volume 92.6 fL (80-100); Monocytes Absolute Auto 800 /uL (0-900); Monocytes Percent Auto 8.1 % (3-14); Neutrophils Absolute Auto 6300 /uL (1500-7000); Neutrophils Percent Auto 64.2 % (50-75); Platelet Count 384 X10^3/uL (150-400); Red Blood Cell Count 4.38 X10^6/uL (4.0-5.2); White Blood Cell Count 9.8 X10^3/uL (4.5-11.0)
[2023-06-09 17:50] LABS: Bacteria Urine None Seen; Culture Indicated Urine Cult Not Indicated; RBC Urine 0-1/HPF (0-5/HPF); Squamous Epithelial Cell Urine None Seen (0-5/HPF); WBC Urine None Seen (0-5/HPF)
[2023-06-09 17:56] LABS: Alanine Aminotransferase 20 IU/L (<35); Albumin 4.3 g/dL (3.5-5.0); Albumin Globulin Ratio 1.4 (1.0-2.8); Alkaline Phosphatase 47 U/L (38-126); Aspartate Aminotransferase 33 IU/L (14-36); BUN Creatinine Ratio 25.3 (6-22); Bilirubin Total 0.3 mg/dL (0.2-1.3); Blood Urea Nitrogen 23 mg/dL (7-17); Calcium 8.8 mg/dL (8.4-10.2); Carbon Dioxide 33 mmol/L (22-32); Chloride 101 mmol/L (98-107); Estimated Glomerular Filt Rate > 60 mL/min (>60); Globulin 3.1 g/dL (1.7-4.1); Glucose 94 mg/dL (80-110); HEMOLYSIS < 15 (0-50); Potassium 4.4 mmol/L (3.4-5.1); Sodium 137 mmol/L (137-145); Total Protein 7.4 g/dL (6.3-8.2)
[2023-06-09 18:25] LABS: TSH w/ Reflex to FT4 0.29 uIU/mL (0.47-4.68)
[2023-06-09 18:56] LABS: Free T4, Direct Thyroxine 1.05 ng/dL (0.78-2.19)
== END ==
PROVIDERS: Family Provider Family Medicine; PCP Family Medicine; Referring Provider Pediatrics; Visit Provider Pediatrics
DX: M51.37 Other intervertebral disc degeneration, lumbosacral region (principal); M47.817 Spondylosis without myelopathy or radiculopathy, lumbosacral region; M54.50 Low back pain, unspecified; R32 Unspecified urinary incontinence; G89.29 Other chronic pain
CPT/HCPCS: 36415; 72100; 80053; 81001; 84439; 84443; 85025

== ENCOUNTER → 2023-07-06 09:11 | Outpatient (CLI) | payer MEDICARE, SELFPAY ==
--- NOTE | 2023-07-06 09:12 | DI.US.S_ITS ---
PROCEDURE: US RENAL COMPLETE INDICATIONS: STRESS INCONTINENCE. TECHNIQUE: Real-time scanning was performed of the kidneys and bladder, with image documentation. COMPARISON: None. FINDINGS: Kidneys: Kidneys are normal in size. Right kidney measures 10.0 cm long; left kidney measures 9.0 cm long. Right renal cortical thickness is 1.3 cm; left renal cortical thickness is 1.1 cm. Renal cortical echotexture is normal. No hydronephrosis or nephrolithiasis. No suspicious solid mass lesions. Bladder: Pre-void bladder volume is 16.7 mL. Patient unable to void. Pre-void images demonstrate no intraluminal masses or stones. On pre-void images, no ureteral jets are noted with color Doppler interrogation. (Of note, ureteral jets may not be detectable in up to 25% of cases due to insufficient differences in specific gravity between ureteral and bladder urine). Miscellaneous: No free pelvic fluid. IMPRESSION: 1. No gross abnormality is seen in bilateral kidneys or decompressed urinary bladder. Dictated by: Rex Sanchez M.D. on 07/06/2023 at 11:23 Approved by: Rex Sanchez M.D. on 07/06/2023 at 11:34
== END ==
PROVIDERS: Family Provider Family Medicine; PCP Pediatrics; Referring Provider Pediatrics; Visit Provider Pediatrics
DX: M54.50 Low back pain, unspecified (principal); G89.29 Other chronic pain; N39.42 Incontinence without sensory awareness
CPT/HCPCS: 76770

== ENCOUNTER → 2023-07-13 19:17 | Outpatient (CLI) | payer MEDICARE, SELFPAY ==
--- NOTE | 2023-07-13 19:19 | DI.MRI.S_ITS ---
PROCEDURE: MR LUMBAR SPINE WO CON INDICATIONS: Evaluate extent of degenerative disc disease TECHNIQUE: Noncontrast sagittal T1 spin echo and T2 fast echo, sagittal STIR, and T2 fast spin echo through the lumbar spine. In cases with scoliosis, additional coronal T2 fast spin echo may be performed. COMPARISON: None. FINDINGS: Image quality: Diagnostic. Alignment and Curvature: There is mild retrolisthesis seen at the L5-S1 level. Bone Marrow: Marrow is of normal overall signal. No acute vertebral body compression fractures. Spinal Cord: Conus medullaris terminates at the L1 level. Visualized cord demonstrates normal signal and size. Paraspinous Soft Tissues: No paravertebral masses. T12-L1: Normal appearance. L1-L2: The disc height is well-preserved. Loss of disc signal is seen at this level. Mild disc bulge is seen, with a central disc protrusion. No neural foraminal narrowing is seen. No significant central canal narrowing is seen. L2-L3: The disc height is well-preserved. Loss of disc signal is seen at this level. Mild disc bulge is seen, with a central/right disc extrusion, with mild superior migration of the disc material, which is best seen on series 2, image 7. No significant facet hypertrophy is seen. No significant neural foraminal narrowing. Mild central canal narrowing is seen. L3-L4: The disc height is well-preserved. Loss of disc signal is seen at this level. No significant neural foraminal or central canal narrowing can be seen. L4-L5: The disc height is well-preserved. Loss of disc signal is seen at this level. Mild generalized disc bulge is seen. No significant neural foraminal or central canal narrowing can be seen. L5-S1: At least moderate loss of disc height and disc signal can be seen. Moderate generalized disc bulge is seen. Mild facet joint hypertrophy is seen. There is [id number]-[id number] bilateral neural foraminal narrowing seen, left worse than right. Mild central canal narrowing is seen. IMPRESSION: Multiple levels of lumbar spine degenerative change can be seen, including a central/right disc extrusion at the L2-L3 level. Dictated by: Jaime Johnson M.D. on 07/14/2023 at 17:30 Approved by: Jaime Johnson M.D. on 07/14/2023 at 17:32
== END ==
PROVIDERS: Family Provider Family Medicine; PCP Pediatrics; Referring Provider Pediatrics; Visit Provider Pediatrics
DX: M47.817 Spondylosis without myelopathy or radiculopathy, lumbosacral region (principal); M51.26 Other intervertebral disc displacement, lumbar region; M47.816 Spondylosis without myelopathy or radiculopathy, lumbar region; M99.03 Segmental and somatic dysfunction of lumbar region; G89.29 Other chronic pain
CPT/HCPCS: 72148

== ENCOUNTER → 2023-09-09 08:27 | Outpatient (CLI) | payer MEDICARE, SELFPAY ==
--- NOTE | 2023-09-09 | DI.MG.S_ITS ---
BILATERAL DIGITAL SCREENING MAMMOGRAM 3D/2D WITH CAD: 09/09/2023 CLINICAL: Routine screening. Family history of breast cancer. Comparison is made to exams dated: 08/27/2022 mammogram, 07/29/2021 mammogram, and 06/20/2020 mammogram - [facility]. Both breasts are heterogeneously dense, which may obscure small masses (category c / 51-75% glandular tissue). Current study was also evaluated with a Computer Aided Detection (CAD) system. There are benign calcifications in both breasts. There also are benign post operative findings in the left breast. No significant masses, calcifications, or other findings are seen in either breast. There has been no significant interval change. IMPRESSION: BENIGN There is no mammographic evidence of malignancy. A 1 year screening mammogram is recommended. Based on the Tyrer Cuzick model (a risk assessment model) the patient's lifetime risk is 13.4% and her 10 year risk is 0.0%. According to the ACR, ACS, and NCCN guidelines, an annual breast MRI exam along with mammogram is recommended if the patient's lifetime risk is 20% or greater. This exam was interpreted at Station ID: [id number]. NOTE: For mammograms, a report in lay terms will be sent to the patient. Approximately 15% of breast malignancies will not be visualized mammographically. In the management of a palpable breast mass, a negative mammogram must not discourage biopsy of a clinically suspicious lesion. Electronically Signed By: Leo espitia/rui:09/09/2023 09:03:24 letter sent: Normal Exam ACR BI-RADS Category 2: Benign Finding(s) [id number]
--- NOTE | 2023-09-09 | DI.NM.S_ITS ---
PROCEDURE: NM BONE SCAN WHOLE BODY RADIOPHARMACEUTICAL: 21.2 mCi Tc-99m MDP IV. INDICATIONS: LOOSING OF LEFT SHWETHA TECHNIQUE: Delayed whole-body scintigrams were obtained approximately 3-4 hours after intravenous injection of radiotracer. Anterior and posterior views were acquired from vertex to feet. Additional left and right oblique views of the pelvis were obtained. COMPARISON: [facility], CR, XR PELVIS WITH BILATERAL LATERAL HIPS, 08/18/2023, 11:03. FINDINGS: No abnormal uptake of radiotracer is seen within the bones of the calvarium or bones of the face. No abnormal radiotracer uptake is seen within the cervical spine, thoracic spine, or lumbar spine. No abnormal uptake of radiotracer is seen within the sternum. No abnormal rib uptake is seen. A mild degree of symmetric uptake is seen within the region of the shoulders, which is attributed to degenerative change and is not considered to be pathologic. No abnormal uptake is seen within the upper extremities. No abnormal uptake is seen within the pelvis or within the lower extremities. Note is made of a photopenic defect corresponding to the left hip arthroplasty hardware. No abnormal uptake can be seen adjacent to the hip arthroplasty hardware. No abnormal soft tissue uptake is seen. The kidneys demonstrate normal positions. IMPRESSION: No findings of left hip arthroplasty hardware loosening. Dictated by: Jaime Johnson M.D. on 09/09/2023 at 14:14 Approved by: Jaime Johnson M.D. on 09/09/2023 at 14:15
[2023-09-09 18:28] LABS: BUN Creatinine Ratio 24.7 (6-22); Blood Urea Nitrogen 20 mg/dL (7-17); Calcium 9.6 mg/dL (8.4-10.2); Carbon Dioxide 31 mmol/L (22-32); Chloride 100 mmol/L (98-107); Estimated Glomerular Filt Rate > 60 mL/min (>60); Glucose 86 mg/dL (80-110); HEMOLYSIS 16 (0-50); Potassium 4.1 mmol/L (3.4-5.1); Sodium 139 mmol/L (137-145)
[2023-09-09 18:38] LABS: Free T3, Triiodothyronine Free 3.93 pg/mL (2.77-5.27)
== END ==
PROVIDERS: Urology; Family Provider Family Medicine; PCP Family Medicine; Referring Provider Family Medicine; Visit Provider Family Medicine
DX: Z12.31 Encounter for screening mammogram for malignant neoplasm of breast (principal); Z80.3 Family history of malignant neoplasm of breast; Z96.642 Presence of left artificial hip joint; R31.21 Asymptomatic microscopic hematuria; N39.42 Incontinence without sensory awareness; N95.1 Menopausal and female climacteric states; M54.50 Low back pain, unspecified; G89.29 Other chronic pain
CPT/HCPCS: 36415; 77063; 77067; 78306; 80048; 84481; A9503

== ENCOUNTER → 2023-09-16 14:23 | Outpatient (CLI) | payer OTHER, SELFPAY ==
--- NOTE | 2023-09-16 | DI.CT.S_ITS ---
PROCEDURE: CT IVP A/P W/WO INDICATIONS: Asymptomatic microscopic hematuria TECHNIQUE: Optional 5 mm thick noncontrast images acquired from the diaphragm to the symphysis pubis. After the administration of intravenous contrast, 5 mm thick images acquired from the diaphragm to the symphysis pubis after a 10-minute delay. 2 mm thick coronal and sagittal reformats were then performed of the kidneys and ureters. For radiation dose reduction, the following was used: automated exposure control, adjustment of mA and/or kV according to patient size. COMPARISON: None. FINDINGS: Image quality: Excellent. Lung bases: Lung bases are clear. Heart size is normal. Urinary system: Both kidneys are normal in size, without hydronephrosis or nephrolithiasis on pre-contrast images. No perinephric fat stranding. There is normal bilateral renal enhancement. Renal calyces appear normal in morphology when filled with contrast. Opacified portions of both ureters demonstrate normal caliber. Bladder wall thickness is normal. No calcified bladder stones. Other solid organs: Liver is normal in size and enhancement. Gallbladder is partially contracted . Biliary system is non dilated. Pancreas enhances normally. Spleen is normal in size and enhancement. No adrenal nodules. Peritoneum and bowel: Bowel loops demonstrate normal wall thickness and caliber. No free fluid or air. Nodes and vessels: No retroperitoneal or mesenteric adenopathy by size criteria. Aorta and inferior vena cava are normal in size. Abdominal wall: No ventral hernias. Pelvis: No pathologic free pelvic fluid. No inguinal hernias or adenopathy. Bones: No suspicious bony lesions. No vertebral body compression fractures. IMPRESSION: A source of reported painless micro hematuria is not found. No urinary tract stone is seen nor is a mass lesion found. Dictated by: Venkatesh Ag M.D. on 09/16/2023 at 17:01 Approved by: Venkatesh Ag M.D. on 09/16/2023 at 17:04
== END ==
PROVIDERS: Family Provider Family Medicine; PCP Family Medicine; Referring Provider Urology; Visit Provider Urology
DX: R31.21 Asymptomatic microscopic hematuria (principal); Z77.22 Contact with and (suspected) exposure to environmental tobacco smoke (acute) (chronic)
CPT/HCPCS: 74178; Q9967

== ENCOUNTER → 2023-10-12 13:51 | Outpatient (CLI) | payer OTHER, SELFPAY | PROVIDERS: Family Provider Family Medicine; PCP Family Medicine; Visit Provider Urology | DX: R30.0 Dysuria (principal) | CPT/HCPCS: 87086 ==

== ENCOUNTER → 2024-03-23 07:43 | Outpatient (CLI) | payer MEDICARE, SELFPAY ==
[2024-03-23 08:33] LABS: Add Manual Diff / Slide Review NO; Basophils Absolute Auto 100 /uL (0-100); Eosinophils Absolute Auto 300 /uL (0-450); Eosinophils Percent Auto 3.5 % (2-4); Hematocrit 43.2 % (36-46); Hemoglobin 14.2 g/dL (12.0-16.0); Lymphocytes Absolute Auto 1800 /uL (1100-4500); Lymphocytes Percent Auto 21.2 % (25-40); Mean Corpuscular HGB Conc 32.9 % (30-36); Mean Corpuscular Hemoglobin 30.3 PG (26-34); Mean Corpuscular Volume 92.1 fL (80-100); Monocytes Absolute Auto 800 /uL (0-900); Monocytes Percent Auto 8.9 % (3-14); Neutrophils Absolute Auto 5700 /uL (1500-7000); Neutrophils Percent Auto 65.4 % (50-75); Platelet Count 397 X10^3/uL (150-400); Red Cell Distribution Width 14.7 % (11.6-14.8); White Blood Cell Count 8.7 X10^3/uL (4.5-11.0)
[2024-03-23 15:31] LABS: TSH w/ Reflex to FT4 1.54 uIU/mL (0.47-4.68)
[2024-03-23 15:42] LABS: Alanine Aminotransferase 17 IU/L (<35); Albumin 4.3 g/dL (3.5-5.0); Albumin Globulin Ratio 1.7 (1.0-2.8); Alkaline Phosphatase 43 U/L (38-126); Aspartate Aminotransferase 32 IU/L (14-36); BUN Creatinine Ratio 28.7 (6-22); Bilirubin Total 0.7 mg/dL (0.2-1.3); Blood Urea Nitrogen 25 mg/dL (7-17); Calcium 9.1 mg/dL (8.4-10.2); Carbon Dioxide 30 mmol/L (22-32); Chloride 104 mmol/L (98-107); Cholesterol 176 mg/dL (140-199); Estimated Glomerular Filt Rate > 60 mL/min (>60); Globulin 2.5 g/dL (1.7-4.1); Glucose 94 mg/dL (80-110); HDL Cholesterol 76 mg/dL (40-60); LDL Cholesterol Calculated 83 mg/dL (<100); Sodium 139 mmol/L (137-145); Total Protein 6.8 g/dL (6.3-8.2); Triglycerides 85 mg/dL (35-150)
[2024-03-23 17:19] LABS: HEMOLYSIS < 15 (0-50); Vitamin B12 966 pg/mL (239-931)
== END ==
PROVIDERS: Family Provider Family Medicine; PCP Family Medicine; Referring Provider Family Medicine; Visit Provider Family Medicine
DX: E78.5 Hyperlipidemia, unspecified (principal); G25.0 Essential tremor; R79.89 Other specified abnormal findings of blood chemistry; R41.3 Other amnesia
CPT/HCPCS: 36415; 80053; 80061; 82607; 84443; 85025

== ENCOUNTER → 2024-04-25 15:29 | Outpatient (CLI) | payer MEDICARE, SELFPAY | PROVIDERS: Family Provider Family Medicine; PCP Family Medicine; Visit Provider Student in an Organized Health Care Education/Training Program | DX: R30.0 Dysuria (principal) | CPT/HCPCS: 87077; 87086; 87186 ==

== ENCOUNTER → 2024-05-25 15:44 | Outpatient (CLI) | payer MEDICARE, SELFPAY ==
--- NOTE | 2024-05-25 | DI.MRI.S_ITS ---
PROCEDURE: MR HEAD/BRAIN WO/W CON INDICATIONS: COGNITIVE IMPAIRMENT TECHNIQUE: Noncontrast axial T1 spin echo, axial T2 fast spin echo, sagittal and axial FLAIR, coronal T2 fast spin echo, axial gradient echo, axial diffusion and ADC through the brain. After the administration of contrast, axial and coronal and sagittal T1 spin echo with fat saturation through the brain. COMPARISON: None. FINDINGS: Image quality: Excellent. CSF spaces: Basal cisterns are patent. No extra-axial fluid collections. Ventricles are normal in size and shape. Brain: No midline shift. No intracranial bleeds or masses. No abnormal intracranial enhancement. There is cerebral volume loss for age. There is periventricular white matter chronic small vessel ischemic change. The brainstem appears normal. Diffusion-weighted images demonstrate no acute infarct. No chronic ischemic insults. Normal intravascular flow voids are present. Skull and face: Calvarial marrow is normal in signal. Orbits appear normal. Sinuses: Sinuses and mastoids appear clear. IMPRESSION: Mild microvascular change scattered within the deep white matter of each hemisphere no mass or vascular is seen. No evidence of prior trauma or stroke. Dictated by: Venkatesh gA M.D. on 05/25/2024 at 16:48 Approved by: Venkatesh Ag M.D. on 05/25/2024 at 16:49
== END ==
PROVIDERS: Family Provider Family Medicine; PCP Family Medicine; Referring Provider Psychiatry & Neurology Neurology; Visit Provider Psychiatry & Neurology Neurology
DX: R41.89 Other symptoms and signs involving cognitive functions and awareness (principal)
CPT/HCPCS: 70553; A9579

== ENCOUNTER → 2024-06-22 09:54 | Outpatient (CLI) | payer MEDICARE, SELFPAY ==
[2024-06-22 11:01] LABS: Appearance Urine UA CLEAR; Bilirubin Urine UA NEGATIVE (NEGATIVE); Color Urine UA YELLOW; Glucose Urine UA NEGATIVE (Negative); Ketones Urine UA NEGATIVE (NEGATIVE); Leukocyte Esterase Urine UA TRACE (NEGATIVE); Nitrite Urine UA NEGATIVE (Negative); Occult Blood Urine UA NEGATIVE (Negative); Protein Urine UA NEGATIVE (Negative); Specific Gravity Urine UA <=1.005 (1.000-1.035); Urobilinogen Urine UA 0.2 E.U./dL (0.2)
[2024-06-22 11:02] LABS: Urine Volume 10mL (spun)
[2024-06-22 11:03] LABS: Bacteria Urine None Seen; RBC Urine None Seen (0-5/HPF); Squamous Epithelial Cell Urine 0-1 /HPF (0-5/HPF); WBC Urine 1-5/HPF (0-5/HPF)
[2024-06-22 11:04] LABS: Culture Indicated Urine Specimen Cultured
== END ==
PROVIDERS: Family Provider Family Medicine; PCP Family Medicine; Referring Provider Urology; Visit Provider Urology
DX: N30.00 Acute cystitis without hematuria (principal)
CPT/HCPCS: 81001; 87086

== ENCOUNTER → 2024-09-12 17:47 | Outpatient (CLI) | payer MEDICARE, SELFPAY ==
--- NOTE | 2024-09-12 17:48 | DI.MG.S_ITS ---
BILATERAL DIGITAL SCREENING MAMMOGRAM 3D/2D WITH CAD: 09/12/2024 CLINICAL: Routine screening. Family history of breast cancer. Comparison is made to exams dated: 09/09/2023 mammogram, 08/27/2022 mammogram, 07/29/2021 mammogram, 06/20/2020 mammogram, and 06/18/2019 mammogram - [facility]. The breasts are heterogeneously dense, which may obscure small masses (category c / 51-75% glandular tissue). Current study was also evaluated with a Computer Aided Detection (CAD) system. There are benign post operative findings in the left breast. No significant masses, calcifications, or other findings are seen in either breast. There has been no significant interval change. IMPRESSION: BENIGN There is no mammographic evidence of malignancy. A 1 year screening mammogram is recommended. Based on the Tyrer Cuzick model (a risk assessment model) the patient's lifetime risk is 12.2% and her 10 year risk is 0.0%. According to the ACR, ACS, and NCCN guidelines, an annual breast MRI exam along with mammogram is recommended if the patient's lifetime risk is 20% or greater. This exam was interpreted at Station ID: [id number]. NOTE: For mammograms, a report in lay terms will be sent to the patient. Approximately 15% of breast malignancies will not be visualized mammographically. In the management of a palpable breast mass, a negative mammogram must not discourage biopsy of a clinically suspicious lesion. Electronically Signed By: Evonne Osorio M.D., Ph.D. gabriella/rui:09/13/2024 08:54:22 letter sent: Normal Exam ACR BI-RADS Category 2: Benign
== END ==
PROVIDERS: Family Provider Family Medicine; PCP Family Medicine; Referring Provider Family Medicine; Visit Provider Family Medicine
DX: Z12.31 Encounter for screening mammogram for malignant neoplasm of breast (principal); Z80.3 Family history of malignant neoplasm of breast; R92.333 Mammographic heterogeneous density, bilateral breasts
CPT/HCPCS: 77063; 77067

== ENCOUNTER → 2025-03-27 15:12 | Outpatient (CLI) | payer MEDICARE, SELFPAY | PROVIDERS: Family Provider Family Medicine; PCP Family Medicine; Visit Provider Chiropractor | DX: R35.0 Frequency of micturition (principal) | CPT/HCPCS: 87086 ==

== ENCOUNTER → 2025-05-16 14:16 | Outpatient (CLI) | payer MEDICARE, SELFPAY ==
--- NOTE | 2025-05-16 14:17 | DI.RAD.S_ITS ---
PROCEDURE: XR DEXA AXIAL SKELETON INDICATIONS: screening for osteoporosis progression COMPARISON: [facility], RYLEE, XR DEXA AXIAL SKELETON, 04/02/2022, 14:31. FINDINGS: Lumbar Spine: Bone mineral density 0.776 (previously 0.722) g/cm2, T score -2.5 (previously -3.0). Right Femoral Neck: Bone mineral density 0.564 (previously 0.592) g/cm2, T score -2.6 (previously -2.3). Right Hip: Bone mineral density 0.810 (previously 0.767) g/cm2, T score -1.1 (previously -1.4). Fracture Risk Calculation (when applicable): 10-year fracture risk of a major osteoporotic fracture 46 percent and of a hip fracture 32 percent. (T score greater or equal to -1.0 to: NORMAL) (T score from -1.1 to -2.4: OSTEOPENIA) (T score less than or equal to -2.5: OSTEOPOROSIS) IMPRESSION: Osteoporosis--- recommend repeat DEXA in 2 years or less for reassessment of response to treatment. Follow-up guidelines as follows: Osteoporosis: Consider a repeat DEXA and Vertebral Fracture Assessment (VFA) exam in 2 years or sooner if medically necessary, to reassess this patient's status. Osteopenia: Consider a repeat DEXA in 2-3 years to reassess this patient's status, or if there is a new clinical indication. Normal: Consider a repeat DEXA in 5 years or sooner, or if there is a new clinical indication. All treatment decisions require clinical judgment and consideration of individual patient factors, including patient preferences, comorbidities, previous drug use, risk factors not captured in the FRAX model (e.g., frailty, falls, vitamin D deficiency, increased bone turnover, interval significant decline in bone density ) and possible under- or over-estimation of fracture risk by FRAX. In addition, the NOF Guide recommends that FDA-approved medical therapies be considered in postmenopausal women and men age >= 50 years with a: * Hip or vertebral (clinical or morphometric) fracture * T-score of <=-2.5 at the spine or hip * Ten-year fracture probability by FRAX of >= 3% for hip fracture or >=20% for major osteoporotic fracture. Dictated by: Smith Shields M.D. on 05/17/2025 at 19:12 Approved by: Smith Shields M.D. on 05/17/2025 at 19:18
== END ==
PROVIDERS: PCP Family Medicine; Referring Provider Family Medicine; Visit Provider Family Medicine
DX: M81.0 Age-related osteoporosis without current pathological fracture (principal)
CPT/HCPCS: 77080

== ENCOUNTER → 2025-08-28 08:06 | Outpatient (CLI) | payer MEDICARE, SELFPAY ==
[2025-08-28 08:30] LABS: Add Manual Diff / Slide Review NO; Hematocrit 41.7 % (36-46); Hemoglobin 14.0 g/dL (12.0-16.0); Lymphocytes Absolute Auto 1900 /uL (1100-4500); Mean Corpuscular HGB Conc 33.5 % (30-36); Mean Corpuscular Hemoglobin 31.0 PG (26-34); Mean Corpuscular Volume 92.5 fL (80-100); Platelet Count 413 X10^3/uL (150-400)
[2025-08-28 09:19] LABS: Alanine Aminotransferase 17 IU/L (<35); Albumin 4.1 g/dL (3.5-5.0); Albumin Globulin Ratio 1.6 (1.0-2.8); Alkaline Phosphatase 42 U/L (38-126); Blood Urea Nitrogen 28 mg/dL (7-17); Calcium 9.4 mg/dL (8.4-10.2); Carbon Dioxide 31 mmol/L (22-32); Chloride 97 mmol/L (98-107); Cholesterol 177 mg/dL (140-199); Estimated Glomerular Filt Rate > 60 mL/min (>60); Globulin 2.6 g/dL (1.7-4.1); Glucose 95 mg/dL (70-99); HDL Cholesterol 74 mg/dL (40-60); HEMOLYSIS < 15 (0-50); Potassium 4.2 mmol/L (3.4-5.1); Sodium 133 mmol/L (137-145); Total Protein 6.7 g/dL (6.3-8.2); Triglycerides 90 mg/dL (35-150)
[2025-08-28 09:32] LABS: TSH w/ Reflex to FT4 1.29 uIU/mL (0.47-4.68)
== END ==
PROVIDERS: PCP Family Medicine; Referring Provider Family Medicine; Visit Provider Family Medicine
DX: E78.5 Hyperlipidemia, unspecified (principal); M81.0 Age-related osteoporosis without current pathological fracture; R63.5 Abnormal weight gain; R20.9 Unspecified disturbances of skin sensation
CPT/HCPCS: 36415; 80053; 80061; 84443; 85025

== ENCOUNTER → 2025-10-05 | Outpatient (CLI) | payer MEDICARE, SELFPAY ==
--- NOTE | 2025-10-05 09:00 | DI.MG.S_ITS ---
MM screening mammo BI: 10/05/2025. BI-RADS: 0 CLINICAL: 80-year old female for bilateral screening mammogram. Tyrer-Cuzick lifetime risk of 7.1%. Current reported family history of breast cancer: mother, maternal aunt and second maternal aunt. The patient had a prior left breast biopsy. PRIOR EXAMS 09/12/2024, 09/09/2023, 08/27/2022, 07/29/2021. MAMMOGRAPHY TECHNIQUE: 2D and 3D (tomosynthesis) digital mammographic views obtained, with additional images as needed for full coverage. Current study was also evaluated with a Computer Aided Detection (CAD) system. DENSITY C. The breasts are heterogeneously dense, which may obscure small masses. MAMMOGRAPHY FINDINGS Right: MLO only, Upper, Posterior depth: Asymmetry needing additional imaging evaluation. Left: No suspicious mass, asymmetry, microcalcification, or other abnormality seen. IMPRESSION: Right (Asymmetry): MLO only, Upper, Posterior depth * Incomplete - asymmetry needing additional imaging evaluation. Left * No evidence of malignancy. RECOMMENDATIONS Right: MLO only, Upper, Posterior depth * Further evaluation with diagnostic mammography and diagnostic ultrasound. Ultrasound to be performed only if needed. OVERALL ASSESSMENT CATEGORY BI-RADS-0: Incomplete - Need Additional Imaging Evaluation. ELECTRONICALLY SIGNED: Berkley Feliz M.D. on 10/07/2025 at 01:09:26 PM PT Interpreting Station ID: [id number]
== END ==
LOC: MAMMO 08:59
PROVIDERS: PCP Family Medicine; Referring Provider Family Medicine; Visit Provider Family Medicine
DX: Z12.31 Encounter for screening mammogram for malignant neoplasm of breast (principal); R92.333 Mammographic heterogeneous density, bilateral breasts; Z80.3 Family history of malignant neoplasm of breast
CPT/HCPCS: 77063; 77067

== ENCOUNTER → 2025-10-29 09:28 | Outpatient (CLI) | payer MEDICARE, SELFPAY ==
--- NOTE | 2025-10-29 09:29 | DI.MG.S_ITS ---
MM diagnostic mammo unilat RT, US breast RT limited: 10/29/2025 BI-RADS: 2 CLINICAL: 80-year old female for right diagnostic mammogram and right diagnostic breast ultrasound that is a recall from screening on 10/05/2025. Tyrer-Cuzick lifetime risk of 7.1%. Current reported family history of breast cancer: mother, maternal aunt and second maternal aunt. The patient had a prior left breast biopsy. PRIOR EXAMS 10/05/2025, 09/12/2024, 09/09/2023, 08/27/2022, 07/29/2021. MAMMOGRAPHY TECHNIQUE: 2D and 3D (tomosynthesis) digital mammographic views obtained, with additional images as needed for full coverage. Current study was also evaluated with a Computer Aided Detection (CAD) system. ULTRASOUND TECHNIQUE Real-time rivera scale and color doppler imaging of the area of clinical interest was performed with image documentation. Right targeted breast ultrasound of the area of clinical interest and the axilla was performed with image documentation. DENSITY Right: C. The breast is heterogeneously dense, which may obscure small masses. MAMMOGRAPHY FINDINGS Right (finding-1): MLO only, Upper, Posterior depth, measuring 0.7cm: Correlating with findings on screening mammogram, there is an asymmetry seen only on one view. This projects to the lateral breast on the tomosynthesis images. ULTRASOUND FINDINGS Right (finding-1): Outer at 9:00, 8 cm from nipple, measuring 0.8 x 0.6 x 0.3 cm. Previous report: MLO only, Upper: Correlating with findings on mammogram, there is a simple anechoic cyst showing posterior acoustic enhancement. Doppler shows no vascularity. Right: Axilla: No abnormal lymph nodes are seen in the axilla. IMPRESSION: Right * No evidence of malignancy with benign findings. RECOMMENDATIONS Bilateral * Annual screening mammography. COMMENTS: Findings and recommendations were conveyed to the patient during today's evaluation. OVERALL ASSESSMENT CATEGORY BI-RADS-2: Benign. [employer] recommends annual screening mammography beginning at age 40 for women with average risk of breast cancer. ELECTRONICALLY SIGNED: Berkley Feliz M.D. on 10/29/2025 at 11:01:55 AM PT Interpreting Station ID: [id number]
== END ==
LOC: MAMMO 09:29
PROVIDERS: PCP Family Medicine; Referring Provider Family Medicine; Visit Provider Family Medicine
DX: N63.10 Unspecified lump in the right breast, unspecified quadrant (principal); N60.01 Solitary cyst of right breast; R92.331 Mammographic heterogeneous density, right breast; Z80.3 Family history of malignant neoplasm of breast
CPT/HCPCS: 76642; 77065; G0279